=== PATIENT | male | born 1975 | race Two or more races ===

== ENCOUNTER 2018-01-03 10:02 | Emergency (ER) | payer OTHER, SELFPAY ==
[2018-01-03 10:07] VITALS: BP 152/106; PULSE 120; RESP 22; TEMP 37.1; O2SAT 96; BMI 21.2
--- NOTE | 2018-01-03 10:16 | CT_ITS ---
CT abdomen pelvis wo con CLINICAL INDICATION: ITS.REASON: N/V/ABD PAIN SINCE WEDNESDAY, HX OF GASTROPORESIS ORDERING PHYSICIAN: Popeye Luis MD PATIENT AGE: 42 years COMPARISON: None TECHNIQUE: Axial images obtained with sagittal and coronal reformats. PROCEDURE: Oral Contrast: None IV Contrast: None . FINDINGS: Lung bases are clear. There is mild nonspecific thickening of the distal esophagus. Prior cholecystectomy without ductal dilatation. The liver, spleen, pancreas, adrenal glands, and kidneys have an unremarkable unenhanced CT appearance. No gastric distention. No intestinal obstruction or free air. No evidence of appendicitis or diverticulitis. There is distention of the urinary bladder. The pelvis has an otherwise unremarkable appearance. No acute bony anomalies. IMPRESSION: 1. Distended urinary bladder. 2. Mild thickening of the distal esophagus nonspecific but may be seen with esophagitis/reflux 3. Otherwise negative CT abdomen and pelvis without contrast
[2018-01-03 10:31] LABS: Basophils % 0.1 % (0.1-2.0); Eosinophils % 0.2 % (0.1-12.0); Hematocrit 44.7 % (42.0-52.0); Hemoglobin 14.6 g/dL (14.1-18.0); Mean Corpuscular HGB Conc 32.7 g/dL (31.8-35.4); Mean Corpuscular Hemoglobin 29.5 pg (27.0-31.2); Mean Corpuscular Volume 90.3 fl (81-94); Mean Platelet Volume 9.6 fl (7.4-10.4); Monocytes # 0.8 K/mm3 (0.1-1.0); Monocytes % 5.3 % (1.7-9.3); Neutrophils # 12.5 K/mm3 (1.8-7.8); Neutrophils % 87.4 % (37.0-80.0); Platelet Count 296 K/mm3 (142-424); Red Blood Count 4.95 M/mm3 (4.60-6.20); Red Cell Distribution Width 12.9 % (11.5-17.5); White Blood Count 14.3 K/mm3 (4.8-10.8)
[2018-01-03 10:33] LABS: MANUAL DIFFERENTIAL MANUAL DIFFERENTIAL (MANUAL DIFF)
[2018-01-03 10:44] LABS: Alanine Aminotransferase 32 U/L (12-78); Albumin Level 4.7 gm/dL (3.4-5.0); Albumin/Globulin Ratio 1.2 (1.1-1.8); Alkaline Phosphatase 108 U/L (46-116); Amylase 117 U/L (25-125); Anion Gap 17.9 mEq/L (5-15); Aspartate Amino Transferase 20 U/L (15-37); Bilirubin,Total 0.9 mg/dL (0.2-1.0); Blood Urea Nitrogen 37 mg/dL (7-18); Calcium 10.4 mg/dL (8.5-10.1); Carbon Dioxide 29 mmol/L (21.0-32.0); Chloride 90 mmol/L (98-107); Creatinine Clearance Estimated 38 mL/min (0-300); Creatinine,Serum 1.63 mg/dL (0.70-1.30); Estimated Glomerular Filt Rate 46 ml/min (>60); GFR (African American) 56 ML/MIN (>60); Globulin 3.8 gm/dl (1.3-3.2); Lipase 88 u/L (73-393); Potassium 3.9 mmoL/L (3.5-5.1); Sodium 133 mmol/L (136-145); Total Protein,Serum 8.5 gm/dL (6.4-8.2)
[2018-01-03 10:46] LABS: Glucose 643 mg/dL (74-106)
[2018-01-03 10:58] LABS: Appearance,Urine CLEAR (Clear); Bilirubin,Urine Negative (Negative); Blood, Urine TRACE-I (Negative); Color,Urine YELLOW (Yellow); Glucose,Urine (UA) 3+ (Negative); Ketones,Urine 1+ (Negative); Leukocyte Esterase,Urine Negative (Negative); Microscopic, Urine URINE MICROSCOPIC (MICROSCOPIC); Nitrate,Urine Negative (Negative); Protein,Urine TRACE (Negative); Specific Gravity, Urine 1.015 (1.005-1.030); Urobilinogen,Urine 0.2 EU/dl (0.2)
[2018-01-03 11:04] LABS: Lymphocytes % 7 % (10-50); Monocytes % 4 % (2-9); Neutrophils % 89 % (42-76); Platelet Estimate Normal; RBC Morphology Normal; Total Cells Counted 100
[2018-01-03 11:05] LABS: Bacteria,Urine Trace /lpf
[2018-01-03 11:09] LABS: Amphetamine/Metha Screen,Urine Negative ng/mL (<1000); Barbiturates Screen,Urine Negative ng/mL (<200); Benzodiazepines Screen,Urine Negative ng/mL (200); Cannabinoid Screen,Urine Negative ng/mL (<50); Cocaine Screen,Urine Negative ng/g (<300); Methadone Screen,Urine Negative ng/mL (<300); Opiate Screen,Urine Negative ng/mL (<300); Phencyclidine Screen,Urine Negative ng/mL (<25)
--- NOTE | 2018-01-03 12:09 | HMH.EDABDPAI ---
ED Disposition Clinical Impression: Gastroparesis, Hyperglycemia Nausea & vomiting Qualifiers: Vomiting type: unspecified Vomiting Intractability: unspecified Qualified Code(s): R11.2 - Nausea with vomiting, unspecified Disposition: Home, Self-Care Condition on Discharge: Fair Instructions: DI for Acute Abdomen Additional Instructions: As discussed, increase the frequency of your meals but decrease the texture and the size (volume) of your meals. Try substituting some of your meals with shakes, as discussed. If not better follow-up with your PCP within 1-2 weeks. If any flareups in between return to the emergency room for additional workup and treatment. Time of Disposition: 17:18 - Critical Care Critical Care Time: No Attestation: On 01/03/18, the high probability of a clinically significant, sudden or life threatening deterioration of the following system(s) required my full and direct attention, intervention and personal management. The time I documented below is in addition to time spent performing reported procedures but includes the following listed in this critical care notation. Medical Decision Making - Medical Records Medical records reviewed: Yes: I reviewed the patient's medical records. Vital Signs: 01/03/18 10:07 01/03/18 18:09 Temperature 98.8 F 98.6 F Temperature Source Oral Pulse Rate 79 Pulse Rate [Left Brachial] 120 Respiratory Rate 22 18 Blood Pressure 122/86 Blood Pressure [Left Arm] 152/106 Blood Pressure Mean [Left Arm] 121 Blood Pressure Source [Left Arm] Automatic Cuff Blood Pressure Position [Left Arm] Sitting 02 Sat by Pulse Oximetry 96 Oxygen Delivery Method Room Air - Lab Data Lab results reviewed: Yes: I reviewed the patient's lab results. Lab Results 01/03/18 10:25: WBC 14.3 H, RBC 4.95, Hgb 14.6, Hct 44.7, MCV 90.3, MCH 29.5, MCHC 32.7, RDW 12.9, Plt Count 296, MPV 9.6, Neut % (Auto) 87.4 H, Lymph % (Auto) 7.0 L, [place] % (Auto) 5.3, Eos % (Auto) 0.2, Baso % (Auto) 0.1, Neut # (Auto) 12.5 H, Lymph # (Auto) 1.0, [place] # (Auto) 0.8, Eos # (Auto) 0.0, Baso # (Auto) 0.0, Total Counted 100, Neutrophils % (Manual) 89 H, Lymphocytes % (Manual) 7 L, Monocytes % (Manual) 4, Platelet Estimate Normal, RBC Morphology Normal 01/03/18 10:25: Sodium 133 L, Potassium 3.9, Chloride 90 L, Carbon Dioxide 29, Anion Gap 17.9 H, BUN 37 H, Creatinine 1.63 H, Estimated Creat Clear 38, Estimated GFR 46 L, Est GFR ( Amer) 56 L, Glucose 643 H*, Calcium 10.4 H, Total Bilirubin 0.9, AST 20, ALT 32, Alkaline Phosphatase 108, Total Protein 8.5 H, Albumin 4.7, Globulin 3.8 H, Albumin/Globulin Ratio 1.2, Amylase 117, Lipase 88 01/03/18 10:25: Influenza Type A Ag Negative, Influenza Type B Ag Negative 01/03/18 10:50: Urine Color Yellow, Urine Appearance Clear, Urine pH 5.0, Ur Specific [place] 1.015, Urine Protein Trace, Urine Glucose (UA) 3+, Urine Ketones 1+, Urine Blood Trace-i, Urine Nitrate Negative, Urine Bilirubin Negative, Urine Urobilinogen 0.2, Ur Leukocyte Esterase Negative, Urine RBC None, Urine WBC None, Ur Squamous Epith Cells 3-5, Urine Bacteria Trace 01/03/18 10:50: Urine Opiates Screen Negative, Ur Barbituates Screen Negative, Ur Phencyclidine Scrn Negative, Ur Amphetamines Screen Negative, U Methamphetamines Scrn Negative, U Benzodiazepines Scrn Negative, Urine Cocaine Screen Negative, U Marijuana (THC) Screen Negative 01/03/18 12:30: Specimen Source R radial, O2 % Room air, ABG pH 7.45, ABG pCO2 36.0, ABG pO2 69.8 L, ABG HCO3 24.5, ABG Total CO2 25.6, ABG O2 Saturation 94, ABG Base Excess 0.5, Escobar Test Acceptable 01/03/18 14:14: POC Glucose 276 Result diagrams: 01/03/18 10:25 01/03/18 10:25 Orders (Tests/Meds): ED MEDICATIONS Discontinued Medications Generic Name Dose Route Start Last Admin Trade Name Freq PRN Reason Stop Dose Admin Hydromorphone HCl 1 mg 01/03/18 14:34 01/03/18 14:39 Dilaudid 2mg/Ml Syringe IV 01/03/18 14:35 1 mg ONCE ONE Administration
[2018-01-03 12:42] LABS: ABG Base Excess 0.5 mmol/L (-2.4-2.3); ABG HCO3 24.5 mmhg (22.0-26.0); ABG Oxygen Saturation 94 % (90-100); ABG PH 7.45 mmol/L (7.35-7.45); ABG PO2 69.8 mmhg (80-100); ABG TCO2 25.6 mmhg (23-27)
[2018-01-03 12:43] LABS: Allen's Test ACCEPTABLE; Oxygen ROOM AIR %
[2018-01-03 12:44] LABS: Source R RADIAL
[2018-01-03 14:22] LABS: POC Glucose,Bedside 276 mg/dL
[2018-01-03 18:09] VITALS: BP 122/86; PULSE 79; RESP 18; TEMP 37; O2SAT 96
== END 2018-01-03 18:12 | disposition home or self-care (01) ==
PROVIDERS: Emergency Provider Emergency Medicine
DX: E11.43 Type 2 diabetes mellitus with diabetic autonomic (poly)neuropathy (principal); E11.65 Type 2 diabetes mellitus with hyperglycemia; K31.84 Gastroparesis
CPT/HCPCS: 74176; 80053; 80305; 81001; 82150; 82803; 82962; 83690; 85007; 85025; 87275; 87276; 90471; 90686; 96365; 96366; 96375; 96376; 99282; G0008; J2405

== ENCOUNTER 2018-01-04 09:21 | Observation (INO) | payer OTHER, SELFPAY ==
[2018-01-04] VITALS (7 sets, daily range): BP systolic 135–165; BP diastolic 80–105; PULSE 68–104; RESP 16–22; TEMP 36.7–37.4; O2SAT 98–100; BMI 21.2; BMI 20.5
[2018-01-04 10:24] LABS: Basophils % 0.1 % (0.1-2.0); Eosinophils % 0.1 % (0.1-12.0); Hematocrit 38.2 % (42.0-52.0); Lymphocytes % 7.5 K/mm3 (10-50); Mean Corpuscular HGB Conc 33.1 g/dL (31.8-35.4); Mean Corpuscular Hemoglobin 29.2 pg (27.0-31.2); Mean Corpuscular Volume 88.3 fl (80-94); Mean Platelet Volume 9.3 fl (7.4-10.4); Monocytes # 0.6 K/mm3 (0.1-1.0); Monocytes % 4.6 % (1.7-9.3); Neutrophils # 11.4 K/mm3 (1.8-7.8); Neutrophils % 87.7 % (37.0-80.0); Platelet Count 220 K/mm3 (142-424); Red Blood Count 4.33 M/mm3 (4.60-6.20); Red Cell Distribution Width 12.7 % (11.5-17.5); White Blood Count 12.9 K/mm3 (4.8-10.8)
[2018-01-04 10:32] LABS: Alanine Aminotransferase 34 U/L (12-78); Albumin Level 3.9 gm/dL (3.4-5.0); Albumin/Globulin Ratio 1.3 (1.1-1.8); Alkaline Phosphatase 87 U/L (46-116); Amylase 66 U/L (25-125); Anion Gap 18.1 mEq/L (5-15); Aspartate Amino Transferase 31 U/L (15-37); Bilirubin,Total 1.1 mg/dL (0.2-1.0); Blood Urea Nitrogen 21 mg/dL (7-18); Carbon Dioxide 24 mmol/L (21.0-32.0); Chloride 99 mmol/L (98-107); Creatinine Clearance Estimated 85 mL/min (0-300); Creatinine,Serum 0.85 mg/dL (0.70-1.30); Estimated Glomerular Filt Rate 98 ml/min (>60); GFR (African American) 118 ML/MIN (>60); Globulin 3.1 gm/dl (1.3-3.2); Glucose 292 mg/dL (74-106); Lipase 62 u/L (73-393); Potassium 4.1 mmoL/L (3.5-5.1); Sodium 137 mmol/L (136-145)
[2018-01-04 10:34] LABS: MANUAL DIFFERENTIAL MANUAL DIFFERENTIAL (MANUAL DIFF)
[2018-01-04 10:38] LABS: Hemoglobin 12.6 g/dL (14.1-18.0)
[2018-01-04 10:46] LABS: Calcium 8.4 mg/dL (8.5-10.1)
[2018-01-04 10:49] LABS: Lactic Acid 1.7 mmol/L (0.4-2.0)
[2018-01-04 11:01] LABS: Lymphocytes % 9 % (10-50); Monocytes % 1 % (2-9); Neutrophils % 89 % (42-76); Platelet Estimate Normal; RBC Morphology Normal; Total Cells Counted 100
--- NOTE | 2018-01-04 12:49 | HMH.EDABDPAI ---
ED Disposition Clinical Impression: Dehydration, Gastroparesis Intractable nausea and vomiting Qualifiers: Vomiting type: unspecified Qualified Code(s): R11.2 - Nausea with vomiting, unspecified Disposition: Admitted As Inpatient Condition on Discharge: Fair Time of Disposition: 11:30 - Critical Care Critical Care Time: No Attestation: On 01/04/18, the high probability of a clinically significant, sudden or life threatening deterioration of the following system(s) required my full and direct attention, intervention and personal management. The time I documented below is in addition to time spent performing reported procedures but includes the following listed in this critical care notation. Medical Decision Making - Medical Records Medical records reviewed: Yes: I reviewed the patient's medical records. Vital Signs: 01/04/18 09:35 01/04/18 10:23 01/04/18 11:31 Temperature 99.1 F 98.6 F Temperature Source Oral Oral Pulse Rate Pulse Rate [Right Radial] 104 H 85 75 Respiratory Rate 18 20 22 Blood Pressure Blood Pressure [Right Arm] 139/105 135/80 151/98 Blood Pressure Mean [Right Arm] 116 98 115 Blood Pressure Source Blood Pressure Source [Right Arm] Automatic Cuff Automatic Cuff Automatic Cuff Blood Pressure Position Blood Pressure Position [Right Arm] Supine Sitting 02 Sat by Pulse Oximetry 99 98 99 Oxygen Delivery Method Room Air Room Air Room Air 01/04/18 11:33 Temperature 98.6 F Temperature Source Oral Pulse Rate 98 H Pulse Rate [Right Radial] Respiratory Rate 16 Blood Pressure 165/98 Blood Pressure [Right Arm] Blood Pressure Mean [Right Arm] Blood Pressure Source Automatic Cuff Blood Pressure Source [Right Arm] Blood Pressure Position Sitting Blood Pressure Position [Right Arm] 02 Sat by Pulse Oximetry Oxygen Delivery Method Room Air - Lab Data Lab results reviewed: Yes: I reviewed the patient's lab results. Lab Results 01/04/18 10:15: WBC 12.9 H, RBC 4.33 L, Hgb 12.6 L D, Hct 38.2 L, MCV 88.3, MCH 29.2, MCHC 33.1, RDW 12.7, Plt Count 220 D, MPV 9.3, Neut % (Auto) 87.7 H, Lymph % (Auto) 7.5 L, [place] % (Auto) 4.6, Eos % (Auto) 0.1, Baso % (Auto) 0.1, Neut # (Auto) 11.4 H, Lymph # (Auto) 1.0, [place] # (Auto) 0.6, Eos # (Auto) 0.0, Baso # (Auto) 0.0, Total Counted 100, Neutrophils % (Manual) 89 H, Lymphocytes % (Manual) 9 L, Monocytes % (Manual) 1 L, Metamyelocytes % 1.0, Platelet Estimate Normal, RBC Morphology Normal 01/04/18 10:15: Sodium 137, Potassium 4.1, Chloride 99, Carbon Dioxide 24, Anion Gap 18.1 H, BUN 21 H D, Creatinine 0.85 D, Estimated Creat Clear 85, Estimated GFR 98, Est GFR ( Amer) 118 D, Glucose 292 H D, Calcium 8.4 L D, Total Bilirubin 1.1 H, AST 31 D, ALT 34, Alkaline Phosphatase 87, Total Protein 7.0, Albumin 3.9 D, Globulin 3.1, Albumin/Globulin Ratio 1.3, Amylase 66 D, Lipase 62 L 01/04/18 10:28: Lactic Acid 1.7 Result diagrams: 01/05/18 06:25 01/05/18 06:25 Orders (Tests/Meds): ED MEDICATIONS Generic Name Dose Route Start Last Admin Trade Name Freq PRN Reason Stop Dose Admin Amlodipine Besylate 5 mg 01/05/18 09:00 01/05/18 09:30 Norvasc 5mg Tablet PO 02/03/18 15:44 5 mg DAILY GAIL Administration Blood Glucose Test Strips 1 each 01/04/18 21:00 01/05/18 12:05 Fsbs (Bedside Glucose), Results Only !! FS 02/03/18 16:29 1 each ACHS GAIL Administration Lactated Ringer's 1,000 mls @ 125 mls/hr 01/04/18 20:06 01/05/18 03:13 Lactated Ringer's 1000 Ml Bag IV 02/03/18 12:59 125 mls/hr .Q8H GAIL Administration Insulin Human Lispro 0 unit 01/04/18 21:00 01/05/18 12:06 Humalog 100 Units/Ml 3ml Vial (Ssi) SQ 02/03/18 16:29 2 unit ACHS GAIL Administration Protocol Metoclopramide HCl 10 mg 01/05/18 00:30 01/05/18 14:15 Reglan 10mg/2ml Vial IVP 02/03/18 18:29 10 mg Q6H GAIL Administration Morphine Sulfate 2 mg 01/05/18 09:00 Morphine Inj 2mg/0.2ml IV 02/04/18 08:59 Q4HP IL
--- NOTE | 2018-01-04 15:11 | HMH.HP ---
*Chief complaint: Abdominal pain and vomiting <Hilary Arora - 01/04/18 15:23> *History of present illness: Mr Boyle is a 42-year-old male with a history of type 2 diabetes mellitus, hypertension, chronic constipation, and gastroparesis who presented to [facility] emergency room with severe abdominal pain and nausea and vomiting. Significant other is with him in the room and answers many of the questions. Patient began having the abdominal pain on 01/01/2018 along with nausea and vomiting. He was unable to retain food or fluid and thus he presented to [facility] emergency room on January 03, 2018 at which time he received IV fluids and medication for the discomfort and the nausea. He received instructions on eating and was discharged to home. He returned back to the emergency room this morning with the same symptoms which had not improved. He was given pain medicine, Zofran and IV fluid boluses. He was then admitted for further evaluation and treatment Mr. Boyle has a long history with abdominal pain, nausea and vomiting. He has previously been hospitalized at [facility] on several occasions as well as [facility] in [place], [place], and [facility]. He has been extensively worked up at and followed in the GI clinic with his last documented visit on 06/12/17. He was lost last hospitalized at [facility] 10/2016 after colonoscopy. He has been seen in the emergency room but has been without hospital admission since then. He has no insurance and has not been taking his medicine on a regular basis. His significant other states that she obtains medicines for him from other people. He has not been in the office of [facility] since 06/02/2017. He states he does not have the money for a visit. He cannot remember when he last took metformin. The significant other did say that when he was in the emergency room yesterday that his blood sugar was 700. She thinks that he received some insulin. Last EDG was 08/12/16 with notation of a polyp removal; Last colonoscopy was 10/14 and was normal. At the time of this exam he has just received an anti-medic as well as pain medicine and is fairly comfortable. <Hilary Arora - 01/04/18 17:20> [facility] History Medical History: Reports:: Diabetes Mellitus Type 2, Gastroesophageal Reflux Disease(GERD), Palpitations Denies:: Atherosclerotic Heart Disease, BPH, Cancer, Diabetes Mellitus Type 1, MRSA <MaiteHilary 01/04/18 15:23> Other Medical History: Reports: Arthritis <Mona Arorahy 01/04/18 17:20> Comment: Thrombophebitis; chronic constipation; hepatitis A <MaiteHilary 01/04/18 17:20> Amputation: No <AroraHilary 01/04/18 15:23> Fractures: No <AroraHilary 01/04/18 15:23> Comment: cholecystectomy; liver biopsy <MaiteHilary 01/04/18 17:20> - *Social History Educational Level: Completed High School <AroraHilary 01/04/18 15:23> Smoking Status: Never smoker <AroraHilary 01/04/18 15:23> Alcohol Intake: never <MaiteHilary 01/04/18 15:23> - Psychiatric History Expresses thoughts of harming self/others: None <AroraHilary 01/04/18 15:23> Suicide Plan Description: No Plan <MaiteHilary 01/04/18 15:23> *Family Hx:: Coronary Artery Disease, Diabetes <MaiteHilary 01/04/18 15:23> Review of Systems - Constitutional Reports body ache(s), Denies fever(s), Denies weight loss <MaiteHilary 01/04/18 15:23> Comments: He has actually gained weight <AroraHilary 01/04/18 15:23> - Eyes Reports blurry vision <AroraHilary 01/04/18 15:23> - ENT Denies headache(s), Denies sore throat <AroraHilary 01/04/18 15:23> - *Cardiovascular Denies chest pain, Denies shortness of breath <AroraHilary 01/04/18 15:23> - *Respiratory Denies chest congestion, Denies shortness of breath <AroraHilary 01/04/18 15:23> - *Gastrointestinal Reports abdominal pain, Reports coffee ground vomit, Reports heartburn, De
--- NOTE | 2018-01-04 15:19 | P.HP_ITS ---
*Chief complaint: Abdominal pain and vomiting <Hilary Arora - 01/04/18 15:23> *History of present illness: Mr Boyle is a 42-year-old male with a history of type 2 diabetes mellitus, hypertension, chronic constipation, and gastroparesis who presented to [facility] emergency room with severe abdominal pain and nausea and vomiting. Significant other is with him in the room and answers many of the questions. Patient began having the abdominal pain on 01/01/2018 along with nausea and vomiting. He was unable to retain food or fluid and thus he presented to [facility] emergency room on January 03, 2018 at which time he received IV fluids and medication for the discomfort and the nausea. He received instructions on eating and was discharged to home. He returned back to the emergency room this morning with the same symptoms which had not improved. He was given pain medicine, Zofran and IV fluid boluses. He was then admitted for further evaluation and treatment Mr. Boyle has a long history with abdominal pain, nausea and vomiting. He has previously been hospitalized at [facility] on several occasions as well as [facility] in [place], [place], and [facility]. He has been extensively worked up at and followed in the GI clinic with his last documented visit on 06/12/17. He was lost last hospitalized at [facility] 10/2016 after colonoscopy. He has been seen in the emergency room but has been without hospital admission since then. He has no insurance and has not been taking his medicine on a regular basis. His significant other states that she obtains medicines for him from other people. He has not been in the office of [facility] since 06/02. He states he does not have the money for a visit. He cannot remember when he last took metformin. The significant other did say that when he was in the emergency room yesterday that his blood sugar was 700. She thinks that he received some insulin. Last EDG was 08/12/16 with notation of a polyp removal; Last colonoscopy was and was normal. At the time of this exam he has just received an anti-medic as well as pain medicine and is fairly comfortable. <Hilary Arora - 01/04/18 17:20> [facility] History Medical History: Reports:: Diabetes Mellitus Type 2, Gastroesophageal Reflux Disease(GERD), Palpitations Denies:: Atherosclerotic Heart Disease, BPH, Cancer, Diabetes Mellitus Type 1 , MRSA <AroraHilary 01/04/18 15:23> Other Medical History: Reports: Arthritis <AroraHilary 01/04/18 17:20> Comment: Thrombophebitis; chronic constipation; hepatitis A <AroraHilary 01/04/18 17:20> Amputation: No <AroraHilary 01/04/18 15:23> Fractures: No <AroraHilary 01/04/18 15:23> Comment: cholecystectomy; liver biopsy <AroraHilary 01/04/18 17:20> - *Social History Educational Level: Completed High School <AroraHilary 01/04/18 15:23> Smoking Status: Never smoker <AroraHilary 01/04/18 15:23> Alcohol Intake: never <AroraHilary 01/04/18 15:23> - Psychiatric History Expresses thoughts of harming self/others: None <Arora,Hilary 01/04/18 15: 23> Suicide Plan Description: No Plan <AroraHilary 01/04/18 15:23> *Family Hx:: Coronary Artery Disease, Diabetes <AroraHilary 01/04/18 15:23 > Review of Systems - Constitutional Reports body ache(s), Denies fever(s), Denies weight loss <AroraHilary 05/16 15:23> Comments: He has actually gained weight <MaiteHilary 01/04/18 15:23> - Eyes Reports blurry vision <MaiteHilary 01/04/18 15:23> - ENT Denies headache(s), Denies sore throat <MaiteHilary 01/04/18 15:23> - *Cardiov
[2018-01-04 17:17] LABS: POC Glucose,Bedside 204 mg/dL
--- NOTE | 2018-01-04 18:45 | PC.NURSE ---
PATIENT ADMITTED WITH INTRACTABLE VOMITING AND NAUSEA THIS HAS BEEN GOING ON FOR ABOUT 4 DAYS NOW, PATIENT STATES ABOUT RUPAL HIS ABDOMEN STARTED HURTING, THEN BECAME SO NAUSEATED AND VOMITING EVERYTHING UP. HE HAS NOT EATEN MUCH SINCE THEN BECAUSE EVERYTHING WANTS TO COME BACK UP. A FRIEND BROUGHT HIM INTO THE ER TODAY, THEY LIVE TOGETHER, PATIENT HAS A HISTORY OF GASTROPARESIS, HE WAS ACTUALLY IN THE ER YESTERDAY WELL WITH THE SAME COMPLAINTS. PATIENT IS GETTING IVF'S AT 125ML/HR IV PAIN MEDICATION AND IV NAUSEA MEDICATION AT THIS TIME.
--- NOTE | 2018-01-04 19:54 | PC.NURSE ---
PATIENT HANDOFF REPORT WAS GIVEN TO MERISSA TRIPP.
[2018-01-04 21:36] LABS: POC Glucose,Bedside 173 mg/dL
[2018-01-05 04:40] VITALS: BP 137/85; PULSE 69; RESP 20; TEMP 36.7
[2018-01-05 06:13] LABS: POC Glucose,Bedside 168 mg/dL
[2018-01-05 07:02] LABS: Basophils % 0.3 % (0.1-2.0); Eosinophils % 0.5 % (0.1-12.0); Hematocrit 35.1 % (42.0-52.0); Hemoglobin 11.6 g/dL (14.1-18.0); Lymphocytes # 2.2 K/mm3 (0.7-4.5); Lymphocytes % 30.4 K/mm3 (10-50); Mean Corpuscular HGB Conc 32.9 g/dL (31.8-35.4); Mean Corpuscular Hemoglobin 29.5 pg (27.0-31.2); Mean Corpuscular Volume 89.4 fl (80-94); Mean Platelet Volume 9.5 fl (7.4-10.4); Monocytes # 0.4 K/mm3 (0.1-1.0); Monocytes % 5.6 % (1.7-9.3); Neutrophils # 4.5 K/mm3 (1.8-7.8); Neutrophils % 63.1 % (37.0-80.0); Platelet Count 196 K/mm3 (142-424); Red Blood Count 3.92 M/mm3 (4.60-6.20); Red Cell Distribution Width 12.5 % (11.5-17.5); White Blood Count 7.2 K/mm3 (4.8-10.8)
[2018-01-05 07:09] LABS: Alanine Aminotransferase 30 U/L (12-78); Albumin Level 3.3 gm/dL (3.4-5.0); Albumin/Globulin Ratio 1.2 (1.1-1.8); Alkaline Phosphatase 74 U/L (46-116); Anion Gap 12.4 mEq/L (5-15); Aspartate Amino Transferase 23 U/L (15-37); Bilirubin,Total 1.6 mg/dL (0.2-1.0); Blood Urea Nitrogen 18 mg/dL (7-18); Calcium 8.4 mg/dL (8.5-10.1); Carbon Dioxide 28 mmol/L (21.0-32.0); Chloride 104 mmol/L (98-107); Creatinine Clearance Estimated 100 mL/min (0-300); Estimated Glomerular Filt Rate 123 ml/min (>60); GFR (African American) 148 ML/MIN (>60); Globulin 2.7 gm/dl (1.3-3.2); Glucose 163 mg/dL (74-106); Potassium 4.4 mmoL/L (3.5-5.1); Sodium 140 mmol/L (136-145)
--- NOTE | 2018-01-05 07:31 | P.CONPHA_ITS ---
[facility] Pharmacy VTE Monitoring - Patient Demographics Admission date: 01/04/18 Report Date: 01/05/18 Time: 07:31 Allergies/Adverse Reactions: Patient Allergies codeine [CODEINE] Allergy (Unknown, Verified 01/03/18 12:09) UNKNOWN Iodinated Contrast Media - Oral and [Iodinated Contrast Media - IV Dye] Allergy (Unknown, Verified 01/03/18 12:09) TONGUE SWELLING, DIFF. TALKING lisinopril [LISINOPRIL] Allergy (Unknown, Verified 01/03/18 12:09) I-HIVES Height: 1.6 m Weight: 52.418 kg Patient Problems: Current Active Problems (This Medical Record has been edited. Action required.) Gastroparesis (Chronic) Intractable nausea and vomiting (Acute) Dehydration (Acute) Type 2 diabetes mellitus (Chronic) Abdominal pain (Acute) Medical non-compliance (Acute) - VTE Risk Labs: VTE Related Lab Results Hgb 11.6 g/dL (14.1-18.0) L 01/05/18 06:25 Hct 35.1 % (42.0-52.0) L 01/05/18 06:25 Plt Count 196 K/mm3 (142-424) 01/05/18 06:25 BUN 18 mg/dL (7-18) 01/05/18 06:25 Creatinine 0.70 mg/dL (0.70-1.30) 01/05/18 06:25 Estimated Creat Clear 100 mL/min (0-300) 01/05/18 06:25 Was VTE Risk Assessment Performed: Yes VTE Score: 1 VTE Risk Level: Very Low Risk Clinical Trial Participant: No - Prophylaxis VTE Prophylaxis Ordered?: Yes Types of VTE Prophylaxis: TEDS Knee High
[2018-01-05 07:50] VITALS: BP 151/89; PULSE 62; RESP 20; TEMP 36.8; O2SAT 98
[2018-01-05 08:00] VITALS: O2SAT 97
--- NOTE | 2018-01-05 08:06 | HMH.ACPN2 ---
<Alona Colbert - Last Filed: 01/05/18 08:06> Internal Medicine - PN: Subj *Date: 01/05/18 *Time: 08:06 Interval history: Patient states he has not vomited today. He is still nauseated. He slept well last night and is trying to eat this morning. Exam Vital signs and Labs for Last 24 Hours: Temp Pulse Resp BP Pulse Ox 98.3 F 62 20 151/89 98 01/05/18 07:50 01/05/18 07:50 01/05/18 07:50 01/05/18 07:50 01/05/18 07:50 Laboratory Results - last 24 hr 01/04/18 16:30: POC Glucose 204 01/04/18 21:24: POC Glucose 173 01/05/18 05:58: POC Glucose 168 01/05/18 06:25: WBC 7.2 D, RBC 3.92 L, Hgb 11.6 L, Hct 35.1 L, MCV 89.4, MCH 29.5, MCHC 32.9, RDW 12.5, Plt Count 196, MPV 9.5, Neut % (Auto) 63.1, Lymph % (Auto) 30.4, [place] % (Auto) 5.6, Eos % (Auto) 0.5, Baso % (Auto) 0.3, Neut # (Auto) 4.5, Lymph # (Auto) 2.2, [place] # (Auto) 0.4, Eos # (Auto) 0.0, Baso # (Auto) 0.0 01/05/18 06:25: Sodium 140, Potassium 4.4, Chloride 104, Carbon Dioxide 28, Anion Gap 12.4, BUN 18, Creatinine 0.70, Estimated Creat Clear 100, Estimated GFR 123, Est GFR ( Amer) 148 D, Glucose 163 H D, Calcium 8.4 L, Total Bilirubin 1.6 H, AST 23 D, ALT 30, Alkaline Phosphatase 74, Total Protein 6.0 L, Albumin 3.3 L D, Globulin 2.7, Albumin/Globulin Ratio 1.2 I & O for Last 24 hours: Intake & Output 01/02/18 01/03/18 01/04/18 01/05/18 11:59 11:59 11:59 11:59 Intake Total 360 / 360 Balance 360 / 360 Weight 115 lb 8.99 oz 115 lb 9 oz - Constitutional no acute distress - *Routine Respiratory Exam Present: CTA bilaterally - *Routine Cardiovascular Exam Present: RRR - *Routine Abdominal Exam Present: soft, normoactive bowel sounds, tenderness (epigastric area) - *Routine Extremities Exam Absent: edema Assessment and Plan (1) Dehydration Current visit: Yes Status: Acute Category: Medical Code(s): E86.0 - Dehydration (2) Abdominal pain Current visit: Yes Status: Acute Category: Medical Code(s): R10.9 - Unspecified abdominal pain (3) Intractable nausea and vomiting Current visit: Yes Status: Acute Qualifiers: Vomiting type: unspecified Qualified Code(s): R11.2 - Nausea with vomiting, unspecified Category: Medical Code(s): R11.2 - Nausea with vomiting, unspecified (4) Gastroparesis Current visit: Yes Status: Chronic Category: Medical Code(s): K31.84 - Gastroparesis (5) Type 2 diabetes mellitus Current visit: Yes Status: Chronic Category: Medical Code(s): E11.9 - Type 2 diabetes mellitus without complications (6) Medical non-compliance Current visit: Yes Status: Acute Category: Medical Code(s): Z91.19 - Patient's noncompliance with other medical treatment and regimen - Assessment and plan all Dx Assessment and Plan for all problems:: Vomiting has stopped. Patient is improving. We will discuss further care with Dr. Cheung. <Jermain Cheung - Last Filed: 01/05/18 08:57> Internal Medicine - PN: Subj *Date: 01/05/18 *Time: 08:56 Exam Vital signs and Labs for Last 24 Hours: Temp Pulse Resp BP Pulse Ox 98.3 F 62 20 151/89 98 01/05/18 07:50 01/05/18 07:50 01/05/18 07:50 01/05/18 07:50 01/05/18 07:50 Laboratory Results - last 24 hr 01/04/18 16:30: POC Glucose 204 01/04/18 21:24: POC Glucose 173 01/05/18 05:58: POC Glucose 168 01/05/18 06:25: WBC 7.2 D, RBC 3.92 L, Hgb 11.6 L, Hct 35.1 L, MCV 89.4, MCH 29.5, MCHC 32.9, RDW 12.5, Plt Count 196, MPV 9.5, Neut % (Auto) 63.1, Lymph % (Auto) 30.4, [place] % (Auto) 5.6, Eos % (Auto) 0.5, Baso % (Auto) 0.3, Neut # (Auto) 4.5, Lymph # (Auto) 2.2, [place] # (Auto) 0.4, Eos # (Auto) 0.0, Baso # (Auto) 0.0 01/05/18 06:25: Sodium 140, Potassium 4.4, Chloride 104, Carbon Dioxide 28, Anion Gap 12.4, BUN 18, Creatinine 0.70, Estimated Creat Clear 100, Estimated GFR 123, Est GFR ( Amer) 148 D, Glucose 163 H D, Calcium 8.4 L, Total Bilirubin 1.6 H, AST 23 D, ALT 30, Alkaline Phos
[2018-01-05 12:21] LABS: POC Glucose,Bedside 154 mg/dL
--- NOTE | 2018-01-05 14:20 | HMH.DCSUM ---
General - General Admission date: 01/04/18 <SkyeJermain alexander - 01/05/18 14:23> Discharge date: 01/05/18 <JjfelipeAlona - 01/05/18 16:00> HPI HPI: Mr Boyle is a 42-year-old male with a history of type 2 diabetes mellitus, hypertension, chronic constipation, and gastroparesis who presented to [facility] emergency room with severe abdominal pain and nausea and vomiting. Significant other is with him in the room and answers many of the questions. Patient began having the abdominal pain on 01/01/2018 along with nausea and vomiting. He was unable to retain food or fluid and thus he presented to [facility] emergency room on January 03, 2018 at which time he received IV fluids and medication for the discomfort and the nausea. He received instructions on eating and was discharged to home. He returned back to the emergency room this morning with the same symptoms which had not improved. He was given pain medicine, Zofran and IV fluid boluses. He was then admitted for further evaluation and treatment Mr. Boyle has a long history with abdominal pain, nausea and vomiting. He has previously been hospitalized at [facility] on several occasions as well as [facility] in [place], [place], and [facility]. He has been extensively worked up at and followed in the GI clinic with his last documented visit on 06/12/17. He was last hospitalized at [facility] 10/2016 after colonoscopy. He has been seen in the emergency room but has been without hospital admission since then. He has no insurance and has not been taking his medicine on a regular basis. His significant other states that she obtains medicines for him from other people. He has not been in the office of [facility] since 06/02/2017. He states he does not have the money for a visit. He cannot remember when he last took metformin. The significant other did say that when he was in the emergency room yesterday that his blood sugar was 700. She thinks that he received some insulin. Last EGD was 08/12/16 with notation of a polyp removal; Last colonoscopy was 10/14 and was normal. At the time of his initial exam he had just received an anti-emetic as well as pain medicine and was fairly comfortable. <SkyeJermain alexander Harshil - 02/21/18 21:35> Hospital Course Hospital Course: The patient was started on reglan, IVF's, and sliding scale insulin. He was also started on amlodipine for his HTN. His abdominal pain and vomiting improved. He was able to tolerate a diet and was stable to be discharged home. <Alona Colbert - 01/05/18 16:00> Objective Vital signs: Temp Pulse Resp BP Pulse Ox 98.3 F 62 20 151/89 97 01/05/18 07:50 01/05/18 07:50 01/05/18 07:50 01/05/18 07:50 01/05/18 08:00 <Alona Colbert - 01/05/18 15:55> Temp Pulse Resp BP Pulse Ox 98.3 F 62 20 151/89 97 01/05/18 07:50 01/05/18 07:50 01/05/18 07:50 01/05/18 07:50 01/05/18 08:00 <Jermain Cheung - 01/05/18 14:23> Narrative: - Constitutional no acute distress - *Routine HEENT Exam Head: Present: normocephalic, atraumatic Eye: Present: PERRL. Absent: scleral injection, conjunctivae pink ENT: Present: mucous membranes moist - *Routine Neck Exam Present: supple. Absent: carotid bruit, lymphadenopathy, thyromegaly - *Routine Respiratory Exam Present: CTA bilaterally (A and P) - *Routine Cardiovascular Exam Present: RRR (70 bpm) - *Routine Abdominal Exam Present: soft, normoactive bowel sounds, tenderness (Gastrium and left upper quadrant) - *Routine Extremities Exam Present: full ROM. Absent: edema, calf tenderness - *Routine Neurological Exam Present: alert, oriented X3 <Alona Colbert - 01/05/18 16:00> Results Labs on day of discharge: Labs from last 24 hours 01/05/18 01/05/18 01/05/18 12:04 06:25 06:25 WBC 7.2 D RBC 3.92 L Hgb 11.6 L Hct 35.1 L M
--- NOTE | 2018-01-05 14:23 | P.DS_ITS ---
General - General Admission date: 01/04/18 <SkyeJermain alexander - 01/05/18 14:23> Discharge date: 01/05/18 <JjfelipeAlona - 01/05/18 16:00> HPI HPI: Mr Boyle is a 42-year-old male with a history of type 2 diabetes mellitus, hypertension, chronic constipation, and gastroparesis who presented to [facility] emergency room with severe abdominal pain and nausea and vomiting. Significant other is with him in the room and answers many of the questions. Patient began having the abdominal pain on 01/01/2018 along with nausea and vomiting. He was unable to retain food or fluid and thus he presented to [facility] emergency room on January 03, 2018 at which time he received IV fluids and medication for the discomfort and the nausea. He received instructions on eating and was discharged to home. He returned back to the emergency room this morning with the same symptoms which had not improved. He was given pain medicine, Zofran and IV fluid boluses. He was then admitted for further evaluation and treatment Mr. Boyle has a long history with abdominal pain, nausea and vomiting. He has previously been hospitalized at [facility] on several occasions as well as [facility] in [place], [place], and [facility]. He has been extensively worked up at and followed in the GI clinic with his last documented visit on 06/12/17. He was last hospitalized at [facility] 10/2016 after colonoscopy. He has been seen in the emergency room but has been without hospital admission since then. He has no insurance and has not been taking his medicine on a regular basis. His significant other states that she obtains medicines for him from other people. He has not been in the office of [facility] since 06/02/2017. He states he does not have the money for a visit. He cannot remember when he last took metformin. The significant other did say that when he was in the emergency room yesterday that his blood sugar was 700. She thinks that he received some insulin. Last EGD was 08/12/16 with notation of a polyp removal; Last colonoscopy was and was normal. At the time of his initial exam he had just received an anti-emetic as well as pain medicine and was fairly comfortable. <SkyeJermain alexander Harshil - 02/21/18 21:35> Hospital Course Hospital Course: The patient was started on reglan, IVF's, and sliding scale insulin. He was also started on amlodipine for his HTN. His abdominal pain and vomiting improved. He was able to tolerate a diet and was stable to be discharged home. <Alona Colbert - 01/05/18 16:00> Objective Vital signs: Temp Pulse Resp BP Pulse Ox 98.3 F 62 20 151/89 97 01/05/18 07:50 01/05/18 07:50 01/05/18 07:50 01/05/18 07:50 01/05/18 08:00 <Alona Colbert - 01/05/18 15:55> Temp Pulse Resp BP Pulse Ox 98.3 F 62 20 151/89 97 01/05/18 07:50 01/05/18 07:50 01/05/18 07:50 01/05/18 07:50 01/05/18 08:00 <Jermain Cheung - 01/05/18 14:23> Narrative: - Constitutional no acute distress - *Routine HEENT Exam Head: Present: normocephalic, atraumatic Eye: Present: PERRL. Absent: scleral injection, conjunctivae pink ENT: Present: mucous membranes moist - *Routine Neck Exam Present: supple. Absent: carotid bruit, lymphadenopathy, thyromegaly - *Routine Respiratory Exam Present: CTA bilaterally (A and P) - *Routine Cardiovascular Exam Present: RRR (70 bpm) - *Routine Abdominal Exam Present: soft, normoactive bowel sounds, tenderness (
== END 2018-01-05 14:48 | disposition home or self-care (01) ==
LOC: ER 09:40 → 2ND 11:22
PROVIDERS: Nurse Practitioner Family; Admitting Provider Family Medicine; Emergency Provider Emergency Medicine; PCP Family Medicine; Visit Provider Family Medicine
DX: E86.0 Dehydration (principal); E11.43 Type 2 diabetes mellitus with diabetic autonomic (poly)neuropathy; K31.84 Gastroparesis; K59.09 Other constipation; T50.996A Underdosing of other drugs, medicaments and biological substances, initial encounter; R11.2 Nausea with vomiting, unspecified; R10.9 Unspecified abdominal pain; Z79.84 Long term (current) use of oral hypoglycemic drugs; Z79.899 Other long term (current) drug therapy; Z86.19 Personal history of other infectious and parasitic diseases; Z90.49 Acquired absence of other specified parts of digestive tract; Z91.138 Patient's unintentional underdosing of medication regimen for other reason; Z88.5 Allergy status to narcotic agent; Z88.8 Allergy status to other drugs, medicaments and biological substances; Z91.041 Radiographic dye allergy status
CPT/HCPCS: 80053; 82150; 82962; 83605; 83690; 85007; 85025; 87040; 96365; 96375; 99282; G0378; J2405

== ENCOUNTER → 2018-01-19 09:37 | Outpatient (POV) | payer SELFPAY | PROVIDERS: Visit Provider Physician Assistant Medical | DX: Z00.00 Encounter for general adult medical examination without abnormal findings (principal) ==

== ENCOUNTER 2018-01-28 11:15 | Inpatient (IN) | payer OTHER, SELFPAY ==
[2018-01-28 11:24] VITALS: BP 167/13; PULSE 119; RESP 22; TEMP 36.5; O2SAT 97; BMI 26.5
--- NOTE | 2018-01-28 11:51 | HMH.EDGENADL ---
ED Disposition Clinical Impression: Gastroparesis diabeticorum, Gastroparesis Nausea & vomiting Qualifiers: Vomiting type: unspecified Vomiting Intractability: non-intractable Qualified Code(s): R11.2 - Nausea with vomiting, unspecified Disposition: Admitted as Observation Condition on Discharge: Fair Referrals: Provider,Jeannie, [Primary Care Provider] - Jermain Cheung MD [Staff Physician] - Time of Disposition: 16:00 - Critical Care Critical Care Time: No Attestation: On 01/28/18, the high probability of a clinically significant, sudden or life threatening deterioration of the following system(s) required my full and direct attention, intervention and personal management. The time I documented below is in addition to time spent performing reported procedures but includes the following listed in this critical care notation. Medical Decision Making - Medical Records Medical records reviewed: Yes: I reviewed the patient's medical records. Vital Signs: 01/28/18 11:24 01/28/18 13:26 Temperature 97.7 F Temperature Source Tympanic Pulse Rate [Right] 119 H 97 H Respiratory Rate 22 16 Blood Pressure [Right Arm] 167/13 139/97 Blood Pressure Mean [Right Arm] 64 111 Blood Pressure Source [Right Arm] Automatic Cuff Automatic Cuff Blood Pressure Position [Right Arm] Supine Sitting 02 Sat by Pulse Oximetry 97 98 Oxygen Delivery Method Room Air Room Air - Lab Data Lab results reviewed: Yes: I reviewed the patient's lab results. Lab Results 01/28/18 11:30: WBC 9.1, RBC 4.98, Hgb 15.1, Hct 45.9, MCV 92.1, MCH 30.3, MCHC 32.9, RDW 12.8, Plt Count 286, MPV 9.4, Neut % (Auto) 84.9 H, Lymph % (Auto) 11.5, [place] % (Auto) 2.8, Eos % (Auto) 0.1, Baso % (Auto) 0.2, Neut # (Auto) 7.7, Lymph # (Auto) 1.0, [place] # (Auto) 0.3, Eos # (Auto) 0.0, Baso # (Auto) 0.0 01/28/18 11:30: Sodium 138, Potassium 4.3, Chloride 96 L, Carbon Dioxide 28, Anion Gap 18.3 H, BUN 29 H, Creatinine 1.15, Estimated Creat Clear 79, Estimated GFR 69, Est GFR ( Amer) 84, Glucose 372 H, Calcium 9.7, Total Bilirubin 1.0, AST 13 L, ALT 29, Alkaline Phosphatase 104, Total Protein 8.5 H D, Albumin 4.7, Globulin 3.8 H, Albumin/Globulin Ratio 1.2, Amylase 131 H, Lipase 80 01/28/18 12:09: Specimen Source R radial, O2 % Room air, ABG pH 7.50 H, ABG pCO2 29.7 L, ABG pO2 122.4 H, ABG HCO3 22.6, ABG Total CO2 23.6, ABG O2 Saturation 98, ABG Base Excess -0.5, Escobar Test Acceptable 01/28/18 12:30: Lactic Acid 1.6 01/28/18 15:20: Urine Opiates Screen Positive H, Ur Barbituates Screen Negative, Ur Phencyclidine Scrn Negative, Ur Amphetamines Screen Negative, U Methamphetamines Scrn Negative, U Benzodiazepines Scrn Negative, Urine Cocaine Screen Negative, U Marijuana (THC) Screen Negative Result diagrams: 01/28/18 11:30 01/28/18 11:30 Orders (Tests/Meds): ED MEDICATIONS Discontinued Medications Generic Name Dose Route Start Last Admin Trade Name Freq PRN Reason Stop Dose Admin Sodium Chloride 1,000 mls @ 999 mls/hr 01/28/18 11:45 01/28/18 11:42 Sod Chlor 0.9% 1000ml Bag IV 01/28/18 12:45 999 mls/hr .Q1H1M GAIL Administration Ketorolac Tromethamine 30 mg 01/28/18 15:02 01/28/18 15:03 Toradol 30mg/Ml Vial IV 01/28/18 15:03 30 mg ONCE ONE Administration Morphine Sulfate 4 mg 01/28/18 11:37 01/28/18 11:42 Morphine 4mg/Ml Syringe IV 01/28/18 11:38 4 mg ONCE ONE Administration Morphine Sulfate 4 mg 01/28/18 15:42 01/28/18 15:45 Morphine 4mg/Ml Syringe IV 01/28/18 15:43 4 mg ONCE ONE Administration Ondansetron HCl 4 mg 01/28/18 11:37 01/28/18 11:42 Zofran 4mg/2ml Vial IV 01/28/18 11:38 4 mg ONCE ONE Administration Ondansetron HCl 4 mg 01/28/18 15:42 01/28/18 15:44 Zofran 4mg/2ml Vial IV 01/28/18 15:43 4 mg ONCE ONE Administration Pantoprazole Sodium 40 mg 01/28/18 12:10 01/28/18 12:20 Protonix 40mg Vial IV 01/28/18 12:11 40 mg ONCE ONE Administration Sodium Chlori
[2018-01-28 11:58] LABS: Alanine Aminotransferase 29 U/L (12-78); Albumin Level 4.7 gm/dL (3.4-5.0); Albumin/Globulin Ratio 1.2 (1.1-1.8); Alkaline Phosphatase 104 U/L (46-116); Amylase 131 U/L (25-125); Anion Gap 18.3 mEq/L (5-15); Aspartate Amino Transferase 13 U/L (15-37); Blood Urea Nitrogen 29 mg/dL (7-18); Calcium 9.7 mg/dL (8.5-10.1); Carbon Dioxide 28 mmol/L (21.0-32.0); Chloride 96 mmol/L (98-107); Creatinine Clearance Estimated 79 mL/min (0-300); Creatinine,Serum 1.15 mg/dL (0.70-1.30); Estimated Glomerular Filt Rate 69 ml/min (>60); GFR (African American) 84 ML/MIN (>60); Globulin 3.8 gm/dl (1.3-3.2); Glucose 372 mg/dL (74-106); Lipase 80 u/L (73-393); Potassium 4.3 mmoL/L (3.5-5.1); Sodium 138 mmol/L (136-145); Total Protein,Serum 8.5 gm/dL (6.4-8.2)
--- NOTE | 2018-01-28 12:06 | ED_ITS ---
ED Disposition Clinical Impression: Gastroparesis diabeticorum, Gastroparesis Nausea & vomiting Qualifiers: Vomiting type: unspecified Vomiting Intractability: non-intractable Qualified Code(s): R11.2 - Nausea with vomiting, unspecified Disposition: Admitted as Observation Condition on Discharge: Fair Referrals: Provider,Jeannie, [Primary Care Provider] - Jermain Cheung MD [Staff Physician] - Time of Disposition: 16:00 - Critical Care Critical Care Time: No Attestation: On 01/28/18, the high probability of a clinically significant, sudden or life threatening deterioration of the following system(s) required my full and direct attention, intervention and personal management. The time I documented below is in addition to time spent performing reported procedures but includes the following listed in this critical care notation. Medical Decision Making - Medical Records Medical records reviewed: Yes: I reviewed the patient's medical records. Vital Signs: 01/28/18 11:24 01/28/18 13:26 Temperature 97.7 F Temperature Source Tympanic Pulse Rate [Right] 119 H 97 H Respiratory Rate 22 16 Blood Pressure [Right Arm] 167/13 139/97 Blood Pressure Mean [Right Arm] 64 111 Blood Pressure Source [Right Arm] Automatic Cuff Automatic Cuff Blood Pressure Position [Right Arm] Supine Sitting 02 Sat by Pulse Oximetry 97 98 Oxygen Delivery Method Room Air Room Air - Lab Data Lab results reviewed: Yes: I reviewed the patient's lab results. Lab Results 01/28/18 11:30: WBC 9.1, RBC 4.98, Hgb 15.1, Hct 45.9, MCV 92.1, MCH 30.3, MCHC 32.9, RDW 12.8, Plt Count 286, MPV 9.4, Neut % (Auto) 84.9 H, Lymph % (Auto) 11.5, [place] % (Auto) 2.8, Eos % (Auto) 0.1, Baso % (Auto) 0.2, Neut # (Auto) 7.7 , Lymph # (Auto) 1.0, [place] # (Auto) 0.3, Eos # (Auto) 0.0, Baso # (Auto) 0.0 01/28/18 11:30: Sodium 138, Potassium 4.3, Chloride 96 L, Carbon Dioxide 28, Anion Gap 18.3 H, BUN 29 H, Creatinine 1.15, Estimated Creat Clear 79, Estimated GFR 69, Est GFR ( Amer) 84, Glucose 372 H, Calcium 9.7, Total Bilirubin 1.0, AST 13 L, ALT 29, Alkaline Phosphatase 104, Total Protein 8.5 H D , Albumin 4.7, Globulin 3.8 H, Albumin/Globulin Ratio 1.2, Amylase 131 H, Lipase 80 01/28/18 12:09: Specimen Source R radial, O2 % Room air, ABG pH 7.50 H, ABG pCO2 29.7 L, ABG pO2 122.4 H, ABG HCO3 22.6, ABG Total CO2 23.6, ABG O2 Saturation 98, ABG Base Excess -0.5, Escobar Test Acceptable 01/28/18 12:30: Lactic Acid 1.6 01/28/18 15:20: Urine Opiates Screen Positive H, Ur Barbituates Screen Negative , Ur Phencyclidine Scrn Negative, Ur Amphetamines Screen Negative, U Methamphetamines Scrn Negative, U Benzodiazepines Scrn Negative, Urine Cocaine Screen Negative, U Marijuana (THC) Screen Negative Result diagrams: 01/28/18 11:30 01/28/18 11:30 Orders (Tests/Meds): ED MEDICATIONS Discontinued Medications Generic Name Dose Route Start Last Admin Trade Name Freq PRN Reason Stop Dose Admin Sodium Chloride 1,000 mls @ 999 mls/hr 01/28/18 11:45 01/28/18 11:42 Sod Chlor 0.9% 1000ml Bag IV 01/28/18 12:45 999 mls/hr .Q1H1M GAIL Administration Ketorolac Tromethamine 30 mg 01/28/18 15:02 01/28/18 15:03 Toradol 30mg/Ml Vial IV 01/28/18 15:03 30 mg ONCE ONE Administration Morphine Sulfate 4 mg 01/28/18 11:37 01/28/18 11:42 Morphine 4mg/Ml Syringe IV 01/28/18 11:38 4 mg ONCE ONE Administra
[2018-01-28 12:16] LABS: Hematocrit 45.9 % (42.0-52.0); Hemoglobin 15.1 g/dL (14.1-18.0); Mean Corpuscular HGB Conc 32.9 g/dL (31.8-35.4); Mean Corpuscular Hemoglobin 30.3 pg (27.0-31.2); Mean Corpuscular Volume 92.1 fl (80-94); Mean Platelet Volume 9.4 fl (7.4-10.4); Platelet Count 286 K/mm3 (142-424); Red Blood Count 4.98 M/mm3 (4.60-6.20); Red Cell Distribution Width 12.8 % (11.5-17.5); White Blood Count 9.1 K/mm3 (4.8-10.8)
[2018-01-28 12:17] LABS: Eosinophils % 0.1 % (0.1-12.0); Lymphocytes % 11.5 K/mm3 (10-50); Monocytes % 2.8 % (1.7-9.3); Neutrophils % 84.9 % (37.0-80.0)
[2018-01-28 12:18] LABS: Basophils % 0.2 % (0.1-2.0); Monocytes # 0.3 K/mm3 (0.1-1.0); Neutrophils # 7.7 K/mm3 (1.8-7.8)
[2018-01-28 12:48] LABS: ABG Base Excess -0.5 mmol/L (-2.4-2.3); ABG HCO3 22.6 mmhg (22.0-26.0); ABG Oxygen Saturation 98 % (90-100); ABG PCO2 29.7 mmhg (35.0-45.0); ABG PO2 122.4 mmhg (80-100); ABG TCO2 23.6 mmhg (23-27)
[2018-01-28 12:49] LABS: Allen's Test ACCEPTABLE; Oxygen ROOM AIR %; Source R RADIAL
[2018-01-28 12:52] LABS: Lactic Acid 1.6 mmol/L (0.4-2.0)
[2018-01-28 13:26] VITALS: BP 139/97; PULSE 97; RESP 16; O2SAT 98
--- NOTE | 2018-01-28 14:36 | CT_ITS ---
CT abdomen pelvis wo con CLINICAL INDICATION: Abdominal pain with nausea and vomiting ITS.REASON: abdominal pain ORDERING PHYSICIAN: Oliverio Sosa MD PATIENT AGE: 42 years COMPARISON: 01/22/2017 TECHNIQUE: Axial images obtained with sagittal and coronal reformats. PROCEDURE: Oral Contrast: None IV Contrast: None . FINDINGS: No acute finding in the lung bases. There is a small hiatal hernia. Prior cholecystectomy. The liver, spleen, adrenal glands, pancreas, and kidneys have an unremarkable unenhanced CT appearance. No evidence of appendicitis or diverticulitis.. No intestinal obstruction or free air. There is mild distention of the urinary bladder. No bladder stones. No focal inflammatory change or pelvic mass evident. There is mild prominence of the prostate. No acute bony anomalies. IMPRESSION: Mild distention of the urinary bladder. Otherwise negative CT abdomen pelvis with no definite acute finding.
[2018-01-28 15:34] LABS: Amphetamine/Metha Screen,Urine Negative ng/mL (<1000); Barbiturates Screen,Urine Negative ng/mL (<200); Benzodiazepines Screen,Urine Negative ng/mL (200); Cannabinoid Screen,Urine Negative ng/mL (<50); Cocaine Screen,Urine Negative ng/g (<300); Methadone Screen,Urine Negative ng/mL (<300); Opiate Screen,Urine Positive ng/mL (<300); Phencyclidine Screen,Urine Negative ng/mL (<25)
--- NOTE | 2018-01-28 15:51 | PC.NURSE ---
dr bowden speaking with dr mac about pt condition at this time
[2018-01-28 16:16] VITALS: BP 153/95; PULSE 80; RESP 20; TEMP 37.3; O2SAT 99; BMI 19.1
[2018-01-28 16:44] VITALS: BP 149/99; PULSE 97; RESP 18; TEMP 37.3; O2SAT 97
--- NOTE | 2018-01-28 17:45 | P.PN_ITS ---
Internal Medicine - PN: Subj *Date: 01/28/18 *Time: 23:57 Interval history: Presented to ER with recurrence of abdominal pain and vomiting consistent with multiple previous admissions. W/u again negative. Admitted for symptom management. He is a bit more comfortable now but still with some pain. Exam Vital signs and Labs for Last 24 Hours: Temp Pulse Resp BP Pulse Ox 99.1 F 97 H 18 149/99 99 01/28/18 16:44 01/28/18 16:44 01/28/18 16:44 01/28/18 16:44 01/28/18 16:16 - Constitutional Comments: alert, moderate discomfort from pain - *Routine HEENT Exam ENT: Present: mucous membranes moist - *Routine Respiratory Exam Present: CTA bilaterally - *Routine Cardiovascular Exam Present: RRR. Absent: murmur - *Routine Abdominal Exam Present: soft Comments: epigastric tenderness. Diminished BS Assessment and Plan (1) Intractable nausea and vomiting Current visit: No Status: Acute Qualifiers: Vomiting type: unspecified Qualified Code(s): R11.2 - Nausea with vomiting , unspecified Category: Medical Code(s): R11.2 - Nausea with vomiting, unspecified (2) Abdominal pain Current visit: No Status: Acute Category: Medical Code(s): R10.9 - Unspecified abdominal pain (3) Gastroparesis Current visit: Yes Status: Chronic Category: Medical Code(s): K31.84 - Gastroparesis (4) Hyperglycemia Current visit: No Status: Acute Category: Medical Code(s): R73.9 - Hyperglycemia, unspecified (5) Type 2 diabetes mellitus Current visit: No Status: Chronic Category: Medical Code(s): E11.9 - Type 2 diabetes mellitus without complications - Assessment and plan all Dx Assessment and Plan for all problems:: Admit for IVF, antiemetics, pain management
[2018-01-28 19:33] VITALS: BP 154/92; PULSE 63; RESP 18; TEMP 36.7; O2SAT 96
--- NOTE | 2018-01-28 19:37 | PC.NURSE ---
rn made aware of 2000 vitals
[2018-01-28 20:30] VITALS: O2SAT 96
[2018-01-29 01:19] LABS: POC Glucose,Bedside 210 mg/dL (70-110)
--- NOTE | 2018-01-29 03:49 | PC.NURSE ---
Pt c/o pain at this beginning of shift in his midline abdomen and also c/o nausea, pt administered PRN pain and antiemetic medication, no complaints since then, has rested well. BS active in all 4 qauds, LBM 01/28/18. Diminished breath sounds noted. VSS. No acute distress noted. Will continue to monitor.
[2018-01-29 03:54] VITALS: BP 136/93; PULSE 62; RESP 18; TEMP 36.9; O2SAT 99
--- NOTE | 2018-01-29 07:12 | PC.NURSE ---
REPORT GIVEN TO Edgar ALBERTS W/C
[2018-01-29 07:18] VITALS: BP 137/88; PULSE 67; RESP 16; TEMP 36.6; O2SAT 99
--- NOTE | 2018-01-29 07:21 | PC.NURSE ---
REPORT GIVEN TO Edgar LINN RN
[2018-01-29 08:00] VITALS: O2SAT 99
--- NOTE | 2018-01-29 08:14 | P.CONPHA_ITS ---
[facility] Pharmacy VTE Monitoring - Patient Demographics Admission date: 01/28/18 Report Date: 01/29/18 Time: 08:14 Allergies/Adverse Reactions: Patient Allergies codeine [CODEINE] Allergy (Unknown, Verified 01/03/18 12:09) UNKNOWN Iodinated Contrast Media - Oral and [Iodinated Contrast Media - IV Dye] Allergy (Unknown, Verified 01/03/18 12:09) TONGUE SWELLING, DIFF. TALKING lisinopril [LISINOPRIL] Allergy (Unknown, Verified 01/03/18 12:09) I-HIVES Height: 1.6 m Weight: 49.016 kg Patient Problems: Current Active Problems (This Medical Record has been edited. Action required.) Gastroparesis (Chronic) Nausea & vomiting (Acute) Gastroparesis diabeticorum (Acute) - VTE Risk Labs: VTE Related Lab Results Hgb 15.1 g/dL (14.1-18.0) 01/28/18 11:30 Hct 45.9 % (42.0-52.0) 01/28/18 11:30 Plt Count 286 K/mm3 (142-424) 01/28/18 11:30 BUN 29 mg/dL (7-18) H 01/28/18 11:30 Creatinine 1.15 mg/dL (0.70-1.30) 01/28/18 11:30 Estimated Creat Clear 79 mL/min (0-300) 01/28/18 11:30 - Prophylaxis VTE Prophylaxis Ordered?: Yes Types of VTE Prophylaxis: TEDS Knee High Location of Applied Device: Bilateral Lower Extremeties - VTE Diagnosis Confirmed Treatment or plan recommended: Continue Current Treatment
--- NOTE | 2018-01-29 08:25 | HMH.HP ---
*Admission Date: 01/28/18 <SayraAlona Suarez 01/29/18 08:27> *Chief complaint: abdominal pain, nausea, vomiting <Alona Colbert 01/29/18 08:27> *History of present illness: Mr Boyle is a 42-year-old male with a history of type 2 diabetes mellitus, hypertension, chronic constipation, and gastroparesis who presented to [facility] emergency room with severe abdominal pain, nausea, and vomiting. He began having the abdominal pain 2 days ago along with nausea and vomiting. He was unable to retain food or fluid and thus he presented to [facility] emergency room. Once again, the w/u was negative. He was admitted for symptom management. Mr. Boyle has a long history with abdominal pain, nausea and vomiting. He has previously been hospitalized at [facility] on several occasions as well as [facility] in [place], [place], and [facility]. He has been extensively worked up at and followed in the GI clinic. He was last hospitalized at [facility] in December with similar symptoms. <Alona Colbert 01/29/18 08:44> [facility] History Medical History: Reports:: Diabetes Mellitus Type 2, Gastroesophageal Reflux Disease(GERD), Hyperlipidemia, Hypertension, Palpitations Denies:: Atherosclerotic Heart Disease, BPH, Cancer, Diabetes Mellitus Type 1, MRSA <Alona Colbert 01/29/18 08:27> Other Medical History: Reports: Arthritis <Alona Colbert 01/29/18 08:27> Other Surgeries: Yes: Colonoscopy, Other (cholecystectomy) <Alona Colbert 01/29/18 08:27> Amputation: No <Alona Colbert 01/29/18 08:27> Fractures: No <Alona Colbert 01/29/18 08:27> - *Social History Smoking Status: Never smoker <Alona Colbert 01/29/18 08:27> Alcohol Intake: former <Alona Colbert 01/29/18 08:27> Alcohol Intake Frequency:: holidays/special occasions only <Alona Colbert 01/29/18 08:27> Occupational Status: unemployed, other <Alona Colbert 01/29/18 08:27> Housing: house <Alona Colbert 01/29/18 08:27> Household Members: friend(s) <JjfelipeAlona - 01/29/18 08:27> - Psychiatric History Expresses thoughts of harming self/others: Vague <Alona Colbert 01/29/18 08:27> Suicide Plan Description: No Plan <Alona Colbert 01/29/18 08:27> *Family Hx:: Coronary Artery Disease, Diabetes <Alona Colbert 01/29/18 08:27> Review of Systems - Constitutional Reports weakness, Denies body ache(s), Denies headache(s) <Alona Colbert 01/29/18 08:44> - Eyes Denies blurry vision, Denies double vision <Alona Colbert 01/29/18 08:44> - ENT Denies nasal congestion, Denies sore throat <Alona Colbert 01/29/18 08:44> - *Cardiovascular Denies chest pain, Denies shortness of breath <Alona Colbert 01/29/18 08:44> - *Gastrointestinal Reports abdominal pain, Reports nausea, Reports vomiting, Denies loose stools <Alona Colbert 01/29/18 08:44> - *Genitourinary Denies difficulty urinating, Denies painful urination <Alona Colbert 01/29/18 08:44> - *Musculoskeletal Denies joint pain, Denies body aches <Alona Colbert 01/29/18 08:44> - *Neurologic Reports weakness, Denies headache(s), Denies dizziness <Alona Colbert 01/29/18 08:44> Meds Home Medications Medication Instructions Recorded Confirmed Type Amitriptyline HCl [Elavil 25mg 25 mg PO HS 01/03/18 01/28/18 History tablet] Gabapentin [Gabapentin 300mg Cap] 300 mg PO HS 01/03/18 01/28/18 History Lactulose [Lactulose 10gm/15ml 10 gm PO DAILY 01/03/18 01/28/18 History Oral Soln] NIFEdipine [Nifedipine ER] 30 mg PO DAILY 01/03/18 01/28/18 History Simethicone [Gas-X] 125 mg PO DAILY 01/03/18 01/28/18 History Buspirone HCl [Buspar 5mg tablet] 5 mg PO BID 01/04/18 01/28/18 History Metformin HCl [Metformin 500mg 500 mg PO BID 01/04/18 01/28/18 History Tablet] Naproxen Sodium [Naproxen 220mg 220 mg PO DAILY 01/04/18 01/28/18 History Tab] raNITIdine HCl [Ranitidine HCl] 300 mg PO BID 01/04/18 01/28/18 History Dicyclomine HCl 20 mg PO DAILY
--- NOTE | 2018-01-29 10:27 | PC.NURSE ---
clarified with dr mac's office about pt fluid restriction on diet. per dr mac, pt needs to be on clear liquid, diabetic diet. NO fluid restrictions.
[2018-01-29 15:38] VITALS: BP 130/86; PULSE 49; TEMP 36.7; O2SAT 96
[2018-01-29 16:45] LABS: POC Glucose,Bedside 178 mg/dL (70-110)
[2018-01-29 16:45] LABS: POC Glucose,Bedside 119 mg/dL (70-110)
--- NOTE | 2018-01-29 19:01 | PC.NURSE ---
NO CHANGE FROM PREVIOUS ASSESSMENT. PT CONTINUES TO C/O PAIN AND NAUSEA, MEDICATION ADMINISTERED PRN. PT HAS NOT HAD ANY EPISODES OF EMESIS. PT REFUSED HIS 1200 INSULIN. IV IS PATENT, SECURE AND INFUSING IVF. VSS. NO S/S OF DISTRESS.
[2018-01-29 19:26] VITALS: BP 124/86; PULSE 51; RESP 16; TEMP 36.8; O2SAT 98
[2018-01-29 20:00] VITALS: O2SAT 98
[2018-01-29 20:27] LABS: POC Glucose,Bedside 98 mg/dL (70-110)
[2018-01-30 00:41] LABS: POC Glucose,Bedside 141 mg/dL (70-110)
[2018-01-30 03:28] VITALS: BP 145/89; PULSE 72; RESP 18; TEMP 36.9; O2SAT 99
--- NOTE | 2018-01-30 05:24 | PC.NURSE ---
PATIENT SEEMS TO HAVE RESTED WELL THIS SHIFT. HE C/O NAUSEA X3 AND RECEIVED PRN ZOFRAN/PHENERGAN, WHICH HE STATED HELPED. NO EMESIS WAS NOTED. PATIENT ALSO C/O ABD PAIN X2, RATING IT A 10/10. FOR THIS HE RECEIVED PRN STADOL, WHICH WAS EFFECTIVE. PATIENT AMBULATED WITH STANDBY ASSIST TO BATHROOM AND DID WELL. PATIENT IS CURRENTLY IN BED SLEEPING. NO OTHER PROBLEMS NOTED AT THIS TIME. WILL CONTINUE TO MONITOR. VSS. SAFETY MEASURES IN PLACE, CALL LIGHT IN REACH.
[2018-01-30 06:18] LABS: POC Glucose,Bedside 116 mg/dL (70-110)
[2018-01-30 07:11] VITALS: BP 127/82; PULSE 64; RESP 18; TEMP 36.8; O2SAT 98
--- NOTE | 2018-01-30 07:12 | PC.NURSE ---
REPORT GIVEN TO Suresh TREJO W/C
[2018-01-30 08:00] VITALS: O2SAT 98
--- NOTE | 2018-01-30 09:15 | P.PN_ITS ---
Internal Medicine - PN: Subj *Date: 01/30/18 *Time: 09:42 Interval history: Persists with epigastric pain and nausea. SOme dry heaves. Has been able to take minimal po liqiuids. Exam Vital signs and Labs for Last 24 Hours: Temp Pulse Resp BP Pulse Ox 98.2 F 64 18 127/82 98 01/30/18 07:11 01/30/18 07:11 01/30/18 07:11 01/30/18 07:11 01/30/18 07:11 Laboratory Results - last 24 hr 01/29/18 06:39: POC Glucose 141 01/29/18 11:20: POC Glucose 178 01/29/18 15:55: POC Glucose 119 01/29/18 20:19: POC Glucose 98 01/30/18 06:04: POC Glucose 116 I & O for Last 24 hours: Intake & Output 01/27/18 01/28/18 01/29/18 01/30/18 11:59 11:59 11:59 11:59 Intake Total 1532 / 2 2060 Balance 153 / 2531 Weight 108 lb 1 oz - Constitutional Comments: appears in mild distress - *Routine Respiratory Exam Present: CTA bilaterally - *Routine Cardiovascular Exam Present: RRR - *Routine Abdominal Exam Present: soft. Absent: distended Comments: epigastric tenderness. BS decreased Assessment and Plan (1) Intractable nausea and vomiting Current visit: No Status: Acute Qualifiers: Vomiting type: unspecified Qualified Code(s): R11.2 - Nausea with vomiting , unspecified Category: Medical Code(s): R11.2 - Nausea with vomiting, unspecified (2) Abdominal pain Current visit: No Status: Acute Category: Medical Code(s): R10.9 - Unspecified abdominal pain (3) Gastroparesis Current visit: Yes Status: Chronic Category: Medical Code(s): K31.84 - Gastroparesis (4) Hyperglycemia Current visit: No Status: Acute Category: Medical Code(s): R73.9 - Hyperglycemia, unspecified (5) Type 2 diabetes mellitus Current visit: No Status: Chronic Category: Medical Code(s): E11.9 - Type 2 diabetes mellitus without complications - Assessment and plan all Dx Assessment and Plan for all problems:: Will add Reglan and try advancing diet.
[2018-01-30 12:43] LABS: POC Glucose,Bedside 139 mg/dL (70-110)
[2018-01-30 15:51] VITALS: BP 131/85; PULSE 65; RESP 18; TEMP 36.8; O2SAT 99
[2018-01-30 16:48] VITALS: BMI 19.1
[2018-01-30 16:58] LABS: POC Glucose,Bedside 114 mg/dL (70-110)
[2018-01-30 19:21] VITALS: BP 136/85; PULSE 61; RESP 16; TEMP 37.2; O2SAT 98
[2018-01-30 20:00] VITALS: O2SAT 98
[2018-01-30 20:18] LABS: POC Glucose,Bedside 114 mg/dL (70-110)
[2018-01-31 04:00] VITALS: BP 122/80; PULSE 69; RESP 20; TEMP 36.8; O2SAT 97
--- NOTE | 2018-01-31 04:46 | PC.NURSE ---
PATIENT HAS SLEPT WELL THIS SHIFT. HE C/O NAUSEA AND PAIN X1, AND RECEIVED PRN MEDICATIONS WHICH WERE EFFECTIVE. PATIENT STATED THAT HE HAS HAD ONE BOWEL MOVEMENT (DIARRHEA) SO FAR THIS SHIFT. PATIENT AMBULATES IN ROOM INDEPENDENTLY AND DOES WELL. HE IS CURRENTLY IN BED RESTING WITH EYES CLOSED. NO OTHER PROBLEMS NOTED AT THIS TIME. VSS. WILL CONTINUE TO MONITOR. SAFETY MEASURES IN PLACE, CALL LIGHT IN REACH.
[2018-01-31 06:12] LABS: POC Glucose,Bedside 140 mg/dL (70-110)
--- NOTE | 2018-01-31 07:26 | PC.NURSE ---
REPORT GIVEN TO Avtar WAGONER W/C
[2018-01-31 07:32] VITALS: BP 136/87; PULSE 86; RESP 18; TEMP 37.1; O2SAT 96
--- NOTE | 2018-01-31 07:33 | P.PN_ITS ---
Internal Medicine - PN: Subj *Date: 01/31/18 *Time: 07:29 Exam Vital signs and Labs for Last 24 Hours: Temp Pulse Resp BP Pulse Ox 98.2 F 69 20 122/80 97 01/31/18 04:00 01/31/18 04:00 01/31/18 04:00 01/31/18 04:00 01/31/18 04:00 Laboratory Results - last 24 hr 01/30/18 12:33: POC Glucose 139 01/30/18 16:42: POC Glucose 114 01/30/18 20:01: POC Glucose 114 01/31/18 05:58: POC Glucose 140 I & O for Last 24 hours: Intake & Output 01/28/18 01/29/18 01/30/18 01/31/18 11:59 11:59 11:59 11:59 Intake Total 153 / 2532 2060 / 2060 600 / 600 Balance 1532 / 2532 2060 / 2060 600 / 600 Weight 108 lb 1 oz 108 lb 0.988 oz - Constitutional no acute distress - *Routine Respiratory Exam Present: CTA bilaterally - *Routine Cardiovascular Exam Present: RRR - *Routine Abdominal Exam Comments: mild epigastric tenderness Assessment and Plan (1) Intractable nausea and vomiting Current visit: No Status: Acute Qualifiers: Vomiting type: unspecified Qualified Code(s): R11.2 - Nausea with vomiting , unspecified Category: Medical Code(s): R11.2 - Nausea with vomiting, unspecified (2) Abdominal pain Current visit: No Status: Acute Category: Medical Code(s): R10.9 - Unspecified abdominal pain (3) Gastroparesis Current visit: Yes Status: Chronic Category: Medical Code(s): K31.84 - Gastroparesis (4) Hyperglycemia Current visit: No Status: Acute Category: Medical Code(s): R73.9 - Hyperglycemia, unspecified (5) Type 2 diabetes mellitus Current visit: No Status: Chronic Category: Medical Code(s): E11.9 - Type 2 diabetes mellitus without complications - Assessment and plan all Dx Assessment and Plan for all problems:: Seems a little better with the Reglan. Possible discharge home later today.
--- NOTE | 2018-01-31 10:59 | DIET.NUTRFU ---
Entered room and pt rocking in bed in pain. at bedside reports he is trying to hold off on rx . Diet advanced to solid food yesterday and he is consuming 75% of meals. states that obtaining home meds continues to be a problem. They have spoken with our correctional case manager and have made arrangements to get meds out of [facility] [place]. Weight loss 7 lbs in one month. Underweight with bmi 19. Nurse notified of pain/ pt condition. Continue to supplement diet with Glucerna.
[2018-01-31 11:55] LABS: POC Glucose,Bedside 146 mg/dL (70-110)
[2018-01-31 16:29] VITALS: BP 152/100; PULSE 71; RESP 20; TEMP 36.7; O2SAT 96
[2018-01-31 16:52] LABS: POC Glucose,Bedside 112 mg/dL (70-110)
[2018-01-31 20:00] VITALS: BP 144/89; PULSE 68; RESP 18; TEMP 36.8; O2SAT 99
[2018-01-31 21:26] LABS: POC Glucose,Bedside 187 mg/dL (70-110)
[2018-02-01 04:15] VITALS: BP 118/77; PULSE 57; RESP 18; TEMP 36.7; O2SAT 100
--- NOTE | 2018-02-01 06:43 | PC.NURSE ---
PT SLEPT WELL THIS SHIFT. PT C/O PAIN AND NAUSEA X1, MEDS ADMIN PER MAR. NO ACUTE CHANGES NOTED. VSS. MEDS ADMIN PER JAN. WILL CONT TO MONITOR.
--- NOTE | 2018-02-01 07:20 | PC.NURSE ---
REPORT GIVEN TO ANJANA KING RN
[2018-02-01 07:28] VITALS: BP 146/96; PULSE 86; RESP 18; TEMP 37.1; O2SAT 97
--- NOTE | 2018-02-01 08:23 | P.PN_ITS ---
Internal Medicine - PN: Subj *Date: 02/01/18 *Time: 08:20 Interval history: Less pain through the night. Was able to eat a little more this AM. Still has bouts of nausea. Exam Vital signs and Labs for Last 24 Hours: Temp Pulse Resp BP Pulse Ox 98.8 F 86 18 146/96 97 02/01/18 07:28 02/01/18 07:28 02/01/18 07:28 02/01/18 07:28 02/01/18 07:28 Laboratory Results - last 24 hr 01/31/18 11:31: POC Glucose 146 01/31/18 16:32: POC Glucose 112 01/31/18 20:27: POC Glucose 187 I & O for Last 24 hours: Intake & Output 01/29/18 01/30/18 01/31/18 02/01/18 11:59 11:59 11:59 11:59 Intake Total 153 / 2532 2060 / 2060 840 / 840 2349 / 2349 Balance 1532 / 2532 2060 / 2060 840 / 840 2349 / 2349 Weight 108 lb 1 oz 108 lb 0.988 oz - Constitutional no acute distress - *Routine Respiratory Exam Present: CTA bilaterally - *Routine Cardiovascular Exam Present: RRR - *Routine Abdominal Exam Present: soft, normoactive bowel sounds. Absent: tenderness, distended Assessment and Plan (1) Intractable nausea and vomiting Current visit: No Status: Acute Qualifiers: Vomiting type: unspecified Qualified Code(s): R11.2 - Nausea with vomiting , unspecified Category: Medical Code(s): R11.2 - Nausea with vomiting, unspecified (2) Abdominal pain Current visit: No Status: Acute Category: Medical Code(s): R10.9 - Unspecified abdominal pain (3) Gastroparesis Current visit: Yes Status: Chronic Category: Medical Code(s): K31.84 - Gastroparesis (4) Hyperglycemia Current visit: No Status: Acute Category: Medical Code(s): R73.9 - Hyperglycemia, unspecified (5) Type 2 diabetes mellitus Current visit: No Status: Chronic Category: Medical Code(s): E11.9 - Type 2 diabetes mellitus without complications - Assessment and plan all Dx Assessment and Plan for all problems:: Symptoms are improved since starting the Reglan, although not completely resolved. Will discharge home and f/u in 1 week.
--- NOTE | 2018-02-01 08:23 | HMH.DCSUM ---
General - General Admission date: 01/28/18 <Jermain Cheung - 02/01/18 08:27> Discharge date: 02/01/18 <Alona Colbert - 02/05/18 11:47> HPI HPI: Mr Boyle is a 42-year-old male with a history of type 2 diabetes mellitus, hypertension, chronic constipation, and gastroparesis who presented to [facility] emergency room with severe abdominal pain, nausea, and vomiting. He began having the abdominal pain 2 days ago along with nausea and vomiting. He was unable to retain food or fluid and thus he presented to [facility] emergency room. Once again, the w/u was negative. He was admitted for symptom management. Mr. Boyle has a long history with abdominal pain, nausea and vomiting. He has previously been hospitalized at [facility] on several occasions as well as [place] in [place], [place], and [facility]. He has been extensively worked up at and followed in the GI clinic. He was last hospitalized at [facility] in December with similar symptoms. <Jermain Cheung - 02/01/18 08:27> Hospital Course Hospital Course: His Abd CT showed mild distention of the urinary bladder with nothing else acute. He continues to follow with GI with apparently no new recommendations. He was started on IVF, antiemetics, and pain meds. Reglan was added and his diet was advanced. His symptoms improved and he was able to be discharged home. Will f/u in the office in 1 week. <Alona Colbert - 02/05/18 11:47> Objective Vital signs: Temp Pulse Resp BP Pulse Ox 98.8 F 86 18 146/96 97 02/01/18 07:28 02/01/18 07:28 02/01/18 07:28 02/01/18 07:28 02/01/18 07:28 <Alona Colbert - 02/05/18 11:40> Temp Pulse Resp BP Pulse Ox 98.8 F 86 18 146/96 97 02/01/18 07:28 02/01/18 07:28 02/01/18 07:28 02/01/18 07:28 02/01/18 07:28 <Jermain Cheung - 02/01/18 08:27> Narrative: - Constitutional Comments: Does not appear to feel well - *Routine HEENT Exam Head: Present: normocephalic, atraumatic Eye: Present: EOMI, PERRL ENT: Present: mucous membranes dry - *Routine Neck Exam Present: supple, full ROM - *Routine Respiratory Exam Present: CTA bilaterally - *Routine Cardiovascular Exam Present: RRR - *Routine Abdominal Exam Present: soft, normoactive bowel sounds, tenderness (diffuse). Absent: guarding, rigid - *Routine Extremities Exam Absent: edema - *Routine Skin Exam Present: intact - *Routine Neurological Exam Present: alert, oriented X3 <Alona Colbert - 02/05/18 11:47> Results Labs on day of discharge: Labs from last 24 hours 01/31/18 01/31/18 01/31/18 20:27 16:32 11:31 POC Glucose 187 112 146 <Jermain Cheung - 02/01/18 08:27> DS: Diagnosis - Discharge Diagnosis (1) Intractable nausea and vomiting Status: Acute (2) Abdominal pain Status: Acute (3) Gastroparesis Status: Chronic (4) Hyperglycemia Status: Acute (5) Type 2 diabetes mellitus Status: Chronic <Alona Colbert - 02/05/18 11:40> (1) Intractable nausea and vomiting Status: Acute (2) Abdominal pain Status: Acute (3) Gastroparesis Status: Chronic (4) Hyperglycemia Status: Acute (5) Type 2 diabetes mellitus Status: Chronic <Jermain Cheung - 02/24/18 21:35> Discharge Plan - Patient Discharge Instructions ACTIVITY: Continue current activity <Jermain Cheung - 02/01/18 08:27> DIET: continue same diet <Jermain Cheung - 02/01/18 08:27> Patient Instructions: DI for Nausea -- Adult, DI for Vomiting -- Adult, DI for Gastroparesis <Jermain Cheung - 02/01/18 08:27> Forms: <Jermain Cheung - 02/01/18 08:27> - Follow up Plan Follow up with: Jermain Cheung MD [Staff Physician] - 1 week ([facility]) <Jermain Cheung - 02/01/18 08:27> Disposition: Home, Self-Care <Maryann
--- NOTE | 2018-02-01 08:27 | P.DS_ITS ---
General - General Admission date: 01/28/18 <Jermain Cheung - 02/01/18 08:27> Discharge date: 02/01/18 <Alona Colbert - 02/05/18 11:47> HPI HPI: Mr Boyle is a 42-year-old male with a history of type 2 diabetes mellitus, hypertension, chronic constipation, and gastroparesis who presented to [facility] emergency room with severe abdominal pain, nausea , and vomiting. He began having the abdominal pain 2 days ago along with nausea and vomiting. He was unable to retain food or fluid and thus he presented to [facility] emergency room. Once again, the w/u was negative. He was admitted for symptom management. Mr. Boyle has a long history with abdominal pain, nausea and vomiting. He has previously been hospitalized at [facility] on several occasions as well as [place] in [place], [place], and [facility]. He has been extensively worked up at and followed in the GI clinic. He was last hospitalized at [facility] in December with similar symptoms. <Jermain Cheung - 02/01/18 08:27> Hospital Course Hospital Course: His Abd CT showed mild distention of the urinary bladder with nothing else acute. He continues to follow with GI with apparently no new recommendations. He was started on IVF, antiemetics, and pain meds. Reglan was added and his diet was advanced. His symptoms improved and he was able to be discharged home. Will f/u in the office in 1 week. <Alona Colbert - 02/05/18 11:47> Objective Vital signs: Temp Pulse Resp BP Pulse Ox 98.8 F 86 18 146/96 97 02/01/18 07:28 02/01/18 07:28 02/01/18 07:28 02/01/18 07:28 02/01/18 07:28 <Alona Colbert - 02/05/18 11:40> Temp Pulse Resp BP Pulse Ox 98.8 F 86 18 146/96 97 02/01/18 07:28 02/01/18 07:28 02/01/18 07:28 02/01/18 07:28 02/01/18 07:28 <Jermain Cheung - 02/01/18 08:27> Narrative: - Constitutional Comments: Does not appear to feel well - *Routine HEENT Exam Head: Present: normocephalic, atraumatic Eye: Present: EOMI, PERRL ENT: Present: mucous membranes dry - *Routine Neck Exam Present: supple, full ROM - *Routine Respiratory Exam Present: CTA bilaterally - *Routine Cardiovascular Exam Present: RRR - *Routine Abdominal Exam Present: soft, normoactive bowel sounds, tenderness (diffuse). Absent: guarding , rigid - *Routine Extremities Exam Absent: edema - *Routine Skin Exam Present: intact - *Routine Neurological Exam Present: alert, oriented X3 <Alona Colbert - 02/05/18 11:47> Results Labs on day of discharge: Labs from last 24 hours 01/31/18 01/31/18 01/31/18 20:27 16:32 11:31 POC Glucose 187 112 146 <Jermain Cheung - 02/01/18 08:27> DS: Diagnosis - Discharge Diagnosis (1) Intractable nausea and vomiting Status: Acute (2) Abdominal pain Status: Acute (3) Gastroparesis Status: Chronic (4) Hyperglycemia Status: Acute (5) Type 2 diabetes mellitus Status: Chronic <Alona Colbert - 02/05/18 11:40> (1) Intractable nausea and vomiting Status: Acute (2) Abdominal pain Status: Acute (3) Gastroparesis Status: Chronic (4) Hyperglycemia Status: Acute (5) Type 2 diabetes mellitus Status: Chronic <Barak Cheung
[2018-02-01 16:47] LABS: POC Glucose,Bedside 122 mg/dL (70-110)
== END 2018-02-01 11:00 | disposition home or self-care (01) | DRG 74 ==
LOC: ER 16:00 → 2ND 01-29 07:01
PROVIDERS: Admitting Provider Family Medicine; Emergency Provider General Practice; Visit Provider Family Medicine
DX: E11.43 Type 2 diabetes mellitus with diabetic autonomic (poly)neuropathy (principal); K31.84 Gastroparesis; I10 Essential (primary) hypertension
CPT/HCPCS: 74176; 80053; 80305; 82150; 82803; 82962; 83605; 83690; 85025; 96365; 96374; 96375; 96376; 99284; J0595; J2405

== ENCOUNTER 2018-03-16 09:16 | Inpatient (IN) ==
[2018-03-16 09:39] LABS: Basophils % 0.1 % (0.1-2.0); Hematocrit 45.7 % (42.0-52.0); Hemoglobin 15.1 g/dL (14.1-18.0); Lymphocytes # 0.7 K/mm3 (0.7-4.5); Lymphocytes % 4.1 K/mm3 (10-50); Mean Corpuscular Hemoglobin 30.3 pg (27.0-31.2); Mean Corpuscular Volume 91.7 fl (80-94); Monocytes # 0.4 K/mm3 (0.1-1.0); Monocytes % 2.5 % (1.7-9.3); Neutrophils # 14.7 K/mm3 (1.8-7.8); Neutrophils % 93.3 % (37.0-80.0); Platelet Count 311 K/mm3 (142-424); Red Blood Count 4.99 M/mm3 (4.60-6.20); Red Cell Distribution Width 12.4 % (11.5-17.5); White Blood Count 15.7 K/mm3 (4.8-10.8)
[2018-03-16 09:54] LABS: Albumin Level 4.6 gm/dL (3.4-5.0); Albumin/Globulin Ratio 1.2 (1.1-1.8); Anion Gap 21.1 mEq/L (5-15); Bilirubin,Total 0.8 mg/dL (0.2-1.0); Calcium 9.7 mg/dL (8.5-10.1); Globulin 3.9 gm/dl (1.3-3.2); Potassium 4.1 mmoL/L (3.5-5.1); Total Protein,Serum 8.5 gm/dL (6.4-8.2)
--- NOTE | 2018-03-16 10:02 | Emergency Department Note ---
ED Disposition Clinical Impression: Abdominal pain, epigastric, Recurrent abdominal pain, Recurrent vomiting, Diabetic gastroparesis, Hyperglycemia, Dehydration Disposition: Still a Patient Condition on Discharge: Fair Referrals: Jermain Cheung MD [Primary Care Provider] - - Critical Care Critical Care Time: No Attestation: On 03/16/18, the high probability of a clinically significant, sudden or life threatening deterioration of the following system(s) required my full and direct attention, intervention and personal management. The time I documented below is in addition to time spent performing reported procedures but includes the following listed in this critical care notation. Medical Decision Making - Ben Inquiry Pt receiving controlled substance: Yes Ben was queried for this patient: No Reason not queried -: Emergent pt cond-no time Risks and benefits of using a controlled substance: were not discussed with pt by me Vital Signs: 03/16/18 09:16 Temperature 99.7 F H Temperature Source Oral Pulse Rate [Right Radial] 111 H Respiratory Rate 20 Blood Pressure [Right Arm] 187/124 Blood Pressure Mean [Right Arm] 145 Blood Pressure Source [Right Arm] Automatic Cuff Blood Pressure Position [Right Arm] Sitting 02 Sat by Pulse Oximetry 99 Oxygen Delivery Method Room Air - Lab Data Lab Results 03/16/18 09:27: WBC 15.7 H, RBC 4.99, Hgb 15.1, Hct 45.7, MCV 91.7, MCH 30.3, MCHC 33.0, RDW 12.4, Plt Count 311, MPV 10.0, Neut % (Auto) 93.3 H, Lymph % ( Auto) 4.1 L, [place] % (Auto) 2.5, Eos % (Auto) 0.0 L, Baso % (Auto) 0.1, Neut # ( Auto) 14.7 H, Lymph # (Auto) 0.7, [place] # (Auto) 0.4, Eos # (Auto) 0.0, Baso # ( Auto) 0.0, Total Counted 100, Neutrophils % (Manual) 92 H, Lymphocytes % (Manual ) 4 L, Atypical Lymphs % 1.0, Monocytes % (Manual) 3, Platelet Estimate Normal 03/16/18 09:27: Sodium 133 L, Potassium 4.1, Chloride 93 L, Carbon Dioxide 23, Anion Gap 21.1 H, BUN 30 H, Creatinine 1.31 H, Estimated Creat Clear 53, Estimated GFR 59, Est GFR ( Amer) 72, Glucose 503 H*, Calcium 9.7, Total Bilirubin 0.8, AST 27, ALT 38, Alkaline Phosphatase 97, Total Protein 8.5 H, Albumin 4.6, Globulin 3.9 H, Albumin/Globulin Ratio 1.2 03/16/18 09:27: Troponin I < 0.02, Amylase 183 H, Lipase 85 Result diagrams: 03/16/18 09:27 03/16/18 09:27 Orders (Tests/Meds): ED MEDICATIONS Discontinued Medications Generic Name Dose Route Start Last Admin Trade Name Freq PRN Reason Stop Dose Admin Sodium Chloride 1,000 mls @ 999 mls/hr 03/16/18 09:45 03/16/18 09:45 Sod Chlor 0.9% 1000ml Bag IV 03/16/18 10:45 999 mls/hr .Q1H1M GAIL Administration Insulin Human Lispro 10 unit 03/16/18 10:19 Humalog 100 Units/Ml 3ml Vial (Ssi) SQ 03/16/18 10:20 ONCE ONE Morphine Sulfate 4 mg 03/16/18 09:37 03/16/18 09:45 Morphine 4mg/Ml Syringe IV 03/16/18 09:38 4 mg ONCE ONE Administration Ondansetron HCl 4 mg 03/16/18 09:36 03/16/18 09:45 Zofran 4mg/2ml Vial IV 03/16/18 09:37 4 mg ONCE ONE Administration ORDERS Category Date Time Status Urinalysis and Microscopic Stat Lab 03/16/18 10:36 Ordered - ECG Data Tracing #1 EKG interpreted by Cachorro Casanova MD: Rhythm: sinus Rate: 80 Dingess: normal Ectopy: none Conduction: normal ST Segment Changes: none T Wave Changes: none Q Waves: none No evidence of acute ischemia or injury Medical Decision Narrative: Reviewed prior CT scans of the abdomen and pelvis at this facility. Has had CT scans on: 01/28/18 01/03/18 01/22/17 08/21/16 08/12/60 07/20/60 06/10/16 10/26/15 [address] CTs were unremarkable, some showing some thickening of the distal esophagus , but none showing acute processes. 10:40 AM: I have discussed the case with Dr. Bliss for Dr. Cheung who agrees to admit the patient to the hospital. We discussed the patient's clinical information, including history, exam, laboratory and radiology results and ED course. Per hospital procedure, I will write temporary bridge inpatient orders on the patient. Specific orders requested by the admitting physician: IV fluids, sliding scale insulin, antiemetics and pain medication. We discussed imaging. Given his extensive prior evaluation and extensive prior imaging, he agrees that imaging is not indicated at this point. The patient has had leukocytosis on previous presentations for this as well. Patient states that this is typical symptoms and presentation, no unusual or new aspects. Dr. Bliss thinks that the patient has been diagnosed with cyclic vomiting. General Adult HPI - General Chief complaint: Abdominal Pain Stated complaint: abd pain Time Seen by Provider: 03/16/18 10:02 Mode of Arrival: Wheelchair Limitations: No Limitations Description of Symptoms (Recalled from ER Triage Doc. by RN): chronic abd pain with severe cramping atarted last night , with vomiting - History of Present Illness HPI narrative: 2 year history of recurrent abdominal pain, back pain, belching, hiccups, and constipation. Has had extensive evaluation. Has seen Dr. Newby, gastroenterology, in [place]. Has had upper and lower endoscopies. Has had a cholecystectomy. Numerous CT scans. Several admissions to this hospital. Last admitted here in December for the same. He has been diagnosed with gastroparesis. Symptoms also generally accompanied by elevated blood sugar. Patient states recurrence of the same symptoms began on Wednesday. Improvement in the emergency department after treatment with morphine and Zofran prior to my evaluation. Also complains of a rash on his neck and upper chest today. Denies fever, diarrhea, urinary symptoms. Denies URI symptoms. - Related Data Home Medications Medication Instructions Recorded Confirmed Amitriptyline HCl [Elavil 25mg 25 mg PO HS 01/03/18 03/16/18 tablet] Gabapentin [Gabapentin 300mg Cap] 300 mg PO HS 01/03/18 03/16/18 Lactulose [Lactulose 10gm/15ml 10 gm PO DAILY 01/03/18 03/16/18 Oral Soln] NIFEdipine [Nifedipine ER] 30 mg PO DAILY 01/03/18 03/16/18 Simethicone [Gas-X] 125 mg PO DAILY 01/03/18 03/16/18 Buspirone HCl [Buspar 5mg tablet] 5 mg PO BID 01/04/18 03/16/18 Metformin HCl [Metformin 500mg 500 mg PO BID 01/04/18 03/16/18 Tablet] Naproxen Sodium [Naproxen 220mg 220 mg PO DAILY 01/04/18 03/16/18 Tab] raNITIdine HCl [Ranitidine HCl] 300 mg PO BID 01/04/18 03/16/18 Dicyclomine HCl 20 mg PO DAILY PRN 01/28/18 03/16/18 Metoclopramide HCl [Reglan 5mg 5 mg PO AC 03/16/18 03/16/18 Tablet] Allergies Allergy/AdvReac Type Severity Reaction Status Date / Time codeine [CODEINE] Allergy Unknown UNKNOWN Verified 01/03/18 12:09 Iodinated Contrast Media - Allergy Unknown TONGUE Verified 01/03/18 12:09 Oral and SWELLING, [Iodinated Contrast Media - DIFF. IV Dye] TALKING lisinopril [LISINOPRIL] Allergy Unknown I-HIVES Verified 01/03/18 12:09 [facility] History I have reviewed the patient's past medical history: Yes Medical History: Reports:: Diabetes Mellitus Type 2, Gastroesophageal Reflux Disease(GERD), Hyperlipidemia, Hypertension, Palpitations Denies:: Atherosclerotic Heart Disease, BPH, Cancer, Diabetes Mellitus Type 1 , MRSA Other Medical History: Reports: Arthritis Comment: Thrombophebitis; chronic constipation; hepatitis A Other Surgeries: Yes: Colonoscopy, Other (cholecystectomy) Amputation: No Fractures: No Comment: cholecystectomy; liver biopsy - Social History Smoking Status: Never smoker Alcohol Intake: former Alcohol Intake Frequency:: holidays/special occasions only Occupational Status: unemployed, other Housing: house Household Members: friend(s) Family Hx:: Coronary Artery Disease, Diabetes ROS Obtained: Yes All systems reviewed & no additional complaints - Constitutional Constitutional: Denies fever(s) - Cardiovascular Cardiovascular: Denies chest pain - Respiratory Respiratory: No dyspnea - Gastrointestinal Gastrointestingal: Reports: abdominal pain, constipation (2 bowel movements this morning), vomiting - Musculoskeletal Musculoskeletal: Reports back pain Physical Exam - General General appearance: alert, in no apparent distress Comment: Moaning and writhing on cart on arrival. Appears comfortable, smiling, and conversant after medication. - Head Head exam: atraumatic, normocephalic, normal inspection - Eye Eye exam: Present: normal appearance, PERRL, EOMI - ENT ENT exam: Present: normal exam, normal oropharynx, mucous membranes moist, TM's normal bilaterally, normal external ear exam - Neck Neck exam: Present: normal inspection, full ROM, trachea midline. Absent: meningismus, lymphadenopathy - Chest Chest inspection: Present: normal inspection, symmetric chest wall rise. Absent : tenderness - Respiratory Respiratory exam: Present: normal lung sounds bilaterally. Absent: respiratory distress - Cardiovascular Cardiovascular exam: Present: regular rate, normal rhythm. Absent: JVD - Abdominal Exam Abdominal exam: Present: soft, tenderness, normal bowel sounds. Absent: distention, guarding, rebound, rigidity Abdominal tenderness: Present: RUQ, LUQ, epigastrium, mild. Absent: RLQ, LLQ, suprapubic - Extremities Exam Extremities exam: Present: normal inspection, full ROM, normal capillary refill. Absent: calf tenderness - Back Exam Back exam: Present: normal inspection. Absent: tenderness - Neurological Exam Neurological exam: Present: alert, oriented X3 - Psychiatric Psychiatric exam: Present: normal affect, normal mood - Skin Skin exam: Present: warm, dry, intact, rash (Faint patchy erythematous rash on upper chest. No vesicles or petechiae)
[2018-03-16 10:34] LABS: Lymphocytes % 4 % (10-50); Monocytes % 3 % (2-9); Neutrophils % 92 % (42-76); Total Cells Counted 100
[2018-03-16 10:36] LABS: Amylase 183 U/L (25-125); Lipase 85 u/L (73-393)
--- NOTE | 2018-03-16 13:05 | History & Physical Report ---
*Admission Date: 03/16/18 <Alona Colbert 03/16/18 13:05> *Chief complaint: abdominal pain, nausea, vomiting <Alona Colbert 03/16/18 13:05> *History of present illness: Mr Boyle is a 42-year-old male with a history of type 2 diabetes mellitus, hypertension, chronic constipation, and gastroparesis who presented to [facility] emergency room with abdominal pain, nausea, and vomiting. He began having the abdominal pain 2 days ago along with nausea and vomiting. He was unable to retain food or fluid and thus he presented to [facility] emergency room. His glucose was elevated and he was admitted for symptom management. Mr. Boyle has a long history with abdominal pain, nausea and vomiting. He has previously been hospitalized at [facility] on several occasions as well as [facility] in [place], [place], and [facility]. He has been extensively worked up at and followed in the GI clinic. He was last hospitalized at [facility] in January with similar symptoms. <Alona Colbert 03/16/18 13:41> [facility] History Medical History: Reports:: Diabetes Mellitus Type 2, Gastroesophageal Reflux Disease(GERD), Hyperlipidemia, Hypertension, Palpitations Denies:: Atherosclerotic Heart Disease, BPH, Cancer, Diabetes Mellitus Type 1 , MRSA <Alona Colbert 03/16/18 13:05> Other Medical History: Reports: Arthritis <Alona Colbert 03/16/18 13:05> Other Surgeries: Yes: Colonoscopy, EGD, Other (cholecystectomy) <Alona Colbert 03/16/18 13:05> Amputation: No <Alona Colbert 03/16/18 13:05> Fractures: No <Alona Colbert 03/16/18 13:05> - *Social History Smoking Status: Never smoker <Alona Colbert 03/16/18 13:05> Alcohol Intake: former <Alona Colbert 03/16/18 13:05> Alcohol Intake Frequency:: holidays/special occasions only <Alona Colbert 13:05> Occupational Status: unemployed, other <Alona Colbert 03/16/18 13:05> Housing: house <Alona Colbert 03/16/18 13:05> Household Members: significant other, friend(s) <Alona Colbert 03/16/18 13: 05> - Psychiatric History Expresses thoughts of harming self/others: None <JjfelipeAlona 03/16/18 13: 05> Suicide Plan Description: No Plan <Alona Colbert 03/16/18 13:05> *Family Hx:: Coronary Artery Disease, Diabetes <JjfelipeAlona - 03/16/18 13:05 > Review of Systems - Constitutional Reports fatigue, Reports fever(s), Reports lack of energy, Reports malaise, Reports weakness <JjfelipeAlona - 03/16/18 13:41> - Eyes Denies blurry vision, Denies double vision [facility] 03/[facility] 13:41> - ENT Reports nasal congestion, Denies sore throat [facility] 03/16/18 13:41> - *Cardiovascular Reports fast heart rate, Denies chest pain <[facility] 03/16/18 13:41> - *Respiratory Reports shortness of breath, Denies cough [facility] 03/16/18 13:41> - *Gastrointestinal Reports abdominal pain, Reports nausea, Reports vomiting, Denies loose stools [facility] 03/16/18 13:41> - *Genitourinary Denies difficulty urinating, Denies painful urination [facility] 13:41> - *Musculoskeletal Denies joint pain, Denies muscle weakness <[facility] 03/16/18 13:41> - *Neurologic Reports headache(s), Reports weakness, Denies dizziness <[facility] 03/16 13:41> Meds Home Medications Medication Instructions Recorded Confirmed Type Amitriptyline HCl [Elavil 25mg 25 mg PO HS 01/03/18 03/16/18 History tablet] Gabapentin [Gabapentin 300mg Cap] 600 mg PO HS 01/03/18 03/16/18 History Lactulose [Lactulose 10gm/15ml 10 gm PO DAILY 01/03/18 03/16/18 History Oral Soln] NIFEdipine [Nifedipine ER] 30 mg PO DAILY 01/03/18 03/16/18 History Simethicone [Gas-X] 125 mg PO DAILY 01/03/18 03/16/18 History Metformin HCl [Metformin 500mg 500 mg PO BID 01/04/18 03/16/18 History Tablet] Naproxen Sodium [Naproxen 220mg 220 mg PO DAILY 01/04/18 03/16/18 History Tab] Dicyclomine HCl 20 mg PO DAILY PRN 01/28/18 03/16/18 History Famotidine [Acid Controller] 20 mg PO BID 03/16/18 03/16/18 History Glimepiride [Amaryl] 1 mg PO DAILY 03/16/18 03/16/18 History Metoclopramide HCl [Reglan 5mg 5 mg PO AC 03/16/18 03/16/18 History Tablet] Saccharomyces Boulardii [Florastor] 250 mg PO BID 03/16/18 03/16/18 History <Jermain Cheung - 03/16/18 16:21> Allergies Allergy/AdvReac Type Severity Reaction Status Date / Time codeine [CODEINE] Allergy Unknown UNKNOWN Verified 01/03/18 12:09 Iodinated Contrast Media - Allergy Unknown TONGUE Verified 01/03/18 12:09 Oral and SWELLING, [Iodinated Contrast Media - DIFF. IV Dye] TALKING lisinopril [LISINOPRIL] Allergy Unknown I-HIVES Verified 01/03/18 12:09 <Jermain Cheung - 03/16/18 16:21> Exam Vital signs and Labs for Last 24 Hours: Temp Pulse Resp BP Pulse Ox 99.1 F 90 22 144/96 98 03/16/18 12:32 03/16/18 12:33 03/16/18 12:33 03/16/18 12:32 03/16/18 12:33 Laboratory Results - last 24 hr 03/16/18 12:00: POC Glucose 358 H* 03/16/18 13:53: POC Glucose 292 H <Jermain Chenug - 03/16/18 16:21> Temp Pulse Resp BP Pulse Ox 99.1 F 90 22 144/96 98 03/16/18 12:32 03/16/18 12:33 03/16/18 12:33 03/16/18 12:32 03/16/18 12:33 Lab Results 03/16/18 09:27: WBC 15.7 H, RBC 4.99, Hgb 15.1, Hct 45.7, MCV 91.7, MCH 30.3, MCHC 33.0, RDW 12.4, Plt Count 311, MPV 10.0, Neut % (Auto) 93.3 H, Lymph % ( Auto) 4.1 L, [place] % (Auto) 2.5, Eos % (Auto) 0.0 L, Baso % (Auto) 0.1, Neut # ( Auto) 14.7 H, Lymph # (Auto) 0.7, [place] # (Auto) 0.4, Eos # (Auto) 0.0, Baso # ( Auto) 0.0, Total Counted 100, Neutrophils % (Manual) 92 H, Lymphocytes % (Manual ) 4 L, Atypical Lymphs % 1.0, Monocytes % (Manual) 3, Platelet Estimate Normal 03/16/18 09:27: Sodium 133 L, Potassium 4.1, Chloride 93 L, Carbon Dioxide 23, Anion Gap 21.1 H, BUN 30 H, Creatinine 1.31 H, Estimated Creat Clear 53, Estimated GFR 59, Est GFR ( Amer) 72, Glucose 503 H*, Calcium 9.7, Total Bilirubin 0.8, AST 27, ALT 38, Alkaline Phosphatase 97, Total Protein 8.5 H, Albumin 4.6, Globulin 3.9 H, Albumin/Globulin Ratio 1.2 03/16/18 09:27: Troponin I < 0.02, Amylase 183 H, Lipase 85 <Alona Colbert - 03/16/18 13:41> I & O for Last 24 hours: Intake & Output 03/14/18 03/15/18 03/16/18 03/17/18 11:59 11:59 11:59 11:59 Weight 110 lb 7.014 oz <Jermain Cheung - 03/16/18 16:21> Intake & Output 03/14/18 03/15/18 03/16/18 03/17/18 11:59 11:59 11:59 11:59 Weight 110 lb 7.014 oz <Alona Colbert - 03/16/18 13:05> - Constitutional no acute distress <Alona Colbert - 03/16/18 13:41> - *Routine HEENT Exam Head: Present: normocephalic, atraumatic [facility] 03/16/18 13:41> Eye: Present: EOMI [facility] 03/16/18 13:41> ENT: Present: mucous membranes dry [facility] 03/16/18 13:41> - *Routine Neck Exam Present: supple, full ROM <[facility] 03/16/18 13:41> - *Routine Respiratory Exam Present: CTA bilaterally <[facility] 03/16/18 13:41> - *Routine Cardiovascular Exam Present: RRR <[facility] 03/16/18 13:41> - *Routine Abdominal Exam Present: soft, normoactive bowel sounds, tenderness (epigastric area) <[facility] 03/16/18 13:41> - *Routine Extremities Exam Absent: edema <[facility] 03/16/18 13:41> - *Routine Skin Exam Present: intact <[facility] 03/16/18 13:41> - *Routine Neurological Exam Present: alert, oriented X3 <[facility] 03/16/18 13:41> Assessment and Plan (1) Intractable nausea and vomiting Current visit: No Status: Acute Qualifiers: Vomiting type: unspecified Qualified Code(s): R11.2 - Nausea with vomiting , unspecified Category: Medical Code(s): R11.2 - Nausea with vomiting, unspecified (2) Intractable epigastric abdominal pain Current visit: Yes Status: Acute Category: Medical Code(s): R10.13 - Epigastric pain (3) Leukocytosis Current visit: Yes Status: Acute Category: Medical Code(s): D72.829 - Elevated white blood cell count, unspecified (4) Elevated amylase Current visit: Yes Status: Acute Category: Medical Code(s): R74.8 - Abnormal levels of other serum enzymes (5) Hyponatremia Current visit: Yes Status: Acute Category: Medical Code(s): E87.1 - Hypo- osmolality and hyponatremia (6) Dehydration Current visit: Yes Status: Acute Category: Medical Code(s): E86.0 - Dehydration (7) Hyperglycemia Current visit: Yes Status: Acute Category: Medical Code(s): R73.9 - Hyperglycemia, unspecified (8) Gastroparesis Current visit: No Status: Chronic Category: Medical Code(s): K31.84 - Gastroparesis (9) Type 2 diabetes mellitus Current visit: No Status: Chronic Category: Medical Code(s): E11.9 - Type 2 diabetes mellitus without complications <SkyeJermain alexander Harshil - 03/16/18 16:21> (1) Recurrent vomiting Current visit: Yes Status: Acute Category: Medical Code(s): R11.10 - Vomiting, unspecified (2) Recurrent abdominal pain Current visit: Yes Status: Acute Category: Medical Code(s): R10.9 - Unspecified abdominal pain (3) Leukocytosis Current visit: Yes Status: Acute Category: Medical Code(s): D72.829 - Elevated white blood cell count, unspecified (4) Elevated amylase Current visit: Yes Status: Acute Category: Medical Code(s): R74.8 - Abnormal levels of other serum enzymes (5) Hyponatremia Current visit: Yes Status: Acute Category: Medical Code(s): E87.1 - Hypo- osmolality and hyponatremia (6) Dehydration Current visit: Yes Status: Acute Category: Medical Code(s): E86.0 - Dehydration (7) Hyperglycemia Current visit: Yes Status: Acute Category: Medical Code(s): R73.9 - Hyperglycemia, unspecified (8) Gastroparesis Current visit: No Status: Chronic Category: Medical Code(s): K31.84 - Gastroparesis (9) Type 2 diabetes mellitus Current visit: No Status: Chronic Category: Medical Code(s): E11.9 - Type 2 diabetes mellitus without complications <Alona Colbert - 03/16/18 14:47> - Assessment and plan all Dx Assessment and Plan for all problems:: Pt seen and examined. More comfortable at present. Concur with plan for IV fluids, pain meds and antiemetics. <Jermain Cheung - 03/16/18 16:21> Patient has been restarted on most of his home medications as well as pain medications and antiemetics. Will repeat labs tomorrow. <Alona Colbert - 03/16/18 14:51>
--- NOTE | 2018-03-16 13:35 | Pharmacy Consult Notes ---
[facility] Pharmacy VTE Monitoring - Patient Demographics Admission date: 03/16/18 Report Date: 03/16/18 Time: 13:35 Allergies/Adverse Reactions: Patient Allergies codeine [CODEINE] Allergy (Unknown, Verified 01/03/18 12:09) UNKNOWN Iodinated Contrast Media - Oral and [Iodinated Contrast Media - IV Dye] Allergy (Unknown, Verified 01/03/18 12:09) TONGUE SWELLING, DIFF. TALKING lisinopril [LISINOPRIL] Allergy (Unknown, Verified 01/03/18 12:09) I-HIVES Height: 1.6 m Weight: 50.094 kg Patient Problems: Current Active Problems (This Medical Record has been edited. Action required.) Dehydration (Acute) Hyperglycemia (Acute) Gastroparesis diabeticorum (Acute) Abdominal pain, epigastric (Acute) Recurrent abdominal pain (Acute) Recurrent vomiting (Acute) - VTE Risk Labs: VTE Related Lab Results Hgb 15.1 g/dL (14.1-18.0) 03/16/18 09:27 Hct 45.7 % (42.0-52.0) 03/16/18 09:27 Plt Count 311 K/mm3 (142-424) 03/16/18 09:27 BUN 30 mg/dL (7-18) H 03/16/18 09:27 Creatinine 1.31 mg/dL (0.70-1.30) H 03/16/18 09:27 Estimated Creat Clear 53 mL/min (0-300) 03/16/18 09:27 Was VTE Risk Assessment Performed: Yes VTE Score: 1 VTE Risk Level: Very Low Risk Clinical Trial Participant: No - Prophylaxis VTE Prophylaxis Ordered?: Yes Types of VTE Prophylaxis: TEDS Knee High Location of Applied Device: Bilateral Lower Extremeties
[2018-03-17 04:54] LABS: Microscopic, Urine URINE MICROSCOPIC (MICROSCOPIC)
[2018-03-17 04:57] LABS: Appearance,Urine CLEAR (Clear); Bilirubin,Urine Negative (Negative); Blood, Urine Negative (Negative); Color,Urine YELLOW (Yellow); Glucose,Urine (UA) 2+ (Negative); Ketones,Urine 1+ (Negative); Leukocyte Esterase,Urine Negative (Negative); PH,Urine 5.5 (5.0-8.5); Protein,Urine 1+ (Negative); Specific Gravity, Urine 1.025 (1.005-1.030); Urobilinogen,Urine 0.2 EU/dl (0.2)
[2018-03-17 05:07] LABS: Bacteria,Urine 1+ /lpf; Hyaline Casts,Urine Occasional #/lpf (0); Mucus,Urine 1+ /lpf
[2018-03-17 06:25] LABS: Anion Gap 10.9 mEq/L (5-15); Potassium 3.9 mmoL/L (3.5-5.1)
[2018-03-17 06:27] LABS: Basophils % 0.2 % (0.1-2.0); Eosinophils # 0.1 K/mm3 (0.0-0.4); Eosinophils % 0.7 % (0.1-12.0); Hematocrit 36.7 % (42.0-52.0); Lymphocytes # 2.3 K/mm3 (0.7-4.5); Lymphocytes % 22.9 K/mm3 (10-50); Mean Corpuscular HGB Conc 32.7 g/dL (31.8-35.4); Mean Corpuscular Hemoglobin 29.6 pg (27.0-31.2); Mean Corpuscular Volume 90.4 fl (80-94); Mean Platelet Volume 9.7 fl (7.4-10.4); Monocytes # 0.6 K/mm3 (0.1-1.0); Monocytes % 5.6 % (1.7-9.3); Neutrophils % 70.6 % (37.0-80.0); Red Blood Count 4.05 M/mm3 (4.60-6.20); Red Cell Distribution Width 12.5 % (11.5-17.5)
[2018-03-17 06:35] LABS: Hemoglobin 12.1 g/dL (14.1-18.0)
[2018-03-17 06:36] LABS: Platelet Count 231 K/mm3 (142-424)
--- NOTE | 2018-03-17 08:14 | Progress Note ---
<Alona Colbert - Last Filed: 03/17/18 08:12> Internal Medicine - PN: Subj *Date: 03/17/18 *Time: 08:12 Interval history: Patient states he is feeling slightly better today. He still has some abdominal pain. He only vomited once throughout the night. He is still requiring pain medication. Exam Vital signs and Labs for Last 24 Hours: Temp Pulse Resp BP Pulse Ox 97.8 F 60 18 106/73 98 03/17/18 08:00 03/17/18 08:00 03/17/18 08:00 03/17/18 08:00 03/17/18 08:00 Laboratory Results - last 24 hr 03/16/18 12:00: POC Glucose 358 H* 03/16/18 13:53: POC Glucose 292 H 03/16/18 16:24: POC Glucose 124 H 03/16/18 20:40: POC Glucose 192 H 03/17/18 04:24: Urine Color Yellow, Urine Appearance Clear, Urine pH 5.5, Ur Specific [place] 1.025, Urine Protein 1+, Urine Glucose (UA) 2+, Urine Ketones 1 +, Urine Blood Negative, Urine Nitrate Negative, Urine Bilirubin Negative, Urine Urobilinogen 0.2, Ur Leukocyte Esterase Negative, Urine RBC 3-5, Urine WBC 3-5, Ur Squamous Epith Cells 3-5, Urine Bacteria 1+, Hyaline Casts Occasional, Urine Mucus 1+ 03/17/18 06:05: WBC 10.0 D, RBC 4.05 L, Hgb 12.1 L D, Hct 36.7 L, MCV 90.4, MCH 29.6, MCHC 32.7, RDW 12.5, Plt Count 231 D, MPV 9.7, Neut % (Auto) 70.6, Lymph % (Auto) 22.9, [place] % (Auto) 5.6, Eos % (Auto) 0.7, Baso % (Auto) 0.2, Neut # (Auto) 7.0, Lymph # (Auto) 2.3, [place] # (Auto) 0.6, Eos # (Auto) 0.1, Baso # (Auto) 0.0 03/17/18 06:05: Sodium 143, Potassium 3.9, Chloride 108 H, Carbon Dioxide 28 D , Anion Gap 10.9, BUN 25 H, Creatinine 0.85 D, Estimated Creat Clear 79, Estimated GFR 98, Est GFR ( Amer) 118 D, Glucose 163 H D I & O for Last 24 hours: Intake & Output 03/14/18 03/15/18 03/16/18 03/17/18 11:59 11:59 11:59 11:59 Intake Total 2829 / 2829 Output Total 600 / 600 Balance 2229 / 2229 Weight 110 lb 7.014 oz - Constitutional no acute distress - *Routine Respiratory Exam Present: CTA bilaterally - *Routine Cardiovascular Exam Present: RRR - *Routine Abdominal Exam Present: soft, normoactive bowel sounds, tenderness (epigastric) - *Routine Extremities Exam Absent: edema Assessment and Plan (1) Intractable nausea and vomiting Current visit: No Status: Acute Qualifiers: Vomiting type: unspecified Qualified Code(s): R11.2 - Nausea with vomiting , unspecified Category: Medical Code(s): R11.2 - Nausea with vomiting, unspecified (2) Intractable epigastric abdominal pain Current visit: Yes Status: Acute Category: Medical Code(s): R10.13 - Epigastric pain (3) Leukocytosis Current visit: Yes Status: Acute Category: Medical Code(s): D72.829 - Elevated white blood cell count, unspecified (4) Elevated amylase Current visit: Yes Status: Acute Category: Medical Code(s): R74.8 - Abnormal levels of other serum enzymes (5) Hyponatremia Current visit: Yes Status: Acute Category: Medical Code(s): E87.1 - Hypo- osmolality and hyponatremia (6) Dehydration Current visit: Yes Status: Acute Category: Medical Code(s): E86.0 - Dehydration (7) Hyperglycemia Current visit: Yes Status: Acute Category: Medical Code(s): R73.9 - Hyperglycemia, unspecified (8) Gastroparesis Current visit: No Status: Chronic Category: Medical Code(s): K31.84 - Gastroparesis (9) Type 2 diabetes mellitus Current visit: No Status: Chronic Category: Medical Code(s): E11.9 - Type 2 diabetes mellitus without complications - Assessment and plan all Dx Assessment and Plan for all problems:: Will advance the diet today and continue antiemetics and pain medication. <Jermain Cheung - Last Filed: 03/17/18 13:52> Internal Medicine - PN: Subj *Date: 03/17/18 *Time: 13:52 Exam Vital signs and Labs for Last 24 Hours: Temp Pulse Resp BP Pulse Ox 97.8 F 60 18 106/73 98 03/17/18 08:00 03/17/18 08:00 03/17/18 08:00 03/17/18 08:00 03/17/18 08:53 Laboratory Results - last 24 hr 03/16/18 12:00: POC Glucose 358 H* 03/16/18 13:53: POC Glucose 292 H 03/16/18 16:24: POC Glucose 124 H 03/16/18 20:40: POC Glucose 192 H 03/17/18 04:24: Urine Color Yellow, Urine Appearance Clear, Urine pH 5.5, Ur Specific [place] 1.025, Urine Protein 1+, Urine Glucose (UA) 2+, Urine Ketones 1 +, Urine Blood Negative, Urine Nitrate Negative, Urine Bilirubin Negative, Urine Urobilinogen 0.2, Ur Leukocyte Esterase Negative, Urine RBC 3-5, Urine WBC 3-5, Ur Squamous Epith Cells 3-5, Urine Bacteria 1+, Hyaline Casts Occasional, Urine Mucus 1+ 03/17/18 06:05: WBC 10.0 D, RBC 4.05 L, Hgb 12.1 L D, Hct 36.7 L, MCV 90.4, MCH 29.6, MCHC 32.7, RDW 12.5, Plt Count 231 D, MPV 9.7, Neut % (Auto) 70.6, Lymph % (Auto) 22.9, [place] % (Auto) 5.6, Eos % (Auto) 0.7, Baso % (Auto) 0.2, Neut # (Auto) 7.0, Lymph # (Auto) 2.3, [place] # (Auto) 0.6, Eos # (Auto) 0.1, Baso # (Auto) 0.0 03/17/18 06:05: Sodium 143, Potassium 3.9, Chloride 108 H, Carbon Dioxide 28 D , Anion Gap 10.9, BUN 25 H, Creatinine 0.85 D, Estimated Creat Clear 79, Estimated GFR 98, Est GFR ( Amer) 118 D, Glucose 163 H D 03/17/18 11:11: POC Glucose 161 H I & O for Last 24 hours: Intake & Output 03/15/18 03/16/18 03/17/18 03/18/18 11:59 11:59 11:59 11:59 Intake Total 2829 / 2829 Output Total 600 / 600 Balance 2229 / 2229 Weight 110 lb 7.014 oz Assessment and Plan (1) Intractable nausea and vomiting Current visit: No Status: Acute Qualifiers: Vomiting type: unspecified Qualified Code(s): R11.2 - Nausea with vomiting , unspecified Category: Medical Code(s): R11.2 - Nausea with vomiting, unspecified (2) Intractable epigastric abdominal pain Current visit: Yes Status: Acute Category: Medical Code(s): R10.13 - Epigastric pain (3) Leukocytosis Current visit: Yes Status: Acute Category: Medical Code(s): D72.829 - Elevated white blood cell count, unspecified (4) Elevated amylase Current visit: Yes Status: Acute Category: Medical Code(s): R74.8 - Abnormal levels of other serum enzymes (5) Hyponatremia Current visit: Yes Status: Acute Category: Medical Code(s): E87.1 - Hypo- osmolality and hyponatremia (6) Dehydration Current visit: Yes Status: Acute Category: Medical Code(s): E86.0 - Dehydration (7) Hyperglycemia Current visit: Yes Status: Acute Category: Medical Code(s): R73.9 - Hyperglycemia, unspecified (8) Gastroparesis Current visit: No Status: Chronic Category: Medical Code(s): K31.84 - Gastroparesis (9) Type 2 diabetes mellitus Current visit: No Status: Chronic Category: Medical Code(s): E11.9 - Type 2 diabetes mellitus without complications - Assessment and plan all Dx Assessment and Plan for all problems:: Patient seen and examined. Concur with assessment and plan
--- NOTE | 2018-03-18 08:20 | Progress Note ---
<Alona Colbert - Last Filed: 03/18/18 08:19> Internal Medicine - PN: Subj *Date: 03/18/18 *Time: 08:19 Interval history: States he is feeling better today. He denies any abdominal pain. He has not had any vomiting. He only had slight nausea during the night. He was able to tolerate some of his breakfast this morning. Exam Vital signs and Labs for Last 24 Hours: Temp Pulse Resp BP Pulse Ox 98.5 F 59 L 18 113/76 98 03/18/18 03:30 03/18/18 03:30 03/18/18 03:30 03/18/18 03:30 03/18/18 03:30 Laboratory Results - last 24 hr 03/17/18 06:25: POC Glucose 163 H 03/17/18 11:11: POC Glucose 161 H 03/17/18 16:53: POC Glucose 144 H 03/17/18 20:48: POC Glucose 154 H 03/18/18 06:21: POC Glucose 114 H I & O for Last 24 hours: Intake & Output 03/15/18 03/16/18 03/17/18 03/18/18 11:59 11:59 11:59 11:59 Intake Total 2829 / 2829 2055 / 2055 Output Total 600 / 600 950 / 950 Balance 2229 / 2229 1105 / 1105 Weight 110 lb 7.014 oz - Constitutional no acute distress - *Routine Respiratory Exam Present: CTA bilaterally - *Routine Cardiovascular Exam Present: RRR - *Routine Abdominal Exam Present: soft, normoactive bowel sounds. Absent: tenderness - *Routine Extremities Exam Absent: edema Assessment and Plan (1) Intractable nausea and vomiting Status: Acute Qualifiers: Vomiting type: unspecified Qualified Code(s): R11.2 - Nausea with vomiting , unspecified Category: Medical Code(s): R11.2 - Nausea with vomiting, unspecified (2) Intractable epigastric abdominal pain Status: Acute Category: Medical Code(s): R10.13 - Epigastric pain (3) Leukocytosis Status: Acute Category: Medical Code(s): D72.829 - Elevated white blood cell count, unspecified (4) Elevated amylase Status: Acute Category: Medical Code(s): R74.8 - Abnormal levels of other serum enzymes (5) Hyponatremia Status: Acute Category: Medical Code(s): E87.1 - Hypo-osmolality and hyponatremia (6) Dehydration Status: Acute Category: Medical Code(s): E86.0 - Dehydration (7) Hyperglycemia Status: Acute Category: Medical Code(s): R73.9 - Hyperglycemia, unspecified (8) Gastroparesis Status: Chronic Category: Medical Code(s): K31.84 - Gastroparesis (9) Type 2 diabetes mellitus Status: Chronic Category: Medical Code(s): E11.9 - Type 2 diabetes mellitus without complications - Assessment and plan all Dx Assessment and Plan for all problems:: Patient has improved. Possible discharge home today. <Jermain Cheung - Last Filed: 03/18/18 17:22> Internal Medicine - PN: Subj *Date: 03/18/18 *Time: 17:22 Exam Vital signs and Labs for Last 24 Hours: Temp Pulse Resp BP Pulse Ox 98.2 F 60 16 115/79 98 03/18/18 08:00 03/18/18 08:00 03/18/18 08:00 03/18/18 08:00 03/18/18 08:00 Laboratory Results - last 24 hr 03/17/18 06:25: POC Glucose 163 H 03/17/18 20:48: POC Glucose 154 H 03/18/18 06:21: POC Glucose 114 H I & O for Last 24 hours: Intake & Output 03/16/18 03/17/18 03/18/18 03/19/18 11:59 11:59 11:59 11:59 Intake Total 2829 / 2829 2055 / 2055 Output Total 600 / 600 950 / 950 Balance 2229 / 2229 1105 / 1105 Weight 110 lb 7.014 oz Assessment and Plan (1) Intractable nausea and vomiting Status: Acute Qualifiers: Vomiting type: unspecified Qualified Code(s): R11.2 - Nausea with vomiting , unspecified Category: Medical Code(s): R11.2 - Nausea with vomiting, unspecified (2) Intractable epigastric abdominal pain Status: Acute Category: Medical Code(s): R10.13 - Epigastric pain (3) Leukocytosis Status: Acute Category: Medical Code(s): D72.829 - Elevated white blood cell count, unspecified (4) Elevated amylase Status: Acute Category: Medical Code(s): R74.8 - Abnormal levels of other serum enzymes (5) Hyponatremia Status: Acute Category: Medical Code(s): E87.1 - Hypo-osmolality and hyponatremia (6) Dehydration Status: Acute Category: Medical Code(s): E86.0 - Dehydration (7) Hyperglycemia Status: Acute Category: Medical Code(s): R73.9 - Hyperglycemia, unspecified (8) Gastroparesis Status: Chronic Category: Medical Code(s): K31.84 - Gastroparesis (9) Type 2 diabetes mellitus Status: Chronic Category: Medical Code(s): E11.9 - Type 2 diabetes mellitus without complications - Assessment and plan all Dx Assessment and Plan for all problems:: Patient seen and examined this AM. He is stable for discharge and f/u in a week.
[2018-03-18 09:06] VITALS: BP 115/79
--- NOTE | 2018-03-20 15:27 | Discharge Summary ---
General - General Admission date: 03/16/18 Discharge date: 03/18/18 HPI HPI: Mr Boyle is a 42-year-old male with a history of type 2 diabetes mellitus, hypertension, chronic constipation, and gastroparesis who presented to [facility] emergency room with abdominal pain, nausea, and vomiting. He began having the abdominal pain 2 days ago along with nausea and vomiting. He was unable to retain food or fluid and thus he presented to [facility] emergency room. His glucose was elevated and he was admitted for symptom management. Mr. Boyle has a long history with abdominal pain, nausea and vomiting. He has previously been hospitalized at [facility] on several occasions as well as [facility] in [place], [place], and [facility]. He has been extensively worked up at and followed in the GI clinic. He was last hospitalized at [facility] in January with similar symptoms. Hospital Course Hospital Course: The patient was started on IVF's, antiemetics, and pain medication. He was also restarted on most of his home medications. The patient improved throughout his stay. His diet was advanced. His abdominal pain resolved as did his vomiting and he was able to tolerate a diet. His glucose improved. He was stable to be discharged home. Objective Vital signs: Temp Pulse Resp BP Pulse Ox 98.2 F 60 16 115/79 98 03/18/18 08:00 03/18/18 08:00 03/18/18 08:00 03/18/18 08:00 03/18/18 08:00 Narrative: - Constitutional no acute distress - *Routine HEENT Exam Head: Present: normocephalic, atraumatic Eye: Present: EOMI ENT: Present: mucous membranes dry - *Routine Neck Exam Present: supple, full ROM - *Routine Respiratory Exam Present: CTA bilaterally - *Routine Cardiovascular Exam Present: RRR - *Routine Abdominal Exam Present: soft, normoactive bowel sounds, tenderness (epigastric area) - *Routine Extremities Exam Absent: edema - *Routine Skin Exam Present: intact - *Routine Neurological Exam Present: alert, oriented X3 DS: Diagnosis - Discharge Diagnosis (1) Intractable nausea and vomiting Status: Acute (2) Intractable epigastric abdominal pain Status: Acute (3) Leukocytosis Status: Acute (4) Elevated amylase Status: Acute (5) Hyponatremia Status: Acute (6) Dehydration Status: Acute (7) Hyperglycemia Status: Acute (8) Gastroparesis Status: Chronic (9) Type 2 diabetes mellitus Status: Chronic Discharge Plan - Patient Discharge Instructions ACTIVITY: Continue current activity DIET: continue same diet Patient Instructions: Type 2 Diabetes, Dehydration, DI for Abdominal Pain-Adult , DI for Hyponatremia, DI for Vomiting -- Adult, DI for Leukocytosis - Follow up Plan Follow up with: Jermain Cheung MD [Primary Care Provider] - 1 week Disposition: Home, Self-Usp Medications: Home Medications Medication Instructions Recorded Confirmed Type Amitriptyline HCl [Elavil 25mg 25 mg PO HS 01/03/18 03/16/18 History tablet] Gabapentin [Gabapentin 300mg Cap] 600 mg PO HS 01/03/18 03/16/18 History Lactulose [Lactulose 10gm/15ml 10 gm PO DAILY 01/03/18 03/16/18 History Oral Soln] NIFEdipine [Nifedipine ER] 30 mg PO DAILY 01/03/18 03/16/18 History Simethicone [Gas-X] 125 mg PO DAILY 01/03/18 03/16/18 History Metformin HCl [Metformin 500mg 500 mg PO BID 01/04/18 03/16/18 History Tablet] Dicyclomine HCl 20 mg PO DAILY PRN 01/28/18 03/16/18 History Famotidine [Acid Controller] 20 mg PO BID 03/16/18 03/16/18 History Glimepiride [Amaryl] 1 mg PO DAILY 03/16/18 03/16/18 History Metoclopramide HCl [Reglan 5mg 5 mg PO AC 03/16/18 03/16/18 History Tablet] Saccharomyces Boulardii [Florastor] 250 mg PO BID 03/16/18 03/16/18 History Prescriptions/Medication Reconciliation: New Buspirone HCl [Buspar 5mg tablet] 5 mg PO BID tablet Continue NIFEdipine [Nifedipine ER] 30 mg PO DAILY Lactulose [Lactulose 10gm/15ml Oral Soln] 10 gm PO DAILY Gabapentin [Gabapentin 300mg Cap] 600 mg PO HS Amitriptyline HCl [Elavil 25mg tablet] 25 mg PO HS Metoclopramide HCl [Reglan 5mg Tablet] 5 mg PO AC Famotidine [Acid Controller] 20 mg PO BID Saccharomyces Boulardii [Florastor] 250 mg PO BID Simethicone [Gas-X] 125 mg PO DAILY Metformin HCl [Metformin 500mg Tablet] 500 mg PO BID Dicyclomine HCl 20 mg PO DAILY PRN PRN Reason: IBS Glimepiride [Amaryl] 1 mg PO DAILY Discontinued Naproxen Sodium [Naproxen 220mg Tab] 220 mg PO DAILY
== END 2018-03-18 13:05 | disposition home or self-care (01) ==
LOC: 2ND 09:16 → ER 09:16 → OBSVTOIN 10:57 → 2ND 11:43
PROVIDERS: ADMIT Family Medicine; ATTEND Family Medicine

== ENCOUNTER 2019-02-22 08:52 | Inpatient (IN) ==
--- NOTE | 2019-02-22 09:24 | Emergency Department Note ---
ED Disposition Clinical Impression: Gastroparesis Diabetic ketoacidosis Qualifiers: Diabetes mellitus type: type 2 Diabetes mellitus complication detail: without coma Qualified Code(s): E11.10 - Type 2 diabetes mellitus with ketoacidosis without coma Disposition: Admitted As Inpatient Condition on Discharge: Fair - Critical Care Critical Care Time: Yes Attestation: On 02/22/19, the high probability of a clinically significant, sudden or life threatening deterioration of the following system(s) required my full and direct attention, intervention and personal management. The time I documented below is in addition to time spent performing reported procedures but includes the following listed in this critical care notation. Total Critical Care Time: 30 Vital system(s) involved:: Metabolic Failure My critical care processes included: Assessment & monitoring of V/S, Initial and Re-exams, Data Review/Interpretation, Coordinating Care, Medication Orders and management, Documentation Medical Decision Making - Ben Inquiry Pt receiving controlled substance: Yes Ben was queried for this patient: No Reason not queried -: Emergent pt cond-no time Risks and benefits of using a controlled substance: were not discussed with pt by me Vital Signs: 02/22/19 09:04 02/22/19 09:17 02/22/19 09:30 Temperature 98.7 F Temperature Source Oral Pulse Rate [Right Apical] 117 H 68 84 Respiratory Rate 24 Blood Pressure [Right Arm] 163/116 H 164/100 H 175/98 H Blood Pressure Mean [Right Arm] 131 121 123 Blood Pressure Source [Right Arm] Automatic Cuff Automatic Cuff Blood Pressure Position [Right Arm] Sitting Sitting 02 Sat by Pulse Oximetry 95 95 91 L Oxygen Delivery Method Room Air Room Air Room Air 02/22/19 10:05 02/22/19 10:21 02/22/19 10:50 Temperature 98 F Temperature Source Oral Pulse Rate [Right Apical] 82 90 82 Respiratory Rate 20 17 18 Blood Pressure [Right Arm] 135/95 H 141/92 H 124/84 Blood Pressure Mean [Right Arm] 108 108 97 Blood Pressure Source [Right Arm] Blood Pressure Position [Right Arm] 02 Sat by Pulse Oximetry 96 98 Oxygen Delivery Method Room Air Room Air Room Air 02/22/19 11:00 Temperature Temperature Source Pulse Rate [Right Apical] 85 Respiratory Rate 15 Blood Pressure [Right Arm] 122/82 Blood Pressure Mean [Right Arm] 95 Blood Pressure Source [Right Arm] Automatic Cuff Blood Pressure Position [Right Arm] Sitting 02 Sat by Pulse Oximetry 98 Oxygen Delivery Method Room Air - Lab Data Lab Results 02/22/19 09:00: WBC 20.8 H*, RBC 5.22, Hgb 15.7, Hct 49.2, MCV 94.1 H, MCH 30.1, MCHC 32.0, RDW 13.0, Plt Count 344, MPV 9.9, Neut % (Auto) 93.7 H, Lymph % (Auto) 3.1 L, [place] % (Auto) 3.0, Eos % (Auto) 0.1, Baso % (Auto) 0.1, Neut # (Auto) 19.4 H, Lymph # (Auto) 0.7, [place] # (Auto) 0.6, Eos # (Auto) 0.0, Baso # (Auto) 0.0, Total Counted 100, Neutrophils % (Manual) 95 H, Band Neutrophils % 3.0, Lymphocytes % (Manual) 2 L, Platelet Estimate Normal, RBC Morphology Normal 02/22/19 09:00: Sodium 137, Potassium 4.2, Chloride 95 L, Carbon Dioxide 19 L, Anion Gap 27.2 H, BUN 36 H, Creatinine 1.71 H, Estimated Creat Clear 47, Estimated GFR 44 L, Est GFR ( Amer) 53 L, Glucose 597 H*, Calcium 10.0, Total Bilirubin 0.9, AST 30, ALT 34, Alkaline Phosphatase 132 H, Total Protein 8.9 H D, Albumin 4.7, Globulin 4.2 H, Albumin/Globulin Ratio 1.1 02/22/19 09:00: Acetone Level Small 02/22/19 09:00: Phosphorus 6.9 H, Magnesium 2.2 02/22/19 09:00: Lipase 79 02/22/19 09:36: POC Glucose 515 H* 02/22/19 09:39: VBG pH 7.27 L, VBG pCO2 42.5, VBG pO2 52.6 H, VBG HCO3 19.1 L, VBG Total CO2 20.4 L, VBG O2 Saturation 87.1 H, VBG Base Excess -7.8 L 02/22/19 10:05: Urine Color Yellow, Urine Appearance Clear, Urine pH 5.5, Ur Specific Ivins 1.020, Urine Protein 2+, Urine Glucose (UA) 3+, Urine Ketones 2+, Urine Blood Trace-l, Urine Nitrate Negative, Urine Bilirubin Negative, Urine Urobilinogen 0.2, Ur Leukocyte Esterase Negative, Urine RBC None, Urine WBC Occasional, Ur Squamous Epith Cells Occasional, Urine Bacteria Trace 02/22/19 10:40: POC Glucose 467 H* Result diagrams: 02/22/19 09:00 02/22/19 09:00 Orders (Tests/Meds): ED MEDICATIONS Generic Name Dose Route Start Last Admin Trade Name Della PRN Reason Stop Dose Admin Insulin Human Regular 100 unit 101 mls @ 6.18 mls/hr 02/22/19 10:15 02/22/19 10:26 / Sodium Chloride IV 03/24/19 10:14 6.18 mls/hr .[id number] GAIL Administration Protocol 0.1 UNITS/KG/HR Discontinued Medications Generic Name Dose Route Start Last Admin Trade Name Della PRN Reason Stop Dose Admin Famotidine 20 mg 02/22/19 09:25 02/22/19 09:33 Pepcid 20mg/2ml Vial IV 02/22/19 09:26 20 mg ONCE ONE Administration Sodium Chloride 1,000 mls @ 999 mls/hr 02/22/19 09:15 02/22/19 09:12 Sod Chlor 0.9% 1000ml Bag IV 02/22/19 10:15 999 mls/hr .[id number] GAIL Administration Ketorolac Tromethamine 30 mg 02/22/19 09:08 02/22/19 09:12 Toradol 30mg/Ml Vial IV 02/22/19 09:09 30 mg ONCE ONE Administration Metoclopramide HCl 5 mg 02/22/19 09:25 02/22/19 09:33 Reglan 10mg/2ml Vial IVP 02/22/19 09:26 5 mg ONCE ONE Administration Morphine Sulfate 4 mg 02/22/19 09:30 02/22/19 09:33 Morphine 4mg/Ml Syringe IV 02/22/19 09:31 4 mg ONCE ONE Administration Morphine Sulfate 4 mg 02/22/19 10:19 02/22/19 10:36 Morphine 4mg/Ml Syringe IV 02/22/19 10:20 4 mg ONCE ONE Administration Ondansetron HCl 4 mg 02/22/19 09:08 02/22/19 09:12 Zofran 4mg/2ml Vial IV 02/22/19 09:09 4 mg ONCE ONE Administration ORDERS Category Date Time Status XR chest portable Stat Exams 02/22/19 10:41 Ordered Troponin I Stat Lab 02/22/19 09:00 Received - ECG Data Tracing #1 EKG interpreted by Cachorro Casanova MD: Rhythm: sinus Rate: 88 [place]: normal Ectopy: none Conduction: normal ST Segment Changes: none T Wave Changes: none Q Waves: none No evidence of acute ischemia or injury Minimal voltage criteria for LVH - Physician Consults Physician Consulted: Jose Cheung Time: 10:53 Reason -: Admission Comment/Response: Agrees to admit the patient to the hospital. We discussed the patient's clinical information, including history, exam, laboratory and radiology results and ED course. Per hospital procedure, I will write temporary bridge inpatient orders on the patient. Specific orders requested by the admitting physician: DKA protocol. Discussed imaging of abdomen. He has had numerous CT scans of his abdomen including January 21 of this year. Abdomen is very soft and he is improving with treatment for DKA. No imaging at this time. - Reevaluation(s) Time: 10:19 Reevaluation #1: Appears much more comfortable. No longer restless, moaning, or grunting. Has the hiccups currently. Says he still has epigastric pain, but not as bad. Discussed results. He thinks he has had DKA before. General Adult HPI - General Chief complaint: Nausea/Vomiting/Diarrhea Stated complaint: nauseus, sick Time Seen by Provider: 02/22/19 09:24 Mode of Arrival: Ambulatory Limitations: No Limitations Description of Symptoms (Recalled from ER Triage Doc. by RN): PT arrived to the ED with c/o n/v and abd pain since last night. PT has a hx of gastroparesis. - History of Present Illness HPI narrative: The patient is known to me from previous emergency department visits. He has diabetes and gastroparesis. He gets recurrent severe epigastric pain and vomiting from his gastroparesis. He has the same symptoms now that started yesterday at 4 AM. States he has not been able to take his medications for 2 days because of vomiting. Symptoms are the same as previous episodes. He has had prior cholecystectomy as well. He says the last time he checked his blood sugar was Wednesday 3 days ago, he does not remember what it was. - Related Data Home Medications Medication Instructions Recorded Confirmed Amitriptyline HCl [Elavil 25mg 25 mg PO HS 01/03/18 02/22/19 tablet] Gabapentin [Gabapentin 300mg Cap] 600 mg PO HS 01/03/18 02/22/19 Lactulose [Lactulose 10gm/15ml 10 gm PO BID 01/03/18 02/22/19 Oral Soln] NIFEdipine [Nifedipine ER] 30 mg PO DAILY 01/03/18 02/22/19 Simethicone [Gas-X] 125 mg PO DAILY 01/03/18 02/22/19 Metformin HCl [Glucophage 500mg 500 mg PO BID 01/04/18 02/22/19 Tablet] Dicyclomine HCl 20 mg PO DAILY PRN 01/28/18 02/22/19 Glimepiride [Amaryl] 1 mg PO DAILY 03/16/18 02/22/19 Buspirone HCl [Buspar 5mg tablet] 5 mg PO BID 07/05/18 02/22/19 Linaclotide [Linzess] 72 mcg PO DAILY 12/27/18 02/22/19 Promethazine HCl [Phenergan 25mg 25 mg PO Q6HP PRN 12/27/18 02/22/19 tab] Metoclopramide HCl [Metoclopramide 5 mg PO TID 01/21/19 02/22/19 5mg/5ml Oral Soln] Metoclopramide HCl [Reglan 5mg 5 mg PO ACHS 02/22/19 02/22/19 Tablet] Previous Rx's Medication Instructions Recorded Simethicone [Gas Relief 80] 80 mg PO Q6H PRN #30 tab.chew 01/21/19 Allergies Allergy/AdvReac Type Severity Reaction Status Date / Time codeine [CODEINE] Allergy Unknown UNKNOWN Verified 07/05/18 19:53 Iodinated Contrast Media - Allergy Unknown TONGUE Verified 07/05/18 19:53 Oral and SWELLING, [Iodinated Contrast Media - DIFF. IV Dye] TALKING lisinopril [LISINOPRIL] Allergy Unknown I-HIVES Verified 07/05/18 19:53 [facility] History - Hepatitis A Screen Drug use history?: No High risk sexual behaviors?: No History of sexually transmitted infection?: No Currently employed?: No Childcare worker?: No Do you have indoor plumbing?: Yes Do you have electricity?: Yes Attestation statement:: This patient has been screened for Hepatitis A risk factors. I have reviewed the patient's past medical history: Yes Medical History: Reports:: Diabetes Mellitus Type 2, Gastroesophageal Reflux Disease(GERD), Hyperlipidemia, Hypertension, Palpitations Denies:: Atherosclerotic Heart Disease, BPH, Cancer, Diabetes Mellitus Type 1 , MRSA Other Medical History: Reports: Arthritis Comment: Thrombophebitis; chronic constipation; hepatitis A Other Surgeries: Yes: Colonoscopy, EGD, Other (cholecystectomy) Amputation: No Fractures: No Comment: cholecystectomy; liver biopsy - Social History Smoking Status: Never smoker Alcohol Intake: never Alcohol Intake Frequency:: holidays/special occasions only Occupational Status: unemployed, other Housing: house Household Members: significant other, friend(s) - Psychiatric History Expresses thoughts of harming self/others: None Suicide Plan Description: No Plan Family Hx:: Coronary Artery Disease, Diabetes ROS Obtained: Yes All systems reviewed & no additional complaints - Cardiovascular Cardiovascular: Denies chest pain - Respiratory Respiratory: No dyspnea - Gastrointestinal Gastrointestingal: Reports: abdominal pain, nausea, vomiting Physical Exam - General General appearance: alert, other (Grunting and moaning, restless. Same appearance as previous episodes.) - Head Head exam: atraumatic, normocephalic - Eye Eye exam: Present: normal appearance, PERRL, EOMI - ENT ENT exam: Present: mucous membranes dry - Neck Neck exam: Present: normal inspection, trachea midline - Chest Chest inspection: Present: normal inspection, symmetric chest wall rise - Respiratory Respiratory exam: Present: normal lung sounds bilaterally. Absent: respiratory distress - Cardiovascular Cardiovascular exam: Present: normal rhythm, tachycardia, normal heart sounds, systolic murmur - Abdominal Exam Abdominal exam: Present: soft, tenderness. Absent: distention, guarding, rebound, rigidity Abdominal tenderness: Present: epigastrium - Extremities Exam Extremities exam: Present: normal inspection, full ROM - Neurological Exam Neurological exam: Present: alert, oriented X3 - Psychiatric Psychiatric exam: Present: anxious - Skin Skin exam: Present: warm, dry
[2019-02-22 09:39] LABS: Basophils % 0.1 % (0.1-2.0); Eosinophils % 0.1 % (0.1-12.0); Hematocrit 49.2 % (42.0-52.0); Hemoglobin 15.7 g/dL (14.1-18.0); Lymphocytes # 0.7 K/mm3 (0.7-4.5); Lymphocytes % 3.1 % (10-50); Mean Corpuscular Hemoglobin 30.1 pg (27.0-31.2); Mean Corpuscular Volume 94.1 fl (80-94); Mean Platelet Volume 9.9 fl (7.4-10.4); Monocytes # 0.6 K/mm3 (0.1-1.0); Neutrophils # 19.4 K/mm3 (1.8-7.8); Neutrophils % 93.7 % (37.0-80.0); Platelet Count 344 K/mm3 (142-424); Red Blood Count 5.22 M/mm3 (4.60-6.20)
[2019-02-22 09:49] LABS: White Blood Count 20.8 K/mm3 (4.8-10.8)
[2019-02-22 09:49] LABS: VBG Base Excess -7.8 mmol/L (-2.4-2.3); VBG HCO3 19.1 mmol/L (23-30); VBG Oxygen Saturation 87.1 % (50-70); VBG PCO2 42.5 mmol/L (35-51); VBG PH 7.27 mmol/L (7.31-7.41); VBG PO2 52.6 mmol/L (28-40); VBG Total CO2 20.4 mmol/L (23-27)
[2019-02-22 09:55] LABS: Albumin Level 4.7 gm/dL (3.4-5.0); Albumin/Globulin Ratio 1.1 (1.1-1.8); Anion Gap 27.2 mEq/L (5-15); Bilirubin,Total 0.9 mg/dL (0.2-1.0); Globulin 4.2 gm/dl (1.3-3.2); Potassium 4.2 mmoL/L (3.5-5.1); Total Protein,Serum 8.9 gm/dL (6.4-8.2)
[2019-02-22 10:19] LABS: Microscopic, Urine URINE MICROSCOPIC (MICROSCOPIC)
[2019-02-22 10:24] LABS: Appearance,Urine CLEAR (Clear); Bilirubin,Urine Negative (Negative); Blood, Urine TRACE-L (Negative); Color,Urine YELLOW (Yellow); Glucose,Urine (UA) 3+ (Negative); Ketones,Urine 2+ (Negative); Leukocyte Esterase,Urine Negative (Negative); PH,Urine 5.5 (5.0-8.5); Protein,Urine 2+ (Negative); Urobilinogen,Urine 0.2 EU/dl (0.2)
[2019-02-22 10:29] LABS: Phosphorous 6.9 mg/dL (2.4-4.9)
[2019-02-22 10:34] LABS: Bacteria,Urine Trace /lpf; Squamous Epithelial Cell,Urine Occasional #/hpf (0-5); WBC,Urine Occasional #/hpf (0-3)
[2019-02-22 10:43] LABS: Lymphocytes % 2 % (10-50); Neutrophils % 95 % (42-76); RBC Morphology Normal; Total Cells Counted 100
[2019-02-22 13:11] LABS: Anion Gap 20.3 mEq/L (5-15); Calcium 9.4 mg/dL (8.5-10.1); Potassium 4.3 mmoL/L (3.5-5.1)
--- NOTE | 2019-02-22 14:06 | Pharmacy Consult Notes ---
[facility] Pharmacy VTE Monitoring - Patient Demographics Admission date: 02/22/19 Report Date: 02/22/19 Time: 14:06 Allergies/Adverse Reactions: Patient Allergies codeine [CODEINE] Allergy (Unknown, Verified 02/22/19 11:59) UNKNOWN Iodinated Contrast Media - Oral and [Iodinated Contrast Media - IV Dye] Allergy (Unknown, Verified 02/22/19 11:59) TONGUE SWELLING, DIFF. TALKING lisinopril [LISINOPRIL] Allergy (Unknown, Verified 02/22/19 11:59) I-HIVES Height: 1.6 m Weight: 51.256 kg Patient Problems: Current Active Problems (This Medical Record has been edited. Action required.) Gastroparesis (Chronic) Diabetic ketoacidosis (Acute) - VTE Risk Labs: VTE Related Lab Results Hgb 15.7 g/dL (14.1-18.0) 02/22/19 09:00 Hct 49.2 % (42.0-52.0) 02/22/19 09:00 Plt Count 344 K/mm3 (142-424) 02/22/19 09:00 BUN 39 mg/dL (7-18) H 02/22/19 12:50 Creatinine 1.53 mg/dL (0.70-1.30) H 02/22/19 12:50 Estimated Creat Clear 53 mL/min (50-200) 02/22/19 12:50 Was VTE Risk Assessment Performed: No VTE Score: 1 VTE Risk Level: Low Risk Clinical Trial Participant: No - Prophylaxis Types of VTE Prophylaxis: TEDS Knee High
[2019-02-22 16:25] LABS: Anion Gap 18.1 mEq/L (5-15); Calcium 8.9 mg/dL (8.5-10.1); Potassium 4.1 mmoL/L (3.5-5.1)
--- NOTE | 2019-02-22 17:20 | History & Physical Report ---
*Admission Date: 02/22/19 *Chief complaint: abdominal pain, nausea, vomiting *History of present illness: Mr. Boyle is a 43-year-old male with a history of diabetic gastroparesis who has had numerous admissions in the past for intermittent intractable vomiting. He states he had been doing well at home up until yesterday around 4 AM when he began vomiting uncontrollably. He was having epigastric pain that radiated into his back as well as severe reflux and hiccups. He denies any diarrhea. He states he presented to the emergency room today because he continued to vomit. His glucose was elevated at almost 600, his renal function was elevated, and his white blood cell count was elevated. He was admitted for further evaluation and treatment. [facility] History Medical History: Reports:: Diabetes Mellitus Type 2, Gastroesophageal Reflux Disease(GERD), Hyperlipidemia, Hypertension, Palpitations Denies:: Atherosclerotic Heart Disease, BPH, Cancer, Diabetes Mellitus Type 1, MRSA *Have you ever received a pneumonia vaccine?: No *Have you received a flu vaccine this season?: No Other Medical History: Reports: Arthritis, Other (Diabetic gastroparesis, diabetic neuropathy) Other Surgeries: Yes: Cholecystectomy, Colonoscopy, EGD, Other (cholecystectomy) Amputation: No Fractures: No - *Social History Educational Level: Attended Grade School Smoking Status: Never smoker Alcohol Intake: never Alcohol Intake Frequency:: holidays/special occasions only *Occupational Status:: unemployed, other Housing: house Household Members: significant other, friend(s) *Travel in the last 8 weeks: None - Psychiatric History Expresses thoughts of harming self/others: None Suicide Plan Description: No Plan Family Hx:: Coronary Artery Disease, Diabetes, Hypertension Review of Systems - Constitutional Reports body ache(s), Reports chills, Reports weakness - Eyes Denies blurry vision, Denies double vision - ENT Reports nasal congestion, Reports sore throat - *Cardiovascular Reports chest pain, Denies rapid, pounding, or irregular heartbeat - *Respiratory Reports cough, Denies chest congestion, Denies shortness of breath - *Gastrointestinal Reports abdominal pain (epigastric), Reports nausea, Reports vomiting, Denies loose stools - *Genitourinary Denies difficulty urinating, Denies painful urination - *Musculoskeletal Reports body aches, Denies joint pain - *Neurologic Reports headache(s), Reports dizziness, Reports weakness Meds Home Medications Medication Instructions Recorded Confirmed Type Amitriptyline HCl [Elavil 25mg 25 mg PO HS 01/03/18 02/22/19 History tablet] Gabapentin [Gabapentin 300mg Cap] 600 mg PO HS 01/03/18 02/22/19 History Lactulose [Lactulose 10gm/15ml 10 gm PO BID 01/03/18 02/22/19 History Oral Soln] NIFEdipine [Nifedipine ER] 30 mg PO DAILY 01/03/18 02/22/19 History Metformin HCl [Glucophage 500mg 500 mg PO BID 01/04/18 02/22/19 History Tablet] Dicyclomine HCl 20 mg PO Q6HP PRN 01/28/18 02/22/19 History Glimepiride [Amaryl] 1 mg PO DAILY 03/16/18 02/22/19 History Buspirone HCl [Buspar 5mg tablet] 5 mg PO BID 07/05/18 02/22/19 History Linaclotide [Linzess] 72 mcg PO DAILY 12/27/18 02/22/19 History Promethazine HCl [Phenergan 25mg 25 mg PO Q6HP PRN 12/27/18 02/22/19 History tab] Metoclopramide HCl [Metoclopramide 5 mg PO TID 01/21/19 02/22/19 History 5mg/5ml Oral Soln] Simethicone [Gas Relief 80] 80 mg PO Q6H PRN #30 tab.chew 01/21/19 02/22/19 Rx Calcium Carbonate/Simethicone 1 each PO DAILY PRN 02/22/19 02/22/19 History [[place] Heartburn+Gas] Magnesium Carb/Aluminum Hydrox 1 each PO DAILY PRN 02/22/19 02/22/19 History [Gaviscon Es Tablet Chew] Allergies Allergy/AdvReac Type Severity Reaction Status Date / Time codeine [CODEINE] Allergy Unknown UNKNOWN Verified 02/22/19 11:59 Iodinated Contrast Media - Allergy Unknown TONGUE Verified 02/22/19 11:59 Oral and SWELLING, [Iodinated Contrast Media - DIFF. IV Dye] TALKING lisinopril [LISINOPRIL] Allergy Unknown I-HIVES Verified 02/22/19 11:59 Exam Vital signs and Labs for Last 24 Hours: Temp Pulse Resp BP Pulse Ox 98 F 95 H 19 143/98 H 98 02/22/19 13:04 02/22/19 16:00 02/22/19 16:00 02/22/19 16:00 02/22/19 16:00 Laboratory Results - last 24 hr 02/22/19 09:00: WBC 20.8 H*, RBC 5.22, Hgb 15.7, Hct 49.2, MCV 94.1 H, MCH 30.1, MCHC 32.0, RDW 13.0, Plt Count 344, MPV 9.9, Neut % (Auto) 93.7 H, Lymph % (Auto) 3.1 L, [place] % (Auto) 3.0, Eos % (Auto) 0.1, Baso % (Auto) 0.1, Neut # (Auto) 19.4 H, Lymph # (Auto) 0.7, [place] # (Auto) 0.6, Eos # (Auto) 0.0, Baso # (Auto) 0.0, Total Counted 100, Neutrophils % (Manual) 95 H, Band Neutrophils % 3.0, Lymphocytes % (Manual) 2 L, Platelet Estimate Normal, RBC Morphology Normal 02/22/19 09:00: Sodium 137, Potassium 4.2, Chloride 95 L, Carbon Dioxide 19 L, Anion Gap 27.2 H, BUN 36 H, Creatinine 1.71 H, Estimated Creat Clear 47, Estimated GFR 44 L, Est GFR ( Amer) 53 L, Glucose 597 H*, Calcium 10.0, Total Bilirubin 0.9, AST 30, ALT 34, Alkaline Phosphatase 132 H, Total Protein 8.9 H D, Albumin 4.7, Globulin 4.2 H, Albumin/Globulin Ratio 1.1 02/22/19 09:00: Acetone Level Small 02/22/19 09:00: Phosphorus 6.9 H, Magnesium 2.2 02/22/19 09:00: Lipase 79 02/22/19 09:00: Troponin I < 0.02 02/22/19 09:36: POC Glucose 515 H* 02/22/19 09:39: VBG pH 7.27 L, VBG pCO2 42.5, VBG pO2 52.6 H, VBG HCO3 19.1 L, VBG Total CO2 20.4 L, VBG O2 Saturation 87.1 H, VBG Base Excess -7.8 L 02/22/19 10:05: Urine Color Yellow, Urine Appearance Clear, Urine pH 5.5, Ur Specific [place] 1.020, Urine Protein 2+, Urine Glucose (UA) 3+, Urine Ketones 2+, Urine Blood Trace-l, Urine Nitrate Negative, Urine Bilirubin Negative, Urine Urobilinogen 0.2, Ur Leukocyte Esterase Negative, Urine RBC None, Urine WBC Occasional, Ur Squamous Epith Cells Occasional, Urine Bacteria Trace 02/22/19 10:40: POC Glucose 467 H* 02/22/19 12:50: Acetone Level Small 02/22/19 12:50: Sodium 139, Potassium 4.3, Chloride 100, Carbon Dioxide 23 D, Anion Gap 20.3 H, BUN 39 H, Creatinine 1.53 H, Estimated Creat Clear 53, Estimated GFR 49 L, Est GFR ( Amer) 60, Glucose 497 H*, Calcium 9.4 02/22/19 13:58: POC Glucose 443 H* 02/22/19 15:54: Sodium 140, Potassium 4.1, Chloride 103, Carbon Dioxide 23, Anion Gap 18.1 H, BUN 44 H, Creatinine 1.48 H, Estimated Creat Clear 46, Estimated GFR 51 L, Est GFR ( Amer) 62, Glucose 419 H*, Calcium 8.9 02/22/19 15:55: POC Glucose 426 H* I & O for Last 24 hours: Intake & Output 02/20/19 02/21/19 02/22/19 02/23/19 11:59 11:59 11:59 11:59 Intake Total Balance Weight 113 lb 9 oz 113 lb - Constitutional no acute distress - *Routine HEENT Exam Head: Present: normocephalic Eye: Present: EOMI, PERRL ENT: Present: mucous membranes dry - *Routine Neck Exam Present: supple. Absent: lymphadenopathy - *Routine Respiratory Exam Present: CTA bilaterally - *Routine Cardiovascular Exam Present: RRR - *Routine Abdominal Exam Present: soft, normoactive bowel sounds, tenderness (epigastric area) - *Routine Extremities Exam Absent: cyanosis, clubbing, edema - *Routine Skin Exam Present: warm. Absent: rash - *Routine Neurological Exam Present: alert, oriented X3 Assessment and Plan (1) Diabetic ketoacidosis Current visit: Yes Status: Acute Qualifiers: Diabetes mellitus type: type 2 Diabetes mellitus complication detail: without coma Qualified Code(s): E11.10 - Type 2 diabetes mellitus with ketoacidosis without coma Category: Medical Code(s): E13.10 - Other specified diabetes mellitus with ketoacidosis without coma (2) Intractable nausea and vomiting Current visit: No Status: Acute Qualifiers: Vomiting type: unspecified Qualified Code(s): R11.2 - Nausea with vomiting, unspecified Category: Medical Code(s): R11.2 - Nausea with vomiting, unspecified (3) Dehydration Current visit: No Status: Acute Category: Medical Code(s): E86.0 - Dehydration (4) Intractable epigastric abdominal pain Current visit: No Status: Acute Category: Medical Code(s): R10.13 - Epigastric pain (5) Leukocytosis Current visit: No Status: Acute Category: Medical Code(s): D72.829 - Elevated white blood cell count, unspecified (6) Gastroparesis Current visit: Yes Status: Chronic Category: Medical Code(s): K31.84 - Gastroparesis (7) Diabetes type 2, uncontrolled Current visit: No Status: Chronic Category: Medical Code(s): E11.65 - Type 2 diabetes mellitus with hyperglycemia (8) Hypertension Current visit: Yes Status: Chronic Category: Medical Code(s): I10 - Essential (primary) hypertension - Assessment and plan all Dx Assessment and Plan for all problems:: Patient has been started on DKA protocol and some of his home medications. His symptoms are improving. Will discuss further care with Dr. Garcia.
[2019-02-22 20:20] LABS: Anion Gap 14.1 mEq/L (5-15); Calcium 8.5 mg/dL (8.5-10.1); Potassium 4.1 mmoL/L (3.5-5.1)
[2019-02-23 00:08] LABS: Anion Gap 12.5 mEq/L (5-15); Calcium 8.4 mg/dL (8.5-10.1); Potassium 3.5 mmoL/L (3.5-5.1)
[2019-02-23 03:50] LABS: Anion Gap 13.5 mEq/L (5-15); Calcium 7.9 mg/dL (8.5-10.1); Potassium 3.5 mmoL/L (3.5-5.1)
--- NOTE | 2019-02-23 08:09 | Progress Note ---
<Alona Colbert - Last Filed: 02/23/19 08:06> Internal Medicine - PN: Subj *Date: 02/23/19 *Time: 08:06 Interval history: Patient states he still feels pretty bad this morning. He had some vomiting around 3 AM. His abdomen is still hurting in the epigastric area. He denies any diarrhea. He states his sugars are better and he did eat a little bit this morning. Exam Vital signs and Labs for Last 24 Hours: Temp Pulse Resp BP Pulse Ox 99.9 F H 70 14 118/80 99 02/22/19 20:00 02/23/19 06:00 02/23/19 08:03 02/23/19 06:00 02/23/19 06:00 Laboratory Results - last 24 hr 02/22/19 09:00: WBC 20.8 H*, RBC 5.22, Hgb 15.7, Hct 49.2, MCV 94.1 H, MCH 30.1, MCHC 32.0, RDW 13.0, Plt Count 344, MPV 9.9, Neut % (Auto) 93.7 H, Lymph % (Auto) 3.1 L, [place] % (Auto) 3.0, Eos % (Auto) 0.1, Baso % (Auto) 0.1, Neut # (Auto) 19.4 H, Lymph # (Auto) 0.7, [place] # (Auto) 0.6, Eos # (Auto) 0.0, Baso # (Auto) 0.0, Total Counted 100, Neutrophils % (Manual) 95 H, Band Neutrophils % 3.0, Lymphocytes % (Manual) 2 L, Platelet Estimate Normal, RBC Morphology Normal 02/22/19 09:00: Sodium 137, Potassium 4.2, Chloride 95 L, Carbon Dioxide 19 L, Anion Gap 27.2 H, BUN 36 H, Creatinine 1.71 H, Estimated Creat Clear 47, Estimated GFR 44 L, Est GFR ( Amer) 53 L, Glucose 597 H*, Calcium 10.0, Total Bilirubin 0.9, AST 30, ALT 34, Alkaline Phosphatase 132 H, Total Protein 8.9 H D, Albumin 4.7, Globulin 4.2 H, Albumin/Globulin Ratio 1.1 02/22/19 09:00: Acetone Level Small 02/22/19 09:00: Phosphorus 6.9 H, Magnesium 2.2 02/22/19 09:00: Lipase 79 02/22/19 09:00: Troponin I < 0.02 02/22/19 09:36: POC Glucose 515 H* 02/22/19 09:39: VBG pH 7.27 L, VBG pCO2 42.5, VBG pO2 52.6 H, VBG HCO3 19.1 L, VBG Total CO2 20.4 L, VBG O2 Saturation 87.1 H, VBG Base Excess -7.8 L 02/22/19 10:05: Urine Color Yellow, Urine Appearance Clear, Urine pH 5.5, Ur Specific [place] 1.020, Urine Protein 2+, Urine Glucose (UA) 3+, Urine Ketones 2+, Urine Blood Trace-l, Urine Nitrate Negative, Urine Bilirubin Negative, Urine Urobilinogen 0.2, Ur Leukocyte Esterase Negative, Urine RBC None, Urine WBC Occasional, Ur Squamous Epith Cells Occasional, Urine Bacteria Trace 02/22/19 10:40: POC Glucose 467 H* 02/22/19 12:50: Acetone Level Small 02/22/19 12:50: Sodium 139, Potassium 4.3, Chloride 100, Carbon Dioxide 23 D, Anion Gap 20.3 H, BUN 39 H, Creatinine 1.53 H, Estimated Creat Clear 53, Estimated GFR 49 L, Est GFR ( Amer) 60, Glucose 497 H*, Calcium 9.4 02/22/19 13:58: POC Glucose 443 H* 02/22/19 15:54: Sodium 140, Potassium 4.1, Chloride 103, Carbon Dioxide 23, Anion Gap 18.1 H, BUN 44 H, Creatinine 1.48 H, Estimated Creat Clear 46, Estimated GFR 51 L, Est GFR ( Amer) 62, Glucose 419 H*, Calcium 8.9 02/22/19 15:55: POC Glucose 426 H* 02/22/19 18:19: POC Glucose 288 H 02/22/19 19:59: POC Glucose 254 H 02/22/19 20:04: Sodium 142, Potassium 4.1, Chloride 106, Carbon Dioxide 26, Anion Gap 14.1, BUN 43 H, Creatinine 1.32 H, Estimated Creat Clear 51, Estimated GFR 59, Est GFR ( Amer) 71, Glucose 287 H D, Calcium 8.5 02/22/19 21:53: POC Glucose 227 H 02/22/19 23:41: POC Glucose 78 02/22/19 23:50: Acetone Level None detected 02/22/19 23:50: Sodium 145, Potassium 3.5, Chloride 110 H, Carbon Dioxide 26, Anion Gap 12.5, BUN 40 H, Creatinine 1.14, Estimated Creat Clear 59, Estimated GFR 69, Est GFR ( Amer) 84, Glucose 90 D, Calcium 8.4 L 02/23/19 02:10: POC Glucose 119 H 02/23/19 03:15: Sodium 144, Potassium 3.5, Chloride 108 H, Carbon Dioxide 26, Anion Gap 13.5, BUN 37 H, Creatinine 0.91 D, Estimated Creat Clear 74, Estimated GFR 90, Est GFR ( Amer) 109 D, Glucose 154 H D, Calcium 7.9 L 02/23/19 04:26: POC Glucose 186 H 02/23/19 06:33: POC Glucose 202 H I & O for Last 24 hours: Intake & Output 02/20/19 02/21/19 02/22/19 02/23/19 11:59 11:59 11:59 11:59 Intake Total 3377 / 3377 Balance 3377 / 3377 Weight 113 lb 9 oz 121 lb 0.011 oz - Constitutional no acute distress - *Routine Respiratory Exam Present: CTA bilaterally - *Routine Cardiovascular Exam Present: RRR - *Routine Abdominal Exam Present: soft, normoactive bowel sounds, tenderness (epigastric area) - *Routine Extremities Exam Absent: cyanosis, clubbing, edema Assessment and Plan (1) Diabetic ketoacidosis Current visit: Yes Status: Acute Qualifiers: Diabetes mellitus type: type 2 Diabetes mellitus complication detail: without coma Qualified Code(s): E11.10 - Type 2 diabetes mellitus with ketoacidosis without coma Category: Medical Code(s): E13.10 - Other specified diabetes mellitus with ketoacidosis without coma (2) Intractable nausea and vomiting Current visit: No Status: Acute Qualifiers: Vomiting type: unspecified Qualified Code(s): R11.2 - Nausea with vomiting, unspecified Category: Medical Code(s): R11.2 - Nausea with vomiting, unspecified (3) Dehydration Current visit: No Status: Acute Category: Medical Code(s): E86.0 - Dehydration (4) Intractable epigastric abdominal pain Current visit: No Status: Acute Category: Medical Code(s): R10.13 - Epigastric pain (5) Leukocytosis Current visit: No Status: Acute Category: Medical Code(s): D72.829 - Elevated white blood cell count, unspecified (6) Gastroparesis Current visit: Yes Status: Chronic Category: Medical Code(s): K31.84 - Gastroparesis (7) Diabetes type 2, uncontrolled Current visit: No Status: Chronic Category: Medical Code(s): E11.65 - Type 2 diabetes mellitus with hyperglycemia (8) Hypertension Current visit: Yes Status: Chronic Category: Medical Code(s): I10 - Essential (primary) hypertension - Assessment and plan all Dx Assessment and Plan for all problems:: Patient's glucose is improving. Acetone is now negative. May need to change insulin schedule to ACHS dosing. Will discuss with Dr. Cheung. Will repeat lab work tomorrow to recheck white blood cell count. <Jermain Cheung - Last Filed: 02/23/19 08:21> Exam Vital signs and Labs for Last 24 Hours: Temp Pulse Resp BP Pulse Ox 99.9 F H 70 14 163/103 H 100 02/22/19 20:00 02/23/19 08:00 02/23/19 08:03 02/23/19 08:00 02/23/19 08:00 Laboratory Results - last 24 hr 02/22/19 09:00: WBC 20.8 H*, RBC 5.22, Hgb 15.7, Hct 49.2, MCV 94.1 H, MCH 30.1, MCHC 32.0, RDW 13.0, Plt Count 344, MPV 9.9, Neut % (Auto) 93.7 H, Lymph % (Auto) 3.1 L, [place] % (Auto) 3.0, Eos % (Auto) 0.1, Baso % (Auto) 0.1, Neut # (Auto) 19.4 H, Lymph # (Auto) 0.7, [place] # (Auto) 0.6, Eos # (Auto) 0.0, Baso # (Auto) 0.0, Total Counted 100, Neutrophils % (Manual) 95 H, Band Neutrophils % 3.0, Lymphocytes % (Manual) 2 L, Platelet Estimate Normal, RBC Morphology Normal 02/22/19 09:00: Sodium 137, Potassium 4.2, Chloride 95 L, Carbon Dioxide 19 L, Anion Gap 27.2 H, BUN 36 H, Creatinine 1.71 H, Estimated Creat Clear 47, Estimated GFR 44 L, Est GFR ( Amer) 53 L, Glucose 597 H*, Calcium 10.0, Total Bilirubin 0.9, AST 30, ALT 34, Alkaline Phosphatase 132 H, Total Protein 8.9 H D, Albumin 4.7, Globulin 4.2 H, Albumin/Globulin Ratio 1.1 02/22/19 09:00: Acetone Level Small 02/22/19 09:00: Phosphorus 6.9 H, Magnesium 2.2 02/22/19 09:00: Lipase 79 02/22/19 09:00: Troponin I < 0.02 02/22/19 09:36: POC Glucose 515 H* 02/22/19 09:39: VBG pH 7.27 L, VBG pCO2 42.5, VBG pO2 52.6 H, VBG HCO3 19.1 L, VBG Total CO2 20.4 L, VBG O2 Saturation 87.1 H, VBG Base Excess -7.8 L 02/22/19 10:05: Urine Color Yellow, Urine Appearance Clear, Urine pH 5.5, Ur Specific [place] 1.020, Urine Protein 2+, Urine Glucose (UA) 3+, Urine Ketones 2+, Urine Blood Trace-l, Urine Nitrate Negative, Urine Bilirubin Negative, Urine Urobilinogen 0.2, Ur Leukocyte Esterase Negative, Urine RBC None, Urine WBC Occasional, Ur Squamous Epith Cells Occasional, Urine Bacteria Trace 02/22/19 10:40: POC Glucose 467 H* 02/22/19 12:50: Acetone Level Small 02/22/19 12:50: Sodium 139, Potassium 4.3, Chloride 100, Carbon Dioxide 23 D, Anion Gap 20.3 H, BUN 39 H, Creatinine 1.53 H, Estimated Creat Clear 53, Estimated GFR 49 L, Est GFR ( Amer) 60, Glucose 497 H*, Calcium 9.4 02/22/19 13:58: POC Glucose 443 H* 02/22/19 15:54: Sodium 140, Potassium 4.1, Chloride 103, Carbon Dioxide 23, Anion Gap 18.1 H, BUN 44 H, Creatinine 1.48 H, Estimated Creat Clear 46, Estimated GFR 51 L, Est GFR ( Amer) 62, Glucose 419 H*, Calcium 8.9 02/22/19 15:55: POC Glucose 426 H* 02/22/19 18:19: POC Glucose 288 H 02/22/19 19:59: POC Glucose 254 H 02/22/19 20:04: Sodium 142, Potassium 4.1, Chloride 106, Carbon Dioxide 26, Anion Gap 14.1, BUN 43 H, Creatinine 1.32 H, Estimated Creat Clear 51, Estimated GFR 59, Est GFR ( Amer) 71, Glucose 287 H D, Calcium 8.5 02/22/19 21:53: POC Glucose 227 H 02/22/19 23:41: POC Glucose 78 02/22/19 23:50: Acetone Level None detected 02/22/19 23:50: Sodium 145, Potassium 3.5, Chloride 110 H, Carbon Dioxide 26, Anion Gap 12.5, BUN 40 H, Creatinine 1.14, Estimated Creat Clear 59, Estimated GFR 69, Est GFR ( Amer) 84, Glucose 90 D, Calcium 8.4 L 02/23/19 02:10: POC Glucose 119 H 02/23/19 03:15: Sodium 144, Potassium 3.5, Chloride 108 H, Carbon Dioxide 26, Anion Gap 13.5, BUN 37 H, Creatinine 0.91 D, Estimated Creat Clear 74, Estimated GFR 90, Est GFR ( Amer) 109 D, Glucose 154 H D, Calcium 7.9 L 02/23/19 04:26: POC Glucose 186 H 02/23/19 06:33: POC Glucose 202 H I & O for Last 24 hours: Intake & Output 02/20/19 02/21/19 02/22/19 02/23/19 11:59 11:59 11:59 11:59 Intake Total 3377 / 3377 Output Total 1200 / 1200 Balance 2177 / 2177 Weight 113 lb 9 oz 121 lb 0.011 oz Assessment and Plan (1) Diabetic ketoacidosis Current visit: Yes Status: Acute Qualifiers: Diabetes mellitus type: type 2 Diabetes mellitus complication detail: without coma Qualified Code(s): E11.10 - Type 2 diabetes mellitus with ketoacidosis without coma Category: Medical Code(s): E13.10 - Other specified diabetes mellitus with ketoacidosis without coma (2) Intractable nausea and vomiting Current visit: No Status: Acute Qualifiers: Vomiting type: unspecified Qualified Code(s): R11.2 - Nausea with vomiting, unspecified Category: Medical Code(s): R11.2 - Nausea with vomiting, unspecified (3) Dehydration Current visit: No Status: Acute Category: Medical Code(s): E86.0 - Dehydration (4) Intractable epigastric abdominal pain Current visit: No Status: Acute Category: Medical Code(s): R10.13 - Epigastric pain (5) Leukocytosis Current visit: No Status: Acute Category: Medical Code(s): D72.829 - Elevated white blood cell count, unspecified (6) Gastroparesis Current visit: Yes Status: Chronic Category: Medical Code(s): K31.84 - Gastroparesis (7) Diabetes type 2, uncontrolled Current visit: No Status: Chronic Category: Medical Code(s): E11.65 - Type 2 diabetes mellitus with hyperglycemia (8) Hypertension Current visit: Yes Status: Chronic Category: Medical Code(s): I10 - Essential (primary) hypertension - Assessment and plan all Dx Assessment and Plan for all problems:: Patient seen and examined. He appears comfortable. Sugars improved. Will check CXR to r/o source of infection. Resume Metformin and Amaryl along with sliding scale.
[2019-02-23 15:23] LABS: Anion Gap 12.7 mEq/L (5-15); Calcium 8.2 mg/dL (8.5-10.1); Potassium 3.7 mmoL/L (3.5-5.1)
[2019-02-24 05:28] LABS: Basophils % 0.3 % (0.1-2.0); Eosinophils # 0.1 K/mm3 (0.0-0.4); Eosinophils % 0.8 % (0.1-12.0); Hematocrit 39.7 % (42.0-52.0); Hemoglobin 13.2 g/dL (14.1-18.0); Lymphocytes # 1.9 K/mm3 (0.7-4.5); Lymphocytes % 27.7 % (10-50); Mean Corpuscular HGB Conc 33.3 g/dL (31.8-35.4); Mean Corpuscular Hemoglobin 29.7 pg (27.0-31.2); Mean Corpuscular Volume 89.1 fl (80-94); Mean Platelet Volume 9.7 fl (7.4-10.4); Monocytes # 0.3 K/mm3 (0.1-1.0); Monocytes % 4.7 % (1.7-9.3); Neutrophils # 4.6 K/mm3 (1.8-7.8); Neutrophils % 66.5 % (37.0-80.0); Platelet Count 210 K/mm3 (142-424); Red Blood Count 4.46 M/mm3 (4.60-6.20); Red Cell Distribution Width 12.4 % (11.5-17.5); White Blood Count 6.9 K/mm3 (4.8-10.8)
[2019-02-24 05:31] LABS: Anion Gap 15.2 mEq/L (5-15); Calcium 8.3 mg/dL (8.5-10.1); Potassium 4.2 mmoL/L (3.5-5.1)
--- NOTE | 2019-02-24 08:26 | Progress Note ---
Internal Medicine - PN: Subj *Date: 02/24/19 *Time: 08:24 Interval history: The patient states he had a rough night. He says he began having abdominal pain that was severe around 4 AM and had received medication. It slightly better now. He is not had any further vomiting since yesterday. He has not had any stools. He did tolerate some tomato soup this morning. Exam Vital signs and Labs for Last 24 Hours: Temp Pulse Resp BP Pulse Ox 98.1 F 60 21 120/82 98 02/24/19 04:09 02/24/19 08:00 02/24/19 06:00 02/24/19 06:00 02/24/19 06:00 Laboratory Results - last 24 hr 02/23/19 08:26: POC Glucose 265 H 02/23/19 11:24: POC Glucose 193 H 02/23/19 11:48: Acetone Level Small 02/23/19 15:10: Sodium 140, Potassium 3.7, Chloride 106, Carbon Dioxide 25, Anion Gap 12.7, BUN 23 H D, Creatinine 0.64 L D, Estimated Creat Clear 113, Estimated GFR 135, Est GFR ( Amer) 164 D, Glucose 105 D, Calcium 8.2 L 02/23/19 16:59: POC Glucose 123 H 02/23/19 20:13: POC Glucose 154 H 02/24/19 03:12: Sodium 140, Potassium 4.0, Chloride 106, Carbon Dioxide 26, Anion Gap 12.0, BUN 14 D, Creatinine 0.68 L, Estimated Creat Clear 106, Estimated GFR 126, Est GFR ( Amer) 153, Glucose 137 H D, Calcium 8.0 L 02/24/19 04:56: POC Glucose 131 H 02/24/19 05:15: WBC 6.9 D, RBC 4.46 L, Hgb 13.2 L, Hct 39.7 L, MCV 89.1, MCH 29.7, MCHC 33.3, RDW 12.4, Plt Count 210 D, MPV 9.7, Neut % (Auto) 66.5, Lymph % (Auto) 27.7, [place] % (Auto) 4.7, Eos % (Auto) 0.8, Baso % (Auto) 0.3, Neut # (Auto) 4.6, Lymph # (Auto) 1.9, [place] # (Auto) 0.3, Eos # (Auto) 0.1, Baso # (Auto) 0.0 02/24/19 05:15: Sodium 139, Potassium 4.2, Chloride 104, Carbon Dioxide 24, Anion Gap 15.2 H, BUN 13, Creatinine 0.75, Estimated Creat Clear 95, Estimated GFR 113, Est GFR ( Amer) 136, Glucose 138 H, Calcium 8.3 L I & O for Last 24 hours: Intake & Output 02/21/19 02/22/19 02/23/19 02/24/19 11:59 11:59 11:59 11:59 Intake Total 3377 / 3377 4889 / 4889 Output Total 1200 / 1200 2175 / 2175 Balance 2177 / 2177 2714 / 2714 Weight 113 lb 9 oz 121 lb 0.011 oz 119 lb 9 oz - Constitutional no acute distress - *Routine Respiratory Exam Present: CTA bilaterally - *Routine Cardiovascular Exam Present: RRR - *Routine Abdominal Exam Present: soft, normoactive bowel sounds, tenderness (epigastric area) - *Routine Extremities Exam Absent: cyanosis, clubbing, edema Assessment and Plan (1) Diabetic ketoacidosis Current visit: Yes Status: Acute Qualifiers: Diabetes mellitus type: type 2 Diabetes mellitus complication detail: without coma Qualified Code(s): E11.10 - Type 2 diabetes mellitus with ketoacidosis without coma Category: Medical Code(s): E13.10 - Other specified diabetes mellitus with ketoacidosis without coma (2) Intractable nausea and vomiting Current visit: No Status: Acute Qualifiers: Vomiting type: unspecified Qualified Code(s): R11.2 - Nausea with vomiting, unspecified Category: Medical Code(s): R11.2 - Nausea with vomiting, unspecified (3) Dehydration Current visit: No Status: Acute Category: Medical Code(s): E86.0 - Dehydration (4) Intractable epigastric abdominal pain Current visit: No Status: Acute Category: Medical Code(s): R10.13 - Epigastric pain (5) Leukocytosis Current visit: No Status: Acute Category: Medical Code(s): D72.829 - Elevated white blood cell count, unspecified (6) Gastroparesis Current visit: Yes Status: Chronic Category: Medical Code(s): K31.84 - Gastroparesis (7) Diabetes type 2, uncontrolled Current visit: No Status: Chronic Category: Medical Code(s): E11.65 - Type 2 diabetes mellitus with hyperglycemia (8) Hypertension Current visit: Yes Status: Chronic Category: Medical Code(s): I10 - Essential (primary) hypertension - Assessment and plan all Dx Assessment and Plan for all problems:: White blood cell count has normalized and renal function has improved. Patient's glucose has improved. Will discuss further care with Dr. Cheung.
--- NOTE | 2019-02-24 15:33 | Discharge Summary ---
General - General Admission date:: 02/22/19 Discharge date: 02/24/19 HPI HPI: Mr. Boyle is a 43-year-old male with a history of diabetic gastroparesis who has had numerous admissions in the past for intermittent intractable vomiting. He states he had been doing well at home up until yesterday around 4 AM when he began vomiting uncontrollably. He was having epigastric pain that radiated into his back as well as severe reflux and hiccups. He denies any diarrhea. He states he presented to the emergency room today because he continued to vomit. His glucose was elevated at almost 600, his renal function was elevated, and his white blood cell count was elevated. He was admitted for further evaluation and treatment of his DKA. Hospital Course Hospital Course: The patient was started on DKA protocol as well as some of his home medications. He was also started on anti-emetics. His vomiting did resolve and his abdominal pain improved. He was able to tolerate clear liquid diet. His gluc ose improved and a repeat acetone level showed none detected. His insulin schedule was changed to ACHS dosing. His white blood cell count was elevated therefore a CXR was ordered to look for signs of infection. It was negative. His WBC and renal functions normalized and he was stable to be discharged home on his normal home medications. Objective Vital signs: Temp Pulse Resp BP Pulse Ox 98.4 F 63 20 149/97 H 100 02/24/19 08:00 02/24/19 09:00 02/24/19 09:00 02/24/19 09:00 02/24/19 09:00 Narrative: - Constitutional no acute distress - *Routine HEENT Exam Head: Present: normocephalic Eye: Present: EOMI, PERRL ENT: Present: mucous membranes dry - *Routine Neck Exam Present: supple. Absent: lymphadenopathy - *Routine Respiratory Exam Present: CTA bilaterally - *Routine Cardiovascular Exam Present: RRR - *Routine Abdominal Exam Present: soft, normoactive bowel sounds, tenderness (epigastric area) - *Routine Extremities Exam Absent: cyanosis, clubbing, edema - *Routine Skin Exam Present: warm. Absent: rash - *Routine Neurological Exam Present: alert, oriented X3 Results Labs on day of discharge: Labs from last 24 hours 02/24/19 02/24/19 02/24/19 05:15 05:15 04:56 WBC 6.9 D RBC 4.46 L Hgb 13.2 L Hct 39.7 L MCV 89.1 MCH 29.7 MCHC 33.3 RDW 12.4 Plt Count 210 D MPV 9.7 Neut % (Auto) 66.5 Lymph % (Auto) 27.7 [place] % (Auto) 4.7 Eos % (Auto) 0.8 Baso % (Auto) 0.3 Neut # (Auto) 4.6 Lymph # (Auto) 1.9 [place] # (Auto) 0.3 Eos # (Auto) 0.1 Baso # (Auto) 0.0 Sodium 139 Potassium 4.2 Chloride 104 Carbon Dioxide 24 Anion Gap 15.2 H BUN 13 Creatinine 0.75 Estimated Creat Clear 95 Estimated GFR 113 Est GFR ( Amer) 136 Glucose 138 H POC Glucose 131 H Calcium 8.3 L 02/24/19 02/23/19 02/23/19 03:12 20:13 16:59 WBC RBC Hgb Hct MCV MCH MCHC RDW Plt Count MPV Neut % (Auto) Lymph % (Auto) [place] % (Auto) Eos % (Auto) Baso % (Auto) Neut # (Auto) Lymph # (Auto) [place] # (Auto) Eos # (Auto) Baso # (Auto) Sodium 140 Potassium 4.0 Chloride 106 Carbon Dioxide 26 Anion Gap 12.0 BUN 14 D Creatinine 0.68 L Estimated Creat Clear 106 Estimated GFR 126 Est GFR ( Amer) 153 Glucose 137 H D POC Glucose 154 H 123 H Calcium 8.0 L DS: Diagnosis - Discharge Diagnosis (1) Diabetic ketoacidosis Status: Acute (2) Intractable nausea and vomiting Status: Acute (3) Dehydration Status: Acute (4) Intractable epigastric abdominal pain Status: Acute (5) Leukocytosis Status: Acute (6) Gastroparesis Status: Chronic (7) Diabetes type 2, uncontrolled Status: Chronic (8) Hypertension Status: Chronic Discharge Plan - Patient Discharge Instructions ACTIVITY: Continue current activity DIET: continue same diet Additional Instructions: follow up with md in a week in [place]. take medication as ordered. monitor blood glucose levels (finger sticks) Patient Instructions: DI for Diabetic Ketoacidosis, DI for Gastroparesis - Follow up Plan Follow up with: Jermain Cheung MD [Staff Physician] - 03/02/19 (in [place] office) Disposition: Home, Self-Fpc Medications: Home Medications Medication Instructions Recorded Confirmed Type Amitriptyline HCl [Elavil 25mg 25 mg PO HS 01/03/18 02/22/19 History tablet] Gabapentin [Gabapentin 300mg Cap] 600 mg PO HS 01/03/18 02/22/19 History Lactulose [Lactulose 10gm/15ml 10 gm PO BID 01/03/18 02/22/19 History Oral Soln] NIFEdipine [Nifedipine ER] 30 mg PO DAILY 01/03/18 02/22/19 History Dicyclomine HCl 20 mg PO Q6HP PRN 01/28/18 02/22/19 History Buspirone HCl [Buspar 5mg tablet] 5 mg PO BID 07/05/18 02/22/19 History Promethazine HCl [Phenergan 25mg 25 mg PO Q6HP PRN 12/27/18 02/22/19 History tab] Metoclopramide HCl [Metoclopramide 5 mg PO AC 01/21/19 02/23/19 History 5mg/5ml Oral Soln] Simethicone [Gas Relief 80] 80 mg PO Q6H PRN #30 tab.chew 01/21/19 02/22/19 Rx Calcium Carbonate/Simethicone 1 each PO DAILY PRN 02/22/19 02/22/19 History [Rand[place]-Adams Heartburn+Gas] Magnesium Carb/Aluminum Hydrox 1 each PO DAILY PRN 02/22/19 02/22/19 History [Gaviscon Es Tablet Chew] Famotidine [Acid Controller] 20 mg PO BID 02/23/19 02/23/19 History Linaclotide [Linzess] 145 mcg PO DAILY 02/23/19 02/23/19 History Saccharomyces Boulardii [Florastor] 250 mg PO BID 02/23/19 02/23/19 History Glimepiride [Amaryl] 1 mg PO DAILY #30 tablet 02/24/19 Rx Metformin HCl [Glucophage 500mg 500 mg PO BIDWM #60 tablet 02/24/19 Rx Tablet] Prescriptions/Medication Reconciliation: Continue NIFEdipine [Nifedipine ER] 30 mg PO DAILY Lactulose [Lactulose 10gm/15ml Oral Soln] 10 gm PO BID Gabapentin [Gabapentin 300mg Cap] 600 mg PO HS Amitriptyline HCl [Elavil 25mg tablet] 25 mg PO HS Metoclopramide HCl [Metoclopramide 5mg/5ml Oral Soln] 5 mg PO AC Simethicone [Gas Relief 80] 80 mg PO Q6H PRN #30 tab.chew PRN Reason: Gas Pain And Discomfort Calcium Carbonate/Simethicone [Randee-Adams Heartburn+Gas] 1 each PO DAILY PRN PRN Reason: stomach pain Linaclotide [Linzess] 145 mcg PO DAILY Glimepiride [Amaryl] 1 mg PO DAILY #30 tablet Metformin HCl [Glucophage 500mg Tablet] 500 mg PO BIDWM #60 tablet Dicyclomine HCl 20 mg PO Q6HP PRN PRN Reason: IBS Buspirone HCl [Buspar 5mg tablet] 5 mg PO BID Promethazine HCl [Phenergan 25mg tab] 25 mg PO Q6HP PRN PRN Reason: Nausea And Vomiting Magnesium Carb/Aluminum Hydrox [Gaviscon Es Tablet Chew] 1 each PO DAILY PRN PRN Reason: stomach pain Famotidine [Acid Controller] 20 mg PO BID Saccharomyces Boulardii [Florastor] 250 mg PO BID
== END 2019-02-24 10:32 | disposition home or self-care (01) | DRG 639 ==
LOC: ER 08:52 → 2ND 11:01
PROVIDERS: ADMIT Family Medicine; ATTEND Family Medicine
CPT/HCPCS: 36415; 71020; 71046; 80048; 80053; 81001; 82009; 82803; 82962; 83690; 83735; 84100; 84484; 85007; 85025; 93005; 96365; 96375; 99285; J2405

== ENCOUNTER 2019-03-30 07:58 | Emergency (ER) | payer OTHER, SELFPAY ==
[2019-03-30 08:03] VITALS: BP 183/116; PULSE 121; RESP 24; TEMP 37.1; O2SAT 97; BMI 20.3
--- NOTE | 2019-03-30 08:19 | CT_ITS ---
CT abdomen pelvis wo con CLINICAL INDICATION: Severe upper and mid abdominal pain with nausea and vomiting ITS.REASON: severe abdominal pain ORDERING PHYSICIAN: Charles Lainez MD PATIENT AGE: 43 years COMPARISON: 01/21/2019 TECHNIQUE: Axial images obtained with sagittal and coronal reformats. All CT scans at the facility use one or more dose reduction, viz: automated exposure control, ma/kV adjustment per patient size (including targeted exams where dose is matched to indication, i.e. head), or iterative reconstruction technique. PROCEDURE: Oral Contrast: None IV Contrast: None . FINDINGS: Lower thorax: No acute finding Postcholecystectomy changes. The liver, spleen, adrenal glands, pancreas, and kidneys have an unremarkable unenhanced appearance. No renal or ureteral calculi. No intestinal obstruction or free air. There is a moderate amount of retained colonic feces throughout the colon. No evidence of appendicitis. There is an appendicolith present at the tip of the appendix. No pelvic mass abnormal fluid collection or focal inflammatory change of the pelvis. No acute bony findings. IMPRESSION: 1. No acute abdominal or pelvic findings. 2. Mild amount of retained colonic feces. 3. Incidental appendicolith noted. No evidence of appendicitis
--- NOTE | 2019-03-30 08:20 | HMH.EDABDPAI ---
ED Disposition Clinical Impression: Vomiting, Diabetes, Gastroparesis diabeticorum Disposition: Home, Self-Care Condition on Discharge: Good Instructions: DI for Acute Abdomen Prescriptions: Promethazine HCl [Phenergan 25mg Suppository] 0 mg RC TID 2 Days #4 supp.rect Promethazine HCl [Phenergan 25mg tab] 25 mg PO Q6H PRN 3 Days #12 tab PRN Reason: Nausea And Vomiting Referrals: Jermain Cheung MD [Primary Care Provider] - Time of Disposition: 11:16 - Critical Care Critical Care Time: No Attestation: On 03/30/19, the high probability of a clinically significant, sudden or life threatening deterioration of the following system(s) required my full and direct attention, intervention and personal management. The time I documented below is in addition to time spent performing reported procedures but includes the following listed in this critical care notation. Medical Decision Making - Medical Records Medical records reviewed: Yes: I reviewed the patient's medical records. - Ben Inquiry Pt receiving controlled substance: No Ben was queried for this patient: No Vital Signs: 03/30/19 08:03 03/30/19 08:36 03/30/19 09:31 Temperature 98.8 F Temperature Source Oral Pulse Rate [Left Brachial] 121 H 91 H 73 Respiratory Rate 24 18 Blood Pressure [Left Arm] 183/116 H 122/74 132/78 Blood Pressure Mean [Left Arm] 138 90 96 Blood Pressure Source [Left Arm] Automatic Cuff Automatic Cuff Automatic Cuff Blood Pressure Position [Left Arm] Sitting Sitting Sitting 02 Sat by Pulse Oximetry 97 98 100 Oxygen Delivery Method Room Air Room Air 03/30/19 10:05 Temperature Temperature Source Pulse Rate [Left Brachial] 60 Respiratory Rate Blood Pressure [Left Arm] 111/68 Blood Pressure Mean [Left Arm] 82 Blood Pressure Source [Left Arm] Automatic Cuff Blood Pressure Position [Left Arm] Sitting 02 Sat by Pulse Oximetry 99 Oxygen Delivery Method - Lab Data Lab results reviewed: Yes: I reviewed the patient's lab results. Lab Results 03/30/19 08:10: WBC 8.4, RBC 4.37 L, Hgb 13.0 L, Hct 38.6 L, MCV 88.4, MCH 29.8, MCHC 33.8, RDW 13.2, Plt Count 332, MPV 8.5, Neut % (Auto) 87.7 H, Lymph % (Auto) 9.0 L, [place] % (Auto) 2.9, Eos % (Auto) 0.2, Baso % (Auto) 0.2, Neut # (Auto) 7.4, Lymph # (Auto) 0.8, [place] # (Auto) 0.3, Eos # (Auto) 0.0, Baso # (Auto) 0.0, Total Counted 100, Neutrophils % (Manual) 91 H, Band Neutrophils % 2.0, Lymphocytes % (Manual) 5 L, Monocytes % (Manual) 2, Platelet Estimate Normal, RBC Morphology Normal 03/30/19 08:10: Sodium 142, Potassium 4.0, Chloride 103, Carbon Dioxide 28, Anion Gap 15.0, BUN 28 H, Creatinine 1.08, Estimated Creat Clear 64, Estimated GFR 74, Est GFR ( Amer) 89, Glucose 298 H, Calcium 9.6, Total Bilirubin 0.7, AST 17, ALT 33, Alkaline Phosphatase 96, Total Protein 8.4 H, Albumin 4.7, Globulin 3.7 H, Albumin/Globulin Ratio 1.3, Lipase 71 L 03/30/19 08:10: Acetone Level None detected Result diagrams: 03/30/19 08:10 03/30/19 08:10 Orders (Tests/Meds): ED MEDICATIONS Discontinued Medications Generic Name Dose Route Start Last Admin Trade Name Freq PRN Reason Stop Dose Admin Hydromorphone HCl 1 mg 03/30/19 08:12 03/30/19 08:18 Dilaudid 2mg/Ml Syringe IV 03/30/19 08:13 1 mg ONCE ONE Administration Sodium Chloride 1,000 mls @ 999 mls/hr 03/30/19 08:15 03/30/19 08:19 Sod Chlor 0.9% 1000ml Bag IV 03/30/19 09:15 999 mls/hr .Q1H1M GAIL Administration Sodium Chloride 1,000 mls @ 999 mls/hr 03/30/19 09:23 03/30/19 09:27 Sod Chlor 0.9% 1000ml Bag IV 03/30/19 10:23 999 mls/hr .Q1H1M ONE Administration Metoclopramide HCl 10 mg 03/30/19 08:16 03/30/19 08:18 Reglan 10mg/2ml Vial IVP 03/30/19 08:17 10 mg ONCE ONE Administration Ondansetron HCl 4 mg 03/30/19 08:12 03/30/19 08:18 Zofran 4mg/2ml Vial IV 03/30/19 08:13 4 mg ONCE ONE Administration Abdominal Pain HPI - General Chief Complaint: Abdominal
--- NOTE | 2019-03-30 08:23 | ED_ITS ---
ED Disposition Clinical Impression: Vomiting, Diabetes, Gastroparesis diabeticorum Disposition: Home, Self-Care Condition on Discharge: Good Instructions: DI for Acute Abdomen Prescriptions: Promethazine HCl [Phenergan 25mg Suppository] 0 mg RC TID 2 Days #4 supp.rect Promethazine HCl [Phenergan 25mg tab] 25 mg PO Q6H PRN 3 Days #12 tab PRN Reason: Nausea And Vomiting Referrals: Jermain Cheung MD [Primary Care Provider] - Time of Disposition: 11:16 - Critical Care Critical Care Time: No Attestation: On 03/30/19, the high probability of a clinically significant, sudden or life threatening deterioration of the following system(s) required my full and direct attention, intervention and personal management. The time I documented below is in addition to time spent performing reported procedures but includes the following listed in this critical care notation. Medical Decision Making - Medical Records Medical records reviewed: Yes: I reviewed the patient's medical records. - Ben Inquiry Pt receiving controlled substance: No Ben was queried for this patient: No Vital Signs: 03/30/19 08:03 03/30/19 08:36 03/30/19 09:31 Temperature 98.8 F Temperature Source Oral Pulse Rate [Left Brachial] 121 H 91 H 73 Respiratory Rate 24 18 Blood Pressure [Left Arm] 183/116 H 122/74 132/78 Blood Pressure Mean [Left Arm] 138 90 96 Blood Pressure Source [Left Arm] Automatic Cuff Automatic Cuff Automatic Cuff Blood Pressure Position [Left Arm] Sitting Sitting Sitting 02 Sat by Pulse Oximetry 97 98 100 Oxygen Delivery Method Room Air Room Air 03/30/19 10:05 Temperature Temperature Source Pulse Rate [Left Brachial] 60 Respiratory Rate Blood Pressure [Left Arm] 111/68 Blood Pressure Mean [Left Arm] 82 Blood Pressure Source [Left Arm] Automatic Cuff Blood Pressure Position [Left Arm] Sitting 02 Sat by Pulse Oximetry 99 Oxygen Delivery Method - Lab Data Lab results reviewed: Yes: I reviewed the patient's lab results. Lab Results 03/30/19 08:10: WBC 8.4, RBC 4.37 L, Hgb 13.0 L, Hct 38.6 L, MCV 88.4, MCH 29.8, MCHC 33.8, RDW 13.2, Plt Count 332, MPV 8.5, Neut % (Auto) 87.7 H, Lymph % (Auto) 9.0 L, [place] % (Auto) 2.9, Eos % (Auto) 0.2, Baso % (Auto) 0.2, Neut # (Auto) 7.4, Lymph # (Auto) 0.8, [place] # (Auto) 0.3, Eos # (Auto) 0.0, Baso # (Auto) 0.0, Total Counted 100, Neutrophils % (Manual) 91 H, Band Neutrophils % 2.0, Lymphocytes % (Manual) 5 L, Monocytes % (Manual) 2, Platelet Estimate Normal, RBC Morphology Normal 03/30/19 08:10: Sodium 142, Potassium 4.0, Chloride 103, Carbon Dioxide 28, Anion Gap 15.0, BUN 28 H, Creatinine 1.08, Estimated Creat Clear 64, Estimated GFR 74, Est GFR ( Amer) 89, Glucose 298 H, Calcium 9.6, Total Bilirubin 0.7, AST 17, ALT 33, Alkaline Phosphatase 96, Total Protein 8.4 H, Albumin 4.7, Globulin 3.7 H, Albumin/Globulin Ratio 1.3, Lipase 71 L 03/30/19 08:10: Acetone Level None detected Result diagrams: 03/30/19 08:10 03/30/19 08:10 Orders (Tests/Meds): ED MEDICATIONS Discontinued Medications Generic Name Dose Route Start Last Admin Trade Name Freq PRN Reason Stop Dose Admin Hydromorphone HCl
[2019-03-30 08:35] LABS: Basophils % 0.2 % (0.1-2.0); Eosinophils % 0.2 % (0.1-12.0); Hematocrit 38.6 % (42.0-52.0); Lymphocytes # 0.8 K/mm3 (0.7-4.5); Mean Corpuscular HGB Conc 33.8 g/dL (31.8-35.4); Mean Corpuscular Hemoglobin 29.8 pg (27.0-31.2); Mean Corpuscular Volume 88.4 fl (80-94); Mean Platelet Volume 8.5 fl (7.4-10.4); Monocytes # 0.3 K/mm3 (0.1-1.0); Monocytes % 2.9 % (1.7-9.3); Neutrophils # 7.4 K/mm3 (1.8-7.8); Neutrophils % 87.7 % (37.0-80.0); Platelet Count 332 K/mm3 (142-424); Red Blood Count 4.37 M/mm3 (4.60-6.20); Red Cell Distribution Width 13.2 % (11.5-17.5); White Blood Count 8.4 K/mm3 (4.8-10.8)
[2019-03-30 08:36] VITALS: BP 122/74; PULSE 91; RESP 18; O2SAT 98
[2019-03-30 08:39] LABS: MANUAL DIFFERENTIAL MANUAL DIFFERENTIAL (MANUAL DIFF)
[2019-03-30 08:42] LABS: Alanine Aminotransferase 33 U/L (12-78); Albumin Level 4.7 gm/dL (3.4-5.0); Albumin/Globulin Ratio 1.3 (1.1-1.8); Alkaline Phosphatase 96 U/L (46-116); Aspartate Amino Transferase 17 U/L (15-37); Bilirubin,Total 0.7 mg/dL (0.2-1.0); Blood Urea Nitrogen 28 mg/dL (7-18); Calcium 9.6 mg/dL (8.5-10.1); Carbon Dioxide 28 mmol/L (21.0-32.0); Chloride 103 mmol/L (98-107); Creatinine Clearance Estimated 64 mL/min (50-200); Creatinine,Serum 1.08 mg/dL (0.70-1.30); Estimated Glomerular Filt Rate 74 ml/min (>60); GFR (African American) 89 ML/MIN (>60); Globulin 3.7 gm/dl (1.3-3.2); Glucose 298 mg/dL (74-106); Lipase 71 u/L (73-393); Sodium 142 mmol/L (136-145); Total Protein,Serum 8.4 gm/dL (6.4-8.2)
[2019-03-30 08:45] LABS: Acetone, Serum (Rapid) None Detected (None Detect)
--- NOTE | 2019-03-30 09:07 | PC.NURSE ---
to ct per wheelchair
[2019-03-30 09:20] LABS: Lymphocytes % 5 % (10-50); Monocytes % 2 % (2-9); Neutrophils % 91 % (42-76); Total Cells Counted 100
[2019-03-30 09:21] LABS: Platelet Estimate Normal; RBC Morphology Normal
--- NOTE | 2019-03-30 09:28 | PC.NURSE ---
PT RESTING IN BED AT THIS TIME. NO COMPLAINTS. WILL CONTINUE TO MONITOR.
[2019-03-30 09:31] VITALS: BP 132/78; PULSE 73; O2SAT 100
--- NOTE | 2019-03-30 09:31 | PC.NURSE ---
pt returned from ct
[2019-03-30 10:05] VITALS: BP 111/68; PULSE 60; O2SAT 99
--- NOTE | 2019-03-30 11:55 | PC.NURSE ---
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
--- NOTE | 2019-03-30 12:30 | PC.NURSE ---
pt c/o increased pain md aware
[2019-03-30 12:54] VITALS: BP 119/70; PULSE 89; RESP 16; TEMP 36.6; O2SAT 98
== END 2019-03-30 12:56 | disposition home or self-care (01) ==
PROVIDERS: Emergency Provider Emergency Medicine; PCP Family Medicine
DX: E11.43 Type 2 diabetes mellitus with diabetic autonomic (poly)neuropathy (principal); E11.65 Type 2 diabetes mellitus with hyperglycemia; K31.84 Gastroparesis; Z79.84 Long term (current) use of oral hypoglycemic drugs; K21.9 Gastro-esophageal reflux disease without esophagitis; I10 Essential (primary) hypertension; E78.5 Hyperlipidemia, unspecified; K59.00 Constipation, unspecified; Z51.81 Encounter for therapeutic drug level monitoring; Z88.5 Allergy status to narcotic agent
CPT/HCPCS: 74176; 80053; 82009; 83690; 85007; 85025; 96365; 96367; 96375; 99284; J2405

== ENCOUNTER 2020-04-05 09:08 | Observation (INO) | payer OTHER, SELFPAY ==
[2020-04-05] VITALS (8 sets, daily range): BP systolic 122–191; BP diastolic 82–106; PULSE 69–133; RESP 16–22; TEMP 36.8–37.1; O2SAT 94–99; BMI 21.2
--- NOTE | 2020-04-05 09:20 | CT_ITS ---
PROCEDURE: CT ABDOMEN PELVIS WO CON CLINICAL INDICATION: abd pain Mid abdominal and epigastric with vomiting COMPARISON: CT ABDOMEN PELVIS WO CON from 12/07/2019 TECHNIQUE: Axial images obtained with sagittal and coronal reformats. All CT scans at the facility use one or more dose reduction, viz: automated exposure control, ma/kV adjustment per patient size (including targeted exams where dose is matched to indication, i.e. head), or iterative reconstruction technique. FINDINGS: LOWER THORAX: No acute finding ABDOMEN & PELVIS: Post cholecystectomy. The liver, spleen, adrenal glands, pancreas, and kidneys have an unremarkable unenhanced appearance. No renal or ureteral calculi. No intestinal obstruction or free air. There is mild distention of the urinary bladder. No evidence of appendicitis or diverticulitis. There are scattered diverticula within the colon. There are mild degenerative changes of the lumbar spine. IMPRESSION: 1. No acute abdominal or pelvic findings. 2. Mild distention of the urinary bladder Dictated by: Escobar Sanchez MD 04/05/2020 10:42 Electronically signed by Escobar Sanchez MD in [place] 04/05/2020 10:42
[2020-04-05 09:32] LABS: Chloride 97 mmol/L (98-107); Potassium 4.3 mmoL/L (3.5-5.1); Sodium 138 mmol/L (136-145)
[2020-04-05 09:34] LABS: Basophils % 0.2 % (0.1-2.0); Eosinophils % 0.1 % (0.1-12.0); Hematocrit 49.4 % (42.0-52.0); Hemoglobin 16.2 g/dL (14.1-18.0); Lymphocytes # 0.9 K/mm3 (0.7-4.5); Lymphocytes % 6.2 % (10-50); Mean Corpuscular HGB Conc 32.8 g/dL (31.8-35.4); Mean Corpuscular Volume 91.6 fl (80-94); Mean Platelet Volume 10.5 fl (7.4-10.4); Monocytes # 0.3 K/mm3 (0.1-1.0); Monocytes % 2.2 % (1.7-9.3); Neutrophils # 12.5 K/mm3 (1.8-7.8); Neutrophils % 91.3 % (37.0-80.0); Platelet Count 323 K/mm3 (142-424); Red Cell Distribution Width 12.7 % (11.5-17.5); White Blood Count 13.7 K/mm3 (4.8-10.8)
[2020-04-05 09:35] LABS: Alanine Aminotransferase 42 U/L (12-78); Albumin Level 5.3 g/dl (3.5-5.0); Albumin/Globulin Ratio 1.7 (1.1-1.8); Alkaline Phosphatase 99 U/L (38-126); Anion Gap 23.3 mEq/L (5-15); Aspartate Amino Transferase 44 U/L (17-59); Bilirubin,Total 1.6 mg/dl (0.2-1.3); Blood Urea Nitrogen 36 mg/dl (9-20); Carbon Dioxide 22 mmol/L (22.0-30.0); Creatinine Clearance Estimated 59 mL/min (50-200); Estimated Glomerular Filt Rate 65 ml/min (>60); GFR (African American) 79 ML/MIN (>60); Globulin 3.2 g/dL (1.3-3.2); Total Protein,Serum 8.5 g/dl (6.3-8.2)
[2020-04-05 09:36] LABS: MANUAL DIFFERENTIAL MANUAL DIFFERENTIAL (MANUAL DIFF)
[2020-04-05 09:37] LABS: Glucose 465 mg/dl (74-100)
--- NOTE | 2020-04-05 09:38 | PC.NURSE ---
notified of glucose level.
--- NOTE | 2020-04-05 09:58 | PC.NURSE ---
PT GONE TO CT
[2020-04-05 10:01] LABS: Lymphocytes % 10 % (10-50); Monocytes % 2 % (2-9); Neutrophils % 88 % (42-76); Platelet Estimate Normal; Total Cells Counted 100
[2020-04-05 10:02] LABS: RBC Morphology Normal
--- NOTE | 2020-04-05 10:07 | PC.NURSE ---
PT RESTING WITH NO COMPLAINTS SAYS HE FEELS MUCH BETTER
[2020-04-05 10:15] LABS: Acetone, Serum (Rapid) Small (None Detect)
--- NOTE | 2020-04-05 11:46 | PC.NURSE ---
CALLING DR MEEKS AT THIS TIME.
[2020-04-05 11:52] LABS: POC Glucose,Bedside 392 (70-110)
--- NOTE | 2020-04-05 11:55 | PC.NURSE ---
on the phone with Dr. Bliss.
--- NOTE | 2020-04-05 12:11 | HMH.EDABDPAI ---
ED Disposition Clinical Impression: Gastroenteritis, Gastroparesis, Nausea & vomiting, Intractable nausea and vomiting, Dehydration, Medical non-compliance, Gastroparesis diabeticorum, Leukocytosis, Diabetes type 2, uncontrolled, Intractable abdominal pain Disposition: Admitted as Observation Condition on Discharge: Good - Critical Care Critical Care Time: No Attestation: On 04/05/20, the high probability of a clinically significant, sudden or life threatening deterioration of the following system(s) required my full and direct attention, intervention and personal management. The time I documented below is in addition to time spent performing reported procedures but includes the following listed in this critical care notation. Medical Decision Making - Medical Records Medical records reviewed: Yes: I reviewed the patient's medical records. - Ben Inquiry Pt receiving controlled substance: No Vital Signs: 04/05/20 09:09 04/05/20 10:07 Temperature 98.3 F Temperature Source Oral Pulse Rate [Radial] 133 H 89 Respiratory Rate 22 18 Blood Pressure [Right Arm] 191/106 H 122/82 Blood Pressure Mean [Right Arm] 134 95 Blood Pressure Source [Right Arm] Automatic Cuff Automatic Cuff Blood Pressure Position [Right Arm] Supine Sitting 02 Sat by Pulse Oximetry 99 99 Oxygen Delivery Method Room Air Room Air - Lab Data Lab results reviewed: Yes: I reviewed the patient's lab results. Lab Results 04/05/20 09:18: WBC 13.7 H, RBC 5.40, Hgb 16.2, Hct 49.4, MCV 91.6, MCH 30.0, MCHC 32.8, RDW 12.7, Plt Count 323, MPV 10.5 H, Neut % (Auto) 91.3 H, Lymph % (Auto) 6.2 L, [place] % (Auto) 2.2, Eos % (Auto) 0.1, Baso % (Auto) 0.2, Neut # (Auto) 12.5 H, Lymph # (Auto) 0.9, [place] # (Auto) 0.3, Eos # (Auto) 0.0, Baso # (Auto) 0.0, Total Counted 100, Neutrophils % (Manual) 88 H, Lymphocytes % (Manual) 10, Monocytes % (Manual) 2, Platelet Estimate Normal, RBC Morphology Normal 04/05/20 09:18: Sodium 138, Potassium 4.3, Chloride 97 L, Carbon Dioxide 22, Anion Gap 23.3 H, BUN 36 H, Creatinine 1.20, Estimated Creat Clear 59, Estimated GFR 65, Est GFR ( Amer) 79, Glucose 465 H*, Calcium 10.0, Total Bilirubin 1.6 H, AST 44, ALT 42, Alkaline Phosphatase 99, Total Protein 8.5 H, Albumin 5.3 H, Globulin 3.2, Albumin/Globulin Ratio 1.7 04/05/20 09:18: Acetone Level Small 04/05/20 11:45: POC Glucose 392 H* Result diagrams: 04/05/20 09:18 04/05/20 09:18 Orders (Tests/Meds): ED MEDICATIONS Generic Name Dose Route Start Last Admin Trade Name Freq PRN Reason Stop Dose Admin Sodium Chloride 1,000 mls @ 999 mls/hr 04/05/20 11:46 04/05/20 11:52 Sod Chlor 0.9% 1000ml Bag IV 04/05/20 12:46 999 mls/hr .Q1H1M ONE Administration Discontinued Medications Generic Name Dose Route Start Last Admin Trade Name Freq PRN Reason Stop Dose Admin Dicyclomine HCl 20 mg 04/05/20 10:22 04/05/20 10:42 Dicyclomine 20mg/2ml Vial IM 04/05/20 10:23 20 mg ONCE ONE Administration Fentanyl Citrate 50 mcg 04/05/20 10:22 04/05/20 10:43 Fentanyl 100mcg/2ml Vial IV 04/05/20 10:23 50 mcg ONCE ONE Administration Hydromorphone HCl 2 mg 04/05/20 09:20 04/05/20 09:27 Dilaudid 2mg/Ml Syringe IV 04/05/20 09:21 2 mg ONCE ONE Administration Sodium Chloride 1,000 mls @ 999 mls/hr 04/05/20 09:30 04/05/20 09:28 Sod Chlor 0.9% 1000ml Bag IV 04/05/20 10:30 999 mls/hr .Q1H1M GAIL Administration Insulin Human Lispro 15 unit 04/05/20 10:22 04/05/20 10:55 Humalog 100 Units/Ml 3ml Vial (Ssi) SQ 04/05/20 10:23 Not Given ONCE ONE Insulin Human Regular 15 unit 04/05/20 10:46 04/05/20 10:47 Humulin R Insulin 100 Units/Ml 10ml Vial IVP 04/05/20 10:47 15 unit ONCE ONE Administration Metoclopramide HCl 10 mg 04/05/20 09:20 04/05/20 09:27 Reglan 10mg/2ml Vial IVP 04/05/20 09:21 10 mg ONCE ONE Administration Ondansetron HCl 4 mg 04/05/20 09:20 04/05/20 09:27 Zofran 4mg/2ml Vial IV 04/05/20
--- NOTE | 2020-04-05 12:18 | PC.NURSE ---
Report given to MERISSA Saucedo.
--- NOTE | 2020-04-05 13:11 | P.CONPHA_ITS ---
[facility] Pharmacy VTE Monitoring - Patient Demographics Admission date: 04/05/20 Report Date: 04/05/20 Time: 13:11 Allergies/Adverse Reactions: Patient Allergies codeine [CODEINE] Allergy (Unknown, Verified 02/22/19 11:59) UNKNOWN Iodinated Contrast Media [Iodinated Contrast Media - IV Dye] Allergy (Unknown, Verified 02/22/19 11:59) TONGUE SWELLING, DIFF. TALKING lisinopril [LISINOPRIL] Allergy (Unknown, Verified 02/22/19 11:59) I-HIVES Height: 1.6 m Weight: 54.431 kg Patient Problems: Current Active Problems (This Medical Record has been edited. Action required.) Gastroparesis (Chronic) Nausea & vomiting (Acute) Intractable nausea and vomiting (Acute) Dehydration (Acute) Medical non-compliance (Acute) Gastroparesis diabeticorum (Acute) Leukocytosis (Acute) Diabetes type 2, uncontrolled (Chronic) Gastroenteritis (Acute) Intractable abdominal pain (Acute) - VTE Risk Labs: VTE Related Lab Results Hgb 16.2 g/dL (14.1-18.0) 04/05/20 09:18 Hct 49.4 % (42.0-52.0) 04/05/20 09:18 Plt Count 323 K/mm3 (142-424) 04/05/20 09:18 BUN 36 mg/dl (9-20) H 04/05/20 09:18 Creatinine 1.20 mg/dl (0.66-1.25) 04/05/20 09:18 Estimated Creat Clear 59 mL/min (50-200) 04/05/20 09:18 - Prophylaxis VTE Prophylaxis Ordered?: Yes Types of VTE Prophylaxis: TEDS Knee High Location of Applied Device: Bilateral Lower Extremeties
--- NOTE | 2020-04-05 15:56 | HMH.PHAINT ---
HOME MEDICATION RECONCILIATION COMPLETED USING LIST FROM HOME PHARMACY AND LIST FROM [facility] OFFICE
--- NOTE | 2020-04-05 16:55 | HMH.HP ---
*Admission Date: 04/05/20 *Chief complaint: Abdominal pain *History of present illness: 44 year old male, patient of Dr. Harshil Og, presented to [facility] ER this morning with about a 24 hour history of intense abdominal pain associated with nausea and vomiting. He denies hematemesis and diarrhea and fever. He has a long standing history of similar problems. He has had an extensive GI work up and has been diagnosed diabetic gastroparesis and intermittent intractable vomiting. [facility] History Medical History: Reports:: Diabetes Mellitus Type 2, Gastroesophageal Reflux Disease(GERD), Hyperlipidemia, Hypertension, Palpitations Denies:: Atherosclerotic Heart Disease, BPH, Cancer, Diabetes Mellitus Type 1, MRSA *Have you ever received a pneumonia vaccine?: No *Have you received a flu vaccine this season?: No Other Medical History: Reports: Arthritis, Other (Diabetic gastroparesis, diabetic neuropathy) Other Surgeries: Yes: Cholecystectomy, Colonoscopy, EGD, Other (cholecystectomy) Amputation: No Fractures: No - *Social History Educational Level: Completed High School Smoking Status: Never smoker Alcohol Intake: never Alcohol Intake Frequency:: holidays/special occasions only *Occupational Status:: employed Housing: other Household Members: friend(s) *Travel in the last 8 weeks: None Family Hx:: Coronary Artery Disease, Diabetes, Hypertension Review of Systems - Constitutional Denies headache(s) - Eyes Denies change in vision - ENT Denies bleeding gums - *Cardiovascular Denies chest pain - *Respiratory Denies cough - *Genitourinary Denies difficulty urinating - *Musculoskeletal Denies joint pain - Integumentary/Breasts Denies rash - *Neurologic Denies dizziness - Psychiatric Denies confusion Meds Home Medications Medication Instructions Recorded Confirmed Type Amitriptyline HCl [Elavil 25mg 25 mg PO HS 01/03/18 04/05/20 History tablet] Gabapentin [Gabapentin 300mg Cap] 600 mg PO HS 01/03/18 04/05/20 History NIFEdipine [Nifedipine ER] 30 mg PO DAILY 01/03/18 04/05/20 History Buspirone HCl [Buspar 5mg tablet] 5 mg PO BID 07/05/18 04/05/20 History Promethazine HCl [Phenergan 25mg 25 mg PO Q6HP PRN 12/27/18 04/05/20 History tab] Simethicone [Gas Relief 80] 80 mg PO Q6H PRN #30 tab.chew 01/21/19 04/05/20 Rx Calcium Carbonate/Simethicone 1 each PO DAILY PRN 02/22/19 04/05/20 History [[place] Heartburn+Gas] Linaclotide [Linzess] 145 mcg PO DAILY 02/23/19 04/05/20 History Glimepiride 2 mg PO DAILY 04/05/20 04/05/20 History Melatonin 10 mg PO HS 04/05/20 04/05/20 History Metformin HCl [Glucophage 500mg 500 mg PO BID 04/05/20 04/05/20 History Tablet] lisinopriL [Lisinopril 10mg Tab] 10 mg PO DAILY 04/05/20 04/05/20 History Allergies Allergy/AdvReac Type Severity Reaction Status Date / Time codeine [CODEINE] Allergy Unknown UNKNOWN Verified 02/22/19 11:59 Iodinated Contrast Media Allergy Unknown TONGUE Verified 02/22/19 11:59 [Iodinated Contrast Media - SWELLING, IV Dye] DIFF. TALKING lisinopril [LISINOPRIL] Allergy Unknown I-HIVES Verified 02/22/19 11:59 Exam Vital signs and Labs for Last 24 Hours: Temp Pulse Resp BP Pulse Ox 98.3 F 95 H 16 122/82 94 L 04/05/20 16:00 04/05/20 16:00 04/05/20 16:00 04/05/20 16:36 04/05/20 16:00 Laboratory Results - last 24 hr 04/05/20 09:18: WBC 13.7 H, RBC 5.40, Hgb 16.2, Hct 49.4, MCV 91.6, MCH 30.0, MCHC 32.8, RDW 12.7, Plt Count 323, MPV 10.5 H, Neut % (Auto) 91.3 H, Lymph % (Auto) 6.2 L, [place] % (Auto) 2.2, Eos % (Auto) 0.1, Baso % (Auto) 0.2, Neut # (Auto) 12.5 H, Lymph # (Auto) 0.9, [place] # (Auto) 0.3, Eos # (Auto) 0.0, Baso # (Auto) 0.0, Total Counted 100, Neutrophils % (Manual) 88 H, Lymphocytes % (Manual) 10, Monocytes % (Manual) 2, Platelet Estimate Normal, RBC Morphology Normal 04/05/20 09:18: Sodium 138, Potassium 4.3, Chloride 97 L, Carbon Dioxide 22, Anion Gap 23.3 H, BUN 36 H, Creatinine 1.20, E
[2020-04-05 16:58] LABS: POC Glucose,Bedside 176 (70-110)
--- NOTE | 2020-04-05 17:58 | PC.NURSE ---
Pt has been medicated for pain x2 this afternoon, currently rates his abdominal pain at a rate of 4/10 which is tolerable for him, prior to medication was rating his pain 8/10. Patient denies any cp or soa, vss, iv infusing, on ra, no s/s of distress noted, will continue to monitor.
--- NOTE | 2020-04-05 19:10 | PC.NURSE ---
report given to gian
[2020-04-05 21:16] LABS: POC Glucose,Bedside 105 (70-110)
[2020-04-06 04:00] VITALS: BP 160/74; PULSE 75; RESP 19; TEMP 36.9; O2SAT 100
[2020-04-06 04:58] VITALS: BMI 21.6
[2020-04-06 06:25] LABS: Alanine Aminotransferase 30 U/L (12-78); Albumin Level 3.7 g/dl (3.5-5.0); Albumin/Globulin Ratio 1.6 (1.1-1.8); Alkaline Phosphatase 62 U/L (38-126); Anion Gap 7.4 mEq/L (5-15); Aspartate Amino Transferase 42 U/L (17-59); Bilirubin,Total 1.4 mg/dl (0.2-1.3); Blood Urea Nitrogen 40 mg/dl (9-20); Carbon Dioxide 29 mmol/L (22.0-30.0); Chloride 106 mmol/L (98-107); Creatinine Clearance Estimated 77 mL/min (50-200); Estimated Glomerular Filt Rate 91 ml/min (>60); GFR (African American) 110 ML/MIN (>60); Globulin 2.3 g/dL (1.3-3.2); Glucose 181 mg/dl (74-100); Potassium 4.4 mmoL/L (3.5-5.1); Sodium 138 mmol/L (136-145)
[2020-04-06 06:39] LABS: POC Glucose,Bedside 202 (70-110)
[2020-04-06 06:46] LABS: Calcium 8.7 mg/dl (8.4-10.2)
[2020-04-06 07:38] VITALS: BP 139/94; PULSE 73; RESP 18; TEMP 37.2; O2SAT 98
--- NOTE | 2020-04-06 08:34 | HMH.ACPN2 ---
Internal Medicine - PN: Subj *Date: 04/06/20 *Time: 08:34 Interval history: Patient feels better today, no vomiting, tolerating diet, anxious to go home. Exam Vital signs and Labs for Last 24 Hours: Temp Pulse Resp BP Pulse Ox 98.9 F 73 18 139/94 H 98 04/06/20 07:38 04/06/20 07:38 04/06/20 07:38 04/06/20 07:38 04/06/20 07:38 Laboratory Results - last 24 hr 04/05/20 09:18: WBC 13.7 H, RBC 5.40, Hgb 16.2, Hct 49.4, MCV 91.6, MCH 30.0, MCHC 32.8, RDW 12.7, Plt Count 323, MPV 10.5 H, Neut % (Auto) 91.3 H, Lymph % (Auto) 6.2 L, [place] % (Auto) 2.2, Eos % (Auto) 0.1, Baso % (Auto) 0.2, Neut # (Auto) 12.5 H, Lymph # (Auto) 0.9, [place] # (Auto) 0.3, Eos # (Auto) 0.0, Baso # (Auto) 0.0, Total Counted 100, Neutrophils % (Manual) 88 H, Lymphocytes % (Manual) 10, Monocytes % (Manual) 2, Platelet Estimate Normal, RBC Morphology Normal 04/05/20 09:18: Sodium 138, Potassium 4.3, Chloride 97 L, Carbon Dioxide 22, Anion Gap 23.3 H, BUN 36 H, Creatinine 1.20, Estimated Creat Clear 59, Estimated GFR 65, Est GFR ( Amer) 79, Glucose 465 H*, Calcium 10.0, Total Bilirubin 1.6 H, AST 44, ALT 42, Alkaline Phosphatase 99, Total Protein 8.5 H, Albumin 5.3 H, Globulin 3.2, Albumin/Globulin Ratio 1.7 04/05/20 09:18: Acetone Level Small 04/05/20 11:45: POC Glucose 392 H* 04/05/20 16:49: POC Glucose 176 H 04/05/20 20:55: POC Glucose 105 04/06/20 05:35: Sodium 138, Potassium 4.4, Chloride 106, Carbon Dioxide 29 D, Anion Gap 7.4, BUN 40 H, Creatinine 0.90 D, Estimated Creat Clear 77, Estimated GFR 91, Est GFR ( Amer) 110 D, Glucose 181 H D, Calcium 8.7 D, Total Bilirubin 1.4 H, AST 42, ALT 30 D, Alkaline Phosphatase 62, Total Protein 6.0 L D, Albumin 3.7 D, Globulin 2.3, Albumin/Globulin Ratio 1.6 04/06/20 06:13: POC Glucose 202 H I & O for Last 24 hours: Intake & Output 04/03/20 04/04/20 04/05/20 04/06/20 23:59 23:59 23:59 23:59 Intake Total 600 / 600 240 / 240 Balance 600 / 600 240 / 240 Weight 116 lb 117 lb 5.012 oz - Constitutional no acute distress - *Routine HEENT Exam Head: Present: normocephalic Eye: Present: EOMI, PERRL ENT: Present: mucous membranes moist - *Routine Neck Exam Present: supple. Absent: lymphadenopathy - *Routine Respiratory Exam Present: CTA bilaterally - *Routine Cardiovascular Exam Present: RRR - *Routine Abdominal Exam Present: soft, normoactive bowel sounds. Absent: tenderness - *Routine Extremities Exam Absent: cyanosis, clubbing, edema - *Routine Skin Exam Present: warm. Absent: rash - *Routine Neurological Exam Present: alert, oriented X3 Assessment and Plan (1) Gastroparesis diabeticorum Current visit: Yes Status: Acute Category: Medical Code(s): E11.43 - Type 2 diabetes mellitus with diabetic autonomic (poly)neuropathy; K31.84 - Gastroparesis (2) Intractable abdominal pain Current visit: Yes Status: Acute Category: Medical Code(s): R10.9 - Unspecified abdominal pain (3) Intractable nausea and vomiting Current visit: Yes Status: Acute Category: Medical Code(s): R11.2 - Nausea with vomiting, unspecified (4) Leukocytosis Current visit: Yes Status: Acute Category: Medical Code(s): D72.829 - Elevated white blood cell count, unspecified (5) Diabetes type 2, uncontrolled Current visit: Yes Status: Chronic Category: Medical Code(s): E11.65 - Type 2 diabetes mellitus with hyperglycemia (6) Diabetic ketoacidosis Current visit: No Status: Acute Qualifiers: Diabetes mellitus type: type 2 Diabetes mellitus complication detail: without coma Qualified Code(s): E11.10 - Type 2 diabetes mellitus with ketoacidosis without coma Category: Medical Code(s): E13.10 - Other specified diabetes mellitus with ketoacidosis without coma (7) Renal insufficiency Current visit: No Status: Acute Category: Medical Code(s): N28.9 - Disorder of kidney and ureter, unspecified - Assessment and plan all Dx Assessmen
[2020-04-06 09:13] LABS: MANUAL DIFFERENTIAL MANUAL DIFFERENTIAL (MANUAL DIFF)
[2020-04-06 09:15] LABS: Basophils # 0.1 K/mm3 (0-0.2); Basophils % 0.6 % (0.1-2.0); Eosinophils # 0.1 K/mm3 (0.0-0.4); Eosinophils % 0.4 % (0.1-12.0); Hematocrit 39.6 % (42.0-52.0); Lymphocytes # 2.1 K/mm3 (0.7-4.5); Mean Corpuscular HGB Conc 31.9 g/dL (31.8-35.4); Mean Corpuscular Hemoglobin 29.5 pg (27.0-31.2); Mean Corpuscular Volume 92.4 fl (80-94); Monocytes # 0.6 K/mm3 (0.1-1.0); Monocytes % 5.2 % (1.7-9.3); Neutrophils # 8.4 K/mm3 (1.8-7.8); Neutrophils % 74.7 % (37.0-80.0); Platelet Count 253 K/mm3 (142-424); Red Blood Count 4.28 M/mm3 (4.60-6.20); White Blood Count 11.2 K/mm3 (4.8-10.8)
[2020-04-06 09:21] LABS: Hemoglobin 12.6 g/dL (14.1-18.0)
[2020-04-06 09:35] LABS: Lymphocytes % 23 % (10-50); Monocytes % 7 % (2-9); Neutrophils % 70 % (42-76); Platelet Estimate Normal; RBC Morphology Normal; Total Cells Counted 100
--- NOTE | 2020-04-06 10:37 | HMH.PHAINT ---
DISCHARGE COUNSELING COMPLETED ON PATIENT. NO NEW MEDICATIONS AT THIS TIME. PATIENT IS TO CONTINUE ALL HOME MEDICATIONS. NOT STOPPING ANYTHING. PATIENT ASKED ABOUT BENTYL, RECOMMENDED THAT HE ASK HIS PCP DURING FOLLOW UP. PATIENT VERBALIZED UNDERSTANDING AND HAD NO OTHER QUESTIONS. -KAYODE YIN, MARTITAD
[2020-04-06 11:23] LABS: POC Glucose,Bedside 162 (70-110)
--- NOTE | 2020-04-07 15:52 | HMH.DCSUM ---
General - General Admission date:: 04/05/20 Discharge date: 04/06/20 HPI HPI: 44 year old male presented to [facility] ER this morning with about a 24 hour history of intense abdominal pain associated with nausea and vomiting. He denies hematemesis and diarrhea and fever. He has a long standing history of similar problems. He has had an extensive GI work up and has been diagnosed diabetic gastroparesis and intermittent intractable vomiting. Hospital Course Hospital Course: Patient was admitted for symptom management, IV fluids, and insulin. He had an abdominal pelvic CT which showed nothing acute but mild distention of the urinary bladder. By 04/06/2020, the patient felt better and had no further vomiting. He was tolerating a diet and anxious to go home. His white cell count white blood cell count was initially elevated and did decrease. His sugar improved. He was stable to be discharged home and will follow up with Dr. Cheung in the office. Objective Vital signs: Temp Pulse Resp BP Pulse Ox 98.9 F 73 18 139/94 H 98 04/06/20 07:38 04/06/20 07:38 04/06/20 07:38 04/06/20 07:38 04/06/20 07:38 Narrative: - Constitutional no acute distress - *Routine HEENT Exam Head: Present: normocephalic Eye: Present: EOMI, PERRL ENT: Present: mucous membranes moist - *Routine Neck Exam Present: supple. Absent: lymphadenopathy - *Routine Respiratory Exam Present: CTA bilaterally - *Routine Cardiovascular Exam Present: RRR - *Routine Abdominal Exam Present: soft, normoactive bowel sounds. Absent: tenderness - *Routine Extremities Exam Absent: cyanosis, clubbing, edema - *Routine Skin Exam Present: warm. Absent: rash - *Routine Neurological Exam Present: alert, oriented X3 DS: Diagnosis - Discharge Diagnosis (1) Gastroparesis diabeticorum Status: Acute (2) Intractable abdominal pain Status: Acute (3) Intractable nausea and vomiting Status: Acute (4) Leukocytosis Status: Acute (5) Diabetes type 2, uncontrolled Status: Chronic (6) Diabetic ketoacidosis Status: Acute (7) Renal insufficiency Status: Acute Discharge Plan - Patient Discharge Instructions ACTIVITY: Continue current activity DIET: continue same diet Patient Instructions: DI for Hyperglycemia -- Adult, DI for Gastroparesis - Follow up Plan Follow up with: Jermain Cheung MD [Primary Care Provider] - 04/11/20 Disposition: Home, Self-Intermediate Medications: Home Medications Medication Instructions Recorded Confirmed Type Amitriptyline HCl [Elavil 25mg 25 mg PO HS 01/03/18 04/05/20 History tablet] Gabapentin [Gabapentin 300mg Cap] 600 mg PO HS 01/03/18 04/05/20 History NIFEdipine [Nifedipine ER] 30 mg PO DAILY 01/03/18 04/05/20 History Buspirone HCl [Buspar 5mg tablet] 5 mg PO BID 07/05/18 04/05/20 History Promethazine HCl [Phenergan 25mg 25 mg PO Q6HP PRN 12/27/18 04/05/20 History tab] Simethicone [Gas Relief 80] 80 mg PO Q6H PRN #30 tab.chew 01/21/19 04/05/20 Rx Calcium Carbonate/Simethicone 1 each PO DAILY PRN 02/22/19 04/05/20 History [[place] Heartburn+Gas] Linaclotide [Linzess] 145 mcg PO DAILY 02/23/19 04/05/20 History Glimepiride 2 mg PO DAILY 04/05/20 04/05/20 History Melatonin 10 mg PO HS 04/05/20 04/05/20 History Metformin HCl [Glucophage 500mg 500 mg PO BID 04/05/20 04/05/20 History Tablet] lisinopriL [Lisinopril 10mg Tab] 10 mg PO DAILY 04/05/20 04/05/20 History Prescriptions/Medication Reconciliation: Continued NIFEdipine [Nifedipine ER] 30 mg PO DAILY Gabapentin [Gabapentin 300mg Cap] 600 mg PO HS Amitriptyline HCl [Elavil 25mg tablet] 25 mg PO HS Simethicone [Gas Relief 80] 80 mg PO Q6H PRN #30 tab.chew PRN Reason: Gas Pain And Discomfort Calcium Carbonate/Simethicone [[place] Heartburn+Gas] 1 each PO DAILY PRN PRN Reason: stomach pain Linaclotide [Linzess] 145 mcg PO DAILY Metfo
== END 2020-04-06 11:30 | disposition home or self-care (01) ==
LOC: ER 09:14 → 2ND 12:17
PROVIDERS: Admitting Provider Family Medicine; Emergency Provider Family Medicine; PCP Family Medicine; Visit Provider Family Medicine
DX: E11.10 Type 2 diabetes mellitus with ketoacidosis without coma (principal); E11.43 Type 2 diabetes mellitus with diabetic autonomic (poly)neuropathy; E11.65 Type 2 diabetes mellitus with hyperglycemia; K31.84 Gastroparesis; Z79.84 Long term (current) use of oral hypoglycemic drugs
CPT/HCPCS: 36415; 74176; 80053; 82009; 82962; 85007; 85014; 85018; 85025; 85048; 85049; 96365; 96367; 96375; 99284; G0378; J2405

== ENCOUNTER 2020-04-29 13:12 | Emergency (ER) | payer OTHER, SELFPAY ==
[2020-04-29 13:13] VITALS: BP 138/89; PULSE 115; RESP 24; TEMP 37.1; O2SAT 97; BMI 20.5
[2020-04-29 13:46] LABS: Basophils % 0.4 % (0.1-2.0); Eosinophils % 0.3 % (0.1-12.0); Hematocrit 47.9 % (42.0-52.0); Hemoglobin 16.3 g/dL (14.1-18.0); Lymphocytes # 1.3 K/mm3 (0.7-4.5); Lymphocytes % 14.2 % (10-50); Mean Corpuscular HGB Conc 34.1 g/dL (31.8-35.4); Mean Corpuscular Volume 90.8 fl (80-94); Mean Platelet Volume 9.9 fl (7.4-10.4); Monocytes # 0.2 K/mm3 (0.1-1.0); Monocytes % 2.6 % (1.7-9.3); Neutrophils # 7.6 K/mm3 (1.8-7.8); Neutrophils % 82.5 % (37.0-80.0); Platelet Count 302 K/mm3 (142-424); Red Blood Count 5.27 M/mm3 (4.60-6.20); Red Cell Distribution Width 13.2 % (11.5-17.5); White Blood Count 9.2 K/mm3 (4.8-10.8)
[2020-04-29 13:49] LABS: Chloride 101 mmol/L (98-107); Potassium 3.5 mmoL/L (3.5-5.1); Sodium 139 mmol/L (136-145)
[2020-04-29 13:52] LABS: Alanine Aminotransferase 32 U/L (12-78); Alkaline Phosphatase 111 U/L (38-126); Amylase 391 U/L (30-110); Anion Gap 14.5 mEq/L (5-15); Aspartate Amino Transferase 34 U/L (17-59); Bilirubin,Total 1.3 mg/dl (0.2-1.3); Blood Urea Nitrogen 20 mg/dl (9-20); Calcium 9.5 mg/dl (8.4-10.2); Carbon Dioxide 27 mmol/L (22.0-30.0); Creatinine Clearance Estimated 74 mL/min (50-200); Estimated Glomerular Filt Rate 91 ml/min (>60); GFR (African American) 110 ML/MIN (>60); Glucose 306 mg/dl (74-100); Lipase 48 U/L (23-300)
[2020-04-29 13:53] LABS: Albumin Level 4.8 g/dl (3.5-5.0); Albumin/Globulin Ratio 1.5 (1.1-1.8); Globulin 3.1 g/dL (1.3-3.2); Total Protein,Serum 7.9 g/dl (6.3-8.2)
--- NOTE | 2020-04-29 14:07 | PC.NURSE ---
PT NOW RESTING PEACEFULLY
--- NOTE | 2020-04-29 14:18 | CT_ITS ---
PROCEDURE: CT ABDOMEN PELVIS W CON CLINICAL INDICATION: GASTROPORESIS GARCIA, N/V, ABD PAIN Epigastric with nausea and vomiting, gastro paresis COMPARISON: [facility] CT CHEST W/ CONTRAST from 07/11/2016 CT ABDOMEN PELVIS WO CON from 04/05/2020 TECHNIQUE: IV Contrast: 75ML OPTIRAY 350. There is history allergy to IV contrast. The patient was pre-medicated with Benadryl and Solu-Medrol. There were no issues with the contrast infusion. Oral Contrast none Axial images obtained with sagittal and coronal reformats. All CT scans at the facility use one or more dose reduction, viz: automated exposure control, ma/kV adjustment per patient size (including targeted exams where dose is matched to indication, i.e. head), or iterative reconstruction technique. FINDINGS: LOWER THORAX: No acute finding. Stable 4 mm right middle lobe nodule ABDOMEN & PELVIS: There has been a prior cholecystectomy with biliary ectasia. No focal liver lesion is evident. The spleen, adrenal glands, and pancreas have an unremarkable appearance. No renal or ureteral calculi. No renal mass. The stomach is not distended No evidence of appendicitis. No intestinal obstruction or free air. No evidence of diverticulitis There is mild distention of the urinary bladder. Mild degenerative changes are present in the lumbar spine. IMPRESSION: Prior cholecystectomy with mild biliary ectasia which is of questionable clinical significance in this patient that has had a prior cholecystectomy. Mild distention of the urinary bladder. Otherwise negative Dictated by: Escobar Sanchez MD 04/29/2020 15:21 Electronically signed by Escobar Sanchez MD in [place] 04/29/2020 15:21
--- NOTE | 2020-04-29 14:19 | PC.NURSE ---
THIS NURSE TOLD MD OF CONTRAST ALLERGY DOCUMENTED. MD STATED TO PREMEDICATE PT AND CONTINUE ON
--- NOTE | 2020-04-29 14:21 | HMH.EDNVD ---
ED Disposition Clinical Impression: Abdominal pain, epigastric Type 2 diabetes mellitus Qualifiers: Diabetes mellitus rat exterminator insulin use: unspecified rat exterminator insulin use status Diabetes mellitus complication status: with other specified complication Qualified Code(s): E11.69 - Type 2 diabetes mellitus with other specified complication Disposition: Home, Self-Care Condition on Discharge: Good Instructions: DI for Acute Abdomen Additional Instructions: call pcp for samira garner Referrals: Jermain Cheung MD [Primary Care Provider] - - Critical Care Critical Care Time: No Attestation: On 04/29/20, the high probability of a clinically significant, sudden or life threatening deterioration of the following system(s) required my full and direct attention, intervention and personal management. The time I documented below is in addition to time spent performing reported procedures but includes the following listed in this critical care notation. Medical Decision Making - Medical Records Medical records reviewed: Yes: I reviewed the patient's medical records. - Ben Inquiry Pt receiving controlled substance: No Vital Signs: 04/29/20 13:13 Temperature 98.7 F Temperature Source Oral Pulse Rate [Right Radial] 115 H Respiratory Rate 24 Blood Pressure [Right Arm] 138/89 Blood Pressure Mean [Right Arm] 105 Blood Pressure Source [Right Arm] Automatic Cuff Blood Pressure Position [Right Arm] Sitting 02 Sat by Pulse Oximetry 97 Oxygen Delivery Method Room Air - Lab Data Lab results reviewed: Yes: I reviewed the patient's lab results. Lab Results 04/29/20 13:30: WBC 9.2, RBC 5.27, Hgb 16.3, Hct 47.9, MCV 90.8, MCH 31.0, MCHC 34.1, RDW 13.2, Plt Count 302, MPV 9.9, Neut % (Auto) 82.5 H, Lymph % (Auto) 14.2, [place] % (Auto) 2.6, Eos % (Auto) 0.3, Baso % (Auto) 0.4, Neut # (Auto) 7.6, Lymph # (Auto) 1.3, [place] # (Auto) 0.2, Eos # (Auto) 0.0, Baso # (Auto) 0.0 04/29/20 13:30: Sodium 139, Potassium 3.5, Chloride 101, Carbon Dioxide 27, Anion Gap 14.5, BUN 20, Creatinine 0.90, Estimated Creat Clear 74, Estimated GFR 91, Est GFR ( Amer) 110, Glucose 306 H, Calcium 9.5, Total Bilirubin 1.3, AST 34, ALT 32, Alkaline Phosphatase 111, Total Protein 7.9 D, Albumin 4.8, Globulin 3.1, Albumin/Globulin Ratio 1.5, Amylase 391 H*, Lipase 48 Result diagrams: 04/29/20 13:30 04/29/20 13:30 Orders (Tests/Meds): ED MEDICATIONS Generic Name Dose Route Start Last Admin Trade Name Freq PRN Reason Stop Dose Admin Sodium Chloride 8 ml 04/29/20 13:38 Sodium Chloride 0.9% 10ml Vial IV 05/29/20 13:37 NEEDED PRN dilute pepcid Discontinued Medications Generic Name Dose Route Start Last Admin Trade Name Freq PRN Reason Stop Dose Admin Diphenhydramine HCl 25 mg 04/29/20 14:25 04/29/20 14:26 Benadryl 50mg/1ml Vial IV 04/29/20 14:26 25 mg ONCE ONE Administration Famotidine 20 mg 04/29/20 13:38 04/29/20 13:42 Pepcid 20mg/2ml Vial IV 04/29/20 13:39 20 mg ONCE ONE Administration Hydromorphone HCl 2 mg 04/29/20 13:58 04/29/20 14:00 Dilaudid 2mg/Ml Syringe IV 04/29/20 13:59 2 mg ONCE ONE Administration Sodium Chloride 1,000 mls @ 999 mls/hr 04/29/20 13:38 04/29/20 13:42 Sod Chlor 0.9% 1000ml Bag IV 04/29/20 14:38 999 mls/hr .Q1H1M ONE Administration Ioversol 75 ml 04/29/20 15:02 04/29/20 15:03 Rad-Optiray 350 100ml Vial IV 04/29/20 15:03 75 ml ONCE ONE Administration Protocol Methylprednisolone Sodium Succinate 125 mg 04/29/20 14:25 04/29/20 14:26 Solu-Medrol 125mg/2ml Vial IV 04/29/20 14:26 125 mg ONCE ONE Administration Metoclopramide HCl 10 mg 04/29/20 13:38 04/29/20 13:42 Reglan 10mg/2ml Vial IVP 04/29/20 13:39 10 mg ONCE ONE Administration Morphine Sulfate 4 mg 04/29/20 13:38 04/29/20 13:40 Morphine 4mg/Ml Syringe IV 04/29/20 13:39 4 mg ONCE ONE Administration Ondansetron HCl 4 mg 04/29/20 13:38 0
--- NOTE | 2020-04-29 15:50 | PC.NURSE ---
PT HAS BEEN UNABLE TO URINATE
[2020-04-29 16:04] VITALS: BP 121/76; PULSE 81; RESP 18; TEMP 36.8; O2SAT 97
== END 2020-04-29 16:07 | disposition home or self-care (01) ==
PROVIDERS: Emergency Provider Emergency Medicine; PCP Family Medicine
DX: R10.13 Epigastric pain (principal); E11.65 Type 2 diabetes mellitus with hyperglycemia; K21.9 Gastro-esophageal reflux disease without esophagitis; I10 Essential (primary) hypertension; E78.5 Hyperlipidemia, unspecified; Z88.5 Allergy status to narcotic agent; Z88.8 Allergy status to other drugs, medicaments and biological substances
CPT/HCPCS: 74177; 80053; 82150; 83690; 85025; 96365; 96375; 96376; 99282; J2405; Q9967

== ENCOUNTER 2020-06-16 09:24 | Emergency (ER) | payer OTHER, SELFPAY ==
[2020-06-16 09:26] VITALS: BP 183/124; PULSE 69; RESP 20; TEMP 36.6; O2SAT 98; BMI 21.2
[2020-06-16 09:37] VITALS: BP 162/126
[2020-06-16 09:43] LABS: Basophils % 0.4 % (0.1-2.0); Eosinophils # 0.1 K/mm3 (0.0-0.4); Eosinophils % 0.7 % (0.1-12.0); Hematocrit 49.7 % (42.0-52.0); Hemoglobin 16.9 g/dL (14.1-18.0); Lymphocytes # 2.3 K/mm3 (0.7-4.5); Lymphocytes % 29.1 % (10-50); Mean Corpuscular HGB Conc 33.9 g/dL (31.8-35.4); Mean Corpuscular Hemoglobin 31.1 pg (27.0-31.2); Mean Corpuscular Volume 91.7 fl (80-94); Mean Platelet Volume 9.4 fl (7.4-10.4); Monocytes # 0.3 K/mm3 (0.1-1.0); Monocytes % 4.1 % (1.7-9.3); Neutrophils # 5.2 K/mm3 (1.8-7.8); Neutrophils % 65.6 % (37.0-80.0); Platelet Count 310 K/mm3 (142-424); Red Blood Count 5.42 M/mm3 (4.60-6.20)
[2020-06-16 09:46] LABS: Chloride 97 mmol/L (98-107); Potassium 3.9 mmoL/L (3.5-5.1); Sodium 138 mmol/L (136-145)
[2020-06-16 09:48] LABS: Amylase 161 U/L (30-110)
[2020-06-16 09:49] LABS: Alanine Aminotransferase 34 U/L (12-78); Albumin Level 4.8 g/dl (3.5-5.0); Albumin/Globulin Ratio 1.5 (1.1-1.8); Alkaline Phosphatase 101 U/L (38-126); Anion Gap 15.9 mEq/L (5-15); Aspartate Amino Transferase 35 U/L (17-59); Bilirubin,Total 1.6 mg/dl (0.2-1.3); Blood Urea Nitrogen 24 mg/dl (9-20); Calcium 10.6 mg/dl (8.4-10.2); Carbon Dioxide 29 mmol/L (22.0-30.0); Creatinine Clearance Estimated 78 mL/min (50-200); Estimated Glomerular Filt Rate 90 ml/min (>60); GFR (African American) 109 ML/MIN (>60); Globulin 3.2 g/dL (1.3-3.2); Glucose 320 mg/dl (74-100); Lipase 60 U/L (23-300)
--- NOTE | 2020-06-16 09:57 | HMH.EDABDPAI ---
ED Disposition Clinical Impression: Diabetic gastroparesis associated with type 2 diabetes mellitus, Gastroparesis Disposition: Home, Self-Care Condition on Discharge: Good Prescriptions: Metoclopramide HCl [Metoclopramide 5mg Tab] 5 mg PO ACHS 10 Days tab Prescription Printed Referrals: PCP,No [Primary Care Provider] - - Critical Care Critical Care Time: No Attestation: On 06/16/20, the high probability of a clinically significant, sudden or life threatening deterioration of the following system(s) required my full and direct attention, intervention and personal management. The time I documented below is in addition to time spent performing reported procedures but includes the following listed in this critical care notation. Medical Decision Making - Medical Records Medical records reviewed: Yes: I reviewed the patient's medical records. - Ben Inquiry Pt receiving controlled substance: No Vital Signs: 06/16/20 09:26 06/16/20 09:37 06/16/20 10:03 Temperature 98 F Temperature Source Oral Pulse Rate [Right Radial] 69 65 Respiratory Rate 20 Blood Pressure [Left Arm] 162/126 H Blood Pressure [Right Arm] 183/124 H 150/96 H Blood Pressure Mean [Left Arm] 138 Blood Pressure Mean [Right Arm] 143 114 Blood Pressure Source [Right Arm] Automatic Cuff Blood Pressure Position [Left Arm] Blood Pressure Position [Right Arm] Sitting Sitting 02 Sat by Pulse Oximetry 98 100 Oxygen Delivery Method Room Air 06/16/20 10:29 Temperature Temperature Source Pulse Rate [Right Radial] 70 Respiratory Rate Blood Pressure [Left Arm] 136/84 Blood Pressure [Right Arm] Blood Pressure Mean [Left Arm] 101 Blood Pressure Mean [Right Arm] Blood Pressure Source [Right Arm] Blood Pressure Position [Left Arm] Sitting Blood Pressure Position [Right Arm] 02 Sat by Pulse Oximetry Oxygen Delivery Method - Lab Data Lab Results 06/16/20 09:30: WBC 8.0, RBC 5.42, Hgb 16.9, Hct 49.7, MCV 91.7, MCH 31.1, MCHC 33.9, RDW 13.0, Plt Count 310, MPV 9.4, Neut % (Auto) 65.6, Lymph % (Auto) 29.1, [place] % (Auto) 4.1, Eos % (Auto) 0.7, Baso % (Auto) 0.4, Neut # (Auto) 5.2, Lymph # (Auto) 2.3, [place] # (Auto) 0.3, Eos # (Auto) 0.1, Baso # (Auto) 0.0 06/16/20 09:30: Sodium 138, Potassium 3.9, Chloride 97 L, Carbon Dioxide 29, Anion Gap 15.9 H, BUN 24 H, Creatinine 0.90, Estimated Creat Clear 78, Estimated GFR 90, Est GFR ( Amer) 109, Glucose 320 H, Calcium 10.6 H, Total Bilirubin 1.6 H, AST 35, ALT 34, Alkaline Phosphatase 101, Total Protein 8.0, Albumin 4.8, Globulin 3.2, Albumin/Globulin Ratio 1.5, Amylase 161 H, Lipase 60 06/16/20 09:30: Acetone Level None detected 06/16/20 09:59: VBG pH 7.32, VBG pCO2 47.6, VBG pO2 29.6, VBG HCO3 23.9, VBG Total CO2 25.4, VBG O2 Saturation 50.9, VBG Base Excess -2.2 Result diagrams: 06/16/20 09:30 06/16/20 09:30 Orders (Tests/Meds): ED MEDICATIONS Generic Name Dose Route Start Last Admin Trade Name Freq PRN Reason Stop Dose Admin Sodium Chloride 1,000 mls @ 999 mls/hr 06/16/20 09:45 06/16/20 09:42 Sod Chlor 0.9% 1000ml Bag IV 06/16/20 10:45 999 mls/hr .Q1H1M GAIL Administration Sodium Chloride 10 ml 06/16/20 09:44 Sodium Chloride 0.9% 10ml Vial IV 07/16/20 09:43 NEEDED PRN dilute protonix Discontinued Medications Generic Name Dose Route Start Last Admin Trade Name Freq PRN Reason Stop Dose Admin Dicyclomine HCl 20 mg 06/16/20 09:44 06/16/20 09:56 Dicyclomine 20mg/2ml Vial IM 06/16/20 09:45 20 mg ONCE ONE Administration Ketorolac Tromethamine 30 mg 06/16/20 09:44 06/16/20 09:56 Toradol 30mg/Ml Vial IV 06/16/20 09:45 30 mg ONCE ONE Administration Metoclopramide HCl 10 mg 06/16/20 09:44 06/16/20 09:56 Reglan 10mg/2ml Vial IVP 06/16/20 09:45 10 mg ONCE ONE Administration Pantoprazole Sodium 40 mg 06/16/20 09:44 06/16/20 09:56 Protonix 40mg Vial IV 06/16/20 09:45 40 mg ONCE ONE Admini
[2020-06-16 10:00] LABS: Acetone, Serum (Rapid) None Detected (None Detect)
[2020-06-16 10:03] VITALS: BP 150/96; PULSE 65; O2SAT 100
[2020-06-16 10:03] LABS: VBG Base Excess -2.2 mmol/L (-2.4-2.3); VBG HCO3 23.9 mmol/L (23-30); VBG Oxygen Saturation 50.9 % (50-70); VBG PCO2 47.6 mmol/L (35-51); VBG PH 7.32 mmol/L (7.31-7.41); VBG PO2 29.6 mmol/L (28-40); VBG Total CO2 25.4 mmol/L (23-27)
[2020-06-16 10:29] VITALS: BP 136/84; PULSE 70
[2020-06-16 11:12] VITALS: BP 136/86; PULSE 78; RESP 16; TEMP 36.6; O2SAT 98
== END 2020-06-16 11:16 | disposition home or self-care (01) ==
PROVIDERS: Emergency Provider Emergency Medicine
DX: E11.43 Type 2 diabetes mellitus with diabetic autonomic (poly)neuropathy (principal); E11.65 Type 2 diabetes mellitus with hyperglycemia; K31.84 Gastroparesis; Z79.84 Long term (current) use of oral hypoglycemic drugs; K21.9 Gastro-esophageal reflux disease without esophagitis; I10 Essential (primary) hypertension; E78.5 Hyperlipidemia, unspecified; Z79.899 Other long term (current) drug therapy; Z90.49 Acquired absence of other specified parts of digestive tract
CPT/HCPCS: 80053; 82009; 82150; 82803; 83690; 85025; 96365; 96372; 96375; 99283

== ENCOUNTER 2020-06-28 09:12 | Emergency (ER) | payer OTHER, SELFPAY ==
[2020-06-28 09:14] VITALS: BP 163/92; PULSE 105; RESP 20; TEMP 36.9; O2SAT 97; BMI 23.0
--- NOTE | 2020-06-28 09:21 | HMH.EDGENADL ---
ED Disposition Clinical Impression: Diabetic gastroparesis Disposition: Home, Self-Care Condition on Discharge: Fair Instructions: DI for Abdominal Pain-Adult Additional Instructions: Use Reglan and Zofran as needed. Call your primary care provider today to make appointment for follow-up. Additional instructions for ABDOMINAL PAIN: See your physician as soon as possible for further evaluation. Return immediately if worsening abdominal pain, vomiting, shortness of breath, fever, vomiting of blood or abdominal distention. Referrals: Jermain Cheung MD [Primary Care Provider] - - Critical Care Critical Care Time: No Attestation: On 06/28/20, the high probability of a clinically significant, sudden or life threatening deterioration of the following system(s) required my full and direct attention, intervention and personal management. The time I documented below is in addition to time spent performing reported procedures but includes the following listed in this critical care notation. Medical Decision Making - Medical Records Medical records reviewed: Yes: I reviewed the patient's medical records. MR Comment: Last seen here 06/16/20 for same symptoms. - Ben Inquiry Pt receiving controlled substance: Yes Ben was queried for this patient: No Reason not queried -: Emergent pt cond-no time Risks and benefits of using a controlled substance: were not discussed with pt by me Vital Signs: 06/28/20 09:14 06/28/20 09:53 06/28/20 10:02 Temperature 98.4 F Temperature Source Tympanic Pulse Rate Pulse Rate [Right] 105 H 74 73 Respiratory Rate 20 16 Blood Pressure Blood Pressure [Right Arm] 163/92 H 129/86 125/79 Blood Pressure Mean [Right Arm] 115 100 94 Blood Pressure Source Blood Pressure Source [Right Arm] Automatic Cuff Automatic Cuff Automatic Cuff 02 Sat by Pulse Oximetry 97 99 99 Oxygen Delivery Method Room Air Room Air Room Air 06/28/20 10:34 06/28/20 11:12 06/28/20 11:22 Temperature 98.7 F Temperature Source Oral Pulse Rate 68 Pulse Rate [Right] 72 67 Respiratory Rate 16 16 Blood Pressure 114/72 Blood Pressure [Right Arm] 116/72 114/72 Blood Pressure Mean [Right Arm] 86 86 Blood Pressure Source Automatic Cuff Blood Pressure Source [Right Arm] Automatic Cuff Automatic Cuff 02 Sat by Pulse Oximetry 96 97 Oxygen Delivery Method Room Air Room Air Room Air - Lab Data Lab results reviewed: Yes: I reviewed the patient's lab results. Lab Results 06/28/20 09:26: WBC 14.0 H, RBC 5.15, Hgb 16.0, Hct 45.9, MCV 89.0, MCH 31.1, MCHC 35.0, RDW 12.7, Plt Count 291, MPV 9.9, Neut % (Auto) 90.0 H, Lymph % (Auto) 7.7 L, [place] % (Auto) 2.1, Eos % (Auto) 0.1, Baso % (Auto) 0.1, Neut # (Auto) 12.6 H, Lymph # (Auto) 1.1, [place] # (Auto) 0.3, Eos # (Auto) 0.0, Baso # (Auto) 0.0, Total Counted 100, Neutrophils % (Manual) 89 H, Lymphocytes % (Manual) 10, Monocytes % (Manual) 1 L, Platelet Estimate Normal, RBC Morphology Normal 06/28/20 09:26: Sodium 141, Potassium 4.1, Chloride 94 L, Carbon Dioxide 33 H, Anion Gap 18.1 H, BUN 22 H, Creatinine 0.90, Estimated Creat Clear 85, Estimated GFR 90, Est GFR ( Amer) 109, Glucose 396 H, Calcium 10.5 H, Total Bilirubin 1.0, AST 46, ALT 39, Alkaline Phosphatase 98, Total Protein 7.6, Albumin 4.7, Globulin 2.9, Albumin/Globulin Ratio 1.6, Amylase 141 H, Lipase 55 06/28/20 10:48: POC Glucose 315 H* Result diagrams: 06/28/20 09:26 06/28/20 09:26 Orders (Tests/Meds): ED MEDICATIONS Discontinued Medications Generic Name Dose Route Start Last Admin Trade Name Della PRN Reason Stop Dose Admin Famotidine 20 mg 06/28/20 09:20 06/28/20 09:30 Pepcid 20mg/2ml Vial IV 06/28/20 09:21 20 mg ONCE ONE Administration Insulin Human Lispro 10 unit 06/28/20 10:11 06/28/20 10:15 Humalog 100 Units/Ml 3ml Vial (Ssi) SQ 06/28/20 10:12 10 unit ONCE ONE Administration Metoclopramide HCl 5 mg 06/28/20 09:20 06/28/20 09:30
[2020-06-28 09:38] LABS: Basophils % 0.1 % (0.1-2.0); Eosinophils % 0.1 % (0.1-12.0); Hematocrit 45.9 % (42.0-52.0); Lymphocytes # 1.1 K/mm3 (0.7-4.5); Lymphocytes % 7.7 % (10-50); Mean Corpuscular Hemoglobin 31.1 pg (27.0-31.2); Mean Platelet Volume 9.9 fl (7.4-10.4); Monocytes # 0.3 K/mm3 (0.1-1.0); Monocytes % 2.1 % (1.7-9.3); Neutrophils # 12.6 K/mm3 (1.8-7.8); Platelet Count 291 K/mm3 (142-424); Red Blood Count 5.15 M/mm3 (4.60-6.20); Red Cell Distribution Width 12.7 % (11.5-17.5)
[2020-06-28 09:41] LABS: MANUAL DIFFERENTIAL MANUAL DIFFERENTIAL (MANUAL DIFF)
[2020-06-28 09:51] LABS: Chloride 94 mmol/L (98-107); Potassium 4.1 mmoL/L (3.5-5.1); Sodium 141 mmol/L (136-145)
[2020-06-28 09:53] VITALS: BP 129/86; PULSE 74; RESP 16; O2SAT 99
[2020-06-28 09:54] LABS: Alanine Aminotransferase 39 U/L (12-78); Albumin Level 4.7 g/dl (3.5-5.0); Albumin/Globulin Ratio 1.6 (1.1-1.8); Alkaline Phosphatase 98 U/L (38-126); Amylase 141 U/L (30-110); Anion Gap 18.1 mEq/L (5-15); Aspartate Amino Transferase 46 U/L (17-59); Blood Urea Nitrogen 22 mg/dl (9-20); Calcium 10.5 mg/dl (8.4-10.2); Carbon Dioxide 33 mmol/L (22.0-30.0); Creatinine Clearance Estimated 85 mL/min (50-200); Estimated Glomerular Filt Rate 90 ml/min (>60); GFR (African American) 109 ML/MIN (>60); Globulin 2.9 g/dL (1.3-3.2); Glucose 396 mg/dl (74-100); Lipase 55 U/L (23-300); Total Protein,Serum 7.6 g/dl (6.3-8.2)
[2020-06-28 10:02] VITALS: BP 125/79; PULSE 73; O2SAT 99
[2020-06-28 10:03] LABS: Lymphocytes % 10 % (10-50); Monocytes % 1 % (2-9); Neutrophils % 89 % (42-76); Platelet Estimate Normal; RBC Morphology Normal; Total Cells Counted 100
[2020-06-28 10:34] VITALS: BP 116/72; PULSE 72; O2SAT 96
[2020-06-28 10:56] LABS: POC Glucose,Bedside 315 (70-110)
[2020-06-28 11:12] VITALS: BP 114/72; PULSE 67; RESP 16; O2SAT 97
[2020-06-28 11:22] VITALS: BP 114/72; PULSE 68; RESP 16; TEMP 37.1; O2SAT 98
== END 2020-06-28 11:58 | disposition home or self-care (01) ==
PROVIDERS: Emergency Provider Emergency Medicine; PCP Family Medicine
DX: E11.43 Type 2 diabetes mellitus with diabetic autonomic (poly)neuropathy (principal); E11.65 Type 2 diabetes mellitus with hyperglycemia; K31.84 Gastroparesis; Z79.84 Long term (current) use of oral hypoglycemic drugs; I10 Essential (primary) hypertension; K21.9 Gastro-esophageal reflux disease without esophagitis; E78.5 Hyperlipidemia, unspecified; F17.210 Nicotine dependence, cigarettes, uncomplicated; Z90.49 Acquired absence of other specified parts of digestive tract
CPT/HCPCS: 80053; 82150; 82962; 83690; 85007; 85025; 96365; 96375; 96376; 99284; J2405

== ENCOUNTER 2020-12-15 00:22 | Emergency (ER) | payer OTHER, SELFPAY ==
[2020-12-15 00:24] VITALS: BP 178/98; PULSE 108; RESP 16; TEMP 36.6; O2SAT 98; BMI 22.8
[2020-12-15 00:39] VITALS: BMI 22.8
--- NOTE | 2020-12-15 00:40 | CT_ITS ---
Procedure: CT ABDOMEN PELVIS WO CON Referring Doctor: Charles Guajardo Patient Age:45Y CLINICAL INDICATION: abd pain severe abdominal pain since 12/14/2020 at 6 a.m. pain is mainly at the upper abdomen but Nausea vomiting history of gastroparesis.. No diarrhea. Diabetes. Cholecystectomy Leukocytosis. COMPARISON: CT CT ABDOMEN PELVIS W CON from 04/29/2020 TECHNIQUE: No IV contrast. No oral contrast Axial images obtained with sagittal and coronal reformats. All CT scans at the facility use one or more dose reduction, viz: automated exposure control, ma/kV adjustment per patient size (including targeted exams where dose is matched to indication, i.e. head), or iterative reconstruction technique. FINDINGS: Lower thorax: No 3.5 mm nodule versus focal scarring at the right middle lobe. Stable but Is suggestion of mild mural thickening distal esophagus versus lack of distension. ABDOMEN: Liver: No masses or biliary dilatation. Gallbladder: Cholecystectomy common duct unremarkable. Pancreas: No prominent findings. Suggestion slightly lower density towards head of the pancreas the axial image 44. Equivocal observation but if elevated amylase and lipase and may reflect some subtle edematous changes related to mild pancreatitis reflect. The the the the Spleen: unremarkable Adrenals: unremarkable Kidneys/ureters: unremarkable no renal calculi but no hydronephrosis. Ureters unremarkable PELVIS: No free fluid pelvis the Bladder: Moderately distended the but unremarkable. The the the no obvious stones or masses.. Unremarkable ----GI tract Suspect small hiatal hernia and question some borderline thickening distal esophagus. Similar appearance is seen April 2020 in. . Stomach and small bowel with no no dilatation. Question upper normal wall thickness distal small bowel . Large bowel:. Mild mural thickening versus underdistention of the distal ascending, transverse, and descending, sigmoid colon. Small air-fluid levels sigmoid colon. No pericolic inflammatory stranding. No obstruction. Moderate solid stool at the right colon and rectum the . Appendix. No findings of appendicitis. Peritoneum: No abnormal fluid collections. No obvious inflammatory changes. No free air. Lymph nodes: No significant enlarged lymph nodes apparent. Vasculature: No evidence of abdominal aortic aneurysm. No retroperitoneal hemorrhage evident. Bones: Old, healing fracture of the anterior right 4th rib IMPRESSION: Mild mural wall thickening involving descending and transverse colon the, uncertain significance.-appearance suspect for mild Enterocolitis with developing diarrhea, (particularly noting what appear to be some air-fluid levels in sigmoid). If no diarrhea clinically could merely reflect lack of distension . Question/suggestion very subtle decreased density head of the pancreas on this noncontrast study. Equivocal nonspecific subtle observation-the the however if elevated amylase or lipase a could reflect some very subtle minor edematous changes head of pancreas the . Suggestion small hiatal hernia with upper normal thickness distal esophagus--similar appearance seen 2019 The Appendix normal the Dictated by: Héctor Jones MD 12/16/2020 13:52 Héctor Jones MD in [facility] 12/16/2020 13:52
[2020-12-15 00:50] LABS: POC Glucose,Bedside 314 (70-110)
--- NOTE | 2020-12-15 00:50 | PC.NURSE ---
pt to CT
[2020-12-15 00:56] LABS: Basophils % 0.2 % (0.1-2.0); Hematocrit 46.1 % (42.0-52.0); Hemoglobin 15.7 g/dL (14.1-18.0); Lymphocytes # 0.9 K/mm3 (0.7-4.5); Lymphocytes % 4.4 % (10-50); Mean Corpuscular HGB Conc 34.1 g/dL (31.8-35.4); Mean Corpuscular Hemoglobin 30.5 pg (27.0-31.2); Mean Corpuscular Volume 89.5 fl (80-94); Mean Platelet Volume 10.2 fl (7.4-10.4); Monocytes # 0.6 K/mm3 (0.1-1.0); Monocytes % 2.9 % (1.7-9.3); Neutrophils # 19.3 K/mm3 (1.8-7.8); Neutrophils % 92.6 % (37.0-80.0); Platelet Count 309 K/mm3 (142-424); Red Blood Count 5.15 M/mm3 (4.60-6.20); Red Cell Distribution Width 13.3 % (11.5-17.5)
[2020-12-15 00:57] LABS: MANUAL DIFFERENTIAL MANUAL DIFFERENTIAL (MANUAL DIFF); White Blood Count 20.8 K/mm3 (4.8-10.8)
[2020-12-15 01:03] LABS: Acetone, Serum (Rapid) None Detected (None Detect)
[2020-12-15 01:05] LABS: Chloride 98 mmol/L (98-107); Potassium 3.5 mmoL/L (3.5-5.1); Sodium 139 mmol/L (136-145)
[2020-12-15 01:07] LABS: Amylase 142 U/L (30-110); Blood Urea Nitrogen 31 mg/dl (9-20); Creatinine Clearance Estimated 61 mL/min (50-200); Estimated Glomerular Filt Rate 65 ml/min (>60); GFR (African American) 79 ML/MIN (>60)
[2020-12-15 01:08] LABS: Alanine Aminotransferase 46 U/L (12-78); Albumin Level 5.2 g/dl (3.5-5.0); Alkaline Phosphatase 111 U/L (38-126); Anion Gap 21.5 mEq/L (5-15); Aspartate Amino Transferase 54 U/L (17-59); Bilirubin,Direct 0.2 mg/dl (0.0-0.4); Bilirubin,Indirect 0.7 mg/dL (0.0-0.9); Bilirubin,Total 0.9 mg/dl (0.2-1.3); Bilirubin,Unconjugated 0.7 mg/dL (0.0-1.1); Calcium 10.9 mg/dl (8.4-10.2); Carbon Dioxide 23 mmol/L (22.0-30.0); Glucose 365 mg/dl (74-100); Lipase 69 U/L (23-300); Total Protein,Serum 8.7 g/dl (6.3-8.2)
[2020-12-15 01:11] LABS: Hemoglobin A1C 7.4 % (4.0-6.0)
[2020-12-15 01:13] LABS: Lymphocytes % 5 % (10-50); Neutrophils % 89 % (42-76); Platelet Estimate Normal; RBC Morphology Normal; Total Cells Counted 100
[2020-12-15 01:14] VITALS: BP 132/82; PULSE 83; RESP 16; O2SAT 98
[2020-12-15 01:14] LABS: C-Reactive Protein 0.4 mg/L (0-4)
[2020-12-15 01:25] LABS: Coronavirus 19 IgG Antibody Negative (Negative); Coronavirus 19 IgM Antibody Negative (Negative); Erythrocyte Sedimentation Rate 13 mm/hr (0-15)
[2020-12-15 01:41] LABS: Lactic Acid 3.1 mmol/L (0.7-2.1)
[2020-12-15 02:00] VITALS: BP 155/86; PULSE 81; RESP 15; O2SAT 99
[2020-12-15 02:30] VITALS: BP 146/88; PULSE 83; RESP 16; O2SAT 99
--- NOTE | 2020-12-15 02:34 | PC.NURSE ---
notified of pt meeting sepsis with organ dysfunction with pulse, WBC and Lactic
[2020-12-15 03:00] VITALS: BP 151/87; PULSE 91; RESP 16; O2SAT 98
--- NOTE | 2020-12-15 03:07 | HMH.EDNVD ---
ED Disposition Clinical Impression: Abdominal pain, epigastric, Diabetic gastroparesis associated with type 2 diabetes mellitus Diabetes type 2, uncontrolled Qualifiers: Glycemic state: with hyperglycemia Qualified Code(s): E11.65 - Type 2 diabetes mellitus with hyperglycemia Leukocytosis (leucocytosis) Qualifiers: Leukocytosis type: unspecified Qualified Code(s): D72.829 - Elevated white blood cell count, unspecified Disposition: Home, Self-Care Condition on Discharge: Good Instructions: DI for Acute Abdominal Pain Additional Instructions: fluids and see pcp for follow up Referrals: Jermain Cheung MD [Primary Care Provider] - - Critical Care Critical Care Time: No Attestation: On 12/15/20, the high probability of a clinically significant, sudden or life threatening deterioration of the following system(s) required my full and direct attention, intervention and personal management. The time I documented below is in addition to time spent performing reported procedures but includes the following listed in this critical care notation. Medical Decision Making - Medical Records Medical records reviewed: Yes: I reviewed the patient's medical records. - Ben Inquiry Pt receiving controlled substance: No Vital Signs: 12/15/20 00:24 12/15/20 01:14 12/15/20 02:00 Temperature 97.9 F Temperature Source Oral Pulse Rate [Left Radial] 108 H 83 81 Respiratory Rate 16 16 15 Blood Pressure [Right Arm] 178/98 H 132/82 155/86 H Blood Pressure Mean [Right Arm] 124 98 109 Blood Pressure Source [Right Arm] Manual Cuff/ Auscultation Automatic Cuff Automatic Cuff Blood Pressure Position [Right Arm] Supine Sitting Sitting 02 Sat by Pulse Oximetry 98 98 99 Oxygen Delivery Method Room Air Room Air Room Air 12/15/20 02:30 12/15/20 03:00 Temperature Temperature Source Pulse Rate [Left Radial] 83 91 H Respiratory Rate 16 16 Blood Pressure [Right Arm] 146/88 H 151/87 H Blood Pressure Mean [Right Arm] 107 108 Blood Pressure Source [Right Arm] Automatic Cuff Automatic Cuff Blood Pressure Position [Right Arm] Sitting Sitting 02 Sat by Pulse Oximetry 99 98 Oxygen Delivery Method Room Air Room Air - Lab Data Lab results reviewed: Yes: I reviewed the patient's lab results. Lab Results 12/15/20 00:39: POC Glucose 314 H* 12/15/20 00:40: WBC 20.8 H*, RBC 5.15, Hgb 15.7, Hct 46.1, MCV 89.5, MCH 30.5, MCHC 34.1, RDW 13.3, Plt Count 309, MPV 10.2, Neut % (Auto) 92.6 H, Lymph % (Auto) 4.4 L, [place] % (Auto) 2.9, Eos % (Auto) 0.0 L, Baso % (Auto) 0.2, Neut # (Auto) 19.3 H, Lymph # (Auto) 0.9, [place] # (Auto) 0.6, Eos # (Auto) 0.0, Baso # (Auto) 0.0, Total Counted 100, Neutrophils % (Manual) 89 H, Band Neutrophils % 6.0, Lymphocytes % (Manual) 5 L, Platelet Estimate Normal, RBC Morphology Normal 12/15/20 00:40: Sodium 139, Potassium 3.5, Chloride 98, Carbon Dioxide 23, Anion Gap 21.5 H, BUN 31 H, Creatinine 1.20, Estimated Creat Clear 61, Estimated GFR 65, Est GFR ( Amer) 79, Glucose 365 H, Calcium 10.9 H, Total Bilirubin 0.9, Direct Bilirubin 0.2, Conjugated Bilirubin 0.0, Indirect Bilirubin 0.7, Unconjugated Bilirubin 0.7, AST 54, ALT 46, Alkaline Phosphatase 111, C-Reactive Protein 0.4, Total Protein 8.7 H, Albumin 5.2 H, Amylase 142 H, Lipase 69 12/15/20 00:40: ESR 13 12/15/20 00:40: Hemoglobin A1c 7.4 H 12/15/20 00:40: Procalcitonin 0.060, Acetone Level None detected 12/15/20 00:40: SARS-CoV-2 IgG Ab (Rapid) Negative, SARS-CoV-2 IgM Ab (Rapid) Negative 12/15/20 01:20: Lactate 3.1 H Result diagrams: 12/15/20 00:40 12/15/20 00:40 Orders (Tests/Meds): ED MEDICATIONS Generic Name Dose Route Start Last Admin Trade Name Freq PRN Reason Stop Dose Admin Sodium Chloride 1,000 mls @ 999 mls/hr 12/15/20 00:45 12/15/20 00:42 Sod Chlor 0.9% 1000ml Bag IV 01/17/21 01:45 999 mls/hr .Q1H1M GAIL Administration Sodium Chloride 8 ml 12/15/20 03:13 Sodium Chloride 0.9% 10ml Vial IV 01/14/21 03:12
--- NOTE | 2020-12-15 03:46 | PC.NURSE ---
pt able to tolerate ice chips at this time
--- NOTE | 2020-12-15 03:52 | PC.NURSE ---
pt called for ride home
[2020-12-15 04:23] VITALS: BP 147/82; PULSE 86; RESP 16; TEMP 36.8; O2SAT 97
== END 2020-12-15 04:30 | disposition home or self-care (01) ==
PROVIDERS: Emergency Provider Emergency Medicine; PCP Family Medicine
DX: E11.43 Type 2 diabetes mellitus with diabetic autonomic (poly)neuropathy (principal); K31.84 Gastroparesis; D72.829 Elevated white blood cell count, unspecified; I10 Essential (primary) hypertension; E78.5 Hyperlipidemia, unspecified; F17.210 Nicotine dependence, cigarettes, uncomplicated; Z79.899 Other long term (current) drug therapy
CPT/HCPCS: 74176; 80048; 80076; 82009; 82150; 82962; 83036; 83605; 83690; 84145; 85007; 85025; 85651; 86140; 86328; 87040; 96365; 96366; 96375; 99283; J2405

== ENCOUNTER 2021-07-31 09:25 | Emergency (ER) | payer OTHER, SELFPAY ==
[2021-07-31] VITALS (8 sets, daily range): BP systolic 141–181; BP diastolic 81–116; PULSE 69–98; RESP 16–22; TEMP 36.6–36.9; O2SAT 98–100; BMI 21.0
--- NOTE | 2021-07-31 09:34 | HMH.EDGENADL ---
ED Disposition Clinical Impression: Nausea & vomiting Qualifiers: Vomiting type: unspecified Vomiting Intractability: non-intractable Qualified Code(s): R11.2 - Nausea with vomiting, unspecified Disposition: Home, Self-Care Condition on Discharge: Good Instructions: DI for Acute Abdominal Pain, DI for Gastroparesis Additional Instructions: Continue current medications. Additional instructions for ABDOMINAL PAIN: See your physician as soon as possible for further evaluation. Return immediately if worsening abdominal pain, vomiting, shortness of breath, fever, vomiting of blood or abdominal distention. Referrals: Jermain Cheung MD [Primary Care Provider] - - Critical Care Critical Care Time: No Attestation: On , the high probability of a clinically significant, sudden or life threatening deterioration of the following system(s) required my full and direct attention, intervention and personal management. The time I documented below is in addition to time spent performing reported procedures but includes the following listed in this critical care notation. Medical Decision Making - Ben Inquiry Pt receiving controlled substance: Yes Ben was queried for this patient: Yes Risks and benefits of using a controlled substance: were not discussed with pt by me Vital Signs: 07/31/21 09:25 07/31/21 10:00 07/31/21 10:31 Temperature 98.4 F Temperature Source Oral Pulse Rate 74 78 Pulse Rate [Radial] 98 H Respiratory Rate 22 18 18 Blood Pressure 150/90 H 164/84 H Blood Pressure [Right Arm] 159/116 H Blood Pressure Mean 110 100 Blood Pressure Mean [Right Arm] 130 Blood Pressure Position [Right Arm] Sitting 02 Sat by Pulse Oximetry 98 98 100 Oxygen Delivery Method Room Air 07/31/21 11:00 07/31/21 11:31 07/31/21 12:00 Temperature Temperature Source Pulse Rate 75 83 83 Pulse Rate [Radial] Respiratory Rate 18 18 18 Blood Pressure 146/81 H 181/103 H 173/96 H Blood Pressure [Right Arm] Blood Pressure Mean 102 127 121 Blood Pressure Mean [Right Arm] Blood Pressure Position [Right Arm] 02 Sat by Pulse Oximetry 99 98 98 Oxygen Delivery Method - Lab Data Lab Results 07/31/21 09:36: WBC 8.0, RBC 4.69, Hgb 14.2, Hct 43.7, MCV 93.2, MCH 30.4, MCHC 32.6, RDW 12.8, Plt Count 217, MPV 10.7 H, Neut % (Auto) 86.6 H, Lymph % (Auto) 8.2 L, [place] % (Auto) 4.5, Eos % (Auto) 0.2, Baso % (Auto) 0.5, Neut # (Auto) 6.9, Lymph # (Auto) 0.7, [place] # (Auto) 0.4, Eos # (Auto) 0.0, Baso # (Auto) 0.0, Total Counted 100, Neutrophils % (Manual) 84 H, Lymphocytes % (Manual) 14, Monocytes % (Manual) 1 L, Basophils % (Manual) 1.0, Platelet Estimate Normal, RBC Morphology Normal 07/31/21 09:36: Sodium 139, Potassium 3.9, Chloride 100, Carbon Dioxide 27, Anion Gap 15.9 H, BUN 26 H, Creatinine 1.00, Estimated Creat Clear 67, Estimated GFR 80, Est GFR ( Amer) 97, Glucose 343 H, Calcium 9.5, Total Bilirubin 0.9, AST 42, ALT 33, Alkaline Phosphatase 113, Total Protein 7.5, Albumin 4.3, Globulin 3.2, Albumin/Globulin Ratio 1.3, Lipase 39 07/31/21 12:05: Urine Color Yellow, Urine Appearance Clear, Urine pH 7.0, Ur Specific [place] 1.020, Urine Protein 2+, Urine Glucose (UA) 3+, Urine Ketones 1+, Urine Blood Trace-i, Urine Nitrate Negative, Urine Bilirubin Negative, Urine Urobilinogen 1.0, Ur Leukocyte Esterase Negative, Urine RBC 3-5, Urine WBC None, Ur Squamous Epith Cells Occasional, Amorphous Sediment 1+, Urine Bacteria None, Hyaline Casts Occasional, Fine Granular Casts Occasional Result diagrams: 07/31/21 09:36 07/31/21 09:36 Orders (Tests/Meds): ED MEDICATIONS Generic Name Dose Route Start Last Admin Trade Name Freq PRN Reason Stop Dose Admin Sodium Chloride 8 ml 07/31/21 09:39 07/31/21 09:45 Sodium Chloride 0.9% 10ml Vial IV 08/30/21 09:38 8 ml NEEDED PRN Administration dilute pepcid Discontinued Medications Generic Name Dose Route Start Last Admin Trade Nam
[2021-07-31 09:55] LABS: Basophils % 0.5 % (0.1-2.0); Eosinophils % 0.2 % (0.1-12.0); Hematocrit 43.7 % (42.0-52.0); Hemoglobin 14.2 g/dL (14.1-18.0); Lymphocytes # 0.7 K/mm3 (0.7-4.5); Lymphocytes % 8.2 % (10-50); Mean Corpuscular HGB Conc 32.6 g/dL (31.8-35.4); Mean Corpuscular Hemoglobin 30.4 pg (27.0-31.2); Mean Corpuscular Volume 93.2 fl (80-94); Mean Platelet Volume 10.7 fl (7.4-10.4); Monocytes # 0.4 K/mm3 (0.1-1.0); Monocytes % 4.5 % (1.7-9.3); Neutrophils # 6.9 K/mm3 (1.8-7.8); Neutrophils % 86.6 % (37.0-80.0); Platelet Count 217 K/mm3 (142-424); Red Blood Count 4.69 M/mm3 (4.60-6.20); Red Cell Distribution Width 12.8 % (11.5-17.5)
[2021-07-31 09:58] LABS: Chloride 100 mmol/L (98-107); MANUAL DIFFERENTIAL MANUAL DIFFERENTIAL (MANUAL DIFF); Sodium 139 mmol/L (136-145)
[2021-07-31 09:59] LABS: Potassium 3.9 mmoL/L (3.5-5.1)
[2021-07-31 10:01] LABS: Alanine Aminotransferase 33 U/L (12-78); Alkaline Phosphatase 113 U/L (38-126); Anion Gap 15.9 mEq/L (5-15); Aspartate Amino Transferase 42 U/L (17-59); Bilirubin,Total 0.9 mg/dl (0.2-1.3); Blood Urea Nitrogen 26 mg/dl (9-20); Calcium 9.5 mg/dl (8.4-10.2); Carbon Dioxide 27 mmol/L (22.0-30.0); Creatinine Clearance Estimated 67 mL/min (50-200); Estimated Glomerular Filt Rate 80 ml/min (>60); GFR (African American) 97 ML/MIN (>60); Glucose 343 mg/dl (74-100); Lipase 39 U/L (23-300)
[2021-07-31 10:02] LABS: Albumin Level 4.3 g/dl (3.5-5.0); Albumin/Globulin Ratio 1.3 (1.1-1.8); Globulin 3.2 g/dL (1.3-3.2); Total Protein,Serum 7.5 g/dl (6.3-8.2)
[2021-07-31 10:07] LABS: Lymphocytes % 14 % (10-50); Monocytes % 1 % (2-9); Neutrophils % 84 % (42-76); RBC Morphology Normal; Total Cells Counted 100
[2021-07-31 10:08] LABS: Platelet Estimate Normal
[2021-07-31 12:17] LABS: Microscopic, Urine URINE MICROSCOPIC (MICROSCOPIC)
[2021-07-31 12:18] LABS: Appearance,Urine CLEAR (Clear); Bilirubin,Urine Negative (Negative); Blood, Urine TRACE-I (Negative); Color,Urine YELLOW (Yellow); Glucose,Urine (UA) 3+ (Negative); Ketones,Urine 1+ (Negative); Leukocyte Esterase,Urine Negative (Negative); Nitrate,Urine Negative (Negative); Protein,Urine 2+ (Negative)
[2021-07-31 12:27] LABS: Amorphous Sediment,Urine 1+ /lpf; Fine Granular Casts,Urine Occasional #/lpf (0); Hyaline Casts,Urine Occasional #/lpf (0); Squamous Epithelial Cell,Urine Occasional #/hpf (0-5)
== END 2021-07-31 13:06 | disposition home or self-care (01) ==
PROVIDERS: Emergency Provider Emergency Medicine; PCP Family Medicine
DX: R11.2 Nausea with vomiting, unspecified (principal); Z87.19 Personal history of other diseases of the digestive system; Z88.6 Allergy status to analgesic agent; Z91.041 Radiographic dye allergy status; E11.9 Type 2 diabetes mellitus without complications; K21.9 Gastro-esophageal reflux disease without esophagitis; E78.5 Hyperlipidemia, unspecified; I10 Essential (primary) hypertension; R00.2 Palpitations; Z72.0 Tobacco use
CPT/HCPCS: 80053; 81001; 83690; 85007; 85025; 96365; 96375; 96376; 99283; J2405

== ENCOUNTER 2021-08-04 08:44 | Emergency (ER) | payer OTHER, SELFPAY ==
[2021-08-04 08:45] VITALS: BP 157/94; PULSE 92; RESP 22; TEMP 37.2; O2SAT 98; BMI 21.9
--- NOTE | 2021-08-04 08:54 | HMH.EDABDPAI ---
ED Disposition Clinical Impression: Gastroparesis Gastritis Qualifiers: Gastritis type: unspecified gastritis Chronicity: acute Gastritis bleeding: without bleeding Qualified Code(s): K29.00 - Acute gastritis without bleeding Disposition: Home, Self-Care Condition on Discharge: Good Instructions: DI for Acute Abdominal Pain Additional Instructions: Please follow-up with your primary care physician to discuss further work-up such as upper endoscopy. Turn to the emergency department if your symptoms worsen in any way. Referrals: Jermain Cheung MD [Primary Care Provider] - 3 days - Critical Care Critical Care Time: No Attestation: On , the high probability of a clinically significant, sudden or life threatening deterioration of the following system(s) required my full and direct attention, intervention and personal management. The time I documented below is in addition to time spent performing reported procedures but includes the following listed in this critical care notation. Medical Decision Making - Medical Records Medical records reviewed: Yes: I reviewed the patient's medical records. - Ben Inquiry Pt receiving controlled substance: No Vital Signs: 08/04/21 08:45 08/04/21 09:30 08/04/21 10:00 Temperature 99.0 F Temperature Source Oral Pulse Rate 92 H 89 Pulse Rate [Right] 92 H Respiratory Rate 22 20 20 Blood Pressure 135/103 H 150/98 H Blood Pressure [Right Arm] 157/94 H Blood Pressure Mean 112 111 Blood Pressure Mean [Right Arm] 115 Blood Pressure Source [Right Arm] Automatic Cuff 02 Sat by Pulse Oximetry 98 99 98 Oxygen Delivery Method Room Air 08/04/21 10:30 08/04/21 11:00 Temperature Temperature Source Pulse Rate 89 99 H Pulse Rate [Right] Respiratory Rate 20 18 Blood Pressure 137/93 H 137/95 H Blood Pressure [Right Arm] Blood Pressure Mean 110 119 Blood Pressure Mean [Right Arm] Blood Pressure Source [Right Arm] 02 Sat by Pulse Oximetry 98 100 Oxygen Delivery Method - Lab Data Lab results reviewed: Yes: I reviewed the patient's lab results. Lab Results 08/04/21 08:59: POC Glucose 235 H 08/04/21 09:00: WBC 7.3, RBC 4.62, Hgb 13.7 L, Hct 42.2, MCV 91.4, MCH 29.7, MCHC 32.6, RDW 12.6, Plt Count 194, MPV 10.7 H, Neut % (Auto) 86.3 H, Lymph % (Auto) 9.1 L, [place] % (Auto) 4.1, Eos % (Auto) 0.0 L, Baso % (Auto) 0.5, Neut # (Auto) 6.3, Lymph # (Auto) 0.7, [place] # (Auto) 0.3, Eos # (Auto) 0.0, Baso # (Auto) 0.0, Total Counted 100, Neutrophils % (Manual) 89 H, Lymphocytes % (Manual) 8 L, Monocytes % (Manual) 3, Platelet Estimate Normal, Macrocytosis 1+ 08/04/21 09:00: Sodium 135 L, Potassium 3.9, Chloride 95 L, Carbon Dioxide 26, Anion Gap 17.9 H, BUN 22 H, Creatinine 1.00, Estimated Creat Clear 70, Estimated GFR 80, Est GFR ( Amer) 97, Glucose 244 H, Calcium 8.7, Total Bilirubin 1.3, AST 47, ALT 47, Alkaline Phosphatase 125, Total Protein 7.1, Albumin 3.9, Globulin 3.2, Albumin/Globulin Ratio 1.2, Lipase 69 08/04/21 11:30: Urine Color [place], Urine Appearance Clear, Urine pH 6.0, Ur Specific [place] >= 1.030, Urine Protein 3+, Urine Glucose (UA) 3+, Urine Ketones 2+, Urine Blood 2+, Urine Nitrate Negative, Urine Bilirubin 1+ A, Urine Urobilinogen 1.0, Ur Leukocyte Esterase Negative, Urine RBC 5-10, Urine WBC None, Ur Squamous Epith Cells Occasional, Urine Bacteria Trace Result diagrams: 08/04/21 09:00 08/04/21 09:00 Orders (Tests/Meds): ED MEDICATIONS Discontinued Medications Generic Name Dose Route Start Last Admin Trade Name Freq PRN Reason Stop Dose Admin Belladonna Alkaloids 60 ml 08/04/21 09:08 08/04/21 09:10 Gi Cocktail 60ml Udc PO 08/04/21 09:09 60 ml ONCE ONE Administration Dicyclomine HCl 20 mg 08/04/21 09:42 08/04/21 09:46 Dicyclomine 20 Mg/2ml Vial IM 08/04/21 09:43 20 mg ONCE ONE Administration Ketorolac Tromethamine 30 mg 08/04/21 10:54 08/04/21 10:59 Ketorolac 30mg/Ml Vial IV 08/04/21 10:55
[2021-08-04 09:07] LABS: POC Glucose,Bedside 235 (70-110)
[2021-08-04 09:24] LABS: Basophils % 0.5 % (0.1-2.0); Hematocrit 42.2 % (42.0-52.0); Hemoglobin 13.7 g/dL (14.1-18.0); Lymphocytes # 0.7 K/mm3 (0.7-4.5); Lymphocytes % 9.1 % (10-50); Mean Corpuscular HGB Conc 32.6 g/dL (31.8-35.4); Mean Corpuscular Hemoglobin 29.7 pg (27.0-31.2); Mean Corpuscular Volume 91.4 fl (80-94); Mean Platelet Volume 10.7 fl (7.4-10.4); Monocytes # 0.3 K/mm3 (0.1-1.0); Monocytes % 4.1 % (1.7-9.3); Neutrophils # 6.3 K/mm3 (1.8-7.8); Neutrophils % 86.3 % (37.0-80.0); Platelet Count 194 K/mm3 (142-424); Red Blood Count 4.62 M/mm3 (4.60-6.20); Red Cell Distribution Width 12.6 % (11.5-17.5); White Blood Count 7.3 K/mm3 (4.8-10.8)
[2021-08-04 09:28] LABS: Alanine Aminotransferase 47 U/L (12-78); Albumin Level 3.9 g/dl (3.5-5.0); Albumin/Globulin Ratio 1.2 (1.1-1.8); Alkaline Phosphatase 125 U/L (38-126); Anion Gap 17.9 mEq/L (5-15); Aspartate Amino Transferase 47 U/L (17-59); Bilirubin,Total 1.3 mg/dl (0.2-1.3); Blood Urea Nitrogen 22 mg/dl (9-20); Calcium 8.7 mg/dl (8.4-10.2); Carbon Dioxide 26 mmol/L (22.0-30.0); Chloride 95 mmol/L (98-107); Creatinine Clearance Estimated 70 mL/min (50-200); Estimated Glomerular Filt Rate 80 ml/min (>60); GFR (African American) 97 ML/MIN (>60); Globulin 3.2 g/dL (1.3-3.2); Glucose 244 mg/dl (74-100); Lipase 69 U/L (23-300); Potassium 3.9 mmoL/L (3.5-5.1); Sodium 135 mmol/L (136-145); Total Protein,Serum 7.1 g/dl (6.3-8.2)
[2021-08-04 09:30] VITALS: BP 135/103; PULSE 92; RESP 20; O2SAT 99
[2021-08-04 09:38] LABS: MANUAL DIFFERENTIAL MANUAL DIFFERENTIAL (MANUAL DIFF)
[2021-08-04 09:52] LABS: Lymphocytes % 8 % (10-50); Monocytes % 3 % (2-9); Neutrophils % 89 % (42-76); Total Cells Counted 100
[2021-08-04 09:53] LABS: Macrocytosis 1+; Platelet Estimate Normal
[2021-08-04 10:00] VITALS: BP 150/98; PULSE 89; RESP 20; O2SAT 98
[2021-08-04 10:30] VITALS: BP 137/93; PULSE 89; RESP 20; O2SAT 98
[2021-08-04 11:00] VITALS: BP 137/95; PULSE 99; RESP 18; O2SAT 100
[2021-08-04 11:41] LABS: Microscopic, Urine URINE MICROSCOPIC (MICROSCOPIC)
[2021-08-04 11:42] LABS: Appearance,Urine CLEAR (Clear); Blood, Urine 2+ (Negative); Color,Urine ORANGE (Yellow); Glucose,Urine (UA) 3+ (Negative); Ketones,Urine 2+ (Negative); Leukocyte Esterase,Urine Negative (Negative); Nitrate,Urine Negative (Negative); Protein,Urine 3+ (Negative); Specific Gravity, Urine >= 1.030 (1.005-1.030)
[2021-08-04 11:51] LABS: Bilirubin,Urine 1+ (Negative)
[2021-08-04 11:54] LABS: Bacteria,Urine Trace /lpf; Squamous Epithelial Cell,Urine Occasional #/hpf (0-5)
[2021-08-04 12:29] VITALS: BP 145/91; PULSE 76; RESP 20; TEMP 36.8; O2SAT 97
== END 2021-08-04 12:30 | disposition home or self-care (01) ==
PROVIDERS: Emergency Provider Emergency Medicine; PCP Family Medicine
DX: E11.43 Type 2 diabetes mellitus with diabetic autonomic (poly)neuropathy (principal); E11.65 Type 2 diabetes mellitus with hyperglycemia; K31.84 Gastroparesis; Z79.84 Long term (current) use of oral hypoglycemic drugs; K29.00 Acute gastritis without bleeding; K21.9 Gastro-esophageal reflux disease without esophagitis; I10 Essential (primary) hypertension; E78.5 Hyperlipidemia, unspecified; F17.210 Nicotine dependence, cigarettes, uncomplicated; Z79.899 Other long term (current) drug therapy
CPT/HCPCS: 80053; 81001; 82962; 83690; 85007; 85025; 96372; 96374; 96375; 99282; J2405

== ENCOUNTER 2021-11-05 10:15 | Emergency (ER) | payer OTHER, SELFPAY ==
[2021-11-05] VITALS (11 sets, daily range): BP systolic 142–231; BP diastolic 78–159; PULSE 64–92; RESP 18; TEMP 36.8; O2SAT 97–100; BMI 21.0
[2021-11-05 10:45] LABS: Basophils % 0.2 % (0.1-2.0); Eosinophils % 0.1 % (0.1-12.0); Hematocrit 41.5 % (42.0-52.0); Hemoglobin 13.9 g/dL (14.1-18.0); Lymphocytes # 0.8 K/mm3 (0.7-4.5); Lymphocytes % 5.5 % (10-50); Mean Corpuscular HGB Conc 33.6 g/dL (31.8-35.4); Mean Corpuscular Hemoglobin 29.9 pg (27.0-31.2); Mean Corpuscular Volume 88.9 fl (80-94); Mean Platelet Volume 10.5 fl (7.4-10.4); Monocytes # 0.5 K/mm3 (0.1-1.0); Monocytes % 3.3 % (1.7-9.3); Neutrophils # 13.4 K/mm3 (1.8-7.8); Neutrophils % 90.8 % (37.0-80.0); Platelet Count 278 K/mm3 (142-424); Red Blood Count 4.66 M/mm3 (4.60-6.20); Red Cell Distribution Width 13.5 % (11.5-17.5); White Blood Count 14.8 K/mm3 (4.8-10.8)
[2021-11-05 10:48] LABS: MANUAL DIFFERENTIAL MANUAL DIFFERENTIAL (MANUAL DIFF)
[2021-11-05 11:01] LABS: Alanine Aminotransferase 38 U/L (12-78); Albumin Level 4.7 g/dl (3.5-5.0); Albumin/Globulin Ratio 1.5 (1.1-1.8); Alkaline Phosphatase 119 U/L (38-126); Anion Gap 16.8 mEq/L (5-15); Aspartate Amino Transferase 44 U/L (17-59); Bilirubin,Total 0.7 mg/dl (0.2-1.3); Blood Urea Nitrogen 31 mg/dl (9-20); Carbon Dioxide 29 mmol/L (22.0-30.0); Chloride 101 mmol/L (98-107); Creatinine Clearance Estimated 61 mL/min (50-200); Estimated Glomerular Filt Rate 71 ml/min (>60); GFR (African American) 86 ML/MIN (>60); Globulin 3.1 g/dL (1.3-3.2); Lipase 43 U/L (23-300); Potassium 3.8 mmoL/L (3.5-5.1); Sodium 143 mmol/L (136-145); Total Protein,Serum 7.8 g/dl (6.3-8.2)
[2021-11-05 11:07] LABS: Lactic Acid 2.9 mmol/L (0.7-2.1)
[2021-11-05 11:09] LABS: Glucose 492 mg/dl (74-100)
--- NOTE | 2021-11-05 11:09 | PC.NURSE ---
critical labs called to [facility].
--- NOTE | 2021-11-05 11:09 | PC.NURSE ---
Received call from Sol in the lab of critical result for patient of blood glucose of 492, info was repeated back and confirmed.
[2021-11-05 11:11] LABS: Lymphocytes % 9 % (10-50); Monocytes % 3 % (2-9); Neutrophils % 88 % (42-76); Platelet Estimate Normal; RBC Morphology Normal; Total Cells Counted 100
[2021-11-05 11:33] LABS: VBG Base Excess 0.6 mmol/L (-2.4-2.3); VBG HCO3 25.8 mmol/L (23-30); VBG Oxygen Saturation 89.3 % (50-70); VBG PCO2 45.1 mmol/L (35-51); VBG PH 7.38 mmol/L (7.31-7.41); VBG PO2 58.5 mmol/L (28-40); VBG Total CO2 27.2 mmol/L (23-27)
--- NOTE | 2021-11-05 12:05 | HMH.EDGENADL ---
ED Disposition Clinical Impression: Gastroparesis Disposition: Home, Self-Care Condition on Discharge: Fair Instructions: DI for Acute Abdominal Pain Referrals: Jermain Cheung MD [Primary Care Provider] - - Critical Care Critical Care Time: No Attestation: On 11/05/21, the high probability of a clinically significant, sudden or life threatening deterioration of the following system(s) required my full and direct attention, intervention and personal management. The time I documented below is in addition to time spent performing reported procedures but includes the following listed in this critical care notation. Medical Decision Making - Medical Records Medical records reviewed: Yes: I reviewed the patient's medical records. - Ben Inquiry Pt receiving controlled substance: No Ben was queried for this patient: No Vital Signs: 11/05/21 10:22 11/05/21 10:24 11/05/21 10:48 Temperature 98.3 F Temperature Source Oral Pulse Rate 92 H 68 Pulse Rate [Right Radial] 68 Respiratory Rate 18 Blood Pressure 212/118 H 170/98 H Blood Pressure [Right Arm] 231/159 H Blood Pressure Mean Blood Pressure Mean [Right Arm] 183 Blood Pressure Source [Right Arm] Automatic Cuff Blood Pressure Position [Right Arm] Supine 02 Sat by Pulse Oximetry 98 98 97 Oxygen Delivery Method Room Air 11/05/21 11:00 11/05/21 11:30 11/05/21 12:03 Temperature Temperature Source Pulse Rate 66 68 90 Pulse Rate [Right Radial] Respiratory Rate Blood Pressure 164/82 H 142/78 H 204/117 H Blood Pressure [Right Arm] Blood Pressure Mean 126 Blood Pressure Mean [Right Arm] Blood Pressure Source [Right Arm] Blood Pressure Position [Right Arm] 02 Sat by Pulse Oximetry 100 100 98 Oxygen Delivery Method 11/05/21 12:30 11/05/21 12:54 Temperature Temperature Source Pulse Rate 79 64 Pulse Rate [Right Radial] Respiratory Rate Blood Pressure 213/132 H 151/89 H Blood Pressure [Right Arm] Blood Pressure Mean 159 123 Blood Pressure Mean [Right Arm] Blood Pressure Source [Right Arm] Blood Pressure Position [Right Arm] 02 Sat by Pulse Oximetry 100 100 Oxygen Delivery Method - Lab Data Lab Results 11/05/21 10:29: WBC 14.8 H, RBC 4.66, Hgb 13.9 L, Hct 41.5 L, MCV 88.9, MCH 29.9, MCHC 33.6, RDW 13.5, Plt Count 278, MPV 10.5 H, Neut % (Auto) 90.8 H, Lymph % (Auto) 5.5 L, [place] % (Auto) 3.3, Eos % (Auto) 0.1, Baso % (Auto) 0.2, Neut # (Auto) 13.4 H, Lymph # (Auto) 0.8, [place] # (Auto) 0.5, Eos # (Auto) 0.0, Baso # (Auto) 0.0, Total Counted 100, Neutrophils % (Manual) 88 H, Lymphocytes % (Manual) 9 L, Monocytes % (Manual) 3, Platelet Estimate Normal, RBC Morphology Normal 11/05/21 10:29: Sodium 143, Potassium 3.8, Chloride 101, Carbon Dioxide 29, Anion Gap 16.8 H, BUN 31 H, Creatinine 1.10, Estimated Creat Clear 61, Estimated GFR 71, Est GFR ( Amer) 86, Glucose 492 H*, Calcium 10.0, Total Bilirubin 0.7, AST 44, ALT 38, Alkaline Phosphatase 119, Total Protein 7.8, Albumin 4.7, Globulin 3.1, Albumin/Globulin Ratio 1.5, Lipase 43 11/05/21 10:29: Lactate 2.9 H 11/05/21 11:29: VBG pH 7.38, VBG pCO2 45.1, VBG pO2 58.5 H, VBG HCO3 25.8, VBG Total CO2 27.2 H, VBG O2 Saturation 89.3 H, VBG Base Excess 0.6 11/05/21 13:17: POC Glucose 360 H* Result diagrams: 11/05/21 10:29 11/05/21 10:29 Orders (Tests/Meds): ED MEDICATIONS Generic Name Dose Route Start Last Admin Trade Name Freq PRN Reason Stop Dose Admin Metoclopramide HCl 5 mg 11/05/21 11:00 11/05/21 10:36 Metoclopramide Hcl 10mg/2ml Vial IVP 12/05/21 10:59 5 mg ACHS GAIL Administration Oxycodone HCl 5 mg 11/05/21 12:23 11/05/21 12:36 Oxycodone 5mg Immediate Release Tablet PO 12/05/21 12:22 5 mg Q6HP PRN Administration Severe Pain Discontinued Medications Generic Name Dose Route Start Last Admin Trade Name Freq PRN Reason Stop Dose Admin Lactated Ringer's 1,000 mls @ 999 mls/hr 11/05
--- NOTE | 2021-11-05 12:27 | PC.NURSE ---
Called pharmacy to request medication
[2021-11-05 13:24] LABS: POC Glucose,Bedside 360 (70-110)
--- NOTE | 2021-11-05 13:56 | PC.NURSE ---
Placed order for lactic acid just waiting for that to come back
--- NOTE | 2021-11-05 14:56 | PC.NURSE ---
verbal results of lactic acid received from lab at this time of 2.7 results per brittnee. staff states they are having computer issues so they will result when they get issues resolved.
[2021-11-05 15:24] LABS: Lactic Acid 1.6 mmol/L (0.7-2.1)
[2021-11-05 16:28] LABS: Lactic Acid Follow Up (RFLX 1) 2.7 mmol/L (0.7-2.1); Reflex Lactic Add Lactic Reflex
== END 2021-11-05 16:40 | disposition home or self-care (01) ==
PROVIDERS: Emergency Provider Emergency Medicine; PCP Family Medicine
DX: K31.84 Gastroparesis (principal); E11.65 Type 2 diabetes mellitus with hyperglycemia; I10 Essential (primary) hypertension; K21.9 Gastro-esophageal reflux disease without esophagitis; E78.5 Hyperlipidemia, unspecified; F17.210 Nicotine dependence, cigarettes, uncomplicated; Z88.5 Allergy status to narcotic agent
CPT/HCPCS: 80053; 82803; 82962; 83605; 83690; 85007; 85025; 96365; 96366; 96375; 99283

== ENCOUNTER 2021-11-06 09:04 | Inpatient (IN) | payer OTHER, SELFPAY ==
[2021-11-06] VITALS (11 sets, daily range): BP systolic 136–214; BP diastolic 82–106; PULSE 60–79; RESP 16–24; TEMP 36.7–37.6; O2SAT 94–99; BMI 21.5
--- NOTE | 2021-11-06 09:22 | HMH.EDGENADL ---
ED Disposition Clinical Impression: Gastroparesis Abdominal pain Qualifiers: Abdominal location: epigastric Qualified Code(s): R10.13 - Epigastric pain Disposition: Admitted as Observation Condition on Discharge: Fair Instructions: DI for Acute Abdominal Pain Referrals: Provider,Referral, [Primary Care Provider] - - Critical Care Critical Care Time: No Attestation: On 11/06/21, the high probability of a clinically significant, sudden or life threatening deterioration of the following system(s) required my full and direct attention, intervention and personal management. The time I documented below is in addition to time spent performing reported procedures but includes the following listed in this critical care notation. Medical Decision Making - Medical Records Medical records reviewed: Yes: I reviewed the patient's medical records. MR Comment: Reviewed emergency department record from yesterday 11/05/2021. - Ben Inquiry Pt receiving controlled substance: Yes Ben was queried for this patient: Yes Risks and benefits of using a controlled substance: were not discussed with pt by me Vital Signs: 11/06/21 09:04 Temperature 98.3 F Temperature Source Oral Pulse Rate [Right Radial] 66 Respiratory Rate 24 Blood Pressure [Right Arm] 214/106 H Blood Pressure Mean [Right Arm] 142 Blood Pressure Source [Right Arm] Automatic Cuff Blood Pressure Position [Right Arm] Sitting 02 Sat by Pulse Oximetry 94 L Oxygen Delivery Method Room Air - Lab Data Lab Results 11/06/21 09:15: WBC 14.9 H, RBC 4.54 L, Hgb 13.5 L, Hct 40.9 L, MCV 89.9, MCH 29.8, MCHC 33.1, RDW 13.1, Plt Count 268, MPV 9.9, Neut % (Auto) 87.9 H, Lymph % (Auto) 8.2 L, [place] % (Auto) 3.4, Eos % (Auto) 0.3, Baso % (Auto) 0.3, Neut # (Auto) 13.1 H, Lymph # (Auto) 1.2, [place] # (Auto) 0.5, Eos # (Auto) 0.0, Baso # (Auto) 0.0, Total Counted 100, Neutrophils % (Manual) 86 H, Lymphocytes % (Manual) 10, Monocytes % (Manual) 4, Platelet Estimate Normal, RBC Morphology Normal 11/06/21 09:15: Sodium 133 L, Potassium 4.0, Chloride 97 L, Carbon Dioxide 30, Anion Gap 10.0, BUN 31 H, Creatinine 0.90, Estimated Creat Clear 97, Estimated GFR 90, Est GFR ( Amer) 109 D, Glucose 324 H D, Calcium 9.2, Total Bilirubin 0.8, AST 59 D, ALT 40, Alkaline Phosphatase 102, Total Protein 7.3, Albumin 4.3, Globulin 3.0, Albumin/Globulin Ratio 1.4, Amylase 138 H, Lipase 26 11/06/21 09:15: Acetone Level Small 11/06/21 09:30: Lactate 1.9 11/06/21 09:31: POC Glucose 279 H 11/06/21 09:33: VBG pH 7.34, VBG pCO2 53.0 H, VBG pO2 44.1 H, VBG HCO3 28.0, VBG Total CO2 29.6 H, VBG O2 Saturation 75.9 H, VBG Base Excess 2.2 Result diagrams: 11/06/21 09:15 11/06/21 09:15 Orders (Tests/Meds): ED MEDICATIONS Generic Name Dose Route Start Last Admin Trade Name Della PRN Reason Stop Dose Admin Sodium Chloride 8 ml 11/06/21 09:27 11/06/21 09:44 Sodium Chloride 0.9% 10ml Vial IV 12/06/21 09:26 8 ml NEEDED PRN Administration dilute pepcid Discontinued Medications Generic Name Dose Route Start Last Admin Trade Name Della PRN Reason Stop Dose Admin Famotidine 20 mg 11/06/21 09:27 11/06/21 09:44 Famotidine 20mg/2ml Vial IV 11/06/21 09:28 20 mg ONCE ONE Administration Hydromorphone HCl 1 mg 11/06/21 09:26 11/06/21 09:43 Hydromorphone 2mg/Ml Syringe IV 11/06/21 09:27 1 mg ONCE ONE Administration Hydromorphone HCl 0.5 mg 11/06/21 11:23 11/06/21 11:29 Hydromorphone 2mg/Ml Syringe IV 11/06/21 11:24 0.5 mg ONCE ONE Administration Hydromorphone HCl 0.5 mg 11/06/21 12:51 11/06/21 12:52 Hydromorphone 2mg/Ml Syringe IV 11/06/21 12:52 0.5 mg ONCE ONE Administration Promethazine HCl 12.5 mg 11/06/21 09:26 11/06/21 09:44 Promethazine Hcl 25mg/Ml 1ml Vial IV 11/06/21 09:27 12.5 mg ONCE ONE Administration Sodium Chloride 25 ml 11/06/21 09:26 11/06/21 09:44 Sodium Chloride 0.9% 25ml Bag IV 11/06/21 09:27 25 ml
[2021-11-06 09:34] LABS: Basophils % 0.3 % (0.1-2.0); Eosinophils % 0.3 % (0.1-12.0); Hematocrit 40.9 % (42.0-52.0); Hemoglobin 13.5 g/dL (14.1-18.0); Lymphocytes # 1.2 K/mm3 (0.7-4.5); Lymphocytes % 8.2 % (10-50); Mean Corpuscular HGB Conc 33.1 g/dL (31.8-35.4); Mean Corpuscular Hemoglobin 29.8 pg (27.0-31.2); Mean Corpuscular Volume 89.9 fl (80-94); Mean Platelet Volume 9.9 fl (7.4-10.4); Monocytes # 0.5 K/mm3 (0.1-1.0); Monocytes % 3.4 % (1.7-9.3); Neutrophils # 13.1 K/mm3 (1.8-7.8); Neutrophils % 87.9 % (37.0-80.0); Platelet Count 268 K/mm3 (142-424); Red Blood Count 4.54 M/mm3 (4.60-6.20); Red Cell Distribution Width 13.1 % (11.5-17.5); White Blood Count 14.9 K/mm3 (4.8-10.8)
[2021-11-06 09:37] LABS: Alanine Aminotransferase 40 U/L (12-78); Albumin Level 4.3 g/dl (3.5-5.0); Albumin/Globulin Ratio 1.4 (1.1-1.8); Alkaline Phosphatase 102 U/L (38-126); Amylase 138 U/L (30-110); Aspartate Amino Transferase 59 U/L (17-59); Bilirubin,Total 0.8 mg/dl (0.2-1.3); Blood Urea Nitrogen 31 mg/dl (9-20); Calcium 9.2 mg/dl (8.4-10.2); Carbon Dioxide 30 mmol/L (22.0-30.0); Chloride 97 mmol/L (98-107); Creatinine Clearance Estimated 97 mL/min (50-200); Estimated Glomerular Filt Rate 90 ml/min (>60); GFR (African American) 109 ML/MIN (>60); Glucose 324 mg/dl (74-100); Lipase 26 U/L (23-300); MANUAL DIFFERENTIAL MANUAL DIFFERENTIAL (MANUAL DIFF); Sodium 133 mmol/L (136-145); Total Protein,Serum 7.3 g/dl (6.3-8.2)
[2021-11-06 09:39] LABS: POC Glucose,Bedside 279 (70-110)
[2021-11-06 09:49] LABS: Lactic Acid 1.9 mmol/L (0.7-2.1)
[2021-11-06 09:57] LABS: Acetone, Serum (Rapid) Small (None Detect)
--- NOTE | 2021-11-06 09:57 | CT_ITS ---
PROCEDURE: CT ABDOMEN PELVIS WO CON CLINICAL INDICATION: abdo pain Vomiting and abdominal pain COMPARISON: CT CT ABDOMEN PELVIS WO CON from 12/15/2020 TECHNIQUE: Axial images obtained with sagittal and coronal reformats. All CT scans at the facility use one or more dose reduction, viz: automated exposure control, ma/kV adjustment per patient size (including targeted exams where dose is matched to indication, i.e. head), or iterative reconstruction technique. FINDINGS: LOWER THORAX: There are atelectatic changes in the lower lobes. 4 mm nodules present in the right middle lobe laterally unchanged. Coronary artery calcification ABDOMEN & PELVIS: Small hiatal hernia. Mild thickening of the GE junction nonspecific. No focal liver lesion apparent. Prior cholecystectomy. The spleen, adrenal glands, pancreas, and kidneys have an unremarkable appearance. No renal or ureteral calculi. No hydronephrosis. No evidence of appendicitis or diverticulitis. Prostate is prominent at 4.5 cm. There is mild distention of the urinary bladder. A clip is present along the posterior aspect of the urinary bladder. No acute bony findings. IMPRESSION: 1. Bibasilar atelectasis. 2. No acute abdominal or pelvic findings. 3. Mild distention of the urinary bladder nonspecific Dictated by: Escobar Sanchez MD 11/06/2021 11:07 Escobar Sanchez MD in [place] 11/06/2021 11:07
[2021-11-06 10:04] LABS: Lymphocytes % 10 % (10-50); Monocytes % 4 % (2-9); Neutrophils % 86 % (42-76); Platelet Estimate Normal; RBC Morphology Normal; Total Cells Counted 100
--- NOTE | 2021-11-06 10:34 | PC.NURSE ---
Called rivera with [facility] to request VBG
--- NOTE | 2021-11-06 10:35 | PC.NURSE ---
Pt to Rad
[2021-11-06 10:39] LABS: VBG Base Excess 2.2 mmol/L (-2.4-2.3); VBG Oxygen Saturation 75.9 % (50-70); VBG PH 7.34 mmol/L (7.31-7.41); VBG PO2 44.1 mmol/L (28-40); VBG Total CO2 29.6 mmol/L (23-27)
--- NOTE | 2021-11-06 13:01 | PC.NURSE ---
Dr. Casanova speaking with Dr. Cheung
--- NOTE | 2021-11-06 13:12 | PC.NURSE ---
[facility]ARE [facility] CALLED FOR ADMISSION
[2021-11-06 13:23] LABS: Coronavirus 19, PCR Not Detected (NotDetected); Influenza A, PCR Not Detected (NotDetected); Influenza B, PCR Not Detected (NotDetected)
--- NOTE | 2021-11-06 14:16 | PC.NURSE ---
Attempted to call report to 2nd floor. Sunita stated that she just started blood on another pt and asked that I call back in a little while to give report.
--- NOTE | 2021-11-06 15:07 | HMH.PHAVTE ---
[facility] Pharmacy VTE Monitoring - Patient Demographics Admission date: 11/06/21 Report Date: 11/06/21 Time: 15:07 Allergies/Adverse Reactions: Patient Allergies codeine [CODEINE] Allergy (Unknown, Verified 12/15/20 01:21) UNKNOWN Iodinated Contrast Media [Iodinated Contrast Media - IV Dye] Allergy (Unknown, Verified 12/15/20 01:21) TONGUE SWELLING, DIFF. TALKING lisinopril [LISINOPRIL] Adverse Reaction (Unknown, Verified 11/06/21 13:48) Other Height: 1.78 m Weight: 68.039 kg Patient Problems: Current Active Problems (This Medical Record has been edited. Action required.) Gastroparesis (Chronic) Abdominal pain (Acute) - VTE Risk Labs: VTE Related Lab Results Hgb 13.5 g/dL (14.1-18.0) L 11/06/21 09:15 Hct 40.9 % (42.0-52.0) L 11/06/21 09:15 Plt Count 268 K/mm3 (142-424) 11/06/21 09:15 BUN 31 mg/dl (9-20) H 11/06/21 09:15 Creatinine 0.90 mg/dl (0.66-1.25) 11/06/21 09:15 Estimated Creat Clear 97 mL/min (50-200) 11/06/21 09:15 - Prophylaxis VTE Prophylaxis Ordered?: Yes Types of VTE Prophylaxis: TEDS Knee High Location of Applied Device: Bilateral Lower Extremeties
--- NOTE | 2021-11-07 03:03 | PC.NURSE ---
A&OX4. AT BEGINNING OF SHIFT, PT WAS HAVING ABD PAIN, ROLLING IN BED. 10/10 ON PAIN SCALE. ADMINISTERED DILAUDID AND PHENERGAN PER MAR. ON REASSESSMENT, PT RESTING IN BED STATING PAIN IS MUCH BETTER. HAS HAD NO NA/VO, ONLY ABD PAIN. TOLERATING RA WELL. UP INDEPENDENTLY IN ROOM. HAS BEEN ASLEEP T/O REST OF SHIFT THUS FAR. VSS WILL CONTINUE TO MONITOR.
[2021-11-07 04:00] VITALS: BP 131/75; PULSE 61; RESP 16; TEMP 37; O2SAT 96
[2021-11-07 05:00] VITALS: BMI 22.1
[2021-11-07 05:31] LABS: POC Glucose,Bedside 142 (70-110)
[2021-11-07 05:31] LABS: POC Glucose,Bedside 94 (70-110)
[2021-11-07 07:21] LABS: Chloride 103 mmol/L (98-107)
[2021-11-07 07:22] LABS: Potassium 3.3 mmoL/L (3.5-5.1); Sodium 138 mmol/L (136-145)
[2021-11-07 07:24] LABS: Blood Urea Nitrogen 26 mg/dl (9-20); Creatinine Clearance Estimated 77 mL/min (50-200); Estimated Glomerular Filt Rate 90 ml/min (>60); GFR (African American) 109 ML/MIN (>60)
[2021-11-07 07:25] LABS: Anion Gap 12.3 mEq/L (5-15); Calcium 8.2 mg/dl (8.4-10.2); Carbon Dioxide 26 mmol/L (22.0-30.0); Glucose 172 mg/dl (74-100)
[2021-11-07 08:00] VITALS: BP 178/94; PULSE 65; RESP 16; TEMP 36.6; O2SAT 95
[2021-11-07 08:03] LABS: Basophils % 0.2 % (0.1-2.0); Eosinophils % 0.5 % (0.1-12.0); Hematocrit 42.5 % (42.0-52.0); Hemoglobin 13.6 g/dL (14.1-18.0); Lymphocytes # 1.2 K/mm3 (0.7-4.5); Lymphocytes % 14.2 % (10-50); Mean Corpuscular HGB Conc 32.1 g/dL (31.8-35.4); Mean Corpuscular Hemoglobin 29.1 pg (27.0-31.2); Mean Corpuscular Volume 90.5 fl (80-94); Mean Platelet Volume 9.5 fl (7.4-10.4); Monocytes # 0.5 K/mm3 (0.1-1.0); Monocytes % 5.4 % (1.7-9.3); Neutrophils # 6.7 K/mm3 (1.8-7.8); Neutrophils % 79.7 % (37.0-80.0); Platelet Count 222 K/mm3 (142-424); Red Cell Distribution Width 12.6 % (11.5-17.5); White Blood Count 8.5 K/mm3 (4.8-10.8)
--- NOTE | 2021-11-07 08:59 | HMH.HP ---
*Admission Date: 11/06/21 <Kassy Avelar 11/07/21 09:11> *Chief complaint: Abdominal Pain <Kassy Avelar 11/07/21 09:11> *History of present illness: Mr. Boyle is a 46yo male with a history of HTN, T2DM with diabetic neuropathy, and frequent episodes of diabetic gastroparesis. He reports he had been doing well until 2 days ago when he started with abdominal pain along with nausea and vomiting. He was treated and released from the [facility] ED that evening and reports having only temporary relief. His pain and vomiting continued to increase through the night and he returned to the ED yesterday morning. In the ED, he was found to have elevated WBC at 14.9. Glucose was 324. Amylase was elevated at [address] of the abdomen and pelvis without contrast showed bibasilar atelectasis with no acute abdominal or pelvic findings. He had some relief without resolution of his symptoms with pain and nausea medication and was admitted for further evaluation and management. This morning he is resting quietly in bed. He arouses to voice and reports continued mild pain and mild nausea. He has had no further vomiting. He has no appetite and has not taken any po fluids overnight. <Kassy Avelar 11/07/21 09:26> [facility] History Medical History: Reports:: Diabetes Mellitus Type 2, Gastroesophageal Reflux Disease(GERD), Hyperlipidemia, Hypertension, Palpitations Denies:: Aneurysm, Atherosclerotic Heart Disease, BPH, Cancer, Diabetes Mellitus Type 1, MRSA <Kassy Avelar 11/07/21 09:11> *Have you ever received a pneumonia vaccine?: No <Kassy Avelar 11/07/21 09:11> *Have you received a flu vaccine this season?: No <Kassy Avelar 11/07/21 09:11> Other Medical History: Reports: Arthritis, Other (Diabetic gastroparesis, diabetic neuropathy) <Kassy Avelar 11/07/21 09:11> Other Surgeries: Yes: Cholecystectomy, Colonoscopy, EGD, Other (cholecystectomy) <Kassy Avelar 11/07/21 09:11> Amputation: No <Kassy Avelar 11/07/21 09:11> Fractures: No <Kassy Avelar 11/07/21 09:11> - *Social History Smoking Status: Current every day smoker <Kassy Avelar 11/07/21 09:11> Alcohol Intake: never <Kassy Avelar 11/07/21 09:11> Alcohol Intake Frequency:: holidays/special occasions only <Kassy Avelar 11/07/21 09:11> *Occupational Status:: employed <Kassy Avelar 11/07/21 09:11> Housing: apartment <Popeye Avelar11/07/21 09:11> Household Members: other <Kassy Avelar 11/07/21 09:11> *Travel in the last 8 weeks: None <Kassy Avelar 11/07/21 09:11> Family Hx:: Unable to obtain <Kassy Avelar 11/07/21 09:11> Review of Systems - Constitutional Denies body ache(s), Denies chills, Denies fever(s) <Popeye Avelar11/07/21 09:26> - Eyes Denies change in vision <Popeye Avelar11/07/21 09:26> - ENT Denies headache(s), Denies nasal congestion, Denies sore throat <ValentinoKassy - 11/07/21 09:26> - *Cardiovascular Denies chest pain, Denies chest pain with activity, Denies shortness of breath, Denies leg swelling <Popeye Avelar11/07/21 09:26> - *Respiratory Denies chest congestion, Denies cough, Denies shortness of breath <Popeye Avelar11/07/21 09:26> - *Gastrointestinal Reports abdominal pain, Reports nausea, Reports vomiting, Denies change in bowel habits, Denies change in stools, Denies constipation, Denies loose stools <Popeye Avelar11/07/21 09:26> - *Genitourinary Denies difficulty urinating, Denies painful urination <Popeye Avelar11/07/21 09:26> - *Musculoskeletal Denies body aches <Popeye Avelar11/07/21 09:26> - *Neurologic Denies dizziness, Denies headache(s) <Popeye Avelar11/07/21 09:26> - Hematologic/Lymphatic Denies enlarged lymph nodes <Kassy Avelar - 11/07/21 09:26> Meds Home Medications Medication Instructions Recorded Confirmed Type Amitriptyline HCl [Elavil 25mg 25 mg PO HS 01/03/18 11/06/21 History tablet] Gabapentin [Gabapentin 300mg Cap] 600 mg PO HS 01/03/18 11/06/21 History Calcium Carbonate/Simethicone 1 each PO D
[2021-11-07 10:29] VITALS: BMI 22.1
--- NOTE | 2021-11-07 11:20 | HMH.PHAINT ---
Verified home medications with patients and [facility]
[2021-11-07 16:00] VITALS: BP 171/98; PULSE 55; RESP 14; TEMP 37.2; O2SAT 99
[2021-11-07 20:00] VITALS: BP 149/92; PULSE 54; RESP 18; TEMP 36.8; O2SAT 97
[2021-11-08 04:00] VITALS: BP 149/85; PULSE 56; RESP 18; TEMP 36.7; O2SAT 97
[2021-11-08 05:00] VITALS: BMI 21.5
[2021-11-08 06:22] LABS: POC Glucose,Bedside 133 (70-110)
[2021-11-08 08:00] VITALS: BP 147/92; PULSE 58; RESP 15; TEMP 36.7; O2SAT 96
--- NOTE | 2021-11-08 09:00 | HMH.ACPN2 ---
Internal Medicine - PN: Subj *Date: 11/08/21 *Time: 09:00 Interval history: States he feels a little better this morning with less pain. His last dose of Tylenol was at 4 PM yesterday. He is tolerating liquids with no vomiting. Bowels have moved. Exam Vital signs and Labs for Last 24 Hours: Temp Pulse Resp BP Pulse Ox 98.0 F 58 L 15 147/92 H 96 11/08/21 08:00 11/08/21 08:00 11/08/21 08:00 11/08/21 08:00 11/08/21 08:00 Laboratory Results - last 24 hr 11/08/21 05:17: POC Glucose 133 H I & O for Last 24 hours: Intake & Output 11/05/21 11/06/21 11/07/21 11/08/21 11:59 11:59 11:59 11:59 Intake Total 360 / 360 2245 / 2245 Output Total 0 / 0 Balance 360 / 360 2245 / 2245 Weight 150 lb 119 lb 15.997 oz 117 lb Narrative: He appears in no acute distress. Abdomen is much softer today with only mild epigastric tenderness. Bowel sounds are present. Assessment and Plan (1) Intractable epigastric abdominal pain Status: Acute Category: Medical Code(s): R10.13 - Epigastric pain (2) Diabetic gastroparesis associated with type 2 diabetes mellitus Status: Acute Category: Medical Code(s): E11.43 - Type 2 diabetes mellitus with diabetic autonomic (poly)neuropathy; K31.84 - Gastroparesis (3) Diabetes Status: Acute Category: Medical Code(s): E11.9 - Type 2 diabetes mellitus without complications (4) Elevated amylase Status: Acute Category: Medical Code(s): R74.8 - Abnormal levels of other serum enzymes (5) Leukocytosis Status: Acute Qualifiers: Leukocytosis type: unspecified Qualified Code(s): D72.829 - Elevated white blood cell count, unspecified Category: Medical Code(s): D72.829 - Elevated white blood cell count, unspecified - Assessment and plan all Dx Assessment and Plan for all problems:: Advance diet today. If tolerates his diet with no increased pain or vomiting will discharge later today.
[2021-11-08 21:33] LABS: POC Glucose,Bedside 186 (70-110)
[2021-11-08 21:33] LABS: POC Glucose,Bedside 122 (70-110)
[2021-11-08 21:33] LABS: POC Glucose,Bedside 157 (70-110)
[2021-11-08 21:33] LABS: POC Glucose,Bedside 149 (70-110)
[2021-11-08 21:33] LABS: POC Glucose,Bedside 158 (70-110)
--- NOTE | 2021-11-14 22:25 | HMH.DCSUM ---
General - General Admission date:: 11/06/21 <Jermain Cheung - 12/27/21 22:21> 11/06/21 <Alona Colbert - 11/14/21:31> Discharge date: 11/08/21 <Alona Colbert - 11/14/21 22:31> HPI HPI: Mr. Boyle is a 46yo male with a history of HTN, T2DM with diabetic neuropathy, and frequent episodes of diabetic gastroparesis. He reports he had been doing well until 2 days ago when he started with abdominal pain along with nausea and vomiting. He was treated and released from the [facility] ED that evening and reports having only temporary relief. His pain and vomiting continued to increase through the night and he returned to the ED yesterday morning. In the ED, he was found to have elevated WBC at 14.9. Glucose was 324. Amylase was elevated at [address] of the abdomen and pelvis without contrast showed bibasilar atelectasis with no acute abdominal or pelvic findings. He had some relief without resolution of his symptoms with pain and nausea medication and was admitted for further evaluation and management. This morning he is resting quietly in bed. He arouses to voice and reports continued mild pain and mild nausea. He has had no further vomiting. He has no appetite and has not taken any po fluids overnight. <Alona Colbert - 11/14/21:31> Hospital Course Hospital Course: The patient was admitted and started on IV fluids, pain management, and antiemetics. A PPI was added he was placed on bowel rest. His symptoms did improve by the next day and he was offered clear liquids. By 11/08/2021, he had less pain and was tolerating liquids with no vomiting. His bowels moved. His diet was advanced and he tolerated this as well and was stable to be discharged. He will follow up with Dr. Cheung. <Alona Colbert - 11/14/21 22:31> Objective Vital signs: Temp Pulse Resp BP Pulse Ox 98.0 F 58 L 15 147/92 H 96 11/08/21 08:00 11/08/21 08:00 11/08/21 08:00 11/08/21 08:00 11/08/21 08:00 <Jermain Cheung - 01/29/22 22:21> Temp Pulse Resp BP Pulse Ox 98.0 F 58 L 15 147/92 H 96 11/08/21 08:00 11/08/21 08:00 11/08/21 08:00 11/08/21 08:00 11/08/21 08:00 <Alona Colbert - 11/14/21 22:31> Narrative: He appears in no acute distress. Abdomen is much softer today with only mild epigastric tenderness. Bowel sounds are present. <Alona Colbert - 11/14/21 22:31> DS: Diagnosis - Discharge Diagnosis (1) Intractable epigastric abdominal pain Status: Acute (2) Diabetic gastroparesis associated with type 2 diabetes mellitus Status: Acute (3) Diabetes Status: Acute (4) Elevated amylase Status: Acute (5) Leukocytosis Status: Acute <Alona Colbert - 11/14/21 22:25> (1) Intractable epigastric abdominal pain Status: Acute (2) Diabetic gastroparesis associated with type 2 diabetes mellitus Status: Acute (3) Diabetes Status: Acute (4) Elevated amylase Status: Acute (5) Leukocytosis Status: Acute <Jermain Cheung - 12/27/21 22:21> Discharge Plan - Patient Discharge Instructions ACTIVITY: Continue current activity <Alona Colbert - 11/14/21 22:31> DIET: continue same diet <Alona Colbert - 11/14/21 22:31> Patient Instructions: DI for Epigastric Pain, DI for Gastroparesis <Jermain Cheung - 12/27/21 22:21> Forms: <Jermain Cheung - 12/27/21 22:21> - Follow up Plan Follow up with: Jermain Cheung MD [Staff Physician] - 2 weeks (please call for appointment) <Jermain Cheung - 12/27/21 22:21> Disposition: Home, Self-Care <Jermain Cheung - 12/27/21 22:21> Condition at discharge:: Improved <Alona Colbert - 11/14/21 22:31> Home Medications: Home Medications Medication Instructions Recorded Confirmed Type Amitriptyline HCl [Elavil 25mg 25 mg PO HS 01/03/18 11/06/21 History tablet] Gabapentin [Gabapentin 300mg Cap] 600 mg PO HS 01/03/18 11/06/21 H
== END 2021-11-08 13:30 | disposition home or self-care (01) | DRG 74 ==
LOC: ER 13:13 → 2ND 14:23
PROVIDERS: Admitting Provider Family Medicine; Emergency Provider Emergency Medicine; Visit Provider Family Medicine
DX: E11.43 Type 2 diabetes mellitus with diabetic autonomic (poly)neuropathy (principal); Z79.84 Long term (current) use of oral hypoglycemic drugs; Z20.822 Contact with and (suspected) exposure to COVID-19; K31.84 Gastroparesis; E11.40 Type 2 diabetes mellitus with diabetic neuropathy, unspecified; K21.9 Gastro-esophageal reflux disease without esophagitis; E78.5 Hyperlipidemia, unspecified; I10 Essential (primary) hypertension; N40.0 Benign prostatic hyperplasia without lower urinary tract symptoms; M19.90 Unspecified osteoarthritis, unspecified site
CPT/HCPCS: 74176; 80048; 80053; 82009; 82150; 82803; 82962; 83605; 83690; 85007; 85025; 96365; 96367; 96375; 96376; 99284; C9803; J2405; U0003; U0005

== ENCOUNTER 2021-11-10 11:25 | Emergency (ER) | payer OTHER, SELFPAY ==
[2021-11-10] VITALS (10 sets, daily range): BP systolic 119–210; BP diastolic 63–139; PULSE 60–114; RESP 14–20; TEMP 36.6–36.9; O2SAT 97–100; BMI 21.0
[2021-11-10 12:03] LABS: Basophils % 0.4 % (0.1-2.0); Eosinophils # 0.1 K/mm3 (0.0-0.4); Eosinophils % 0.5 % (0.1-12.0); Hematocrit 45.7 % (42.0-52.0); Hemoglobin 15.5 g/dL (14.1-18.0); Lymphocytes % 9.4 % (10-50); Mean Corpuscular HGB Conc 33.9 g/dL (31.8-35.4); Mean Corpuscular Hemoglobin 29.8 pg (27.0-31.2); Mean Platelet Volume 9.2 fl (7.4-10.4); Monocytes # 0.3 K/mm3 (0.1-1.0); Monocytes % 2.7 % (1.7-9.3); Neutrophils # 9.3 K/mm3 (1.8-7.8); Platelet Count 253 K/mm3 (142-424); Red Blood Count 5.19 M/mm3 (4.60-6.20); Red Cell Distribution Width 12.6 % (11.5-17.5); White Blood Count 10.7 K/mm3 (4.8-10.8)
[2021-11-10 12:04] LABS: Chloride 106 mmol/L (98-107); Sodium 140 mmol/L (136-145)
[2021-11-10 12:05] LABS: MANUAL DIFFERENTIAL MANUAL DIFFERENTIAL (MANUAL DIFF); Potassium 3.9 mmoL/L (3.5-5.1)
[2021-11-10 12:07] LABS: Alanine Aminotransferase 27 U/L (12-78); Alkaline Phosphatase 97 U/L (38-126); Anion Gap 12.9 mEq/L (5-15); Aspartate Amino Transferase 31 U/L (17-59); Bilirubin,Total 0.7 mg/dl (0.2-1.3); Blood Urea Nitrogen 25 mg/dl (9-20); Carbon Dioxide 25 mmol/L (22.0-30.0); Creatinine Clearance Estimated 83 mL/min (50-200); Estimated Glomerular Filt Rate 103 ml/min (>60); GFR (African American) 125 ML/MIN (>60); Lipase 85 U/L (23-300)
[2021-11-10 12:08] LABS: Albumin Level 4.2 g/dl (3.5-5.0); Albumin/Globulin Ratio 1.4 (1.1-1.8); Calcium 8.9 mg/dl (8.4-10.2); Globulin 2.9 g/dL (1.3-3.2); Glucose 323 mg/dl (74-100); Total Protein,Serum 7.1 g/dl (6.3-8.2)
[2021-11-10 12:27] LABS: Lymphocytes % 11 % (10-50); Neutrophils % 89 % (42-76); Platelet Estimate Normal; RBC Morphology Normal; Total Cells Counted 100
[2021-11-10 12:49] LABS: Microscopic, Urine URINE MICROSCOPIC (MICROSCOPIC)
[2021-11-10 12:53] LABS: Appearance,Urine CLEAR (Clear); Bilirubin,Urine Negative (Negative); Blood, Urine 1+ (Negative); Color,Urine YELLOW (Yellow); Glucose,Urine (UA) 3+ (Negative); Ketones,Urine Negative (Negative); Leukocyte Esterase,Urine Negative (Negative); Nitrate,Urine Negative (Negative); Protein,Urine 2+ (Negative); Specific Gravity, Urine >= 1.030 (1.005-1.030); Urobilinogen,Urine 0.2 EU/dl (0.2)
[2021-11-10 13:08] LABS: Bacteria,Urine Trace /lpf; RBC,Urine Occasional #/hpf (0-3)
--- NOTE | 2021-11-10 14:39 | HMH.EDGENADL ---
ED Disposition Clinical Impression: Gastroparesis Disposition: Home, Self-Care Condition on Discharge: Good Additional Instructions: Continue taking all her medications as previously directed. Follow-up with your primary care physician within the next 1 to 3 days. Return to ED with new, worsening, concerning symptoms. Referrals: Jermain Cheung MD [Primary Care Provider] - - Critical Care Critical Care Time: No Attestation: On 11/10/21, the high probability of a clinically significant, sudden or life threatening deterioration of the following system(s) required my full and direct attention, intervention and personal management. The time I documented below is in addition to time spent performing reported procedures but includes the following listed in this critical care notation. Medical Decision Making - Medical Records Medical records reviewed: Yes: I reviewed the patient's medical records. - Ben Inquiry Pt receiving controlled substance: No Vital Signs: 11/10/21 11:26 11/10/21 11:34 11/10/21 12:02 Temperature 98 F Temperature Source Oral Pulse Rate 96 H 81 Pulse Rate [Radial] 114 H Respiratory Rate 20 17 14 Blood Pressure 148/94 H 136/82 Blood Pressure [Right Arm] 210/139 H Blood Pressure Mean 170 100 Blood Pressure Mean [Right Arm] 162 Blood Pressure Position [Right Arm] Sitting 02 Sat by Pulse Oximetry 98 98 100 Oxygen Delivery Method Room Air 11/10/21 12:30 11/10/21 13:00 11/10/21 13:30 Temperature Temperature Source Pulse Rate 73 68 62 Pulse Rate [Radial] Respiratory Rate 14 15 16 Blood Pressure 127/65 119/63 125/65 Blood Pressure [Right Arm] Blood Pressure Mean 98 81 79 Blood Pressure Mean [Right Arm] Blood Pressure Position [Right Arm] 02 Sat by Pulse Oximetry 100 100 100 Oxygen Delivery Method 11/10/21 14:00 11/10/21 14:30 11/10/21 15:00 Temperature Temperature Source Pulse Rate 63 60 61 Pulse Rate [Radial] Respiratory Rate 15 17 15 Blood Pressure 122/71 122/69 126/71 Blood Pressure [Right Arm] Blood Pressure Mean 88 92 89 Blood Pressure Mean [Right Arm] Blood Pressure Position [Right Arm] 02 Sat by Pulse Oximetry 100 100 98 Oxygen Delivery Method - Lab Data Lab Results 11/10/21 11:44: WBC 10.7, RBC 5.19, Hgb 15.5, Hct 45.7, MCV 88.0, MCH 29.8, MCHC 33.9, RDW 12.6, Plt Count 253, MPV 9.2, Neut % (Auto) 87.0 H, Lymph % (Auto) 9.4 L, [place] % (Auto) 2.7, Eos % (Auto) 0.5, Baso % (Auto) 0.4, Neut # (Auto) 9.3 H, Lymph # (Auto) 1.0, [place] # (Auto) 0.3, Eos # (Auto) 0.1, Baso # (Auto) 0.0, Total Counted 100, Neutrophils % (Manual) 89 H, Lymphocytes % (Manual) 11, Platelet Estimate Normal, RBC Morphology Normal 11/10/21 11:44: Sodium 140, Potassium 3.9, Chloride 106, Carbon Dioxide 25, Anion Gap 12.9, BUN 25 H, Creatinine 0.80, Estimated Creat Clear 83, Estimated GFR 103, Est GFR ( Amer) 125, Glucose 323 H, Calcium 8.9, Total Bilirubin 0.7, AST 31, ALT 27, Alkaline Phosphatase 97, Total Protein 7.1, Albumin 4.2, Globulin 2.9, Albumin/Globulin Ratio 1.4, Lipase 85 11/10/21 12:45: Urine Color Yellow, Urine Appearance Clear, Urine pH 6.0, Ur Specific [place] >= 1.030, Urine Protein 2+, Urine Glucose (UA) 3+, Urine Ketones Negative, Urine Blood 1+, Urine Nitrate Negative, Urine Bilirubin Negative, Urine Urobilinogen 0.2, Ur Leukocyte Esterase Negative, Urine RBC Occasional, Urine WBC None, Ur Squamous Epith Cells None, Urine Bacteria Trace Result diagrams: 11/10/21 11:44 11/10/21 11:44 Orders (Tests/Meds): ED MEDICATIONS Discontinued Medications Generic Name Dose Route Start Last Admin Trade Name Joviq PRN Reason Stop Dose Admin Hydromorphone HCl 1 mg 11/10/21 11:49 11/10/21 11:50 Hydromorphone 2mg/Ml Syringe IV 11/10/21 11:50 1 mg ONCE ONE Administration Hydromorphone HCl 1 mg 11/10/21 12:52 11/10/21 12:53 Hydromorphone 2mg/Ml Syringe IV 11/10/21 12:53 1 mg ONCE ONE Administr
== END 2021-11-10 15:24 | disposition home or self-care (01) ==
PROVIDERS: Emergency Provider Emergency Medicine; PCP Family Medicine
DX: K31.84 Gastroparesis (principal); E11.65 Type 2 diabetes mellitus with hyperglycemia; I10 Essential (primary) hypertension; F17.210 Nicotine dependence, cigarettes, uncomplicated; Z88.5 Allergy status to narcotic agent; K21.9 Gastro-esophageal reflux disease without esophagitis; E78.5 Hyperlipidemia, unspecified; Z79.899 Other long term (current) drug therapy
CPT/HCPCS: 80053; 81001; 83690; 85007; 85025; 96365; 96375; 96376; 99283; J2405

== ENCOUNTER 2021-11-16 11:53 | Emergency (ER) | payer OTHER, SELFPAY ==
[2021-11-16 11:54] VITALS: BP 194/113; PULSE 70; RESP 16; TEMP 36.8; O2SAT 98; BMI 27.4
[2021-11-16 12:16] LABS: Basophils # 0.1 K/mm3 (0-0.2); Eosinophils # 0.1 K/mm3 (0.0-0.4); Eosinophils % 1.1 % (0.1-12.0); Hematocrit 41.8 % (42.0-52.0); Hemoglobin 14.1 g/dL (14.1-18.0); Lymphocytes # 1.7 K/mm3 (0.7-4.5); Mean Corpuscular HGB Conc 33.7 g/dL (31.8-35.4); Mean Corpuscular Hemoglobin 30.2 pg (27.0-31.2); Mean Corpuscular Volume 89.4 fl (80-94); Mean Platelet Volume 9.8 fl (7.4-10.4); Monocytes # 0.3 K/mm3 (0.1-1.0); Monocytes % 3.5 % (1.7-9.3); Neutrophils # 7.1 K/mm3 (1.8-7.8); Neutrophils % 76.3 % (37.0-80.0); Platelet Count 285 K/mm3 (142-424); Red Blood Count 4.67 M/mm3 (4.60-6.20); Red Cell Distribution Width 13.5 % (11.5-17.5); White Blood Count 9.3 K/mm3 (4.8-10.8)
[2021-11-16 12:24] LABS: Chloride 99 mmol/L (98-107); Potassium 4.3 mmoL/L (3.5-5.1); Sodium 134 mmol/L (136-145)
[2021-11-16 12:27] LABS: Alanine Aminotransferase 29 U/L (12-78); Albumin Level 4.1 g/dl (3.5-5.0); Albumin/Globulin Ratio 1.5 (1.1-1.8); Alkaline Phosphatase 88 U/L (38-126); Anion Gap 10.3 mEq/L (5-15); Aspartate Amino Transferase 28 U/L (17-59); Bilirubin,Total 0.5 mg/dl (0.2-1.3); Blood Urea Nitrogen 18 mg/dl (9-20); Calcium 9.1 mg/dl (8.4-10.2); Carbon Dioxide 29 mmol/L (22.0-30.0); Creatinine Clearance Estimated 109 mL/min (50-200); Estimated Glomerular Filt Rate 103 ml/min (>60); GFR (African American) 125 ML/MIN (>60); Globulin 2.8 g/dL (1.3-3.2); Glucose 331 mg/dl (74-100); Lipase 80 U/L (23-300); Total Protein,Serum 6.9 g/dl (6.3-8.2)
--- NOTE | 2021-11-16 12:44 | HMH.EDGENADL ---
ED Disposition Clinical Impression: Gastroparesis Disposition: Home, Self-Care Condition on Discharge: Good Instructions: DI for Acute Abdominal Pain Additional Instructions: Continue your current medications. Follow-up with your primary care provider, call tomorrow to arrange follow-up. Referrals: Jermain Cheung MD [Primary Care Provider] - - Critical Care Critical Care Time: No Attestation: On 11/16/21, the high probability of a clinically significant, sudden or life threatening deterioration of the following system(s) required my full and direct attention, intervention and personal management. The time I documented below is in addition to time spent performing reported procedures but includes the following listed in this critical care notation. Medical Decision Making - Medical Records Medical records reviewed: Yes: I reviewed the patient's medical records. MR Comment: Seen by me in this emergency department 11/06/2021 and admitted to the hospital until 11/08/2021 after he failed to improve in the emergency department. - Ben Inquiry Pt receiving controlled substance: Yes Ben was queried for this patient: Yes Risks and benefits of using a controlled substance: were not discussed with pt by me Vital Signs: 11/16/21 11:54 Temperature 98.3 F Temperature Source Oral Pulse Rate [Radial] 70 Respiratory Rate 16 Blood Pressure [Right Arm] 194/113 H Blood Pressure Mean [Right Arm] 140 Blood Pressure Position [Right Arm] Sitting 02 Sat by Pulse Oximetry 98 Oxygen Delivery Method Room Air - Lab Data Lab Results 11/16/21 12:05: WBC 9.3, RBC 4.67, Hgb 14.1, Hct 41.8 L, MCV 89.4, MCH 30.2, MCHC 33.7, RDW 13.5, Plt Count 285, MPV 9.8, Neut % (Auto) 76.3, Lymph % (Auto) 18.0, [place] % (Auto) 3.5, Eos % (Auto) 1.1, Baso % (Auto) 1.0, Neut # (Auto) 7.1, Lymph # (Auto) 1.7, [place] # (Auto) 0.3, Eos # (Auto) 0.1, Baso # (Auto) 0.1 11/16/21 12:05: Sodium 134 L, Potassium 4.3, Chloride 99, Carbon Dioxide 29, Anion Gap 10.3, BUN 18, Creatinine 0.80, Estimated Creat Clear 109, Estimated GFR 103, Est GFR ( Amer) 125, Glucose 331 H, Calcium 9.1, Total Bilirubin 0.5, AST 28, ALT 29, Alkaline Phosphatase 88, Total Protein 6.9, Albumin 4.1, Globulin 2.8, Albumin/Globulin Ratio 1.5, Lipase 80 Result diagrams: 11/16/21 12:05 11/16/21 12:05 Orders (Tests/Meds): ED MEDICATIONS Discontinued Medications Generic Name Dose Route Start Last Admin Trade Name Freq PRN Reason Stop Dose Admin Hydromorphone HCl 1 mg 11/16/21 12:44 11/16/21 12:56 Hydromorphone 2mg/Ml Syringe IV 11/16/21 12:45 1 mg ONCE ONE Administration Sodium Chloride 1,000 mls @ 999 mls/hr 11/16/21 12:15 11/16/21 12:17 Sod Chlor 0.9% 1000ml Bag IV 11/16/21 13:15 999 mls/hr .Q1H1M GAIL Administration Metoclopramide HCl 10 mg 11/16/21 12:11 11/16/21 12:13 Metoclopramide Hcl 10mg/2ml Vial IVP 11/16/21 12:12 10 mg ONCE ONE Administration Ondansetron HCl 4 mg 11/16/21 12:10 11/16/21 12:13 Ondansetron 4mg/2ml Vial IV 11/16/21 12:11 4 mg ONCE ONE Administration Ondansetron HCl 4 mg 11/16/21 12:55 11/16/21 12:56 Ondansetron 4mg/2ml Vial IV 11/16/21 12:56 4 mg ONCE ONE Administration - Reevaluation(s) Time: 13:42 Reevaluation #1: sleeping. Feels better. Thinks he is ready to go home. States that he has medications for his gastroparesis at home, says he just picked up his medications yesterday from the pharmacy. States he does not need it any new medications prescribed. General Adult HPI - General Chief complaint: Abdominal Pain Stated complaint: stomach pain Time Seen by Provider: 11/16/21 12:40 Mode of Arrival: Ambulatory Limitations: No Limitations Description of Symptoms (Recalled from ER Triage Doc. by RN): TO ED PER [facility] CAR WITH C/O ABD PAIN NAUSEA, VOMITING STARTING THIS AM. PT WITH HX OF GASTROPARESIS PT HAS BEEN SEEN IN ED MULTIPLE TIMES FOR SAME. PT STATES HE WAS JUST D
[2021-11-16 13:00] VITALS: BP 159/100; BP 168/111; PULSE 68; PULSE 78; RESP 16; O2SAT 97; O2SAT 98
[2021-11-16 15:04] VITALS: BP 162/105; PULSE 78; RESP 16; TEMP 36.6; O2SAT 98
== END 2021-11-16 15:08 | disposition home or self-care (01) ==
PROVIDERS: Emergency Provider Emergency Medicine; PCP Family Medicine
DX: K31.84 Gastroparesis (principal); E11.43 Type 2 diabetes mellitus with diabetic autonomic (poly)neuropathy; I10 Essential (primary) hypertension; E78.5 Hyperlipidemia, unspecified; K21.9 Gastro-esophageal reflux disease without esophagitis; Z79.84 Long term (current) use of oral hypoglycemic drugs; Z79.899 Other long term (current) drug therapy
CPT/HCPCS: 80053; 83690; 85025; 96374; 96375; 96376; 99282; J2405

== ENCOUNTER 2021-11-19 09:00 | Emergency (ER) | payer OTHER, SELFPAY ==
[2021-11-19] VITALS (8 sets, daily range): BP systolic 141–175; BP diastolic 84–119; PULSE 60–89; RESP 14–18; TEMP -10–36.8; O2SAT 96–100; BMI 28.3
--- NOTE | 2021-11-19 10:34 | HMH.EDABDPAI ---
ED Disposition Clinical Impression: Gastroparesis Disposition: Home, Self-Care Condition on Discharge: Fair Instructions: DI for Acute Abdominal Pain Referrals: Jermain Cheung MD [Primary Care Provider] - - Critical Care Critical Care Time: No Attestation: On 11/19/21, the high probability of a clinically significant, sudden or life threatening deterioration of the following system(s) required my full and direct attention, intervention and personal management. The time I documented below is in addition to time spent performing reported procedures but includes the following listed in this critical care notation. Medical Decision Making - Medical Records Medical records reviewed: Yes: I reviewed the patient's medical records. - Ben Inquiry Pt receiving controlled substance: No Ben was queried for this patient: No Vital Signs: 11/19/21 10:21 11/19/21 10:22 11/19/21 10:30 Temperature 98.3 F 14 F L Temperature Source Oral Pulse Rate 64 88 Pulse Rate [Right Radial] 89 Respiratory Rate 18 16 Blood Pressure 167/119 H 175/107 H Blood Pressure [Right Arm] 174/117 H Blood Pressure Mean 144 128 Blood Pressure Mean [Right Arm] 136 Blood Pressure Source [Right Arm] Automatic Cuff Blood Pressure Position [Right Arm] Sitting 02 Sat by Pulse Oximetry 96 98 98 Oxygen Delivery Method Room Air 11/19/21 11:00 11/19/21 11:30 11/19/21 12:00 Temperature Temperature Source Pulse Rate 68 61 60 Pulse Rate [Right Radial] Respiratory Rate 14 15 15 Blood Pressure 152/85 H 162/90 H 141/88 H Blood Pressure [Right Arm] Blood Pressure Mean 107 114 112 Blood Pressure Mean [Right Arm] Blood Pressure Source [Right Arm] Blood Pressure Position [Right Arm] 02 Sat by Pulse Oximetry 100 98 97 Oxygen Delivery Method - Lab Data Lab results reviewed: Yes: I reviewed the patient's lab results. Lab Results 11/19/21 10:18: WBC 10.1, RBC 4.94, Hgb 14.7, Hct 45.0, MCV 91.1, MCH 29.8, MCHC 32.7, RDW 13.2, Plt Count 323, MPV 10.0, Neut % (Auto) 85.3 H, Lymph % (Auto) 10.1, [place] % (Auto) 3.5, Eos % (Auto) 0.4, Baso % (Auto) 0.6, Neut # (Auto) 8.6 H, Lymph # (Auto) 1.0, [place] # (Auto) 0.4, Eos # (Auto) 0.0, Baso # (Auto) 0.1, Total Counted 100, Neutrophils % (Manual) 81 H, Lymphocytes % (Manual) 14, Monocytes % (Manual) 3, Eosinophils % (Manual) 2, Platelet Estimate Normal, RBC Morphology Normal 11/19/21 10:18: Sodium 132 L, Potassium 5.3 H D, Chloride 96 L, Carbon Dioxide 31 H, Anion Gap 10.3, BUN 18, Creatinine 0.90, Estimated Creat Clear 103, Estimated GFR 90, Est GFR ( Amer) 109, Glucose 410 H*, Calcium 9.5, Total Bilirubin 0.6, AST 32, ALT 43 D, Alkaline Phosphatase 107, Total Protein 7.1, Albumin 4.2, Globulin 2.9, Albumin/Globulin Ratio 1.4, Amylase 293 H, Lipase 75 Result diagrams: 11/19/21 10:18 11/19/21 10:18 Orders (Tests/Meds): ED MEDICATIONS Discontinued Medications Generic Name Dose Route Start Last Admin Trade Name Freq PRN Reason Stop Dose Admin Lactated Ringer's 1,000 mls @ 999 mls/hr 11/19/21 10:30 11/19/21 10:28 Lactated Ringer's 1000 Ml Bag IV 11/19/21 11:30 999 mls/hr .Q1H1M GAIL Administration Metoclopramide HCl 10 mg 11/19/21 10:22 11/19/21 10:28 Metoclopramide Hcl 10mg/2ml Vial IVP 11/19/21 10:23 10 mg ONCE ONE Administration Medical Decision Narrative: Patient is a 46 old male with past medical history of diabetes, gastroparesis presenting to the ED with abdominal pain and nausea. Patient is awake, alert, not in acute distress. Patient is hemodynamically stable, afebrile. Patient's physical exam is unremarkable, patient has no tenderness to palpation on exam. Differential includes but is not limited to gastroparesis, gastritis, pancreatitis, low concern for intra-abdominal abscess, small bowel obstruction. Given this a CBC, CMP, lipase, amylase is performed. Patient given IV fluids, Reglan. Feels much better after
[2021-11-19 10:35] LABS: Chloride 96 mmol/L (98-107); Sodium 132 mmol/L (136-145)
[2021-11-19 10:36] LABS: Basophils # 0.1 K/mm3 (0-0.2); Basophils % 0.6 % (0.1-2.0); Eosinophils % 0.4 % (0.1-12.0); Hemoglobin 14.7 g/dL (14.1-18.0); Lymphocytes % 10.1 % (10-50); Mean Corpuscular HGB Conc 32.7 g/dL (31.8-35.4); Mean Corpuscular Hemoglobin 29.8 pg (27.0-31.2); Mean Corpuscular Volume 91.1 fl (80-94); Monocytes # 0.4 K/mm3 (0.1-1.0); Monocytes % 3.5 % (1.7-9.3); Neutrophils # 8.6 K/mm3 (1.8-7.8); Neutrophils % 85.3 % (37.0-80.0); Platelet Count 323 K/mm3 (142-424); Potassium 5.3 mmoL/L (3.5-5.1); Red Blood Count 4.94 M/mm3 (4.60-6.20); Red Cell Distribution Width 13.2 % (11.5-17.5); White Blood Count 10.1 K/mm3 (4.8-10.8)
[2021-11-19 10:38] LABS: Alanine Aminotransferase 43 U/L (12-78); Alkaline Phosphatase 107 U/L (38-126); Amylase 293 U/L (30-110); Anion Gap 10.3 mEq/L (5-15); Aspartate Amino Transferase 32 U/L (17-59); Bilirubin,Total 0.6 mg/dl (0.2-1.3); Blood Urea Nitrogen 18 mg/dl (9-20); Calcium 9.5 mg/dl (8.4-10.2); Carbon Dioxide 31 mmol/L (22.0-30.0); Creatinine Clearance Estimated 103 mL/min (50-200); Estimated Glomerular Filt Rate 90 ml/min (>60); GFR (African American) 109 ML/MIN (>60); Lipase 75 U/L (23-300)
[2021-11-19 10:39] LABS: Albumin Level 4.2 g/dl (3.5-5.0); Albumin/Globulin Ratio 1.4 (1.1-1.8); Globulin 2.9 g/dL (1.3-3.2); Total Protein,Serum 7.1 g/dl (6.3-8.2)
[2021-11-19 10:40] LABS: MANUAL DIFFERENTIAL MANUAL DIFFERENTIAL (MANUAL DIFF)
[2021-11-19 10:43] LABS: Glucose 410 mg/dl (74-100)
[2021-11-19 11:07] LABS: Eosinophils % 2 % (0-3); Lymphocytes % 14 % (10-50); Monocytes % 3 % (2-9); Neutrophils % 81 % (42-76); Platelet Estimate Normal; RBC Morphology Normal; Total Cells Counted 100
== END 2021-11-19 13:05 | disposition home or self-care (01) ==
PROVIDERS: Emergency Provider Emergency Medicine; PCP Family Medicine
DX: K31.84 Gastroparesis (principal); E11.65 Type 2 diabetes mellitus with hyperglycemia; I10 Essential (primary) hypertension; K21.9 Gastro-esophageal reflux disease without esophagitis; E78.5 Hyperlipidemia, unspecified; F17.210 Nicotine dependence, cigarettes, uncomplicated
CPT/HCPCS: 80053; 82150; 83690; 85007; 85025; 96365; 96375; 99282

== ENCOUNTER 2021-11-21 09:16 | Emergency (ER) | payer OTHER, SELFPAY ==
[2021-11-21 09:31] VITALS: BMI 21.0
[2021-11-21 09:32] VITALS: BP 149/111; PULSE 87; RESP 18; TEMP 36.8; O2SAT 96; BMI 21.0
[2021-11-21 09:49] LABS: Basophils # 0.1 K/mm3 (0-0.2); Basophils % 0.9 % (0.1-2.0); Eosinophils # 0.1 K/mm3 (0.0-0.4); Eosinophils % 0.9 % (0.1-12.0); Hematocrit 45.6 % (42.0-52.0); Hemoglobin 14.7 g/dL (14.1-18.0); Lymphocytes # 1.2 K/mm3 (0.7-4.5); Lymphocytes % 17.4 % (10-50); Mean Corpuscular HGB Conc 32.2 g/dL (31.8-35.4); Mean Corpuscular Hemoglobin 29.6 pg (27.0-31.2); Mean Corpuscular Volume 91.8 fl (80-94); Mean Platelet Volume 9.7 fl (7.4-10.4); Monocytes # 0.3 K/mm3 (0.1-1.0); Monocytes % 4.6 % (1.7-9.3); Neutrophils # 5.2 K/mm3 (1.8-7.8); Neutrophils % 76.2 % (37.0-80.0); Platelet Count 289 K/mm3 (142-424); Red Blood Count 4.97 M/mm3 (4.60-6.20); Red Cell Distribution Width 13.4 % (11.5-17.5); White Blood Count 6.8 K/mm3 (4.8-10.8)
[2021-11-21 09:55] LABS: Chloride 96 mmol/L (98-107); Potassium 4.1 mmoL/L (3.5-5.1); Sodium 134 mmol/L (136-145)
--- NOTE | 2021-11-21 09:55 | HMH.EDGENADL ---
ED Disposition Clinical Impression: Gastroparesis Disposition: Home, Self-Care Condition on Discharge: Fair Referrals: Jermain Cheung MD [Primary Care Provider] - - Critical Care Critical Care Time: No Attestation: On 11/21/21, the high probability of a clinically significant, sudden or life threatening deterioration of the following system(s) required my full and direct attention, intervention and personal management. The time I documented below is in addition to time spent performing reported procedures but includes the following listed in this critical care notation. Medical Decision Making - Medical Records Medical records reviewed: Yes: I reviewed the patient's medical records. - Ben Inquiry Pt receiving controlled substance: No Ben was queried for this patient: No Vital Signs: 11/21/21 09:32 Temperature 98.3 F Temperature Source Oral Pulse Rate [Left Radial] 87 Respiratory Rate 18 Blood Pressure [Right Arm] 149/111 H Blood Pressure Mean [Right Arm] 123 02 Sat by Pulse Oximetry 96 Oxygen Delivery Method Room Air - Lab Data Lab results reviewed: Yes: I reviewed the patient's lab results. Lab Results 11/21/21 09:40: WBC 6.8 D, RBC 4.97, Hgb 14.7, Hct 45.6, MCV 91.8, MCH 29.6, MCHC 32.2, RDW 13.4, Plt Count 289, MPV 9.7, Neut % (Auto) 76.2, Lymph % (Auto) 17.4, [place] % (Auto) 4.6, Eos % (Auto) 0.9, Baso % (Auto) 0.9, Neut # (Auto) 5.2, Lymph # (Auto) 1.2, [place] # (Auto) 0.3, Eos # (Auto) 0.1, Baso # (Auto) 0.1 11/21/21 09:40: Sodium 134 L, Potassium 4.1 D, Chloride 96 L, Carbon Dioxide 29, Anion Gap 13.1, BUN 18, Creatinine 0.90, Estimated Creat Clear 74, Estimated GFR 90, Est GFR ( Amer) 109, Glucose 377 H, Calcium 9.7, Total Bilirubin 1.0, AST 26, ALT 33, Alkaline Phosphatase 99, Total Protein 6.8, Albumin 4.2, Globulin 2.6, Albumin/Globulin Ratio 1.6, Lipase 52 11/21/21 09:56: Lactate 1.3 Result diagrams: 11/21/21 09:40 11/21/21 09:40 Orders (Tests/Meds): ED MEDICATIONS Discontinued Medications Generic Name Dose Route Start Last Admin Trade Name Della PRN Reason Stop Dose Admin Sodium Chloride 1,000 mls @ 999 mls/hr 11/21/21 09:30 11/21/21 09:45 Sod Chlor 0.9% 1000ml Bag IV 11/21/21 10:30 999 mls/hr .Q1H1M GAIL Administration Metoclopramide HCl 10 mg 11/21/21 09:25 11/21/21 09:45 Metoclopramide Hcl 10mg/2ml Vial IVP 11/21/21 09:26 10 mg ONCE ONE Administration Medical Decision Narrative: Patient is a 46-year-old male with past medical history of diabetes, paresis presenting to the ED with nausea, abdominal pain. Patient is awake, alert, not in acute distress. Patient is medically stable, afebrile. Patient's physical exam is unremarkable, has nondistended nontender abdomen. Work including CBC, CMP, lipase, lactate performed. Patient given IV fluids, Reglan. Patient's lab work is unremarkable. Patient feels much better after IV fluids and Reglan. Patient stable for discharge. Patient given strict return precautions and follow-up instructions. General Adult HPI - General Chief complaint: PAIN Stated complaint: abdominal pain Time Seen by Provider: 11/21/21 09:55 Mode of Arrival: Ambulatory Limitations: No Limitations Description of Symptoms (Recalled from ER Triage Doc. by RN): pt to ed c/o mid abd pain. pt states he was dx with gastoparesis and has been managing it at home. pt states he began having sharp pains this morning. - History of Present Illness HPI narrative: Patient is a 46-year-old male with past medical history of diabetes and gastroparesis presenting to the ED with epigastric abdominal pain and nausea. Patient states that he is having his regular symptoms of gastroparesis. States that he is having severe nausea, nonbloody nonbilious vomiting and epigastric pain without radiation. Nothing makes the pain better or worse. Patient has used his home Zofran without relief. Has been seen multiple times in this ED for sim
[2021-11-21 09:58] LABS: Alanine Aminotransferase 33 U/L (12-78); Albumin Level 4.2 g/dl (3.5-5.0); Albumin/Globulin Ratio 1.6 (1.1-1.8); Alkaline Phosphatase 99 U/L (38-126); Anion Gap 13.1 mEq/L (5-15); Aspartate Amino Transferase 26 U/L (17-59); Blood Urea Nitrogen 18 mg/dl (9-20); Calcium 9.7 mg/dl (8.4-10.2); Carbon Dioxide 29 mmol/L (22.0-30.0); Creatinine Clearance Estimated 74 mL/min (50-200); Estimated Glomerular Filt Rate 90 ml/min (>60); GFR (African American) 109 ML/MIN (>60); Globulin 2.6 g/dL (1.3-3.2); Glucose 377 mg/dl (74-100); Lipase 52 U/L (23-300); Total Protein,Serum 6.8 g/dl (6.3-8.2)
[2021-11-21 10:10] LABS: Lactic Acid 1.3 mmol/L (0.7-2.1)
[2021-11-21 10:46] VITALS: BP 169/90; PULSE 94; RESP 18; TEMP 36.9; O2SAT 98
== END 2021-11-21 10:50 | disposition home or self-care (01) ==
PROVIDERS: Emergency Provider Emergency Medicine; PCP Family Medicine
DX: K31.84 Gastroparesis (principal); K21.9 Gastro-esophageal reflux disease without esophagitis; E11.9 Type 2 diabetes mellitus without complications; I10 Essential (primary) hypertension; F17.210 Nicotine dependence, cigarettes, uncomplicated
CPT/HCPCS: 80053; 83605; 83690; 85025; 96365; 96367; 99282

== ENCOUNTER 2022-01-15 09:21 | Emergency (ER) | payer OTHER, SELFPAY ==
[2022-01-15 09:22] VITALS: BP 131/89; PULSE 80; RESP 18; TEMP 37.1; O2SAT 100; BMI 21.0
--- NOTE | 2022-01-15 09:50 | HMH.EDGENADL ---
ED Disposition Clinical Impression: Gastroparesis Disposition: Home, Self-Care Condition on Discharge: Good Additional Instructions: Continue currently prescribed medications. Call your primary care provider to arrange follow-up. Referrals: Jermain Cheung MD [Primary Care Provider] - - Critical Care Critical Care Time: No Attestation: On 01/15/22, the high probability of a clinically significant, sudden or life threatening deterioration of the following system(s) required my full and direct attention, intervention and personal management. The time I documented below is in addition to time spent performing reported procedures but includes the following listed in this critical care notation. Medical Decision Making - Ben Inquiry Pt receiving controlled substance: Yes Ben was queried for this patient: Yes Risks and benefits of using a controlled substance: were not discussed with pt by me Vital Signs: 01/15/22 09:22 Temperature 98.7 F Temperature Source Oral Pulse Rate [Right Radial] 80 Respiratory Rate 18 Blood Pressure [Left Arm] 131/89 Blood Pressure Mean [Left Arm] 103 Blood Pressure Source [Left Arm] Automatic Cuff Blood Pressure Position [Left Arm] Supine 02 Sat by Pulse Oximetry 100 Oxygen Delivery Method Room Air - Lab Data Lab Results 01/15/22 09:40: WBC 5.6, RBC 5.01, Hgb 14.9, Hct 43.8, MCV 87.4, MCH 29.7, MCHC 34.0, RDW 12.8, Plt Count 233, MPV 9.6, Neut % (Auto) 65.6, Lymph % (Auto) 27.9, [place] % (Auto) 4.0, Eos % (Auto) 1.9, Baso % (Auto) 0.6, Neut # (Auto) 3.7, Lymph # (Auto) 1.6, [place] # (Auto) 0.2, Eos # (Auto) 0.1, Baso # (Auto) 0.0 01/15/22 09:40: Sodium 131 L, Potassium 3.7, Chloride 101, Carbon Dioxide 24, Anion Gap 9.7, BUN 21 H, Creatinine 0.80, Estimated Creat Clear 83, Estimated GFR 103, Est GFR ( Amer) 125, Glucose 300 H, Calcium 8.3 L, Total Bilirubin 0.9, AST 36, ALT 25, Alkaline Phosphatase 112, Total Protein 6.8, Albumin 4.1, Globulin 2.7, Albumin/Globulin Ratio 1.5, Lipase 71 Result diagrams: 01/15/22 09:40 01/15/22 09:40 Orders (Tests/Meds): ED MEDICATIONS Discontinued Medications Generic Name Dose Route Start Last Admin Trade Name Della PRN Reason Stop Dose Admin Metoclopramide HCl 5 mg 01/15/22 09:52 01/15/22 10:00 Metoclopramide Hcl 10mg/2ml Vial IVP 01/15/22 09:53 5 mg ONCE ONE Administration Metoclopramide HCl 5 mg 01/15/22 12:41 01/15/22 13:16 Metoclopramide Hcl 10mg/2ml Vial IVP 01/15/22 12:42 5 mg ONCE ONE Administration Morphine Sulfate 4 mg 01/15/22 10:58 01/15/22 11:03 Morphine 4mg/Ml Syringe IV 01/15/22 10:59 4 mg ONCE ONE Administration Morphine Sulfate 4 mg 01/15/22 12:41 01/15/22 13:16 Morphine 4mg/Ml Syringe IV 01/15/22 12:42 4 mg ONCE ONE Administration Ondansetron HCl 4 mg 01/15/22 10:58 01/15/22 11:03 Ondansetron 4mg/2ml Vial IV 01/15/22 10:59 4 mg ONCE ONE Administration Sodium Chloride 1,000 ml 01/15/22 09:52 01/15/22 10:00 Sodium Chloride 0.9% 1000ml Bag IV 01/15/22 09:53 1,000 ml BOLUS ONE Administration - Reevaluation(s) Time: 10:58 Reevaluation #1: States he is still hurting and still nauseated. Time: 13:44 Reevaluation #3: Sleeping. When awakened, states he feels better, and is ready to go home. General Adult HPI - General Stated complaint: abd pain Time Seen by Provider: 01/15/22 09:45 - History of Present Illness HPI narrative: Patient states that his gastroparesis is bothering him again. This is a recurrent problem. I have seen him in this emergency department multiple times for the same. He complains of epigastric pain with repetitive vomiting. He says it started yesterday and continued all day yesterday and last night. No fever. No diarrhea. No other new symptoms. - Related Data Home Medications Medication Instructions Recorded Confirmed Amitriptyline HCl [Elavil 25mg 25 mg PO HS 01/03/18 11/06/21 table
[2022-01-15 10:11] LABS: Chloride 101 mmol/L (98-107); Potassium 3.7 mmoL/L (3.5-5.1); Sodium 131 mmol/L (136-145)
[2022-01-15 10:13] LABS: Basophils % 0.6 % (0.1-2.0); Eosinophils # 0.1 K/mm3 (0.0-0.4); Eosinophils % 1.9 % (0.1-12.0); Hematocrit 43.8 % (42.0-52.0); Hemoglobin 14.9 g/dL (14.1-18.0); Lymphocytes # 1.6 K/mm3 (0.7-4.5); Lymphocytes % 27.9 % (10-50); Mean Corpuscular Hemoglobin 29.7 pg (27.0-31.2); Mean Corpuscular Volume 87.4 fl (80-94); Mean Platelet Volume 9.6 fl (7.4-10.4); Monocytes # 0.2 K/mm3 (0.1-1.0); Neutrophils # 3.7 K/mm3 (1.8-7.8); Neutrophils % 65.6 % (37.0-80.0); Platelet Count 233 K/mm3 (142-424); Red Blood Count 5.01 M/mm3 (4.60-6.20); Red Cell Distribution Width 12.8 % (11.5-17.5); White Blood Count 5.6 K/mm3 (4.8-10.8)
[2022-01-15 10:14] LABS: Alanine Aminotransferase 25 U/L (12-78); Albumin Level 4.1 g/dl (3.5-5.0); Albumin/Globulin Ratio 1.5 (1.1-1.8); Alkaline Phosphatase 112 U/L (38-126); Anion Gap 9.7 mEq/L (5-15); Aspartate Amino Transferase 36 U/L (17-59); Bilirubin,Total 0.9 mg/dl (0.2-1.3); Blood Urea Nitrogen 21 mg/dl (9-20); Calcium 8.3 mg/dl (8.4-10.2); Carbon Dioxide 24 mmol/L (22.0-30.0); Creatinine Clearance Estimated 83 mL/min (50-200); Estimated Glomerular Filt Rate 103 ml/min (>60); GFR (African American) 125 ML/MIN (>60); Globulin 2.7 g/dL (1.3-3.2); Glucose 300 mg/dl (74-100); Lipase 71 U/L (23-300); Total Protein,Serum 6.8 g/dl (6.3-8.2)
[2022-01-15 14:10] VITALS: BP 128/71; PULSE 74; RESP 17; TEMP 36.9; O2SAT 99
== END 2022-01-15 14:14 | disposition home or self-care (01) ==
PROVIDERS: Emergency Provider Emergency Medicine; PCP Family Medicine
DX: K31.84 Gastroparesis (principal); E11.65 Type 2 diabetes mellitus with hyperglycemia; I10 Essential (primary) hypertension; F17.210 Nicotine dependence, cigarettes, uncomplicated
CPT/HCPCS: 80053; 83690; 85025; 96365; 96375; 99282; 99284; J2405

== ENCOUNTER 2022-01-25 13:00 | Emergency (ER) | payer OTHER, SELFPAY ==
[2022-01-25] VITALS (10 sets, daily range): BP systolic 148–175; BP diastolic 96–107; PULSE 58–74; RESP 16–20; TEMP 36.9–37.2; O2SAT 99–100; BMI 20.5
--- NOTE | 2022-01-25 13:33 | PC.NURSE ---
pt is laying back in bed resting at this time. nothing needed. call light within reach.
[2022-01-25 13:48] LABS: Basophils % 0.3 % (0.1-2.0); Eosinophils % 0.7 % (0.1-12.0); Hemoglobin 14.8 g/dL (14.1-18.0); Lymphocytes # 1.3 K/mm3 (0.7-4.5); Lymphocytes % 20.1 % (10-50); Mean Corpuscular HGB Conc 33.7 g/dL (31.8-35.4); Mean Corpuscular Hemoglobin 29.6 pg (27.0-31.2); Mean Corpuscular Volume 87.9 fl (80-94); Mean Platelet Volume 9.4 fl (7.4-10.4); Monocytes # 0.3 K/mm3 (0.1-1.0); Monocytes % 4.4 % (1.7-9.3); Neutrophils # 4.7 K/mm3 (1.8-7.8); Neutrophils % 74.5 % (37.0-80.0); Platelet Count 283 K/mm3 (142-424); Red Blood Count 5.01 M/mm3 (4.60-6.20); Red Cell Distribution Width 12.9 % (11.5-17.5); White Blood Count 6.3 K/mm3 (4.8-10.8)
[2022-01-25 13:54] LABS: Chloride 95 mmol/L (98-107); Potassium 3.9 mmoL/L (3.5-5.1); Sodium 129 mmol/L (136-145)
[2022-01-25 13:56] LABS: Blood Urea Nitrogen 19 mg/dl (9-20); Creatinine Clearance Estimated 84 mL/min (50-200); Estimated Glomerular Filt Rate 103 ml/min (>60); GFR (African American) 125 ML/MIN (>60)
[2022-01-25 13:57] LABS: Alanine Aminotransferase 28 U/L (12-78); Albumin Level 4.1 g/dl (3.5-5.0); Albumin/Globulin Ratio 1.6 (1.1-1.8); Alkaline Phosphatase 107 U/L (38-126); Anion Gap 10.9 mEq/L (5-15); Aspartate Amino Transferase 27 U/L (17-59); Bilirubin,Total 0.6 mg/dl (0.2-1.3); Calcium 8.8 mg/dl (8.4-10.2); Carbon Dioxide 27 mmol/L (22.0-30.0); Globulin 2.6 g/dL (1.3-3.2); Glucose 389 mg/dl (74-100); Lipase 62 U/L (23-300); Total Protein,Serum 6.7 g/dl (6.3-8.2)
--- NOTE | 2022-01-25 15:21 | HMH.EDGENADL ---
ED Disposition Clinical Impression: Gastroparesis Nausea & vomiting Qualifiers: Vomiting type: unspecified Qualified Code(s): R11.2 - Nausea with vomiting, unspecified Disposition: Home, Self-Care Condition on Discharge: Good Instructions: DI for Nausea -- Adult Prescriptions: Ondansetron [Zofran 4mg ODT] 4 mg PO BIDP PRN #10 tab PRN Reason: Nausea Transmission Status: Pending to [facility] Referrals: Jermain Cheung MD [Primary Care Provider] - - Critical Care Critical Care Time: No Attestation: On 01/25/22, the high probability of a clinically significant, sudden or life threatening deterioration of the following system(s) required my full and direct attention, intervention and personal management. The time I documented below is in addition to time spent performing reported procedures but includes the following listed in this critical care notation. Medical Decision Making - Medical Records Medical records reviewed: Yes: I reviewed the patient's medical records. - Ben Inquiry Pt receiving controlled substance: No Vital Signs: 01/25/22 13:00 01/25/22 13:16 01/25/22 13:30 Temperature 99 F Temperature Source Oral Pulse Rate 74 71 Pulse Rate [Radial] 73 Respiratory Rate 16 Blood Pressure 148/104 H 167/96 H Blood Pressure [Right Arm] 170/107 H Blood Pressure Mean Blood Pressure Mean [Right Arm] 128 Blood Pressure Position [Right Arm] Sitting 02 Sat by Pulse Oximetry 99 99 99 Oxygen Delivery Method Room Air Room Air Room Air 01/25/22 14:00 01/25/22 14:30 Temperature Temperature Source Pulse Rate 65 67 Pulse Rate [Radial] Respiratory Rate Blood Pressure 163/106 H 168/106 H Blood Pressure [Right Arm] Blood Pressure Mean 129 Blood Pressure Mean [Right Arm] Blood Pressure Position [Right Arm] 02 Sat by Pulse Oximetry 100 99 Oxygen Delivery Method Room Air - Lab Data Lab Results 01/25/22 13:20: WBC 6.3, RBC 5.01, Hgb 14.8, Hct 44.0, MCV 87.9, MCH 29.6, MCHC 33.7, RDW 12.9, Plt Count 283, MPV 9.4, Neut % (Auto) 74.5, Lymph % (Auto) 20.1, [place] % (Auto) 4.4, Eos % (Auto) 0.7, Baso % (Auto) 0.3, Neut # (Auto) 4.7, Lymph # (Auto) 1.3, [place] # (Auto) 0.3, Eos # (Auto) 0.0, Baso # (Auto) 0.0 01/25/22 13:20: Sodium 129 L, Potassium 3.9, Chloride 95 L, Carbon Dioxide 27, Anion Gap 10.9, BUN 19, Creatinine 0.80, Estimated Creat Clear 84, Estimated GFR 103, Est GFR ( Amer) 125, Glucose 389 H, Calcium 8.8, Total Bilirubin 0.6, AST 27, ALT 28, Alkaline Phosphatase 107, Total Protein 6.7, Albumin 4.1, Globulin 2.6, Albumin/Globulin Ratio 1.6, Lipase 62 Result diagrams: 01/25/22 13:20 01/25/22 13:20 Orders (Tests/Meds): ED MEDICATIONS Generic Name Dose Route Start Last Admin Trade Name Freq PRN Reason Stop Dose Admin Sodium Chloride 8 ml 01/25/22 13:16 Sodium Chloride 0.9% 10ml Vial IV 02/24/22 13:15 NEEDED PRN dilute pepcid Discontinued Medications Generic Name Dose Route Start Last Admin Trade Name Freq PRN Reason Stop Dose Admin Famotidine 20 mg 01/25/22 13:16 01/25/22 13:30 Famotidine 20mg/2ml Vial IV 01/25/22 13:17 20 mg ONCE ONE Administration Sodium Chloride 1,000 mls @ 999 mls/hr 01/25/22 13:30 01/25/22 13:30 Sod Chlor 0.9% 1000ml Bag IV 01/25/22 14:30 999 mls/hr .Q1H1M GAIL Administration Ondansetron HCl 4 mg 01/25/22 13:16 01/25/22 13:30 Ondansetron 4mg/2ml Vial IV 01/25/22 13:17 4 mg ONCE ONE Administration - Reevaluation(s) Time: 15:23 Reevaluation #1: On reevaluation, the patient is feeling better. We did provide insulin for his elevated blood glucose. Patient be discharged with short course of antiemetics. Needs follow-up with PCP. Repeat abdominal examination is benign. Patient tolerating oral intake. Given strict return precautions. Verbalized understanding. Medical Decision Narrative: 46-year-old male presented to the [facility]
--- NOTE | 2022-01-25 15:26 | PC.NURSE ---
pt is resting in bed. call light within reach. nothing needed at this time.
[2022-01-25 16:44] LABS: POC Glucose,Bedside 142 (70-110)
== END 2022-01-25 16:46 | disposition home or self-care (01) ==
PROVIDERS: Emergency Provider Emergency Medicine; PCP Family Medicine
DX: K31.84 Gastroparesis (principal); I10 Essential (primary) hypertension; E11.9 Type 2 diabetes mellitus without complications; K21.9 Gastro-esophageal reflux disease without esophagitis; E78.5 Hyperlipidemia, unspecified; F17.210 Nicotine dependence, cigarettes, uncomplicated; Z79.899 Other long term (current) drug therapy
CPT/HCPCS: 80053; 82962; 83690; 85025; 96365; 96375; 99282; 99284; J2405

== ENCOUNTER 2022-02-16 14:55 | Emergency (ER) | payer OTHER, SELFPAY ==
[2022-02-16 14:56] VITALS: BP 181/105; PULSE 86; RESP 20; TEMP 37.1; O2SAT 98; BMI 21.0
[2022-02-16 15:16] LABS: Basophils # 0.1 K/mm3 (0-0.2); Basophils % 0.6 % (0.1-2.0); Eosinophils % 0.5 % (0.1-12.0); Hematocrit 45.4 % (42.0-52.0); Lymphocytes # 1.4 K/mm3 (0.7-4.5); Lymphocytes % 16.7 % (10-50); Mean Corpuscular HGB Conc 33.1 g/dL (31.8-35.4); Mean Corpuscular Hemoglobin 29.9 pg (27.0-31.2); Mean Corpuscular Volume 90.3 fl (80-94); Mean Platelet Volume 10.9 fl (7.4-10.4); Monocytes # 0.2 K/mm3 (0.1-1.0); Monocytes % 2.5 % (1.7-9.3); Neutrophils # 6.6 K/mm3 (1.8-7.8); Neutrophils % 79.7 % (37.0-80.0); Platelet Count 249 K/mm3 (142-424); Red Blood Count 5.02 M/mm3 (4.60-6.20); Red Cell Distribution Width 13.3 % (11.5-17.5); White Blood Count 8.3 K/mm3 (4.8-10.8)
[2022-02-16 15:27] LABS: Alanine Aminotransferase 26 U/L (12-78); Albumin Level 4.3 g/dl (3.5-5.0); Albumin/Globulin Ratio 1.5 (1.1-1.8); Alkaline Phosphatase 99 U/L (38-126); Aspartate Amino Transferase 29 U/L (17-59); Blood Urea Nitrogen 16 mg/dl (9-20); Calcium 9.2 mg/dl (8.4-10.2); Carbon Dioxide 27 mmol/L (22.0-30.0); Chloride 101 mmol/L (98-107); Creatinine Clearance Estimated 83 mL/min (50-200); Estimated Glomerular Filt Rate 103 ml/min (>60); GFR (African American) 125 ML/MIN (>60); Globulin 2.8 g/dL (1.3-3.2); Lipase 57 U/L (23-300); Sodium 133 mmol/L (136-145); Total Protein,Serum 7.1 g/dl (6.3-8.2)
[2022-02-16 15:30] VITALS: BP 163/108; PULSE 68; RESP 18; O2SAT 100
[2022-02-16 15:36] LABS: Glucose 416 mg/dl (74-100)
[2022-02-16 15:55] VITALS: BP 163/108; PULSE 72; O2SAT 100
--- NOTE | 2022-02-16 16:26 | PC.NURSE ---
ED MD at
[2022-02-16 16:30] VITALS: BP 168/98; PULSE 64; RESP 18; O2SAT 100
[2022-02-16 16:58] LABS: VBG Base Excess -2.9 mmol/L (-2.4-2.3); VBG HCO3 22.4 mmol/L (23-30); VBG Oxygen Saturation 92.6 % (50-70); VBG PCO2 39.5 mmol/L (35-51); VBG PH 7.37 mmol/L (7.31-7.41); VBG PO2 62.4 mmol/L (28-40); VBG Total CO2 23.6 mmol/L (23-27)
--- NOTE | 2022-02-16 18:26 | HMH.EDGENADL ---
ED Disposition Clinical Impression: Gastritis Qualifiers: Gastritis type: unspecified gastritis Chronicity: acute Gastritis bleeding: without bleeding Qualified Code(s): K29.00 - Acute gastritis without bleeding Nausea and vomiting Qualifiers: Vomiting type: unspecified Qualified Code(s): R11.2 - Nausea with vomiting, unspecified Disposition: Home, Self-Care Condition on Discharge: Good Instructions: DI for Nausea -- Adult, DI for Nausea -- Child, DI for Diarrhea and Traveler's Diarrhea -- Adult, DI for Diarrhea and Traveler's Diarrhea -- Child Prescriptions: Sucralfate [Carafate 1gm/10mL Susp] 10 ml PO ACHS #500 ml Transmission Status: Pending to [facility] Pantoprazole Sodium [Protonix 40mg tablet] 40 mg PO DAILY #30 tab Transmission Status: Pending to [facility] Ondansetron [Zofran 4mg ODT] 4 mg PO TIDP PRN #12 tab PRN Reason: Nausea Transmission Status: Pending to [facility] Referrals: Jermain Cheung MD [Primary Care Provider] - - Critical Care Critical Care Time: No Attestation: On 02/16/22, the high probability of a clinically significant, sudden or life threatening deterioration of the following system(s) required my full and direct attention, intervention and personal management. The time I documented below is in addition to time spent performing reported procedures but includes the following listed in this critical care notation. Medical Decision Making - Medical Records Medical records reviewed: Yes: I reviewed the patient's medical records. - Ben Inquiry Pt receiving controlled substance: No Vital Signs: 02/16/22 14:56 02/16/22 15:30 02/16/22 15:55 Temperature 98.8 F Temperature Source Oral Pulse Rate 68 72 Pulse Rate [Radial] 86 Respiratory Rate 20 18 Blood Pressure 163/108 H 163/108 H Blood Pressure [Right Arm] 181/105 H Blood Pressure Mean 132 Blood Pressure Mean [Right Arm] 130 Blood Pressure Position [Right Arm] Sitting 02 Sat by Pulse Oximetry 98 100 100 Oxygen Delivery Method Room Air Room Air 02/16/22 16:30 Temperature Temperature Source Pulse Rate 64 Pulse Rate [Radial] Respiratory Rate 18 Blood Pressure 168/98 H Blood Pressure [Right Arm] Blood Pressure Mean 124 Blood Pressure Mean [Right Arm] Blood Pressure Position [Right Arm] 02 Sat by Pulse Oximetry 100 Oxygen Delivery Method - Lab Data Lab Results 02/16/22 15:00: WBC 8.3, RBC 5.02, Hgb 15.0, Hct 45.4, MCV 90.3, MCH 29.9, MCHC 33.1, RDW 13.3, Plt Count 249, MPV 10.9 H, Neut % (Auto) 79.7, Lymph % (Auto) 16.7, [place] % (Auto) 2.5, Eos % (Auto) 0.5, Baso % (Auto) 0.6, Neut # (Auto) 6.6, Lymph # (Auto) 1.4, [place] # (Auto) 0.2, Eos # (Auto) 0.0, Baso # (Auto) 0.1 02/16/22 15:00: Sodium 133 L, Potassium 4.0, Chloride 101, Carbon Dioxide 27, Anion Gap 9.0, BUN 16, Creatinine 0.80, Estimated Creat Clear 83, Estimated GFR 103, Est GFR ( Amer) 125, Glucose 416 H*, Calcium 9.2, Total Bilirubin 1.0, AST 29, ALT 26, Alkaline Phosphatase 99, Total Protein 7.1, Albumin 4.3, Globulin 2.8, Albumin/Globulin Ratio 1.5, Lipase 57 02/16/22 16:46: VBG pH 7.37, VBG pCO2 39.5, VBG pO2 62.4 H, VBG HCO3 22.4 L, VBG Total CO2 23.6, VBG O2 Saturation 92.6 H, VBG Base Excess -2.9 L Result diagrams: 02/16/22 15:00 02/16/22 15:00 Orders (Tests/Meds): ED MEDICATIONS Discontinued Medications Generic Name Dose Route Start Last Admin Trade Name Freq PRN Reason Stop Dose Admin Lactated Ringer's 1,000 mls @ 999 mls/hr 02/16/22 15:15 02/16/22 15:12 Lactated Ringer's 1000 Ml Bag IV 02/16/22 16:15 999 mls/hr .Q1H1M GAIL Administration Ondansetron HCl 4 mg 02/16/22 15:09 02/16/22 15:11 Ondansetron 4mg/2ml Vial IV 02/16/22 15:10 4 mg ONCE ONE Administration Ondansetron HCl 4 mg 02/16/22 15:12 02/16/22 15:13 Ondansetron 4mg/2ml Vial IV 02/16/22 15:13 4 mg ONCE ONE Administration Medical Decision Narrativ
[2022-02-16 18:54] VITALS: BP 128/76; PULSE 61; RESP 18; TEMP 36.9; O2SAT 98
== END 2022-02-16 18:55 | disposition home or self-care (01) ==
PROVIDERS: Emergency Provider Student in an Organized Health Care Education/Training Program; PCP Family Medicine
DX: K29.00 Acute gastritis without bleeding (principal); E11.9 Type 2 diabetes mellitus without complications; K21.9 Gastro-esophageal reflux disease without esophagitis; E78.5 Hyperlipidemia, unspecified; I10 Essential (primary) hypertension; F17.210 Nicotine dependence, cigarettes, uncomplicated; Z79.899 Other long term (current) drug therapy
CPT/HCPCS: 80053; 82803; 83690; 85025; 96365; 96375; 99284; J2405

== ENCOUNTER 2022-03-08 11:08 | Emergency (ER) | payer OTHER, SELFPAY ==
[2022-03-08 11:08] VITALS: BP 183/97; PULSE 87; RESP 16; TEMP 36.7; O2SAT 98; BMI 29.2
--- NOTE | 2022-03-08 11:11 | HMH.EDABDPAI ---
ED Disposition Clinical Impression: Gastroparesis diabeticorum Constipation Qualifiers: Constipation type: slow transit constipation Qualified Code(s): K59.01 - Slow transit constipation Hyperglycemia due to type 2 diabetes mellitus Qualifiers: Diabetes mellitus skilled nursing insulin use: without termination clerk use Qualified Code(s): E11.65 - Type 2 diabetes mellitus with hyperglycemia Disposition: Home, Self-Care Condition on Discharge: Fair Instructions: DI for Acute Abdominal Pain Additional Instructions: Today your blood glucose was very high. I recommend that you start taking Metformin 2 pills at night and 1 pill in the morning for a total of 3 pills/day. Sick with a clear liquid diet for the next few days. Take all medications, including the ones prescribed today, as prescribed. Turn to the emergency department if you feel worse in any way. Low up with your primary care doctor in about 1 week to check your glucose levels again. Prescriptions: Docusate Sodium [Colace] 100 mg PO BID #20 cap Transmission Status: Received by [id number] Metoclopramide HCl [Reglan 10mg Tab] 10 mg PO QID PRN #20 tab PRN Reason: Nausea Transmission Status: Received by [id number] Referrals: Jermain Cheung MD [Primary Care Provider] - - Critical Care Critical Care Time: No Attestation: On , the high probability of a clinically significant, sudden or life threatening deterioration of the following system(s) required my full and direct attention, intervention and personal management. The time I documented below is in addition to time spent performing reported procedures but includes the following listed in this critical care notation. Medical Decision Making - Medical Records Medical records reviewed: Yes: I reviewed the patient's medical records. - Ben Inquiry Pt receiving controlled substance: No Vital Signs: 03/08/22 11:08 Temperature 98.1 F Temperature Source Oral Pulse Rate [Right] 87 Respiratory Rate 16 Blood Pressure [Right Arm] 183/97 H Blood Pressure Mean [Right Arm] 125 Blood Pressure Source [Right Arm] Automatic Cuff Blood Pressure Position [Right Arm] Sitting 02 Sat by Pulse Oximetry 98 Oxygen Delivery Method Room Air - Lab Data Lab results reviewed: Yes: I reviewed the patient's lab results. Lab Results 03/08/22 11:20: WBC 6.1, RBC 4.83, Hgb 15.0, Hct 45.0, MCV 93.1, MCH 31.0, MCHC 33.3, RDW 13.5, Plt Count 272, MPV 10.1, Neut % (Auto) 72.1, Lymph % (Auto) 21.3, [place] % (Auto) 4.5, Eos % (Auto) 0.9, Baso % (Auto) 1.3, Neut # (Auto) 4.4, Lymph # (Auto) 1.3, [place] # (Auto) 0.3, Eos # (Auto) 0.1, Baso # (Auto) 0.1 03/08/22 11:20: Sodium 134 L, Potassium 4.2, Chloride 104, Carbon Dioxide 24, Anion Gap 10.2, BUN 24 H, Creatinine 0.90, Estimated Creat Clear 103, Estimated GFR 90, Est GFR ( Amer) 109, Glucose 411 H*, Calcium 8.3 L, Total Bilirubin 0.8, AST 33, ALT 24, Alkaline Phosphatase 117, Total Protein 6.9, Albumin 4.1, Globulin 2.8, Albumin/Globulin Ratio 1.5, Lipase 99 03/08/22 12:50: Urine Color Yellow, Urine Appearance Clear, Urine pH 6.0, Ur Specific [place] 1.020, Urine Protein 2+, Urine Glucose (UA) 3+, Urine Ketones 1+, Urine Blood 1+, Urine Nitrate Negative, Urine Bilirubin Negative, Urine Urobilinogen 0.2, Ur Leukocyte Esterase Negative, Urine RBC 5-10, Urine WBC 3-5, Ur Squamous Epith Cells 3-5, Urine Bacteria None 03/08/22 12:59: POC Glucose 312 H* Result diagrams: 03/08/22 11:20 03/08/22 11:20 Orders (Tests/Meds): ED MEDICATIONS Discontinued Medications Generic Name Dose Route Start Last Admin Trade Name Freq PRN Reason Stop Dose Admin Sodium Chloride 1,000 mls @ 999 mls/hr 03/08/22 11:15 03/08/22 11:28 Sod Chlor 0.9% 1000ml Bag IV 03/08/22 12:15 999 mls/hr .Q1H1M GAIL Administration Insulin Human Regular 10 unit 03/08/22 11:47 03/08/22 12:05 Insulin Human Regular 100 Units/Ml 10ml Vial SQ 03/08/22 11:48 10 unit ONCE ONE Ad
--- NOTE | 2022-03-08 11:15 | XR_ITS ---
PROCEDURE INFORMATION: Exam: XR Complete Acute Abdomen Series Including Chest Exam date and time: 03/08/2022 11:17 AM Age: 46 years old Clinical indication: Abdominal pain; Acute; Additional info: Abdominal pain with vomiting TECHNIQUE: Imaging protocol: XR complete acute abdomen series, including 2 or more views of the abdomen and a single view chest. COMPARISON: CT ABDOMEN PELVIS WO CON 11/06/2021 10:37 AM FINDINGS: Lungs: Normal. No consolidation. Pleural spaces: Normal. No pleural effusions. No pneumothorax. Heart/Mediastinum: Normal. No cardiomegaly. Gastrointestinal tract: Retained fecal material demonstrated throughout the colon. Gas also present within nondistended small bowel loops. She Intraperitoneal space: Surgical clips present in the left hemipelvis. This was demonstrated on the CT abdomen pelvis dated 11/06/2021. Organs: Evidence of previous cholecystectomy. Bones/joints: Mild spondylitic changes within the lumbar spine. Soft tissues: Normal. IMPRESSION: Nonspecific bowel gas pattern. Could not exclude mild changes of fecal impaction. Clinically correlate.
[2022-03-08 11:33] LABS: Basophils # 0.1 K/mm3 (0-0.2); Basophils % 1.3 % (0.1-2.0); Eosinophils # 0.1 K/mm3 (0.0-0.4); Eosinophils % 0.9 % (0.1-12.0); Lymphocytes # 1.3 K/mm3 (0.7-4.5); Lymphocytes % 21.3 % (10-50); Mean Corpuscular HGB Conc 33.3 g/dL (31.8-35.4); Mean Corpuscular Volume 93.1 fl (80-94); Mean Platelet Volume 10.1 fl (7.4-10.4); Monocytes # 0.3 K/mm3 (0.1-1.0); Monocytes % 4.5 % (1.7-9.3); Neutrophils # 4.4 K/mm3 (1.8-7.8); Neutrophils % 72.1 % (37.0-80.0); Platelet Count 272 K/mm3 (142-424); Red Blood Count 4.83 M/mm3 (4.60-6.20); Red Cell Distribution Width 13.5 % (11.5-17.5); White Blood Count 6.1 K/mm3 (4.8-10.8)
[2022-03-08 11:42] LABS: Chloride 104 mmol/L (98-107); Potassium 4.2 mmoL/L (3.5-5.1); Sodium 134 mmol/L (136-145)
[2022-03-08 11:44] LABS: Alanine Aminotransferase 24 U/L (12-78); Aspartate Amino Transferase 33 U/L (17-59); Blood Urea Nitrogen 24 mg/dl (9-20); Creatinine Clearance Estimated 103 mL/min (50-200); Estimated Glomerular Filt Rate 90 ml/min (>60); GFR (African American) 109 ML/MIN (>60)
[2022-03-08 11:45] LABS: Albumin Level 4.1 g/dl (3.5-5.0); Albumin/Globulin Ratio 1.5 (1.1-1.8); Alkaline Phosphatase 117 U/L (38-126); Anion Gap 10.2 mEq/L (5-15); Bilirubin,Total 0.8 mg/dl (0.2-1.3); Calcium 8.3 mg/dl (8.4-10.2); Carbon Dioxide 24 mmol/L (22.0-30.0); Globulin 2.8 g/dL (1.3-3.2); Lipase 99 U/L (23-300); Total Protein,Serum 6.9 g/dl (6.3-8.2)
[2022-03-08 11:47] LABS: Glucose 411 mg/dl (74-100)
--- NOTE | 2022-03-08 11:47 | PC.NURSE ---
Lab called with glucose of 411. Repeated and verified and notified
[2022-03-08 13:00] LABS: Microscopic, Urine URINE MICROSCOPIC (MICROSCOPIC)
[2022-03-08 13:01] LABS: Appearance,Urine CLEAR (Clear); Bilirubin,Urine Negative (Negative); Blood, Urine 1+ (Negative); Color,Urine YELLOW (Yellow); Glucose,Urine (UA) 3+ (Negative); Ketones,Urine 1+ (Negative); Leukocyte Esterase,Urine Negative (Negative); Nitrate,Urine Negative (Negative); Protein,Urine 2+ (Negative); Urobilinogen,Urine 0.2 EU/dl (0.2)
[2022-03-08 13:08] LABS: POC Glucose,Bedside 312 (70-110)
[2022-03-08 13:48] VITALS: BP 164/79; PULSE 82; RESP 15; TEMP 36.7; O2SAT 97
[2022-03-08 13:50] LABS: POC Glucose,Bedside 274 (70-110)
== END 2022-03-08 13:55 | disposition home or self-care (01) ==
PROVIDERS: Emergency Provider Emergency Medicine; PCP Family Medicine
DX: K59.01 Slow transit constipation (principal); R00.2 Palpitations; R11.2 Nausea with vomiting, unspecified; I10 Essential (primary) hypertension; I80.9 Phlebitis and thrombophlebitis of unspecified site; K21.9 Gastro-esophageal reflux disease without esophagitis; E78.5 Hyperlipidemia, unspecified; E11.65 Type 2 diabetes mellitus with hyperglycemia; E11.40 Type 2 diabetes mellitus with diabetic neuropathy, unspecified; E11.43 Type 2 diabetes mellitus with diabetic autonomic (poly)neuropathy; K31.84 Gastroparesis; B15.9 Hepatitis A without hepatic coma; M19.90 Unspecified osteoarthritis, unspecified site; F17.210 Nicotine dependence, cigarettes, uncomplicated; Z79.4 Long term (current) use of insulin; Z79.84 Long term (current) use of oral hypoglycemic drugs; Z79.899 Other long term (current) drug therapy; Z88.5 Allergy status to narcotic agent; Z88.8 Allergy status to other drugs, medicaments and biological substances; Z91.041 Radiographic dye allergy status
CPT/HCPCS: 74021; 80053; 81001; 82962; 83690; 85025; 96361; 96365; 96372; 96374; 96375; 99284

== ENCOUNTER 2022-04-25 10:25 | Emergency (ER) | payer OTHER, SELFPAY ==
[2022-04-25] VITALS (14 sets, daily range): BP systolic 139–164; BP diastolic 77–98; PULSE 54–66; RESP 16; TEMP 36.8; O2SAT 98–100; BMI 22.8
--- NOTE | 2022-04-25 10:28 | PC.NURSE ---
patient to ED room 8 with registration staff, reports he is unable to use the restroom at this time; hooked up to the monitor and blanket given
--- NOTE | 2022-04-25 10:30 | PC.NURSE ---
MERISSA Branch at BS
[2022-04-25 10:55] LABS: Chloride 101 mmol/L (98-107); Potassium 3.9 mmoL/L (3.5-5.1); Sodium 134 mmol/L (136-145)
[2022-04-25 10:56] LABS: Basophils # 0.1 K/mm3 (0-0.2); Basophils % 1.5 % (0.1-2.0); Eosinophils # 0.1 K/mm3 (0.0-0.4); Hematocrit 43.8 % (42.0-52.0); Hemoglobin 15.2 g/dL (14.1-18.0); Lymphocytes # 1.4 K/mm3 (0.7-4.5); Lymphocytes % 16.7 % (10-50); Mean Corpuscular HGB Conc 34.6 g/dL (31.8-35.4); Mean Corpuscular Hemoglobin 31.3 pg (27.0-31.2); Mean Corpuscular Volume 90.3 fl (80-94); Mean Platelet Volume 11.4 fl (7.4-10.4); Monocytes # 0.3 K/mm3 (0.1-1.0); Neutrophils # 6.5 K/mm3 (1.8-7.8); Neutrophils % 77.9 % (37.0-80.0); Platelet Count 256 K/mm3 (142-424); Red Blood Count 4.85 M/mm3 (4.60-6.20); Red Cell Distribution Width 13.4 % (11.5-17.5); White Blood Count 8.3 K/mm3 (4.8-10.8)
[2022-04-25 10:57] LABS: Alanine Aminotransferase 25 U/L (12-78); Alkaline Phosphatase 119 U/L (38-126); Aspartate Amino Transferase 30 U/L (17-59); Bilirubin,Total 0.6 mg/dl (0.2-1.3); Blood Urea Nitrogen 18 mg/dl (9-20); Creatinine Clearance Estimated 72 mL/min (50-200); Estimated Glomerular Filt Rate 80 ml/min (>60); GFR (African American) 97 ML/MIN (>60)
[2022-04-25 10:58] LABS: Albumin Level 4.3 g/dl (3.5-5.0); Albumin/Globulin Ratio 1.4 (1.1-1.8); Anion Gap 12.9 mEq/L (5-15); Calcium 9.5 mg/dl (8.4-10.2); Carbon Dioxide 24 mmol/L (22.0-30.0); Lipase 90 U/L (23-300); Total Protein,Serum 7.3 g/dl (6.3-8.2)
--- NOTE | 2022-04-25 11:01 | HMH.EDGENADL ---
ED Disposition Clinical Impression: Gastroparesis, Hyperglycemia Disposition: Home, Self-Care Condition on Discharge: Good Instructions: DI for Acute Abdominal Pain, DI for Gastroparesis Additional Instructions: Continue your current medications. Follow-up with your primary care provider next week, call Wednesday to make appointment. Additional instructions for ABDOMINAL PAIN: See your physician as soon as possible for further evaluation. Return immediately if worsening abdominal pain, vomiting, shortness of breath, fever, vomiting of blood or abdominal distention. Referrals: Jermain Cheung MD [Primary Care Provider] - - Critical Care Critical Care Time: No Attestation: On 04/25/22, the high probability of a clinically significant, sudden or life threatening deterioration of the following system(s) required my full and direct attention, intervention and personal management. The time I documented below is in addition to time spent performing reported procedures but includes the following listed in this critical care notation. Medical Decision Making - Ben Inquiry Pt receiving controlled substance: Yes Ben was queried for this patient: Yes Risks and benefits of using a controlled substance: were not discussed with pt by me Vital Signs: 04/25/22 10:25 04/25/22 12:01 04/25/22 12:30 Temperature 98.3 F Temperature Source Oral Pulse Rate 66 66 Pulse Rate [Left Radial] 60 Respiratory Rate 16 Blood Pressure 148/90 H 151/85 H Blood Pressure [Left Arm] 164/98 H Blood Pressure Mean 109 111 Blood Pressure Mean [Left Arm] 120 Blood Pressure Source Blood Pressure Source [Left Arm] Automatic Cuff Blood Pressure Position Blood Pressure Position [Left Arm] Sitting 02 Sat by Pulse Oximetry 98 100 100 Oxygen Delivery Method Room Air 04/25/22 13:00 04/25/22 13:30 04/25/22 14:00 Temperature Temperature Source Pulse Rate 61 64 Pulse Rate [Left Radial] Respiratory Rate Blood Pressure 156/86 H 155/87 H 160/93 H Blood Pressure [Left Arm] Blood Pressure Mean 117 120 124 Blood Pressure Mean [Left Arm] Blood Pressure Source Automatic Cuff Automatic Cuff Blood Pressure Source [Left Arm] Blood Pressure Position Sitting Sitting Blood Pressure Position [Left Arm] 02 Sat by Pulse Oximetry 98 99 99 Oxygen Delivery Method Room Air Room Air 04/25/22 14:30 04/25/22 15:00 Temperature Temperature Source Pulse Rate 60 57 L Pulse Rate [Left Radial] Respiratory Rate Blood Pressure 146/82 H 150/82 H Blood Pressure [Left Arm] Blood Pressure Mean 115 121 Blood Pressure Mean [Left Arm] Blood Pressure Source Blood Pressure Source [Left Arm] Blood Pressure Position Blood Pressure Position [Left Arm] 02 Sat by Pulse Oximetry 99 98 Oxygen Delivery Method - Lab Data Lab Results 04/25/22 10:34: WBC 8.3, RBC 4.85, Hgb 15.2, Hct 43.8, MCV 90.3, MCH 31.3 H, MCHC 34.6, RDW 13.4, Plt Count 256, MPV 11.4 H, Neut % (Auto) 77.9, Lymph % (Auto) 16.7, [place] % (Auto) 3.0, Eos % (Auto) 1.0, Baso % (Auto) 1.5, Neut # (Auto) 6.5, Lymph # (Auto) 1.4, [place] # (Auto) 0.3, Eos # (Auto) 0.1, Baso # (Auto) 0.1 04/25/22 10:34: Sodium 134 L, Potassium 3.9, Chloride 101, Carbon Dioxide 24, Anion Gap 12.9, BUN 18, Creatinine 1.00, Estimated Creat Clear 72, Estimated GFR 80, Est GFR ( Amer) 97, Glucose 403 H*, Calcium 9.5, Total Bilirubin 0.6, AST 30, ALT 25, Alkaline Phosphatase 119, Total Protein 7.3, Albumin 4.3, Globulin 3.0, Albumin/Globulin Ratio 1.4, Lipase 90 04/25/22 12:38: POC Glucose 229 H 04/25/22 12:47: Urine Color Yellow, Urine Appearance Clear, Urine pH 6.0, Ur Specific [place] 1.025, Urine Protein 2+, Urine Glucose (UA) 3+, Urine Ketones Trace, Urine Blood 1+, Urine Nitrate Negative, Urine Bilirubin Negative, Urine Urobilinogen 0.2, Ur Leukocyte Esterase Negative, Urine RBC 3-5, Urine WBC None, Ur Squamous Epith Cells Occasional, Urine Bacteria T
[2022-04-25 11:05] LABS: Glucose 403 mg/dl (74-100)
--- NOTE | 2022-04-25 11:06 | PC.NURSE ---
Denise from lab called critical glucose of 403. Repeated and verified. notified.
--- NOTE | 2022-04-25 11:08 | PC.NURSE ---
Pain meds currently being administered. Pt states that he is still unable to urinate at this time.
--- NOTE | 2022-04-25 11:53 | PC.NURSE ---
patient reports he is still unable to void at this time; pt aware we need a urine sample
--- NOTE | 2022-04-25 12:39 | PC.NURSE ---
Re-checked pts blood sugar; it read 229 mg/dL; MERISSA Richard notified
--- NOTE | 2022-04-25 12:41 | PC.NURSE ---
Patient attempting to use urinal at BS
[2022-04-25 12:45] LABS: POC Glucose,Bedside 229 (70-110)
--- NOTE | 2022-04-25 12:48 | PC.NURSE ---
UA sent to lab
--- NOTE | 2022-04-25 12:49 | PC.NURSE ---
patient reports his pain and nausea have came back; Nurse notified
[2022-04-25 13:04] LABS: Microscopic, Urine URINE MICROSCOPIC (MICROSCOPIC)
[2022-04-25 13:07] LABS: Appearance,Urine CLEAR (Clear); Bilirubin,Urine Negative (Negative); Blood, Urine 1+ (Negative); Color,Urine YELLOW (Yellow); Glucose,Urine (UA) 3+ (Negative); Ketones,Urine TRACE (Negative); Leukocyte Esterase,Urine Negative (Negative); Nitrate,Urine Negative (Negative); Protein,Urine 2+ (Negative); Specific Gravity, Urine 1.025 (1.005-1.030); Urobilinogen,Urine 0.2 EU/dl (0.2)
[2022-04-25 13:19] LABS: Bacteria,Urine Trace /lpf; Squamous Epithelial Cell,Urine Occasional #/hpf (0-5)
--- NOTE | 2022-04-25 16:34 | PC.NURSE ---
patient waiting on ride for discharge
== END 2022-04-25 17:48 | disposition home or self-care (01) ==
PROVIDERS: Emergency Provider Emergency Medicine; PCP Family Medicine
DX: E11.43 Type 2 diabetes mellitus with diabetic autonomic (poly)neuropathy (principal); E11.65 Type 2 diabetes mellitus with hyperglycemia; K31.84 Gastroparesis; Z79.84 Long term (current) use of oral hypoglycemic drugs; Z79.4 Long term (current) use of insulin; I10 Essential (primary) hypertension; E78.5 Hyperlipidemia, unspecified
CPT/HCPCS: 80053; 81001; 82962; 83690; 85025; 96365; 96375; 96376; 99284; J2405

== ENCOUNTER 2022-04-30 09:12 | Emergency (ER) | payer OTHER, SELFPAY ==
[2022-04-30 09:13] VITALS: BP 220/138; PULSE 99; RESP 20; TEMP 37.1; O2SAT 99; BMI 21.9
[2022-04-30 09:40] LABS: Basophils # 0.1 K/mm3 (0-0.2); Basophils % 1.6 % (0.1-2.0); Eosinophils # 0.1 K/mm3 (0.0-0.4); Eosinophils % 0.7 % (0.1-12.0); Hematocrit 47.6 % (42.0-52.0); Lymphocytes # 1.8 K/mm3 (0.7-4.5); Lymphocytes % 24.8 % (10-50); Mean Corpuscular HGB Conc 33.7 g/dL (31.8-35.4); Mean Corpuscular Hemoglobin 30.5 pg (27.0-31.2); Mean Corpuscular Volume 90.4 fl (80-94); Mean Platelet Volume 10.8 fl (7.4-10.4); Monocytes # 0.3 K/mm3 (0.1-1.0); Monocytes % 3.9 % (1.7-9.3); Platelet Count 304 K/mm3 (142-424); Red Blood Count 5.26 M/mm3 (4.60-6.20); Red Cell Distribution Width 13.4 % (11.5-17.5); White Blood Count 7.2 K/mm3 (4.8-10.8)
[2022-04-30 09:41] LABS: Chloride 98 mmol/L (98-107); Potassium 3.6 mmoL/L (3.5-5.1); Sodium 134 mmol/L (136-145)
[2022-04-30 09:44] LABS: Alanine Aminotransferase 40 U/L (12-78); Albumin Level 4.6 g/dl (3.5-5.0); Albumin/Globulin Ratio 1.5 (1.1-1.8); Alkaline Phosphatase 121 U/L (38-126); Anion Gap 13.6 mEq/L (5-15); Aspartate Amino Transferase 35 U/L (17-59); Bilirubin,Total 0.9 mg/dl (0.2-1.3); Blood Urea Nitrogen 20 mg/dl (9-20); Calcium 10.1 mg/dl (8.4-10.2); Carbon Dioxide 26 mmol/L (22.0-30.0); Creatinine Clearance Estimated 63 mL/min (50-200); Estimated Glomerular Filt Rate 71 ml/min (>60); GFR (African American) 86 ML/MIN (>60); Lipase 73 U/L (23-300); Total Protein,Serum 7.6 g/dl (6.3-8.2)
--- NOTE | 2022-04-30 09:46 | HMH.EDABDPAI ---
ED Disposition Clinical Impression: Gastroparesis, Hyperglycemia Disposition: Home, Self-Care Condition on Discharge: Good Instructions: DI for Acute Abdominal Pain Referrals: Jermain Cheung MD [Primary Care Provider] - - Critical Care Critical Care Time: No Attestation: On 04/30/22, the high probability of a clinically significant, sudden or life threatening deterioration of the following system(s) required my full and direct attention, intervention and personal management. The time I documented below is in addition to time spent performing reported procedures but includes the following listed in this critical care notation. Medical Decision Making - Medical Records Medical records reviewed: Yes: I reviewed the patient's medical records. - Ben Inquiry Pt receiving controlled substance: No Vital Signs: 04/30/22 09:13 04/30/22 10:30 Temperature 98.7 F Temperature Source Oral Pulse Rate 73 Pulse Rate [Left Radial] 99 H Respiratory Rate 20 Blood Pressure 171/88 H Blood Pressure [Right Arm] 220/138 H Blood Pressure Mean 141 Blood Pressure Mean [Right Arm] 165 Blood Pressure Source [Right Arm] Automatic Cuff Blood Pressure Position [Right Arm] Sitting 02 Sat by Pulse Oximetry 99 100 Oxygen Delivery Method Room Air - Lab Data Lab Results 04/30/22 09:25: WBC 7.2, RBC 5.26, Hgb 16.0, Hct 47.6, MCV 90.4, MCH 30.5, MCHC 33.7, RDW 13.4, Plt Count 304, MPV 10.8 H, Neut % (Auto) 69.0, Lymph % (Auto) 24.8, [place] % (Auto) 3.9, Eos % (Auto) 0.7, Baso % (Auto) 1.6, Neut # (Auto) 5.0, Lymph # (Auto) 1.8, [place] # (Auto) 0.3, Eos # (Auto) 0.1, Baso # (Auto) 0.1 04/30/22 09:25: Sodium 134 L, Potassium 3.6, Chloride 98, Carbon Dioxide 26, Anion Gap 13.6, BUN 20, Creatinine 1.10, Estimated Creat Clear 63, Estimated GFR 71, Est GFR ( Amer) 86, Glucose 484 H*, Calcium 10.1, Total Bilirubin 0.9, AST 35, ALT 40, Alkaline Phosphatase 121, Total Protein 7.6, Albumin 4.6, Globulin 3.0, Albumin/Globulin Ratio 1.5, Lipase 73 Result diagrams: 04/30/22 09:25 04/30/22 09:25 Orders (Tests/Meds): ED MEDICATIONS Discontinued Medications Generic Name Dose Route Start Last Admin Trade Name Della PRN Reason Stop Dose Admin Sodium Chloride 1,000 mls @ 999 mls/hr 04/30/22 09:30 04/30/22 09:37 Sod Chlor 0.9% 1000ml Bag IV 04/30/22 10:30 999 mls/hr .Q1H1M GAIL Administration Promethazine HCl 25 mg 04/30/22 09:30 04/30/22 09:38 Promethazine Hcl 25mg/Ml 1ml Vial IV 04/30/22 09:31 25 mg ONCE ONE Administration Sodium Chloride 25 ml 04/30/22 09:30 04/30/22 09:38 Sodium Chloride 0.9% 25ml Bag IV 04/30/22 09:31 25 ml ONCE ONE Administration - Reevaluation(s) Time: 11:19 Reevaluation #1: On reevaluation, patient is feeling better. Resting comfortably in bed. Repeat abdominal examination is benign. He is tolerating oral intake. Patient likely has gastritis gastroparesis secondary to uncontrolled diabetes. Patient was explained the importance of medication compliance. Needs follow-up with PCP in 48 hours. Given strict return precautions. Verbalized understanding. Medical Decision Narrative: 46-year-old male presented to the emergency department with abdominal discomfort. Patient is a longstanding history of medical noncompliance gastroparesis. Abdomen is mildly tender in epigastric region. No acute abdomen. Work-up initiated. Abdominal Pain HPI - General Chief Complaint: Abdominal Pain Stated Complaint: abd pains Time Seen by Provider: 04/30/22 09:20 Mode of Arrival: Wheelchair Limitations: No Limitations Description of Symptoms (Recalled from ER Triage Doc. by RN): c/o vomiting all night with upper center abdomen pain - History of Present Illness HPI narrative: 46-year-old male presented to the emergency department with some epigastric discomfort. Patient is a longstanding history of gastroparesis. He is seen numerous times for similar complaints.
[2022-04-30 09:47] LABS: Glucose 484 mg/dl (74-100)
--- NOTE | 2022-04-30 09:47 | PC.NURSE ---
lab called with glucose of 484 MD aware
[2022-04-30 10:30] VITALS: BP 171/88; PULSE 73; O2SAT 100
[2022-04-30 11:43] VITALS: BP 150/68; PULSE 70; RESP 17; TEMP 37.1; O2SAT 100
== END 2022-04-30 11:45 | disposition home or self-care (01) ==
PROVIDERS: Emergency Provider Emergency Medicine; PCP Family Medicine
DX: E11.65 Type 2 diabetes mellitus with hyperglycemia (principal); K31.84 Gastroparesis; I10 Essential (primary) hypertension; E78.5 Hyperlipidemia, unspecified; K21.9 Gastro-esophageal reflux disease without esophagitis; R00.2 Palpitations; M19.90 Unspecified osteoarthritis, unspecified site; I80.9 Phlebitis and thrombophlebitis of unspecified site; B15.9 Hepatitis A without hepatic coma; Z88.8 Allergy status to other drugs, medicaments and biological substances; Z88.6 Allergy status to analgesic agent; Z91.041 Radiographic dye allergy status; Z72.0 Tobacco use
CPT/HCPCS: 80053; 83690; 85025; 96365; 96375; 99284

== ENCOUNTER 2022-04-30 12:12 | Emergency (ER) | payer OTHER, SELFPAY ==
[2022-04-30 12:13] VITALS: BP 194/137; PULSE 97; RESP 18; TEMP 36.8; O2SAT 99; BMI 21.9
--- NOTE | 2022-04-30 12:38 | PC.NURSE ---
AMANDA ORELLANA at
--- NOTE | 2022-04-30 12:59 | HMH.EDABDPAI ---
ED Disposition Clinical Impression: Gastroparesis Disposition: Home, Self-Care Condition on Discharge: Good Instructions: DI for Acute Abdominal Pain Referrals: Jermain Cheung MD [Primary Care Provider] - - Critical Care Critical Care Time: No Attestation: On 04/30/22, the high probability of a clinically significant, sudden or life threatening deterioration of the following system(s) required my full and direct attention, intervention and personal management. The time I documented below is in addition to time spent performing reported procedures but includes the following listed in this critical care notation. Medical Decision Making - Medical Records Medical records reviewed: Yes: I reviewed the patient's medical records. - Ben Inquiry Pt receiving controlled substance: Yes Ben was queried for this patient: No Reason not queried -: Ben system downtime Risks and benefits of using a controlled substance: were discussed with pt by me Vital Signs: 04/30/22 12:13 Temperature 98.2 F Temperature Source Oral Pulse Rate [Left Radial] 97 H Respiratory Rate 18 Blood Pressure [Right Arm] 194/137 H Blood Pressure Mean [Right Arm] 156 Blood Pressure Source [Right Arm] Automatic Cuff Blood Pressure Position [Right Arm] Sitting 02 Sat by Pulse Oximetry 99 Oxygen Delivery Method Room Air Orders (Tests/Meds): ED MEDICATIONS Discontinued Medications Generic Name Dose Route Start Last Admin Trade Name Freq PRN Reason Stop Dose Admin Hydrocodone Bitart/Acetaminophen 1 tab 04/30/22 13:32 Apap/Hydrocodone 325mg/7.5mg Tab PO 04/30/22 13:33 ONCE ONE Morphine Sulfate 4 mg 04/30/22 12:38 04/30/22 12:44 Morphine 2mg/Ml Syringe IM 04/30/22 12:39 4 mg ONCE ONE Administration - Reevaluation(s) Time: 13:43 Reevaluation #1: Reevaluation, patient is feeling better. Repeat abdominal examination is benign. Patient is tolerating oral intake. Patient needs follow-up with PCP in 48 hours. Given strict return precautions. Verbalized understanding. Medical Decision Narrative: 46-year-old male presenting with some abdominal discomfort. Patient is a longstanding history of chronic abdominal pain. Abdomen is relatively benign. No evidence of acute abdomen. Patient provided symptomatic treatment. Abdominal Pain HPI - General Chief Complaint: Abdominal Pain Stated Complaint: abd pain Time Seen by Provider: 04/30/22 12:20 Mode of Arrival: Ambulatory Limitations: No Limitations Description of Symptoms (Recalled from ER Triage Doc. by RN): c/o continous abdomen pain, pt was released from ER for abdomen pain and then checked back in saying it wasnt any better - History of Present Illness HPI narrative: 38-year-old male presenting to the emergency department with abdominal pain. Patient returns again with abdominal pain. He was seen earlier this morning and his symptoms have improved. Patient states that he got outside the hospital his pain returned. He states that he has pain medicine. Has not had any nausea or vomiting. No diarrhea. No fevers or chills. No headache or change in vision. No focal weakness. - Related Data Home Medications Medication Instructions Recorded Confirmed Amitriptyline HCl [Elavil 25mg 25 mg PO HS 01/03/18 11/06/21 tablet] Gabapentin [Gabapentin 300mg Cap] 600 mg PO HS 01/03/18 11/06/21 Calcium Carbonate/Simethicone 1 each PO DAILY PRN 02/22/19 11/06/21 [[place] Heartburn+Gas] Linaclotide [Linzess] 145 mcg PO DAILY 02/23/19 11/06/21 Glimepiride 2 mg PO DAILYDM 04/05/20 11/06/21 Metformin HCl [Glucophage 500mg 500 mg PO BID 04/05/20 11/06/21 Tablet] lisinopriL [Lisinopril] 10 mg PO DAILY 11/07/21 11/07/21 Previous Rx's Medication Instructions Recorded Ondansetron [Zofran 4mg ODT] 4 mg PO BIDP PRN #10 tab 01/25/22 Ondansetron [Zofran 4mg ODT] 4 mg PO TIDP PRN #12 tab 02/16/22 Pantoprazole Sodium [Protonix 40
[2022-04-30 15:07] VITALS: BP 166/89; PULSE 81; RESP 173; TEMP 36.8; O2SAT 99
== END 2022-04-30 15:08 | disposition home or self-care (01) ==
PROVIDERS: Emergency Provider Emergency Medicine; PCP Family Medicine
DX: E11.43 Type 2 diabetes mellitus with diabetic autonomic (poly)neuropathy (principal); K31.84 Gastroparesis; K21.9 Gastro-esophageal reflux disease without esophagitis; E78.5 Hyperlipidemia, unspecified; I10 Essential (primary) hypertension; R00.2 Palpitations; M19.90 Unspecified osteoarthritis, unspecified site
CPT/HCPCS: 96372; 99283

== ENCOUNTER 2022-05-31 08:19 | Emergency (ER) | payer OTHER, SELFPAY ==
[2022-05-31 08:25] VITALS: BP 233/137; PULSE 100; RESP 20; TEMP 36.8; O2SAT 98; BMI 21.9
--- NOTE | 2022-05-31 08:26 | PC.NURSE ---
0826 MD AT BEDSIDE, AWARE OF ELEVATED B/P
--- NOTE | 2022-05-31 08:26 | HMH.EDABDPAI ---
ED Disposition Clinical Impression: Hyperglycemia due to diabetes mellitus Abdominal pain Qualifiers: Abdominal location: epigastric Qualified Code(s): R10.13 - Epigastric pain Hypertension Qualifiers: Hypertension type: primary hypertension Qualified Code(s): I10 - Essential (primary) hypertension Disposition: Home, Self-Care Condition on Discharge: Fair Instructions: Acute Abdominal Pain Additional Instructions: Follow-up with your primary care physician if you do not feel better in the next 3 to 4 days. Return to the emergency department immediately if you feel worse in any way. Please take all medications as prescribed and adhere to a diabetic diet. Referrals: Jermain Cheung MD [Primary Care Provider] - - Critical Care Critical Care Time: No Attestation: On 05/31/22, the high probability of a clinically significant, sudden or life threatening deterioration of the following system(s) required my full and direct attention, intervention and personal management. The time I documented below is in addition to time spent performing reported procedures but includes the following listed in this critical care notation. Medical Decision Making - Medical Records Medical records reviewed: Yes: I reviewed the patient's medical records. - Ben Inquiry Pt receiving controlled substance: No Vital Signs: 05/31/22 08:25 05/31/22 08:31 05/31/22 08:39 Temperature 98.2 F Temperature Source Oral Pulse Rate 98 H Pulse Rate [Brachial] 100 H Respiratory Rate 20 Blood Pressure 190/153 H 190/153 H Blood Pressure [Right Arm] 233/137 H Blood Pressure Mean 171 Blood Pressure Mean [Right Arm] 169 Blood Pressure Source [Right Arm] Automatic Cuff Blood Pressure Position [Right Arm] Sitting 02 Sat by Pulse Oximetry 98 98 Oxygen Delivery Method Room Air 05/31/22 09:00 05/31/22 09:30 Temperature Temperature Source Pulse Rate 90 63 Pulse Rate [Brachial] Respiratory Rate Blood Pressure 149/99 H 159/96 H Blood Pressure [Right Arm] Blood Pressure Mean 117 121 Blood Pressure Mean [Right Arm] Blood Pressure Source [Right Arm] Blood Pressure Position [Right Arm] 02 Sat by Pulse Oximetry 98 100 Oxygen Delivery Method - Lab Data Lab results reviewed: Yes: I reviewed the patient's lab results. Lab Results 05/31/22 08:30: WBC 6.2, RBC 5.14, Hgb 15.2, Hct 46.7, MCV 90.9, MCH 29.6, MCHC 32.5, RDW 13.5, Plt Count 211, MPV 10.5 H, Neut % (Auto) 70.5, Lymph % (Auto) 21.6, [place] % (Auto) 4.8, Eos % (Auto) 1.5, Baso % (Auto) 1.6, Neut # (Auto) 4.4, Lymph # (Auto) 1.3, [place] # (Auto) 0.3, Eos # (Auto) 0.1, Baso # (Auto) 0.1 05/31/22 08:30: Sodium 134 L, Potassium 4.3, Chloride 99, Carbon Dioxide 25, Anion Gap 14.3, BUN 16, Creatinine 0.80, Estimated Creat Clear 87, Estimated GFR 103, Est GFR ( Amer) 125, Glucose 469 H*, Calcium 9.2, Total Bilirubin 0.6, AST 37, ALT 25, Alkaline Phosphatase 117, Total Protein 7.1, Albumin 4.1, Globulin 3.0, Albumin/Globulin Ratio 1.4, Lipase 104 05/31/22 09:10: Urine Color Yellow, Urine Appearance Clear, Urine pH 6.5, Ur Specific [place] 1.015, Urine Protein 2+, Urine Glucose (UA) 3+, Urine Ketones Trace, Urine Blood 1+, Urine Nitrate Negative, Urine Bilirubin Negative, Urine Urobilinogen 0.2, Ur Leukocyte Esterase Negative, Urine RBC 5-10, Urine WBC Occasional, Ur Squamous Epith Cells Occasional, Urine Bacteria Trace 05/31/22 10:12: POC Glucose 421 H* Result diagrams: 05/31/22 08:30 05/31/22 08:30 Orders (Tests/Meds): ED MEDICATIONS Discontinued Medications Generic Name Dose Route Start Last Admin Trade Name Della PRN Reason Stop Dose Admin Insulin Human Regular 15 unit 05/31/22 09:05 05/31/22 09:10 Insulin Human Regular 100 Units/Ml 10ml Vial SQ 05/31/22 09:06 15 unit ONCE ONE Administration Insulin Human Regular 20 unit 05/31/22 10:15 05/31/22 10:21 Insulin Human Regular 100 Units/Ml 10ml Vial SQ 05/31/22 10:16 20
[2022-05-31 08:31] VITALS: BP 190/153; PULSE 98; O2SAT 98
[2022-05-31 08:39] VITALS: BP 190/153
[2022-05-31 08:47] LABS: Basophils # 0.1 K/mm3 (0-0.2); Basophils % 1.6 % (0.1-2.0); Eosinophils # 0.1 K/mm3 (0.0-0.4); Eosinophils % 1.5 % (0.1-12.0); Hematocrit 46.7 % (42.0-52.0); Hemoglobin 15.2 g/dL (14.1-18.0); Lymphocytes # 1.3 K/mm3 (0.7-4.5); Lymphocytes % 21.6 % (10-50); Mean Corpuscular HGB Conc 32.5 g/dL (31.8-35.4); Mean Corpuscular Hemoglobin 29.6 pg (27.0-31.2); Mean Corpuscular Volume 90.9 fl (80-94); Mean Platelet Volume 10.5 fl (7.4-10.4); Monocytes # 0.3 K/mm3 (0.1-1.0); Monocytes % 4.8 % (1.7-9.3); Neutrophils # 4.4 K/mm3 (1.8-7.8); Neutrophils % 70.5 % (37.0-80.0); Platelet Count 211 K/mm3 (142-424); Red Blood Count 5.14 M/mm3 (4.60-6.20); Red Cell Distribution Width 13.5 % (11.5-17.5); White Blood Count 6.2 K/mm3 (4.8-10.8)
--- NOTE | 2022-05-31 08:47 | PC.NURSE ---
BLANKET AND URINAL PROVIDED. NO FURTHER NEEDS AT THIS TIME
[2022-05-31 09:00] VITALS: BP 149/99; PULSE 90; O2SAT 98
[2022-05-31 09:02] LABS: Alanine Aminotransferase 25 U/L (12-78); Albumin Level 4.1 g/dl (3.5-5.0); Albumin/Globulin Ratio 1.4 (1.1-1.8); Alkaline Phosphatase 117 U/L (38-126); Anion Gap 14.3 mEq/L (5-15); Aspartate Amino Transferase 37 U/L (17-59); Bilirubin,Total 0.6 mg/dl (0.2-1.3); Blood Urea Nitrogen 16 mg/dl (9-20); Calcium 9.2 mg/dl (8.4-10.2); Carbon Dioxide 25 mmol/L (22.0-30.0); Chloride 99 mmol/L (98-107); Creatinine Clearance Estimated 87 mL/min (50-200); Estimated Glomerular Filt Rate 103 ml/min (>60); GFR (African American) 125 ML/MIN (>60); Lipase 104 U/L (23-300); Potassium 4.3 mmoL/L (3.5-5.1); Sodium 134 mmol/L (136-145); Total Protein,Serum 7.1 g/dl (6.3-8.2)
[2022-05-31 09:05] LABS: Glucose 469 mg/dl (74-100)
--- NOTE | 2022-05-31 09:05 | INFXCTL.NOTE ---
0904 NOTIFIED OF CRITICAL GLUCOSE OF 469, NAME AND VERIFIED WITH ROCCO IN LAB. ORDERES RECEIVED FROM ED
[2022-05-31 09:15] LABS: Microscopic, Urine URINE MICROSCOPIC (MICROSCOPIC)
[2022-05-31 09:30] VITALS: BP 159/96; PULSE 63; O2SAT 100
[2022-05-31 09:32] LABS: Appearance,Urine CLEAR (Clear); Bilirubin,Urine Negative (Negative); Blood, Urine 1+ (Negative); Color,Urine YELLOW (Yellow); Glucose,Urine (UA) 3+ (Negative); Ketones,Urine TRACE (Negative); Leukocyte Esterase,Urine Negative (Negative); Nitrate,Urine Negative (Negative); PH,Urine 6.5 (5.0-8.5); Protein,Urine 2+ (Negative); Specific Gravity, Urine 1.015 (1.005-1.030); Urobilinogen,Urine 0.2 EU/dl (0.2)
[2022-05-31 09:46] LABS: Bacteria,Urine Trace /lpf; Squamous Epithelial Cell,Urine Occasional #/hpf (0-5); WBC,Urine Occasional #/hpf (0-3)
[2022-05-31 10:18] LABS: POC Glucose,Bedside 421 (70-110)
--- NOTE | 2022-05-31 10:18 | PC.NURSE ---
1012 MADE AWARE OF ELEVATED GLUCOSE, NEW ORDERS
--- NOTE | 2022-05-31 10:25 | PC.NURSE ---
PT RESTING COMFORTABLY UPON ENTERING ROOM, INSULIN GIVEN. PT WITHOUT NEEDS VOICED
--- NOTE | 2022-05-31 10:55 | PC.NURSE ---
PT RESTING WITH EYES CLOSED, NO DISTRESS NOTED
--- NOTE | 2022-05-31 11:20 | PC.NURSE ---
AWARE OF GLUCOSE 281
--- NOTE | 2022-05-31 11:21 | PC.NURSE ---
MD AT BEDSIDE, UPDATED PT ON POC
[2022-05-31 11:25] LABS: POC Glucose,Bedside 281 (70-110)
[2022-05-31 11:27] VITALS: BP 125/76; PULSE 65; RESP 17; TEMP 36.8; O2SAT 100
== END 2022-05-31 11:29 | disposition home or self-care (01) ==
PROVIDERS: Emergency Provider Emergency Medicine; PCP Family Medicine
DX: E11.65 Type 2 diabetes mellitus with hyperglycemia (principal); R10.13 Epigastric pain; I10 Essential (primary) hypertension; Z88.8 Allergy status to other drugs, medicaments and biological substances; Z88.6 Allergy status to analgesic agent; Z91.041 Radiographic dye allergy status; K21.9 Gastro-esophageal reflux disease without esophagitis; E78.5 Hyperlipidemia, unspecified; R00.2 Palpitations; M19.90 Unspecified osteoarthritis, unspecified site; E11.43 Type 2 diabetes mellitus with diabetic autonomic (poly)neuropathy; K31.84 Gastroparesis
CPT/HCPCS: 80053; 81001; 82962; 83690; 85025; 96372; 96374; 96375; 99284

== ENCOUNTER → 2022-10-12 10:42 | Outpatient (CLI) | payer OTHER, SELFPAY ==
[2022-10-12 18:25] LABS: Alanine Aminotransferase 20 U/L (12-78); Albumin Level 3.9 g/dl (3.5-5.0); Albumin/Globulin Ratio 1.6 (1.1-1.8); Alkaline Phosphatase 165 U/L (38-126); Anion Gap 16.2 mEq/L (5-15); Aspartate Amino Transferase 26 U/L (17-59); Bilirubin,Total 0.9 mg/dl (0.2-1.3); Blood Urea Nitrogen 14 mg/dl (9-20); Calcium 9.3 mg/dl (8.4-10.2); Carbon Dioxide 25 mmol/L (22.0-30.0); Chloride 95 mmol/L (98-107); Estimated Glomerular Filt Rate 90 ml/min (>60); GFR (African American) 109 ML/MIN (>60); Globulin 2.5 g/dL (1.3-3.2); Potassium 4.2 mmoL/L (3.5-5.1); Sodium 132 mmol/L (136-145); Total Protein,Serum 6.4 g/dl (6.3-8.2)
[2022-10-12 18:28] LABS: Hemoglobin A1C 12.1 % (4.0-6.0)
[2022-10-12 18:35] LABS: Glucose 444 mg/dl (74-100)
== END ==
PROVIDERS: PCP Family Medicine; Visit Provider Family Medicine
DX: E11.9 Type 2 diabetes mellitus without complications (principal); Z79.84 Long term (current) use of oral hypoglycemic drugs
CPT/HCPCS: 80053; 83036

== ENCOUNTER 2022-11-08 10:47 | Emergency (ER) | payer OTHER, SELFPAY ==
[2022-11-08 11:00] VITALS: BMI 21.9
[2022-11-08 11:02] VITALS: BP 163/96; PULSE 111; RESP 20; TEMP 36.7; O2SAT 100; BMI 21.9
[2022-11-08 11:11] LABS: Coronavirus 19, PCR Not Detected (NotDetected); Influenza A, PCR Not Detected (NotDetected); Influenza B, PCR Not Detected (NotDetected)
[2022-11-08 11:13] LABS: Basophils # 0.1 K/mm3 (0-0.2); Basophils % 0.6 % (0.1-2.0); Eosinophils # 0.2 K/mm3 (0.0-0.4); Eosinophils % 1.3 % (0.1-12.0); Hematocrit 48.8 % (42.0-52.0); Hemoglobin 16.4 g/dL (14.1-18.0); Lymphocytes # 1.2 K/mm3 (0.7-4.5); Lymphocytes % 10.9 % (10-50); Mean Corpuscular HGB Conc 33.7 g/dL (31.8-35.4); Mean Corpuscular Hemoglobin 30.3 pg (27.0-31.2); Mean Platelet Volume 11.1 fl (7.4-10.4); Monocytes # 0.3 K/mm3 (0.1-1.0); Monocytes % 2.4 % (1.7-9.3); Neutrophils # 9.5 K/mm3 (1.8-7.8); Neutrophils % 84.8 % (37.0-80.0); Platelet Count 339 K/mm3 (142-424); Red Blood Count 5.43 M/mm3 (4.60-6.20); Red Cell Distribution Width 13.2 % (11.5-17.5); White Blood Count 11.2 K/mm3 (4.8-10.8)
[2022-11-08 11:17] LABS: Chloride 95 mmol/L (98-107); Potassium 3.9 mmoL/L (3.5-5.1); Sodium 133 mmol/L (136-145)
[2022-11-08 11:19] LABS: Alanine Aminotransferase 24 U/L (12-78); Aspartate Amino Transferase 29 U/L (17-59); Blood Urea Nitrogen 23 mg/dl (9-20); Creatinine Clearance Estimated 43 mL/min (50-200); Estimated Glomerular Filt Rate 46 ml/min (>60); GFR (African American) 56 ML/MIN (>60); Lactic Acid 1.6 mmol/L (0.7-2.1)
[2022-11-08 11:20] LABS: Albumin Level 4.5 g/dl (3.5-5.0); Albumin/Globulin Ratio 1.6 (1.1-1.8); Alkaline Phosphatase 143 U/L (38-126); Anion Gap 14.9 mEq/L (5-15); Calcium 9.5 mg/dl (8.4-10.2); Carbon Dioxide 27 mmol/L (22.0-30.0); Globulin 2.9 g/dL (1.3-3.2); Lipase 42 U/L (23-300); Total Protein,Serum 7.4 g/dl (6.3-8.2)
[2022-11-08 11:29] LABS: Glucose 450 mg/dl (74-100)
--- NOTE | 2022-11-08 11:29 | PC.NURSE ---
aware of glucose of 450
[2022-11-08 11:49] LABS: Acetone, Serum (Rapid) None Detected (None Detect)
[2022-11-08 12:00] VITALS: BP 167/116; PULSE 91; RESP 18; O2SAT 100
[2022-11-08 12:13] LABS: VBG Base Excess -3.3 mmol/L (-2.4-2.3); VBG HCO3 22.6 mmol/L (23-30); VBG Oxygen Saturation 78.3 % (50-70); VBG PH 7.33 mmol/L (7.31-7.41); VBG PO2 41.9 mmol/L (28-40)
--- NOTE | 2022-11-08 12:14 | HMH.EDGENADL ---
Discharge Plan Disposition Patient Disposition: Home, Self-Care Condition: Good Prescriptions Prescriptions: New ondansetron 4 mg tablet,disintegrating 4 mg PO Q8H PRN (Reason: nausea and vomiting) 4 Days Qty: 12 0RF No Action Linzess 145 mcg capsule 145 mcg PO DAILY Qty: 30 2RF gabapentin 300 mg capsule 300 mg PO BID Qty: 60 2RF glimepiride 2 mg tablet 2 mg PO DAILYDM Qty: 30 5RF lisinopril 20 mg tablet 20 mg PO DAILY Qty: 30 5RF metformin 500 mg tablet 500 mg PO BID Qty: 60 5RF docusate sodium 100 MG capsule 100 mg PO BID Qty: 20 0RF amitriptyline 25 MG tablet 25 mg PO HS calcium carbonate-simethicone [[facility] Heartburn-Gas] 1 EACH tablet,chewable 1 ea PO DAILY PRN (Reason: stomach pain) linaclotide [Linzess] 145 MCG capsule 145 mcg PO DAILY sucralfate 1 GM/10 ML suspension 10 ml PO ACHS Qty: 500 0RF Referrals Follow up/Referrals: Jermain Cheung MD [Primary Care Provider] - See instructions Activity Restrictions/Add. Instructions Additional Instructions/Restrictions: You were evaluated in the emergency department today. Please orange picker your prescription for Zofran at the pharmacy and take as needed for nausea and vomiting. Orally hydrate at home is much as possible. Continue taking your diabetes medications at home. Follow-up with your primary care provider over the next 48 hours. Return to the emergency department for any new or worsening symptoms. Clinical Impressions Clinical Impression: Recurrent abdominal pain, Nausea & vomiting Instructions Patient Instructions: DI for Acute Abdominal Pain Discharge ED Provider: Kimberly Lemus General Adult HPI General Chief complaint: Abdominal Pain Stated complaint: abd pain, vomiting, diarrhea, nausea Time Seen by Provider: 11/08/22 11:27 Mode of Arrival: Ambulatory Source of Information: Patient Limitations: No Limitations Description of Symptoms (Recalled from ER Triage Doc. by RN): pt to ed c/o n/v/d and lower abd pain that started yesterday History of Present Illness HPI narrative: This patient is a 47-year-old male with a history of type 2 diabetes, gastroparesis, chronic abdominal pain, nausea, and vomiting presenting to the emergency department for evaluation of nausea and vomiting that started yesterday. He states that he has not been able to keep anything down since last night. Nothing makes his symptoms better or worse. He states that it feels similar to prior episodes of nausea and vomiting for him. He denies any other concerns, such as fevers, chest pain, shortness of breath, changes in bowel movements, urinary issues, or other issues. Related Data Home Medications Medication Instructions Recorded Confirmed amitriptyline 25 mg tablet 25 mg PO HS MOOD 01/03/18 10/12/22 calcium carbonate 750 1 ea PO DAILY PRN stomach pain 02/22/19 10/12/22 mg-simethicone 80 mg chewable tablet ([place] Heartburn-Gas) linaclotide 145 mcg capsule 145 mcg PO DAILY IBS 02/23/19 10/12/22 (Linzess) Previous Rx's Medication Instructions Recorded sucralfate 100 mg/mL oral 10 ml PO ACHS #500 mL 02/16/22 suspension docusate sodium 100 mg capsule 100 mg PO BID #20 caps 03/08/22 gabapentin 300 mg capsule 300 mg PO BID NERVE PAIN #60 caps 10/12/22 glimepiride 2 mg tablet 2 mg PO DAILYDM Diabetes #30 tabs 10/12/22 linaclotide 145 mcg capsule 145 mcg PO DAILY #30 caps 10/12/22 (Linzess) lisinopril 20 mg tablet 20 mg PO DAILY High blood pressure 10/12/22 #30 tabs metformin 500 mg tablet 500 mg PO BID Diabetes #60 tabs 10/12/22 ondansetron 4 mg disintegrating 4 mg PO Q8H PRN nausea and 11/08/22 tablet vomiting 4 days #12 tabs Allergies Allergy/AdvReac Type Severity Reaction Status Date / Time codeine [CODEINE] Allergy Unknown UNKNOWN Verified 10/12/22 09:55 Iodinated Contrast Media Allergy Unknown TONGUE Verified 12/15/20 01:21 [Iodinated Contrast Media - SWELLING,
--- NOTE | 2022-11-08 12:52 | PC.NURSE ---
Gave patient Tamar Mist and pudding to PO challenge patient.
[2022-11-08 13:12] VITALS: BP 155/95; PULSE 88; RESP 20; TEMP 36.8; O2SAT 100
== END 2022-11-08 13:13 | disposition home or self-care (01) ==
PROVIDERS: Emergency Provider Emergency Medicine; PCP Family Medicine
DX: R10.9 Unspecified abdominal pain (principal); G89.29 Other chronic pain; R42 Dizziness and giddiness; Z20.822 Contact with and (suspected) exposure to COVID-19; E11.65 Type 2 diabetes mellitus with hyperglycemia; E11.43 Type 2 diabetes mellitus with diabetic autonomic (poly)neuropathy; K31.84 Gastroparesis; Z79.84 Long term (current) use of oral hypoglycemic drugs; Z79.899 Other long term (current) drug therapy; Z88.5 Allergy status to narcotic agent; Z88.8 Allergy status to other drugs, medicaments and biological substances; Z91.041 Radiographic dye allergy status
CPT/HCPCS: 80053; 82009; 82803; 83605; 83690; 85025; 96361; 96374; 96375; 99284; C9803; J2405; U0003; U0005